=== PATIENT | female | born 1950 | race Caucasian/White ===

== ENCOUNTER 2018-07-04 22:04 | Emergency (ER) | payer MEDICARE, OTHER ==
[2018-07-04] MEDS ORDERED: LIDOCAINE 1% INJ-PF (10 MG/ML) 30 ML SDV INJ ONE (22:50)
[2018-07-04] MEDS ORDERED: ACETAMINOPHEN 325 MG TABLET PO ONE (22:50)
[2018-07-04] MEDS ORDERED: DIPH/PERTUSS(ACELL)/TETANUS VAC/PF 0.5 ML SYR (>=10YO) IM ONE (22:50)
--- NOTE | 2018-07-04 22:52 | ER Document Report ---
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 Patient with laceration to right second finger Associated Symptoms: Other - Right second finger laceration Exacerbated by: Movement Relieved by: Denies Similar symptoms previously: No Recently seen / treated by doctor: No - ROS ROS below otherwise negative: Yes Systems Reviewed and Negative: Yes All other systems reviewed and negative - REPRODUCTIVE LMP: na - MUSCULOSKELETAL Musculoskeletal: REPORTS: Extremity pain - DERM Skin Color: Normal Skin Problems: Laceration Past Medical History - General Information source: Patient - Social History Smoking Status: Never Smoker Frequency of alcohol use: None Drug Abuse: None Lives with: Family Family History: Reviewed & Not Pertinent - Past Medical History Cardiac Medical History: Reports: Hx Hypertension Denies: Hx Coronary Artery Disease, Hx Heart Attack Pulmonary Medical History: Reports: Hx Asthma Denies: Hx Bronchitis, Hx COPD, Hx Pneumonia Neurological Medical History: Denies: Hx Cerebrovascular Accident, Hx Seizures Musculoskeletal Medical History: Reports Hx Arthritis Past Surgical History: Reports: Hx Cholecystectomy, Hx Orthopedic Surgery, Hx Tonsillectomy - Immunizations Hx Diphtheria, Pertussis, Tetanus Vaccination: Yes Vertical Provider Document - CONSTITUTIONAL Agree With Documented VS: Yes Exam Limitations: No Limitations General Appearance: WD/WN, No Apparent Distress - INFECTION CONTROL TRAVEL OUTSIDE OF THE [place] IN LAST 30 DAYS: No - HEENT HEENT: Atraumatic, Normocephalic - NECK Neck: Normal Inspection - RESPIRATORY Respiratory: No Respiratory Distress - CARDIOVASCULAR Pulses: Normal: Radial - MUSCULOSKELETAL/EXTREMETIES Musculoskeletal/Extremeties: MAEW, Tender - Right second finger tip tenderness with laceration, No Edema - NEURO Level of Consciousness: Awake, Alert, Appropriate Motor/Sensory: No Motor Deficit, No Sensory Deficit - DERM Integumentary: Warm, Dry, Laceration - Radial aspect of right second finger Course - Vital Signs Vital signs: Temp Pulse Resp BP Pulse Ox 98.6 F 111 H 18 169/81 H 95 07/04/18 22:16 07/04/18 22:16 07/04/18 22:16 07/04/18 22:16 07/04/18 22:16 Procedures - Laceration/Wound Repair Right Finger 2nd digit Wound length (cm): 1.5 Wound's Depth, Shape: Irregular, Flap Laceration pre-procedure: Shur-Clens applied Anesthetic type: 1% Lidocaine Wound explored: Clean Wound Repaired With: Sutures Suture Size/Type: 5:0, Nylon Number of Sutures: 3 Post-procedure wound care: Sterile dressing applied Post-procedure NV exam normal: Yes Complications: No Discharge - Discharge Clinical Impression: Sinusitis Qualifiers: Sinusitis location: unspecified location Chronicity: acute Recurrence: not specified as recurrent Qualified Code(s): J01.90 - Acute sinusitis, unspecified Finger laceration Qualifiers: Encounter type: initial encounter Finger: index finger Damage to nail status: without damage Foreign body presence: without foreign body Laterality: right Qualified Code(s): S61.210A - Laceration without foreign body of right index finger without damage to nail, initial encounter Condition: Stable Disposition: HOME, SELF-CARE Instructions: Doxycycline (OM), Laceration Care (OM), Sinusitis (OM), Tetanus Immunization Given ([facility]) Additional Instructions: Return immediately for any new or worsening symptoms Followup with your primary care provider, call tomorrow to make a followup appointment Suture removal in 12 days Prescriptions: Doxycycline Hyclate 100 mg PO BID #20 capsule Referrals: DARCI WILLS PA [Primary Care Provider] - Follow up as needed
[2018-07-05] MEDS ORDERED: DOXYCYCLINE HYCLATE 100 MG TABLET PO ONE (00:21)
[2018-07-05 00:39] VITALS: BP 138/72
== END 2018-07-05 00:46 | disposition home or self-care (01) ==
LOC: ER 22:04
DX: S61.210A Laceration without foreign body of right index finger without damage to nail, initial encounter (principal); W45.8XXA Other foreign body or object entering through skin, initial encounter; Y93.89 Activity, other specified; J01.90 Acute sinusitis, unspecified; I10 Essential (primary) hypertension; J45.909 Unspecified asthma, uncomplicated
CPT/HCPCS: 99282; 90715; 12001; A9270; J3490

== ENCOUNTER 2018-09-03 12:23 | Emergency (ER) | payer MEDICARE, OTHER ==
[2018-09-03 12:52] VITALS: BP 118/59
--- NOTE | 2018-09-03 13:22 | ER Document Report ---
ED General - General Chief Complaint: Cough Stated Complaint: HEADACHE Time Seen by Provider: 09/03/18 13:07 TRAVEL OUTSIDE OF THE U.S. IN LAST 30 DAYS: No - HPI Notes: Patient is a 67-year-old female that presents to the emergency department for chief complaint of sinus pressure and cough. Patient reports increased sinus pressure on the right side of her face for the last 7-10 days. She is also endorsing a hoarse voice and dry cough since Saturday. She denies any fevers or chills. She denies any chest pain, palpitations, lightheadedness, nausea, vomiting and diarrhea. She has had a normal appetite. She states she has an albuterol inhaler but has not been using it. She denies formal diagnosis of asthma or COPD. She has been using Mucinex at home which gives her some relief. Past Medical History: Diabetes, hypertension Past Surgical History: Tonsillectomy, bilateral knee replacements, hysterectomy, cholecystectomy, appendectomy Social History: Denies drugs alcohol and tobacco Family History: Reviewed and noncontributory for presenting illness Allergies: Reviewed, see documented allergy list. REVIEW OF SYSTEMS: CONSTITUTIONAL : No fever No chills No diaphoresis No recent illness EENT: No vision changes congestion No sore throat CARDIOVASCULAR: No chest pain No palpitations RESPIRATORY: No shortness of breath cough No difficulty breathing GASTROINTESTINAL: No abdominal pain No nausea No vomiting No diarrhea GENITOURINARY: No dysuria No hematuria No difficulty urinating MUSCULOSKELETAL: No back pain No leg pain No arm pain SKIN: No rashes No lesions LYMPHATIC: No swollen, enlarged glands. NEUROLOGICAL: No lightheadedness No headache No weakness No paresthesias PSYCHIATRIC: No anxiety No depression PHYSICAL EXAMINATION: Vital signs reviewed, nursing noted reviewed. GENERAL: Well-appearing, well-nourished and in no acute distress. HEAD: Atraumatic, normocephalic. EYES: Eyes appear normal, extraocular movements intact, sclera anicteric, conjunctiva are normal. ENT: Bilateral nasal mucosal edema, right maxillary and frontal sinus tenderness to percussion oropharynx clear without exudates. Moist mucous membranes. NECK: Normal range of motion, anterior chain lymphadenopathy LUNGS: Breath sounds clear to auscultation bilaterally and equal. No wheezes rales or rhonchi. HEART: Regular rate and rhythm without murmurs ABDOMEN: Soft, nontender, normoactive bowel sounds. No rebound, guarding, or rigidity. No masses appreciated. EXTREMITIES: Nontender, good range of motion, no pitting or edema. NEUROLOGICAL: No focal neurological deficits. Moves all extremities spontaneously Motor and sensory grossly intact on exam. PSYCH: Normal mood, normal affect. SKIN: Warm, Dry, normal turgor, no rashes or lesions noted on exposed skin - Related Data Allergies/Adverse Reactions: No Known Allergies Allergy (Verified 09/03/18 13:12) Past Medical History - Social History Smoking Status: Never Smoker Chew tobacco use (# tins/day): No Frequency of alcohol use: None Drug Abuse: None Family History: Reviewed & Not Pertinent Patient has suicidal ideation: No Patient has homicidal ideation: No - Past Medical History Cardiac Medical History: Reports: Hx Hypertension Denies: Hx Coronary Artery Disease, Hx Heart Attack Pulmonary Medical History: Reports: Hx Asthma Denies: Hx Bronchitis, Hx COPD, Hx Pneumonia Neurological Medical History: Denies: Hx Cerebrovascular Accident, Hx Seizures Endocrine Medical History: Reports: Hx Diabetes Mellitus Type 2 Renal/ Medical History: Denies: Hx Peritoneal Dialysis Musculoskeletal Medical History: Reports Hx Arthritis Past Surgical History: Reports: Hx Appendectomy, Hx Cholecystectomy, Hx Hysterectomy, Hx Orthopedic Surgery - knees, Hx Tonsillectomy - Immunizations Hx Diphtheria, Pertussis, Tetanus Vaccination: Yes Physical Exam - Vital signs Vitals: Temp Pulse Resp BP Pulse Ox 98.4 F 81 16 118/59 L 94 09/03/18 12:50 09/03/18 12:50 09/03/18 12:50 09/03/18 12:50 09/03/18 12:50 Course - Re-evaluation Re-evalutation: 09/03/18 13:21 Vitals reviewed. Nursing notes reviewed. Patient is in no acute respiratory distress. She is afebrile and nontoxic-appearing. She has tenderness to percussion of her sinuses consistent with acute sinusitis. Patient's lung sounds are clear to auscultation and her cough is dry. I did offer a chest x- ray to evaluate for underlying pneumonia which patient has declined. She will be started on Augmentin for her sinusitis. She was given albuterol inhaler for her cough. She was advised to continue using Mucinex and Nasonex at home. She will return to the emergency room if she develops new or worsening symptoms including fevers and shortness of breath. She will follow with her primary care for reevaluation in the next few days. She was discharged in stable condition. - Vital Signs Vital signs: Temp Pulse Resp BP Pulse Ox 98.4 F 81 16 118/59 L 94 09/03/18 12:50 09/03/18 12:50 09/03/18 12:50 09/03/18 12:50 09/03/18 12:50 Discharge - Discharge Clinical Impression: Cough Sinusitis Qualifiers: Sinusitis location: frontal Chronicity: acute Recurrence: non-recurrent Qualified Code(s): J01.10 - Acute frontal sinusitis, unspecified Condition: Stable Disposition: HOME, SELF-CARE Instructions: Sinusitis ([facility]) Additional Instructions: Please return to the emergency department if you have any worsening, or concern of your symptoms. Please return to the emergency department if you develop chest pain, difficulty breathing, severe abdominal pain, or ongoing vomiting. Please follow-up with your primary care physician in 2-3 days and any other recommended physicians. If prescribed, take all medications as directed. If you have any questions or concerns do not hesitate to return the emergency department for evaluation. If you start to develop worsening shortness of breath, fevers, palpitations, lightheadedness or general malaise please return to the emergency room for further evaluation. Prescriptions: Albuterol Sulfate [Proair HFA Inhalation Aerosol 8.5 gm MDI] 2 puff IH Q4H PRN #1 mdi PRN Reason: Amox Tr/Potassium Clavulanate [Augmentin 875-125 Tablet] 1 tab PO BID 14 Days tablet Referrals: DARCI WILLS PA [Primary Care Provider] - Follow up in 3-5 days
== END 2018-09-03 13:56 | disposition home or self-care (01) ==
LOC: ER 12:23
DX: J01.10 Acute frontal sinusitis, unspecified (principal); R05 Cough; R49.0 Dysphonia; E11.9 Type 2 diabetes mellitus without complications; I10 Essential (primary) hypertension; J45.909 Unspecified asthma, uncomplicated
CPT/HCPCS: 99283

== ENCOUNTER 2018-10-16 13:25 | Emergency (ER) | payer MEDICARE, OTHER ==
[2018-10-16 13:33] VITALS: BP 145/76
--- NOTE | 2018-10-16 13:53 | ER Document Report ---
HPI - HPI Time Seen by Provider: 10/16/18 13:44 Pain Level: 2 Notes: Patient is an afebrile, well-hydrated M 67-year-old female with a history of insulin-dependent diabetes who presents to the emergency department complaining of nasal congestion/discharge, postnasal drip, sinus pressure, and a dry nonproductive cough over the last week. She is eating and drinking without difficulties. She is urinating normally and having normal bowel movements. Denies drug allergies. She has been using Mucinex with minimal relief. No other concerns or complaints. Denies any headache, fever, neck pain, sore throat, chest pain, palpitations, syncope, shortness of breath, wheeze, dyspnea, abdominal pain, nausea/vomiting/diarrhea, urinary retention, dysuria, hematuria, or rash. - ROS Systems Reviewed and Negative: Yes All other systems reviewed and negative - CONSTITUTIONAL Constitutional: REPORTS: Fever, Chills - EENT EENT: REPORTS: Sore Throat - RESPIRATORY Respiratory: REPORTS: Coughing - REPRODUCTIVE Reproductive: DENIES: : Past Medical History - Social History Smoking Status: Never Smoker Chew tobacco use (# tins/day): No Frequency of alcohol use: None Drug Abuse: None Family History: Reviewed & Not Pertinent Patient has suicidal ideation: No Patient has homicidal ideation: No - Past Medical History Cardiac Medical History: Reports: Hx Hypertension Denies: Hx Coronary Artery Disease, Hx Heart Attack Pulmonary Medical History: Reports: Hx Asthma Denies: Hx Bronchitis, Hx COPD, Hx Pneumonia Neurological Medical History: Denies: Hx Cerebrovascular Accident, Hx Seizures Endocrine Medical History: Reports: Hx Diabetes Mellitus Type 2 Renal/ Medical History: Denies: Hx Peritoneal Dialysis Musculoskeletal Medical History: Reports Hx Arthritis Past Surgical History: Reports: Hx Appendectomy, Hx Cholecystectomy, Hx Hysterectomy, Hx Orthopedic Surgery - knees, Hx Tonsillectomy - Immunizations Hx Diphtheria, Pertussis, Tetanus Vaccination: Yes Vertical Provider Document - CONSTITUTIONAL Agree With Documented VS: Yes Notes: PHYSICAL EXAMINATION: GENERAL: Well-appearing, well-nourished and in no acute distress. A&Ox4. Answers questions appropriately. Moves comfortably w/o notable distress HEAD: Atraumatic, normocephalic. EYES: Pupils equal round and reactive to light, extraocular movements intact, sc evelina anicteric, conjunctiva are normal. ENT: EAC clear b/l. TM's intact b/l without erythema, fluid, or perforation. Nares patent and with clear discharge. oropharynx no erythema without exudates. Tonsils absent. No palatine shift. Uvula midline. No tongue protrusion. No drooling, hoarseness, or airway compromise. Moist mucous membranes. No sinus tenderness. Sinus illumination test negative. NECK: Normal range of motion, supple without lymphadenopathy. No rigidity/meningismus. LUNGS: Breath sounds clear to auscultation bilaterally and equal. No wheezes rales or rhonchi. No retractions HEART: Regular rate and rhythm without murmurs, rubs, gallops. NEUROLOGICAL: Normal speech, normal gait. Normal sensory, motor exams PSYCH: Normal mood, normal affect. SKIN: Warm, Dry, normal turgor, no rashes or lesions noted. - INFECTION CONTROL TRAVEL OUTSIDE OF THE [place] IN LAST 30 DAYS: No Course - Re-evaluation Re-evalutation: 10/16/18 13:52 Patient is an afebrile, well-hydrated, 67-year-old female who presents to the ED with acute URI, suspect viral. Vitals are acceptable. PE is otherwise unremarkable. No labs or imaging warranted at this time based on H&P. Patient has no significant cardiopulmonary or immunocompromised medical conditions. Patient's lungs are clear to auscultation bilaterally without tachycardia, hypoxia, or tachypnea. Patient is tolerating p.o. without any difficulties. Low suspicion for any meningitis, sepsis, peritonsillar/pharyngeal abscess, respiratory compromise, severe dehydration, or other emergent systemic condition at this time. Patient is aware this condition can change from initial presentation and she needs to monitor symptoms closely. Rx for tessalon. Conservative measures otherwise for symptoms. Recheck with your PCM in 3-5 days. Return to the ED with any worsening/concerning symptoms otherwise as reviewed in discharge. Patient is in agreement. - Vital Signs Vital signs: Temp Pulse Resp BP Pulse Ox 98.2 F 93 14 145/76 H 94 10/16/18 13:32 10/16/18 13:32 10/16/18 13:32 10/16/18 13:32 10/16/18 13:32 Discharge - Discharge Clinical Impression: Acute URI Condition: Stable Disposition: HOME, SELF-CARE Instructions: Upper Respiratory Illness ([facility]) Additional Instructions: Maintain adequate fluid intake Take meds as directed tylenol/ibuprofen as needed over the counter cold medication as needed for symptoms--may use afrin nose spray for no more than 5 days. Humidified air may help Wash your hands regularly Wear a mask when coughing F/u: with your PCM in 3-5 days for a recheck Return to the ED with any fever, worsening pain, chest pain, palpitations, syncope, worsening STATON, neck pain/stiffness, shortness of breath, wheezing, drooling, trouble swallowing/breathing, abdominal pain, n/v/d, rash, or worsening/concerning symptoms otherwise. Prescriptions: Benzonatate [Tessalon Perle 100 mg Capsule] 100 mg PO Q8HP PRN #15 cap PRN Reason: Forms: Elevated Blood Pressure Referrals: DARCI WILLS PA [Primary Care Provider] - Follow up in 3-5 days
== END 2018-10-16 14:02 | disposition home or self-care (01) ==
LOC: ER 13:25
DX: J06.9 Acute upper respiratory infection, unspecified (principal); R09.81 Nasal congestion; R09.82 Postnasal drip; J34.89 Other specified disorders of nose and nasal sinuses; R05 Cough; R50.9 Fever, unspecified; J02.9 Acute pharyngitis, unspecified; J45.909 Unspecified asthma, uncomplicated; I10 Essential (primary) hypertension; E11.9 Type 2 diabetes mellitus without complications; Z79.4 Long term (current) use of insulin
CPT/HCPCS: 99283

== ENCOUNTER → 2019-07-06 | Outpatient (CLI) | payer MEDICARE ==
[2019-07-06 14:14] LABS: BACTERIA (WET MOUNT) 4+ BACTERIA SEEN; EPITHELIALS (WET MOUNT) 4+ EPITHELIALS SEEN; T.VAGINALIS (WET MOUNT) NO TRICHOMONAS SEEN; WBCS (WET MOUNT) 4+ WBCS SEEN; YEAST (WET MOUNT) NO YEAST SEEN
== END ==
LOC: LAB 13:19
PROVIDERS: ATTEND Nurse Practitioner Acute Care
DX: M54.5 Low back pain (principal); N89.8 Other specified noninflammatory disorders of vagina; R39.0 Extravasation of urine
CPT/HCPCS: 87086; 87088; 87186; 87210

== ENCOUNTER → 2020-01-18 | Outpatient (CLI) | payer MEDICARE, OTHER ==
[2020-01-18 16:50] LABS: ABSOLUTE LYMPHOCYTES (AUTO) 0.8 10^3/uL (0.5-4.7); ABSOLUTE MONOCYTES (AUTO) 0.3 10^3/uL (0.1-1.4); BASOPHILS % (AUTO) 0.5 % (0-2); EOSINOPHILS % (AUTO) 1.1 % (0-6); HEMATOCRIT 30.4 % (36.0-47.0); HEMOGLOBIN 10.6 g/dL (12.0-15.5); LYMPHOCYTES % (AUTO) 18.8 % (13-45); MEAN CORPUSCULAR HEMOGLOBIN 30.2 pg (27.0-33.4); MEAN CORPUSCULAR VOLUME 86 fl (80-97); MONOCYTES % (AUTO) 7.5 % (3-13); PLATELET COUNT 123 10^3/uL (150-450); RED BLOOD COUNT 3.52 10^6/uL (3.72-5.28); SEGMENTED NEUTROPHILS % (AUTO) 72.1 % (42-78); TOTAL CELLS COUNTED % (AUTO) 100 %; WHITE BLOOD COUNT 4.2 10^3/uL (4.0-10.5)
[2020-01-18 16:55] LABS: APPEARANCE,URINE CLEAR; BILIRUBIN,URINE NEGATIVE (NEGATIVE); COLOR,URINE YELLOW; GLUCOSE, URINE NEGATIVE (NEGATIVE); KETONES,URINE NEGATIVE (NEGATIVE); LEUKOCYTE ESTERASE,URINE TRACE (NEGATIVE); NITRITE,URINE NEGATIVE (NEGATIVE); PROTEIN,URINE NEGATIVE (NEGATIVE); URINE SPECIFIC GRAVITY 1.008; UROBILINOGEN,URINE NEGATIVE mg/dL (<2.0)
[2020-01-18 17:11] LABS: ALBUMIN 3.1 g/dL (3.5-5.0); ALKALINE PHOSPHATASE 69 U/L (38-126); ANION GAP 5 (5-19); ASPARTATE AMINO TRANSFERASE 36 U/L (14-36); BILIRUBIN,DIRECT 0.1 mg/dL (0.0-0.4); BLOOD UREA NITROGEN 6 mg/dL (7-20); CALCIUM 8.3 mg/dL (8.4-10.2); CARBON DIOXIDE 30 mmol/L (22-30); CHLORIDE 102 mmol/L (98-107); GLUCOSE 91 mg/dL (75-110); POTASSIUM 3.6 mmol/L (3.6-5.0)
== END ==
LOC: OD 16:14
PROVIDERS: ATTEND Nurse Practitioner Family
DX: R10.84 Generalized abdominal pain (principal); R14.0 Abdominal distension (gaseous); R19.7 Diarrhea, unspecified; R68.81 Early satiety
CPT/HCPCS: 36415; 80053; 81001; 85025

== ENCOUNTER → 2020-01-20 | Outpatient (CLI) | payer MEDICARE, OTHER ==
--- NOTE | 2020-01-20 15:47 | RADIOLOGY REPORT (SQ) ---
EXAM DESCRIPTION: CT ABD/PELVIS WITH IV ONLY IMAGES COMPLETED DATE/TIME: 01/20/2020 2:45 pm REASON FOR STUDY: R10.32 LEFT LOWER QUADRANT PAIN R10.32 LEFT LOWER QUADRANT PAIN COMPARISON: None. TECHNIQUE: CT scan of the abdomen and pelvis performed using helical scanning technique with dynamic intravenous contrast injection. No oral contrast. Images reviewed with lung, soft tissue, and bone windows. Reconstructed coronal and sagittal MPR images reviewed. Delayed images for evaluation of the urinary system also acquired. All images stored on PACS. All CT scanners at this facility use dose modulation, iterative reconstruction, and/or weight based d osing when appropriate to reduce radiation dose to as low as reasonably achievable (ALARA). [facility]: Dose Right [facility]: CareDose [facility]: Dose Right [facility]: Teradose 4D [facility]: [employer]x CONTRAST TYPE AND DOSE: contrast/concentration: Isovue 350.00 mg/ml; Total Contrast Delivered: 100.0 ml; Total Saline Delivered: 63.0 ml RENAL FUNCTION: Creatinine 0.7 RADIATION DOSE: CT Rad equipment meets quality standard of care and radiation dose reduction techniq ues were employed. CTDIvol: 23.9 - 24.0 mGy. DLP: 2740 mGy-cm.. LIMITATIONS: None. FINDINGS: LOWER CHEST: Trace left pleural effusion. Mild deep and consolidation. Additional nonspe cific areas of scattered ground-glass attenuation within both lung bases. LIVER: Nodular hepatic contour. No focal lesions. No intrahepatic ductal dilation. SPLEEN: Splenomegaly measuring 18 cm maximally. No focal lesions. PANCREAS: No masses. No significant calcifications. No adjacent inflammation or peripancreatic fluid collections. Pancreatic duct not dilated. GALLBLADDER: Surgically absent. ADRENAL GLANDS: No significant masses or asymmetry. RIGHT KIDNEY AND URETER: No solid masses. No significant calcifications. No hydronephrosis or hyd roureter. LEFT KIDNEY AND URETER: No solid masses. No significant calcifications. Extrarenal pelvis with mi ld fullness. No significant caliceal dilation. AORTA AND VESSELS: No aneurysm. No dissection. Renal arteries, SMA, celiac without stenosis. RETROPERITONEUM: Shotty retroperitoneal nodes without discrete adenopathy. No retroperitoneal mass o r hemorrhage. BOWEL AND PERITONEAL CAVITY: No evidence of intestinal obstruction. Apparent long segment colonic wa ll thickening predominantly involving the transverse colon. No focal wall thickening. Sequelae of e levated portal pressures with portosystemic collaterals and prominent mesenteric vessels. Moderate v olume ascites. No free intraperitoneal gas. APPENDIX: Normal. PELVIS: Unremarkable urinary bladder. Pelvic ascites. No discrete mass or adenopathy. ABDOMINAL WALL: Mild anasarca. BONES: No acute bony abnormality. No suspicious osseous lesions. Thoracolumbar spondylosis with dis c height loss greatest at L4-5 and L5-S1. Additional degenerative change with disc height loss at Sc hmorl's node at L1-2. OTHER: No other significant finding. IMPRESSION: 1. Trace left effusion. Scattered nonspecific areas of ground-glass attenuation within both lung bases possibly infectious/ inflammatory versus hypoventilatory change. 2. Cirrhotic hepatic morphology. Additional stigmata of cirrhosis with splenomegaly, mesenteric eng orgement and portosystemic collaterals. 3. Mild long segment transverse colonic wall thickening suggestive of colitis. TECHNICAL DOCUMENTATION: JOB ID: [id number] Quality ID # [id number]: Final reports with documentation of one or more dose reduction techniques (e.g., Au tomated exposure control, adjustment of the mA and/or kV according to patient size, use of iterative reconstruction technique) 2010 [employer]- All Rights Reserved Reading location - IP/workstation name: [email or web address]
== END ==
LOC: RAD 14:12
PROVIDERS: ATTEND Nurse Practitioner Family
DX: K74.60 Unspecified cirrhosis of liver (principal); R18.8 Other ascites; R16.1 Splenomegaly, not elsewhere classified; J90 Pleural effusion, not elsewhere classified; R10.32 Left lower quadrant pain
CPT/HCPCS: 74177; 82565

== ENCOUNTER 2020-01-29 12:37 | Inpatient (IN) | payer MEDICARE, OTHER ==
[2020-01-29 13:10] LABS: ABSOLUTE EOSINOPHILS # (AUTO) 0.1 10^3/uL (0.0-0.6); ABSOLUTE LYMPHOCYTES (AUTO) 0.6 10^3/uL (0.5-4.7); ABSOLUTE MONOCYTES (AUTO) 0.2 10^3/uL (0.1-1.4); ABSOLUTE NEUT (AUTO) 2.6 10^3/uL (1.7-8.2); BASOPHILS % (AUTO) 0.3 % (0-2); EOSINOPHILS % (AUTO) 1.7 % (0-6); HEMATOCRIT 30.4 % (36.0-47.0); HEMOGLOBIN 10.3 g/dL (12.0-15.5); LYMPHOCYTES % (AUTO) 17.2 % (13-45); MEAN CORPUSCULAR HEMOGLOBIN 29.5 pg (27.0-33.4); MEAN CORPUSCULAR VOLUME 87 fl (80-97); MONOCYTES % (AUTO) 6.6 % (3-13); PLATELET COUNT 121 10^3/uL (150-450); RED CELL DISTRIBUTION WIDTH 17.5 % (11.5-14.0); SEGMENTED NEUTROPHILS % (AUTO) 74.2 % (42-78); TOTAL CELLS COUNTED % (AUTO) 100 %; WHITE BLOOD COUNT 3.5 10^3/uL (4.0-10.5)
--- NOTE | 2020-01-29 13:26 | ER Document Report ---
ED Respiratory Problem - General Chief Complaint: Shortness Of Breath Stated Complaint: SHORTNESS OF BREATH Time Seen by Provider: 01/29/20 12:43 Notes: Patient is a 69-year-old female who presents to the emergency department for worsening abdominal distention and shortness of breath. Patient states that she tested positive for COVID-19 about 2 weeks ago. She has been in quarantine. She went to her primary care provider who recommended that she get tested again for COVID-19. She went to the [facility] clinic and then was referred here to the emergency department for a blood pressure of 88/50. Patient states that her abdominal distention has gotten progressively worse. CT of the abdomen last week showed that she had hepatomegaly. Patient reports that she feels short of breath mainly when she walks. Denies shortness of breath when she is lying still. TRAVEL OUTSIDE OF THE [place] IN LAST 30 DAYS: No - Related Data Allergies/Adverse Reactions: No Known Allergies Allergy (Verified 01/29/20 13:12) Past Medical History - Social History Smoking Status: Never Smoker Chew tobacco use (# tins/day): No Drug Abuse: None Family History: Reviewed & Not Pertinent Patient has homicidal ideation: No - Past Medical History Cardiac Medical History: Reports: Hx Hypertension Denies: Hx Coronary Artery Disease, Hx Heart Attack Pulmonary Medical History: Reports: Hx Asthma Denies: Hx Bronchitis, Hx COPD, Hx Pneumonia Neurological Medical History: Denies: Hx Cerebrovascular Accident, Hx Seizures Endocrine Medical History: Reports: Hx Diabetes Mellitus Type 2 Renal/ Medical History: Denies: Hx Peritoneal Dialysis Musculoskeletal Medical History: Reports Hx Arthritis Past Surgical History: Reports: Hx Appendectomy, Hx Cholecystectomy, Hx Hysterectomy, Hx Orthopedic Surgery - knees, Hx Tonsillectomy - Immunizations Hx Diphtheria, Pertussis, Tetanus Vaccination: Yes Review of Systems - Review of Systems Notes: REVIEW OF SYSTEMS: CONSTITUTIONAL : Denies recent illness. Denies recent unintentional weight loss. Denies fever, chills, or sweats. EENT: Denies eye, ear, throat, or mouth pain, discharge, or symptoms. Denies nasal or sinus congestion. CARDIOVASCULAR: Denies chest pain. RESPIRATORY: See HPI. GASTROINTESTINAL: See HPI. GENITOURINARY: Denies difficulty urinating, burning, blood in urine, urgency or frequency. MUSCULOSKELETAL: Denies neck and back pain. Denies joint pain or swelling. SKIN: Denies rash, itchiness, or lesions HEMATOLOGIC : Denies easy bruising or bleeding. LYMPHATIC: Denies swollen, painful, enlarged glands. NEUROLOGICAL: Denies no numbness or tingling denies weakness. Denies headache. Denies altered mental status. Denies alteration in speech. PSYCHIATRIC: Denies stress, anxiety, alteration in sleep patterns, or depression. All other systems reviewed and negative. Physical Exam - Vital signs Vitals: Pulse Ox 97 01/29/20 12:44 - Notes Notes: PHYSICAL EXAMINATION: GENERAL: Appears well, healthy, well-nourished, no acute distress. HEAD: Normocephalic, atraumatic. EYES: PERRL, conjunctiva normal, all extraocular movements intact, sclera nonicteric ENT: Moist mucous membranes. NECK: Supple, no noticeable swelling, redness, rash. Normal range of motion. LUNGS: Equal breath sounds bilaterally and clear to auscultation. No wheezes rales or rhonchi. CARDIOVASCULAR: S1-S2, regular rate, regular rhythm. Radial pulses 2+, normal. ABDOMEN: Normoactive bowel sounds. Firm, round, moderately tender abdomen. EXTREMITIES: Normal strength and range of motion, no pitting or edema. No cyanosis. NEUROLOGICAL: Moves all extremities upon command. Strength 5/5 in all extremities. PSYCH: Normal mood, normal affect. SKIN: Warm, dry. No rash, lesions, ulcerations noted. Normal skin turgor. Course - Re-evaluation Re-evalutation: 01/29/20 16:07 Hematology shows a mild leukopenia of 3500. She also has a platelet count of 121. Hemoglobin is 10.3 with hematocrit of 30.4. Chemistries show a potassium of 3.5, which be replaced here in the emergency department. Magnesium is 1.3. We will also replace the magnesium. BNP is very mildly elevated at 523. I spoke, with SUMMER Caballero. He would like me to speak with the mail messenger. Nurs ing staff also informed me that the patient's blood sugar is 47. 1 amp of D50 ordered. 01/29/20 16:[address] Ramon, the mail messenger. He will evaluate the patient. 01/29/20 16:36 Dr. Ramon has evaluated the patient. At this time, the patient will be admitted to the hospitalist service. Toby luna states the patient will be admitted to the COVID unit. - Vital Signs Vital signs: Temp Pulse Resp BP Pulse Ox 98.8 F 82 16 122/65 99 01/30/20 07:35 01/30/20 07:35 01/30/20 07:35 01/30/20 07:35 01/30/20 07:35 - Laboratory Result Diagrams: 01/30/20 06:19 01/29/20 18:25 Laboratory results interpreted by me: 01/29/20 01/29/20 01/29/20 12:55 12:55 12:55 WBC 3.5 L RBC 3.50 L Hgb 10.3 L Hct 30.4 L RDW 17.5 H Plt Count 121 L Potassium 3.5 L Glucose 124 H POC Glucose Magnesium 1.3 L Total Bilirubin 1.4 H AST 40 H NT-Pro-B Natriuret Pep 523 H Total Protein 6.0 L Albumin 3.2 L SARS-CoV-2 (PCR) 01/29/20 01/29/20 16:05 16:10 WBC RBC Hgb Hct RDW Plt Count Potassium Glucose POC Glucose 46 L Magnesium Total Bilirubin AST NT-Pro-B Natriuret Pep Total Protein Albumin SARS-CoV-2 (PCR) POSITIVE A* Discharge - Discharge Clinical Impression: Shortness of breath Ascites Qualifiers: Ascites type: other type Qualified Code(s): R18.8 - Other ascites Condition: Fair Disposition: ADMITTED INPATIENT Admitting Provider: Ava (Hospitalist) - with SUMMER Caballero Unit Admitted: Medical Floor - COVID floor
--- NOTE | 2020-01-29 13:36 | RADIOLOGY REPORT (SQ) ---
EXAM DESCRIPTION: CHEST SINGLE VIEW IMAGES COMPLETED DATE/TIME: 01/29/2020 1:26 pm REASON FOR STUDY: shortness of breath COMPARISON: None. EXAM PARAMETERS: NUMBER OF VIEWS: One view. TECHNIQUE: Single frontal radiographic view of the chest acquired. RADIATION DOSE: NA LIMITATIONS: None. FINDINGS: LUNGS AND PLEURA: Left lower infiltrate either atelectasis or pneumonia. Possible small l eft effusion. MEDIASTINUM AND HILAR STRUCTURES: No masses. Contour normal. HEART AND VASCULAR STRUCTURES: Heart normal in size. Normal vasculature. BONES: No acute findings. HARDWARE: None in the chest. OTHER: No other significant finding. IMPRESSION: Left lower lobe airspace disease either atelectasis or pneumonia. Small left effusion c annot be excluded. TECHNICAL DOCUMENTATION: JOB ID: [id number] 2010 [employer]- All Rights Reserved Reading location - IP/workstation name: [email or web address]
[2020-01-29 13:37] LABS: ALBUMIN 3.2 g/dL (3.5-5.0); ALKALINE PHOSPHATASE 58 U/L (38-126); ANION GAP 5 (5-19); ASPARTATE AMINO TRANSFERASE 40 U/L (14-36); BILIRUBIN,DIRECT 0.1 mg/dL (0.0-0.4); BILIRUBIN,TOTAL 1.4 mg/dL (0.2-1.3); BLOOD UREA NITROGEN 9 mg/dL (7-20); CALCIUM 8.7 mg/dL (8.4-10.2); CARBON DIOXIDE 30 mmol/L (22-30); CHLORIDE 104 mmol/L (98-107); GLUCOSE 124 mg/dL (75-110); POTASSIUM 3.5 mmol/L (3.6-5.0)
[2020-01-29] MEDS: MAGNESIUM SULFATE/D5W 1 GM/100 ML RTUPB IV SCH ×2 (14:59→16:00)
--- NOTE | 2020-01-29 15:17 | RADIOLOGY REPORT (SQ) ---
EXAM DESCRIPTION: CT CHEST WITH IMAGES COMPLETED DATE/TIME: 01/29/2020 3:01 pm REASON FOR STUDY: shortness of breath COMPARISON: Chest x-ray done earlier the same day. TECHNIQUE: CT scan of the chest performed using helical scanning technique with dynamic intravenous contrast injection. Images reviewed with lung, soft tissue and bone windows. Reconstructed coronal and sagittal MPR and MIP images reviewed. All images stored on PACS. All CT scanners at this facility use dose modulation, iterative reconstruction, and/or weight based d osing when appropriate to reduce radiation dose to as low as reasonably achievable (ALARA). [facility]: Dose Right [facility]: CareDose [facility]: Dose Right [facility]: Teradose 4D [facility]: [employer] CONTRAST TYPE AND DOSE: 100 mL Omnipaque 350 RENAL FUNCTION: BUN 9, creatinine 0.75 RADIATION DOSE: . LIMITATIONS: None. FINDINGS: LUNGS AND PLEURA: There are small bilateral pleural effusions left greater than right. Th ere is basilar airspace disease most likely atelectasis. Scattered ground-glass opacity most likely atelectasis as well. No focal consolidation. HILAR AND MEDIASTINAL STRUCTURES: Scattered small mediastinal nodes most likely reactive. HEART AND VASCULAR STRUCTURES: No aneurysm or dissection. No central pulmonary emboli. No pericardi al effusion. HARDWARE: None in the chest. UPPER ABDOMEN: Stable moderate volume ascites. THYROID AND OTHER SOFT TISSUES: No masses. No adenopathy. BONES: No significant finding. OTHER: No other significant finding. IMPRESSION: Small bilateral pleural effusions and basilar atelectasis left greater than right. Scat tered bilateral ground-glass opacities most consistent with atelectasis as well. TECHNICAL DOCUMENTATION: JOB ID: [id number] Quality ID # [id number]: Final reports with documentation of one or more dose reduction techniques (e.g., Au tomated exposure control, adjustment of the mA and/or kV according to patient size, use of iterative reconstruction technique) 2010 [employer]- All Rights Reserved Reading location - IP/workstation name: [email or web address]
--- NOTE | 2020-01-29 15:20 | RADIOLOGY REPORT (SQ) ---
EXAM DESCRIPTION: CT ABD/PELVIS WITH IV ONLY IMAGES COMPLETED DATE/TIME: 01/29/2020 2:59 pm REASON FOR STUDY: worsening abdominal distension COMPARISON: None. TECHNIQUE: CT scan of the abdomen and pelvis performed using helical scanning technique with dynamic intravenous contrast injection. No oral contrast. Images reviewed with lung, soft tissue, and bone windows. Reconstructed coronal and sagittal MPR images reviewed. Delayed images for evaluation of the urinary system also acquired. All images stored on PACS. All CT scanners at this facility use dose modulation, iterative reconstruction, and/or weight based d osing when appropriate to reduce radiation dose to as low as reasonably achievable (ALARA). [facility]: Dose Right [facility]: CareDose [facility]: Dose Right [facility]: Teradose 4D [facility]: [email or web address] CONTRAST TYPE AND DOSE: contrast/concentration: Isovue 350.00 mg/ml; Total Contrast Delivered: 100.0 ml; Total Saline Delivered: 72.0 ml RENAL FUNCTION: BUN 9, creatinine 0.75 RADIATION DOSE: CT Rad equipment meets quality standard of care and radiation dose reduction techniq ues were employed. CTDIvol: 15.8 - 19.7 mGy. DLP: 2424 mGy-cm.. LIMITATIONS: None. FINDINGS: LOWER CHEST: Small pleural effusions and basilar airspace disease most likely atelectasis. Left slightly greater than right. LIVER: Small nodular appearing liver consistent with cirrhosis. SPLEEN: Splenomegaly. No focal lesions. PANCREAS: No masses. No significant calcifications. No adjacent inflammation or peripancreatic fluid collections. Pancreatic duct not dilated. GALLBLADDER: Surgically absent. ADRENAL GLANDS: No significant masses or asymmetry. RIGHT KIDNEY AND URETER: No solid masses. No significant calcifications. No hydronephrosis or hyd roureter. LEFT KIDNEY AND URETER: No solid masses. No significant calcifications. No hydronephrosis. There is a prominent extrarenal pelvis which is unchanged. AORTA AND VESSELS: No aneurysm. No dissection. Renal arteries, SMA, celiac without stenosis. RETROPERITONEUM: Scattered small retroperitoneal nodes most likely reactive. BOWEL AND PERITONEAL CAVITY: No obstruction. Moderate volume ascites stable from January 19. APPENDIX: Normal. PELVIS: There is free fluid the pelvis. ABDOMINAL WALL: No masses. No hernias. BONES: No significant or acute findings. OTHER: No other significant finding. IMPRESSION: 1. Stable moderate volume ascites. 2. Splenomegaly. 3. Small nodular liver consistent with cirrhosis. TECHNICAL DOCUMENTATION: JOB ID: [id number] Quality ID # [id number]: Final reports with documentation of one or more dose reduction techniques (e.g., Au tomated exposure control, adjustment of the mA and/or kV according to patient size, use of iterative reconstruction technique) 2010 [employer]- All Rights Reserved Reading location - IP/workstation name: [email or web address]
[2020-01-29] MEDS ORDERED: DEXTROSE 50%-WATER 25 GM/50 ML DISP.SYRIN IV ONE ×3 (16:06→19:14)
[2020-01-29] MEDS ORDERED: AZITHROMYCIN INJ 500 MG VIAL IV ONE (16:34)
--- NOTE | 2020-01-29 16:46 | PDOC CRITICAL CARE PROG REPORT ---
General Date:: 01/29/20 Resuscitation Status: Full Code Events in the past 12 to 24 Hours:: Increasing abdominal girth. Some SOB from this covid positive 2 weeks ago. Another pending. Review of systems relevant to events:: Pulmonary, GI Reason for ICU Addmission:: Evaluation - Medications: Medications reviewed and adjusted accordingly: Yes Vasopressors:: None Sedation:: None Physical Exam Vital Signs: Temp Pulse Resp BP Pulse Ox 99.3 F 17 118/71 93 01/29/20 13:05 01/29/20 14:01 01/29/20 14:01 01/29/20 14:01 Intake & Output 01/28/20 01/29/20 01/30/20 06:59 06:59 06:59 Intake Total 100 Balance 100 Weight 101.9 kg Weight/Height Weight 101.9 kg Height 5 ft 6 in General appearance: PRESENT: no acute distress, cooperative Head exam: PRESENT: atraumatic, normocephalic Eye exam: PRESENT: conjunctiva pink, EOMI, PERRLA. ABSENT: scleral icterus Ear exam: PRESENT: normal external ear exam Mouth exam: PRESENT: moist, tongue midline Neck exam: ABSENT: carotid bruit, JVD, lymphadenopathy, thyromegaly Respiratory exam: PRESENT: clear to auscultation evita. ABSENT: rales, rhonchi, wheezes Cardiovascular exam: PRESENT: RRR. ABSENT: diastolic murmur, rubs, systolic murmur GI/Abdominal exam: PRESENT: ascites, distended, hypoactive bowel sounds, other - Old cholecystectomy scar. Mild caput medusae Rectal exam: PRESENT: deferred Extremities exam: PRESENT: full ROM, +1 edema. ABSENT: calf tenderness, clubbing, pedal edema Musculoskeletal exam: PRESENT: normal inspection Neurological exam: PRESENT: alert, awake, oriented to person, oriented to place, oriented to time, oriented to situation, CN II-XII grossly intact. ABSENT: motor sensory deficit Psychiatric exam: PRESENT: appropriate affect, normal mood. ABSENT: homicidal ideation, suicidal ideation Skin exam: PRESENT: dry, intact, warm. ABSENT: cyanosis, rash Laboratory/Radiographs Laboratory Results: 01/29/20 12:55 01/29/20 12:55 01/29/20 01/29/20 12:55 12:55 WBC 3.5 L RBC 3.50 L Hgb 10.3 L Hct 30.4 L MCV 87 MCH 29.5 MCHC 34.0 RDW 17.5 H Plt Count 121 L Seg Neutrophils % 74.2 Sodium 138.9 Potassium 3.5 L Chloride 104 Carbon Dioxide 30 Anion Gap 5 BUN 9 Creatinine 0.75 Est GFR ( Amer) > 60 Glucose 124 H Calcium 8.7 Magnesium 1.3 L Total Bilirubin 1.4 H AST 40 H Alkaline Phosphatase 58 Total Protein 6.0 L Albumin 3.2 L 01/29/20 12:55 NT-Pro-B Natriuret Pep 523 H Impressions: Chest X-Ray 01/29/20 12:44 IMPRESSION: Left lower lobe airspace disease either atelectasis or pneumonia. Small left effusion cannot be excluded. Abdomen/Pelvis CT 01/29/20 13:16 IMPRESSION: 1. Stable moderate volume ascites. 2. Splenomegaly. 3. Small nodular liver consistent with cirrhosis. Chest CT 01/29/20 13:16 IMPRESSION: Small bilateral pleural effusions and basilar atelectasis left greater than right. Scattered bilateral ground-glass opacities most consistent with atelectasis as well. All labs, radiographs, diagnostic studies and EKGs were personally reviewed: Yes In addition, reports of radiographic and diagnostic studies were read: Yes Assessment and Plan - Diagnosis (1) COVID-19 Is this a current diagnosis for this admission?: Yes Plan: Another test is pending. I would treat as positive until it is back as negative. (2) Cirrhosis Qualifiers: Hepatic cirrhosis type: unspecified hepatic cirrhosis Ascites presence: with ascites Qualified Code(s): K74.60 - Unspecified cirrhosis of liver; R18.8 - Other ascites Is this a current diagnosis for this admission?: Yes Plan: She has no history of alcoholic drinking, no hx of hep C. A search for why this is -hepatitis panel probably warranted. (3) Ascites Qualifiers: Ascites type: other type Qualified Code(s): R18.8 - Other ascites Is this a current diagnosis for this admission?: Yes Plan: Although her abdomen is distended she has moderate ascites and a pqaracentesis until we better know the cause can be done later (4) Shortness of breath Is this a current diagnosis for this admission?: Yes Plan: This is largelyt aq result of abd distention. She is only on 2L talking comfortably, CXR and CT shows atelectasis and very mild ground glass opacities. Not any where near ARDS. Plan Summary: At this point she does not need an ICU level of care. Reconsult if needed. Critical Time Critical Time (minutes): 35 Level of Care: MEDICAL Anticipated discharge: Home Within: Other -: 1. The care of a critical patient is a dynamic process. This note is a entry level sales representative synopsis but static in nature. The timeframe for treatments given in order is not necessarily the actual time these treatments may have been done. 2. This patient requires critical care secondary to ongoing requirements for therapy not offered or safe outside the critical care environment. Transfer to a lower level of care will result in altered life or limb morbidity and mort ality. 3. Multidisciplinary rounds completed. 4. ABCDE bundle addressed.
[2020-01-29] MEDS ORDERED: PROMETHAZINE HCL INJ 25 MG/1 ML VIAL IV PRN (16:59)
[2020-01-29] MEDS ORDERED: MAG HYDROX/AL HYDROX/SIMETH SUSP 30 ML UDCUP PO PRN (16:59)
[2020-01-29 18:48] LABS: INTERNATIONAL RATION (INR) 1.08
[2020-01-29 19:01] LABS: ANION GAP 7 (5-19); BLOOD UREA NITROGEN 7 mg/dL (7-20); CALCIUM 8.5 mg/dL (8.4-10.2); CARBON DIOXIDE 30 mmol/L (22-30); CHLORIDE 101 mmol/L (98-107); CREATINE KINASE 95 U/L (30-135)
[2020-01-29 19:03] LABS: C-REACTIVE PROTEIN 14.1 mg/L (<10.0)
[2020-01-29 19:07] LABS: AMYLASE < 30 U/L (30-110); GLUCOSE 62 mg/dL (75-110); POTASSIUM 2.9 mmol/L (3.6-5.0)
--- NOTE | 2020-01-29 19:14 | PDOC H&P ---
History of Present Illness Admission Date/PCP: 01/29/20 17:24 TOMÁS LUA NP History of Present Illness: CURTIS HAYES is a 69 year old female presented to the emergency room today with hypotension.. Patient has a very confusing history that begins back in November when she was sick with a viral-like illness probably COVID-19. According to the family and the patient she had about 3 weeks where she was very sleepy and tired had no energy she had fever and chills and a lot of coughing she seemed to get better in December and then towards the end of December once again she started getting tired and weak. Also noticed around the end of December that her abdomen started becoming distended and swollen and very tight. 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 He has not had a paracentesis yet.. Tonight in our emergency room her COVID-19 rapid test PCR was positive. According to the family and the patient between 1 and 2 weeks ago in her doctor's office she tested positive for antibodies for COVID. I am unsure if this is an active ongoing COVID case or if this is just a residual left over from November with a positive test today. Have had the accounts receivable collector look at the patient prior to me seeing her and he feels like she is stable to go to the floor and that her shortness of breath is coming from her ascites and distended abdomen. After examining her and talking to her I feel like he is correct. CT abdomen and pelvis shows stable moderate volume ascites #1 #2 splenomegaly #3 small nodular liver consistent with cirrhosis CT scan of the chest shows small bilateral pleural effusions and basilar atelectasis left greater than right scattered bilateral groundglass opacities most consistent with atelectasis as well She has told me emphatically that she does not want to be resuscitated or intubated. She tells me her family is aware of her wishes Past Medical History Cardiac Medical History: Reports: Hypertension Denies: Coronary Artery Disease, Myocardial Infarction Pulmonary Medical History: Reports: Asthma Denies: Bronchitis, Chronic Obstructive Pulmonary Disease (COPD), Pneumonia Neurological Medical History: Denies: Seizures Endocrine Medical History: Reports: Diabetes Mellitus Type 2 Musculoskeltal Medical History: Reports: Arthritis Hematology: Denies: Anemia Past Surgical History Past Surgical History: Reports: Appendectomy, Cholecystectomy, Hysterectomy, Orthopedic Surgery - knees, Tonsillectomy Social History Smoking Status: Never Smoker Electronic Cigarette use?: No - Advance Directive Resuscitation Status: Do Not Resuscitate Family History Family History: Reviewed & Not Pertinent Parental Family History Reviewed: No Children Family History Reviewed: No Sibling(s) Family History Reviewed.: No Medication/Allergy Home Medications: Aspirin 81 mg PO DAILY 07/01/14 Clonidine HCl [Catapres 0.3 mg Tablet] 0.3 mg PO DAILY 07/01/14 Cyclobenzaprine HCl [Flexeril 10 mg Tablet] 10 mg PO DAILY PRN 07/01/14 Diphenhydramine HCl [Zzzquil] 25 mg PO QHS PRN 07/01/14 Esomeprazole Magnesium [Nexium] 40 mg PO DAILY 07/01/14 Estrogens,Conjugated [Premarin 0.625 Mg Tablet] 0.625 mg PO DAILY 07/01/14 Fenofibrate Nanocrystallized [Tricor 145 mg Tablet] 145 mg PO QHS 07/01/14 Furosemide [Lasix 20 mg Tablet] 20 mg PO BID PRN 07/01/14 Insulin Glargine,Hum.rec.anlog [Lantus Solostar] 70 unit SQ QHS 07/01/14 Levothyroxine Sodium [Synthroid] 175 mcg PO DAILY 07/01/14 Lorazepam 1 mg PO TID PRN 07/01/14 Losartan Potassium [Cozaar 50 mg Tablet] 50 mg PO DAILY 07/01/14 Meloxicam [Mobic 15 mg Tablet] 15 mg PO DAILY 07/01/14 Paroxetine HCl [Paxil 20 mg Tablet] 20 mg PO DAILY 07/01/14 Phentermine HCl 37.5 mg PO DAILY 07/01/14 Ropinirole HCl [Requip] 2 mg PO DAILY 07/01/14 Doxycycline Hyclate 100 mg PO BID #20 capsule 07/05/18 Albuterol Sulfate [Proair HFA Inhalation Aerosol 8.5 gm MDI] 2 puff IH Q4H PRN #1 mdi 09/03/18 Amox Tr/Potassium Clavulanate [Augmentin 875-125 Tablet] 1 tab PO BID 14 Days tablet 09/03/18 Benzonatate [Tessalon Perle 100 mg Capsule] 100 mg PO Q8HP PRN #15 cap 01/31/19 Allergies/Adverse Reactions: No Known Allergies Allergy (Verified 01/29/20 13:12) Review of Systems Constitutional: PRESENT: fatigue, weakness Cardiovascular: PRESENT: dyspnea on exertion Respiratory: PRESENT: dyspnea Gastrointestinal: PRESENT: bloating. ABSENT: abdominal pain, constipation, diarrhea, hematemesis, hematochezia, nausea, vomiting Neurological: ABSENT: abnormal gait, abnormal speech, confusion, dizziness, focal weakness, syncope Psychiatric: ABSENT: anxiety, depression, homidical ideation, suicidal ideation Physical Exam Vital Signs: Temp Pulse Resp BP Pulse Ox 99.1 F 15 109/73 98 01/29/20 16:00 01/29/20 18:31 01/29/20 18:31 01/29/20 18:31 Intake & Output 01/28/20 01/29/20 01/30/20 06:59 06:59 06:59 Intake Total 200 Balance 200 Weight 101.9 kg General appearance: PRESENT: no acute distress - Patient is talking in full sentences does not appear to be in respiratory distress Respiratory exam: PRESENT: clear to auscultation evita. ABSENT: rales, rhonchi, wheezes Cardiovascular exam: PRESENT: RRR. ABSENT: diastolic murmur, rubs, systolic murmur GI/Abdominal exam: PRESENT: ascites, diminished bowel sounds, distended, firm Results Laboratory Results: 01/29/20 12:55 01/29/20 01/29/20 01/29/20 12:55 12:55 18:25 WBC 3.5 L RBC 3.50 L Hgb 10.3 L Hct 30.4 L MCV 87 MCH 29.5 MCHC 34.0 RDW 17.5 H Plt Count 121 L Seg Neutrophils % 74.2 Sodium 138.9 Potassium 3.5 L Chloride 104 Carbon Dioxide 30 Anion Gap 5 BUN 9 Creatinine 0.75 Est GFR ( Amer) > 60 Glucose 124 H Lactic Acid 1.2 Calcium 8.7 Magnesium 1.3 L Total Bilirubin 1.4 H AST 40 H Alkaline Phosphatase 58 Ammonia Total Protein 6.0 L Albumin 3.2 L 01/29/20 18:25 WBC RBC Hgb Hct MCV MCH MCHC RDW Plt Count Seg Neutrophils % Sodium Potassium Chloride Carbon Dioxide Anion Gap BUN Creatinine Est GFR ( Amer) Glucose Lactic Acid Calcium Magnesium Total Bilirubin AST Alkaline Phosphatase Ammonia < 8.7 L Total Protein Albumin 01/29/20 12:55 NT-Pro-B Natriuret Pep 523 H Impressions: Chest X-Ray 01/29/20 12:44 IMPRESSION: Left lower lobe airspace disease either atelectasis or pneumonia. Small left effusion cannot be excluded. Abdomen/Pelvis CT 01/29/20 13:16 IMPRESSION: 1. Stable moderate volume ascites. 2. Splenomegaly. 3. Small nodular liver consistent with cirrhosis. Chest CT 01/29/20 13:16 IMPRESSION: Small bilateral pleural effusions and basilar atelectasis left greater than right. Scattered bilateral ground-glass opacities most consistent with atelectasis as well. Assessment and Plan - Diagnosis (1) Ascites Qualifiers: Ascites type: other type Qualified Code(s): R18.8 - Other ascites Is this a current diagnosis for this admission?: Yes (2) COVID-19 Is this a current diagnosis for this admission?: Yes (3) Cirrhosis Qualifiers: Hepatic cirrhosis type: unspecified hepatic cirrhosis Ascites presence: with ascites Qualified Code(s): K74.60 - Unspecified cirrhosis of liver; R18.8 - Other ascites Is this a current diagnosis for this admission?: Yes (4) Hypotension Qualifiers: Hypotension type: unspecified hypotension type Qualified Code(s): I95.9 - Hypotension, unspecified Is this a current diagnosis for this admission?: Yes (5) Shortness of breath Is this a current diagnosis for this admission?: Yes - Plan Summary Summary: Talk to the patient's family over the phone with her in the room very was very helpful with a history the patient is told me she does not want to be a full code and does not want to be intubated or resuscitated. Patient is going to be admitted to the COVID floor since her PCR is positive we are going to give her IV Zithromax and supportive therapy. Going to try to get paracentesis performed tomorrow if possible. Appropriate labs have been ordered She is medically stable and has been seen by the accounts receivable collector - Time Time Spent with patient: 35 or more minutes
[2020-01-29] MEDS: POTASSI CL 20 MEQ/50 ML RIDER 20 MEQ/50 ML RTUPB IV SCH ×2 (19:28→23:30)
[2020-01-29 19:58] LABS: APPEARANCE,URINE SLIGHTLY-CLOUDY; BILIRUBIN,URINE NEGATIVE (NEGATIVE); COLOR,URINE YELLOW; GLUCOSE, URINE NEGATIVE (NEGATIVE); KETONES,URINE NEGATIVE (NEGATIVE); PROTEIN,URINE NEGATIVE (NEGATIVE); URINE SPECIFIC GRAVITY 1.056
[2020-01-29] MEDS: FUROSEMIDE 20 MG TABLET PO SCH (20:14)
[2020-01-29] MEDS: ATORVASTATIN CALCIUM 40 MG TABLET PO SCH (23:30)
[2020-01-29] MEDS: LOSARTAN POTASSIUM 50 MG TABLET PO SCH (23:30)
[2020-01-30] MEDS ORDERED: DEXTROSE 50%-WATER SYRINGE 12.5 GM/25 ML DOSE IV PRN (04:30)
[2020-01-30] MEDS ORDERED: DEXTROSE 40% GEL 15 GM TUBE PO PRN (04:30)
[2020-01-30] MEDS ORDERED: DEXTROSE 50%-WATER SYRINGE 25 GM/50 ML DOSE IV PRN (04:30)
[2020-01-30] MEDS ORDERED: DEXTROSE 40% GEL 15 GM TUBE X 2 PO PRN (04:30)
[2020-01-30] MEDS ORDERED: GLUCAGON,HUMAN RECOMB 1 MG INJ IM PRN (04:30)
[2020-01-30] MEDS: NORMAL SALINE 1000 ML 1,000 ML IV PRN (04:57)
[2020-01-30] MEDS ORDERED: LEVOTHYROXINE SODIUM 0.15 MG TABLET PO SCH (06:00)
[2020-01-30] MEDS: ACETAMINOPHEN 325 MG TABLET PO PRN ×2 (06:11→21:10)
[2020-01-30] MEDS: LEVOTHYROXINE SODIUM 0.025 MG TABLET PO SCH (06:27)
[2020-01-30 06:40] LABS: ABSOLUTE EOSINOPHILS # (AUTO) 0.1 10^3/uL (0.0-0.6); ABSOLUTE LYMPHOCYTES (AUTO) 0.6 10^3/uL (0.5-4.7); ABSOLUTE MONOCYTES (AUTO) 0.3 10^3/uL (0.1-1.4); ABSOLUTE NEUT (AUTO) 2.4 10^3/uL (1.7-8.2); BASOPHILS % (AUTO) 0.6 % (0-2); EOSINOPHILS % (AUTO) 2.9 % (0-6); LYMPHOCYTES % (AUTO) 18.2 % (13-45); MEAN CORPUSCULAR HEMOGLOBIN 29.2 pg (27.0-33.4); MEAN CORPUSCULAR HGB CONC 34.3 g/dL (32.0-36.0); MEAN CORPUSCULAR VOLUME 85 fl (80-97); MONOCYTES % (AUTO) 8.4 % (3-13); PLATELET COUNT 112 10^3/uL (150-450); RED BLOOD COUNT 3.41 10^6/uL (3.72-5.28); RED CELL DISTRIBUTION WIDTH 17.3 % (11.5-14.0); SEGMENTED NEUTROPHILS % (AUTO) 69.9 % (42-78); TOTAL CELLS COUNTED % (AUTO) 100 %; WHITE BLOOD COUNT 3.4 10^3/uL (4.0-10.5)
[2020-01-30] MEDS: PANTOPRAZOLE SODIUM 40 MG TABLET.DR PO SCH (08:17)
[2020-01-30] MEDS: INSULIN REG, HUMAN 100 UNIT/ML 3 ML VIAL (PYX) SUBCUT SCH ×4 (08:17→21:21)
[2020-01-30] MEDS: FUROSEMIDE 20 MG TABLET PO SCH ×2 (11:40→17:04)
[2020-01-30] MEDS: PAROXETINE HCL 20 MG TABLET PO SCH (11:40)
[2020-01-30] MEDS: AZITHROMYCIN 500 MG in DEXTROSE 5%-WATER 250 ML IV SCH (11:41)
[2020-01-30] MEDS: DOCUSATE SODIUM 100 MG CAPSULE PO SCH (11:41)
[2020-01-30] MEDS: LOSARTAN POTASSIUM 50 MG TABLET PO SCH ×2 (11:41→21:10)
[2020-01-30 12:25] LABS: INTERNATIONAL RATION (INR) 1.11; PROTHROMBIN TIME 14.3 SEC (11.4-15.4)
[2020-01-30 12:26] LABS: PARTIAL THROMBOPLASTIN TIME 34.6 SEC (23.5-35.8)
--- NOTE | 2020-01-30 12:33 | RADIOLOGY REPORT (SQ) ---
EXAM DESCRIPTION: U/S ABD PARACENTESIS IMAGES COMPLETED DATE/TIME: 01/30/2020 11:36 am REASON FOR STUDY: SOB, COVID POSTIVE COMPARISON CT abdomen pelvis 01/29/2020, 01/20/2020 LIMITATIONS: None. PROCEDURE: After obtaining informed consent, the procedure was performed at bedside on the 5th floor inpatient isolation. Ultrasound was used to identify a prominent pocket of ascites in the left lowe r quadrant. An appropriate access site was selected. The patient was prepped and draped in usual st erile fashion. The access site was anesthetized with 6 mL 1% lidocaine. A Rdfy-B-Llalswai needle w as advanced into the fluid. After aspiration of fluid the needle, the catheter was advanced off the needle into the fluid. A total of 4,750 mL of straw-colored clear fluid was removed. The patient mki erated the procedure well left the department in satisfactory condition. Fluid sent for testing as per hospitalist attending. IMPRESSION: Successful ultrasound-guided diagnostic and therapeutic paracentesis COMMENT: Patient medication list reviewed: Yes- Quality ID# [id number]:Eligible professional attests to doc umenting in the medical record they obtained, updated, or reviewed the patient's current medications. TECHNICAL DOCUMENTATION: JOB ID: [id number] 2010 [employer] All Rights Reserved Reading location - IP/workstation name: [email or web address]
[2020-01-30 12:48] LABS: FLUID SOURCE ABDOMEN; FLUID TYPE PERITONEAL
[2020-01-30 12:49] LABS: FLUID APPEARANCE CLEAR; FLUID COLOR LIGHT YELLOW; FLUID VISCOSITY LIQUID
--- NOTE | 2020-01-30 14:54 | PDOC PROGRESS REPORT ---
Subjective Progress Note for:: 01/30/20 Reason For Visit: SHORTNESS OF BREATH,SPLENOMEGALY,LATERAL PLEURAL 01/30/2020 Admitted for shortness of breath with abdominal distention well as possibly COVID-19 positive Physical Exam Vital Signs: Temp Pulse Resp BP Pulse Ox 98.9 F 87 16 123/65 99 01/30/20 11:00 01/30/20 11:00 01/30/20 11:00 01/30/20 11:00 01/30/20 11:00 Intake & Output 01/29/20 01/30/20 01/31/20 06:59 06:59 06:59 Intake Total 608 300 Balance 608 300 Weight 99.8 kg General appearance: PRESENT: mild distress - Secondary to respiratory distress secondary to ascites Respiratory exam: PRESENT: decreased breath sounds Cardiovascular exam: PRESENT: RRR. ABSENT: diastolic murmur, rubs, systolic murmur GI/Abdominal exam: PRESENT: distended, firm, rigid Neurological exam: PRESENT: alert, awake, oriented to person, oriented to place, oriented to time, oriented to situation, CN II-XII grossly intact. ABSENT: motor sensory deficit Psychiatric exam: PRESENT: appropriate affect, normal mood. ABSENT: homicidal ideation, suicidal ideation Results Laboratory Results: 01/30/20 06:19 01/29/20 18:25 01/29/20 01/29/20 01/29/20 18:20 18:25 18:25 WBC RBC Hgb Hct MCV MCH MCHC RDW Plt Count Seg Neutrophils % Sodium Potassium Chloride Carbon Dioxide Anion Gap BUN Creatinine Est GFR ( Amer) Glucose Lactic Acid 1.2 Calcium Magnesium Ammonia C-Reactive Protein 14.1 H Amylase < 30 L Lipase 38.8 TSH Urine Color YELLOW Urine Appearance SLIGHTLY-CLOUDY Urine pH 7.0 Ur Specific [place] 1.056 Urine Protein NEGATIVE Urine Glucose (UA) NEGATIVE Urine Ketones NEGATIVE Urine Blood NEGATIVE Urine RBC (Auto) 4 Fluid Type Fluid Source Fluid Color Fluid Appearance Fluid Viscosity Fluid WBC Fluid RBC 01/29/20 01/29/20 01/29/20 18:25 18:25 18:25 WBC RBC Hgb Hct MCV MCH MCHC RDW Plt Count Seg Neutrophils % Sodium 137.6 Potassium 2.9 L* Chloride 101 Carbon Dioxide 30 Anion Gap 7 BUN 7 Creatinine 0.67 Est GFR ( Amer) > 60 Glucose 62 L Lactic Acid Calcium 8.5 Magnesium Ammonia < 8.7 L C-Reactive Protein Amylase Lipase TSH 3.21 Urine Color Urine Appearance Urine pH Ur Specific [place] Urine Protein Urine Glucose (UA) Urine Ketones Urine Blood Urine RBC (Auto) Fluid Type Fluid Source Fluid Color Fluid Appearance Fluid Viscosity Fluid WBC Fluid RBC 01/30/20 01/30/20 01/30/20 06:19 06:19 10:45 WBC 3.4 L RBC 3.41 L Hgb 10.0 L Hct 29.0 L MCV 85 MCH 29.2 MCHC 34.3 RDW 17.3 H Plt Count 112 L Seg Neutrophils % 69.9 Sodium Potassium Chloride Carbon Dioxide Anion Gap BUN Creatinine Est GFR ( Amer) Glucose Lactic Acid Calcium Magnesium 1.5 L Ammonia C-Reactive Protein Amylase Lipase TSH Urine Color Urine Appearance Urine pH Ur Specific [place] Urine Protein Urine Glucose (UA) Urine Ketones Urine Blood Urine RBC (Auto) Fluid Type PERITONEAL Fluid Source ABDOMEN Fluid Color LIGHT YELLOW Fluid Appearance CLEAR Fluid Viscosity LIQUID Fluid WBC 56 Fluid RBC 271 01/29/20 01/29/20 01/30/20 12:55 18:25 06:19 Creatine Kinase 95 NT-Pro-B Natriuret Pep 523 H 377 H Impressions: Chest X-Ray 01/29/20 12:44 IMPRESSION: Left lower lobe airspace disease either atelectasis or pneumonia. Small left effusion cannot be excluded. Abdomen/Pelvis CT 01/29/20 13:16 IMPRESSION: 1. Stable moderate volume ascites. 2. Splenomegaly. 3. Small nodular liver consistent with cirrhosis. Chest CT 01/29/20 13:16 IMPRESSION: Small bilateral pleural effusions and basilar atelectasis left greater than right. Scattered bilateral ground-glass opacities most consistent with atelectasis as well. Paracentesis Ultrasound 01/30/20 00:00 IMPRESSION: Successful ultrasound-guided diagnostic and therapeutic paracentesis Assessment and Plan - Diagnosis (1) Ascites Qualifiers: Ascites type: other type Qualified Code(s): R18.8 - Other ascites Is this a current diagnosis for this admission?: Yes (2) COVID-19 Is this a current diagnosis for this admission?: Yes (3) Cirrhosis Qualifiers: Hepatic cirrhosis type: unspecified hepatic cirrhosis Ascites presence: with ascites Qualified Code(s): K74.60 - Unspecified cirrhosis of liver; R18.8 - Other ascites Is this a current diagnosis for this admission?: Yes (4) Hypotension Qualifiers: Hypotension type: unspecified hypotension type Qualified Code(s): I95.9 - Hypotension, unspecified Is this a current diagnosis for this admission?: Yes (5) Shortness of breath Is this a current diagnosis for this admission?: Yes (6) Abdominal distention, non-gaseous Is this a current diagnosis for this admission?: Yes - Plan Summary Summary: Talk to the patient's family over the phone with her in the room very was very helpful with a history the patient is told me she does not want to be a full code and does not want to be intubated or resuscitated. Patient is going to be admitted to the COVID floor since her PCR is positive we are going to give her IV Zithromax and supportive therapy. Going to try to get paracentesis performed tomorrow if possible. Appropriate labs have been ordered She is medically stable and has been seen by the children[facility] zoo caretaker 01/30/2020 Patient's vital signs are actually very stable temperature 98.8, pulse 82 blood pressure 122/65 and 99% saturation on 2 L. CBC is normal 3.4 sed rate 38 PT of 14 INR 1.08 PTT of 29 A1C was 6.6 magnesium 1.5 Magnesium and potassium are being replaced Patient had paracentesis done this morning for her shortness of breath by interventional radiology approximately 4750 mL's was drawn off. Straw-colored clear. Called [facility] infectious disease and spoke to the physician there she informed me that it was possible for the patient that she had COVID virus for up to 2 months after an acute illness. Did we should wait to see what the n asopharyngeal swabs show from yesterday before we make a decision but in the meantime treat the patient as if she has COVID. She did say that her symptoms did not sound to be typical for COVID.. Patient appears medically stable she is on IV Zithromax. Tried calling the family little while ago no answer, [phone] - Time Time Spent with patient: 35 or more minutes
[2020-01-30] MEDS ORDERED: POTASSIUM CHLORIDE 20 MEQ PACKET PO ONE (15:30)
[2020-01-30] MEDS: MAGNESIUM SULFATE/D5W 1 GM/100 ML RTUPB IV SCH ×2 (15:42→17:04)
[2020-01-30] MEDS ORDERED: INSULIN GLARGINE,HUM.REC.ANLOG 1,000 UNIT/10 ML VIAL (PYX) SUBCUT PRN (19:08)
[2020-01-30] MEDS ORDERED: INSULIN GLARGINE,HUM.REC.ANLOG 1,000 UNIT/10 ML VIAL SUBCUT ONE (19:30)
[2020-01-30] MEDS: POTASSIUM CHLORIDE 10 MEQ TABLET.ER PO SCH (21:10)
[2020-01-30] MEDS: ATORVASTATIN CALCIUM 40 MG TABLET PO SCH (21:10)
[2020-01-30] MEDS: GABAPENTIN 300 MG CAPSULE PO SCH (21:10)
[2020-01-31] MEDS: LORAZEPAM 0.5 MG TABLET PO PRN ×2 (01:26→21:24)
[2020-01-31] MEDS: NORMAL SALINE 1000 ML 1,000 ML IV PRN (03:14)
[2020-01-31 06:43] LABS: ABSOLUTE EOSINOPHILS # (AUTO) 0.1 10^3/uL (0.0-0.6); ABSOLUTE LYMPHOCYTES (AUTO) 0.8 10^3/uL (0.5-4.7); ABSOLUTE MONOCYTES (AUTO) 0.5 10^3/uL (0.1-1.4); ABSOLUTE NEUT (AUTO) 2.5 10^3/uL (1.7-8.2); BASOPHILS % (AUTO) 0.6 % (0-2); EOSINOPHILS % (AUTO) 2.7 % (0-6); HEMATOCRIT 32.3 % (36.0-47.0); HEMOGLOBIN 11.1 g/dL (12.0-15.5); LYMPHOCYTES % (AUTO) 21.5 % (13-45); MEAN CORPUSCULAR HEMOGLOBIN 29.8 pg (27.0-33.4); MEAN CORPUSCULAR HGB CONC 34.4 g/dL (32.0-36.0); MEAN CORPUSCULAR VOLUME 87 fl (80-97); MONOCYTES % (AUTO) 11.8 % (3-13); PLATELET COUNT 131 10^3/uL (150-450); RED BLOOD COUNT 3.74 10^6/uL (3.72-5.28); RED CELL DISTRIBUTION WIDTH 17.3 % (11.5-14.0); SEGMENTED NEUTROPHILS % (AUTO) 63.4 % (42-78); TOTAL CELLS COUNTED % (AUTO) 100 %; WHITE BLOOD COUNT 3.9 10^3/uL (4.0-10.5)
[2020-01-31] MEDS: LEVOTHYROXINE SODIUM 0.025 MG TABLET PO SCH (07:41)
[2020-01-31] MEDS: PANTOPRAZOLE SODIUM 40 MG TABLET.DR PO SCH (07:43)
[2020-01-31] MEDS: LEVOTHYROXINE SODIUM 0.15 MG TABLET PO SCH (07:43)
[2020-01-31] MEDS: INSULIN REG, HUMAN 100 UNIT/ML 3 ML VIAL (PYX) SUBCUT SCH ×5 (07:51→21:23)
[2020-01-31 07:58] LABS: BLOOD UREA NITROGEN 7 mg/dL (7-20); CALCIUM 8.8 mg/dL (8.4-10.2); CHLORIDE 104 mmol/L (98-107); GLUCOSE 124 mg/dL (75-110); POTASSIUM 3.9 mmol/L (3.6-5.0)
[2020-01-31 08:04] LABS: CARBON DIOXIDE 29 mmol/L (22-30)
[2020-01-31 08:10] LABS: ANION GAP 4 (5-19)
[2020-01-31] MEDS: LOSARTAN POTASSIUM 50 MG TABLET PO SCH ×2 (09:46→09:55)
[2020-01-31] MEDS: ASPIRIN 81 MG TABLET, ENT COATED PO SCH (09:55)
[2020-01-31] MEDS: FUROSEMIDE 20 MG TABLET PO SCH ×2 (09:55→17:12)
[2020-01-31] MEDS: DOCUSATE SODIUM 100 MG CAPSULE PO SCH (09:55)
[2020-01-31] MEDS: GABAPENTIN 300 MG CAPSULE PO SCH ×2 (09:55→21:22)
[2020-01-31] MEDS: POTASSIUM CHLORIDE 10 MEQ TABLET.ER PO SCH ×2 (09:55→21:23)
[2020-01-31] MEDS: PAROXETINE HCL 20 MG TABLET PO SCH (09:56)
[2020-01-31] MEDS: ENOXAPARIN SODIUM INJ 40 MG/0.4 ML DISP.SYRIN SUBCUT SCH (09:56)
[2020-01-31] MEDS: AZITHROMYCIN 500 MG in DEXTROSE 5%-WATER 250 ML IV SCH (09:56)
[2020-01-31] MEDS ORDERED: INSULIN GLARGINE,HUM.REC.ANLOG 1,000 UNIT/10 ML VIAL SUBCUT SCH (10:00)
[2020-01-31] MEDS: ATORVASTATIN CALCIUM 40 MG TABLET PO SCH (21:23)
[2020-01-31] MEDS: INSULIN GLARGINE,HUM.REC.ANLOG 1,000 UNIT/10 ML VIAL SUBCUT SCH (21:25)
--- NOTE | 2020-01-31 22:21 | EKG REPORT ---
SEVERITY:- ABNORMAL ECG - SINUS RHYTHM RIGHT BUNDLE BRANCH BLOCK : Confirmed by: Josiah Parra 31-Jan-2020 22:20:58
[2020-02-01 04:10] LABS: APPEARANCE,URINE CLEAR; BILIRUBIN,URINE NEGATIVE (NEGATIVE); COLOR,URINE YELLOW; GLUCOSE, URINE NEGATIVE (NEGATIVE); KETONES,URINE NEGATIVE (NEGATIVE); LEUKOCYTE ESTERASE,URINE NEGATIVE (NEGATIVE); NITRITE,URINE NEGATIVE (NEGATIVE); PROTEIN,URINE NEGATIVE (NEGATIVE); URINE SPECIFIC GRAVITY 1.008; UROBILINOGEN,URINE NEGATIVE mg/dL (<2.0)
[2020-02-01] MEDS: PANTOPRAZOLE SODIUM 40 MG TABLET.DR PO SCH (05:26)
[2020-02-01] MEDS: LEVOTHYROXINE SODIUM 0.15 MG TABLET PO SCH (05:27)
[2020-02-01 07:02] LABS: HEMATOCRIT 31.5 % (36.0-47.0); HEMOGLOBIN 10.9 g/dL (12.0-15.5); MEAN CORPUSCULAR HEMOGLOBIN 29.8 pg (27.0-33.4); MEAN CORPUSCULAR HGB CONC 34.6 g/dL (32.0-36.0); MEAN CORPUSCULAR VOLUME 86 fl (80-97); PLATELET COUNT 125 10^3/uL (150-450); RED BLOOD COUNT 3.66 10^6/uL (3.72-5.28); RED CELL DISTRIBUTION WIDTH 17.6 % (11.5-14.0); WHITE BLOOD COUNT 4.2 10^3/uL (4.0-10.5)
[2020-02-01] MEDS: INSULIN REG, HUMAN 100 UNIT/ML 3 ML VIAL (PYX) SUBCUT SCH ×2 (07:59→12:21)
[2020-02-01] MEDS ORDERED: PROMETHAZINE HCL INJ 25 MG/1 ML VIAL IV PRN (09:00)
--- NOTE | 2020-02-01 09:00 | RADIOLOGY REPORT (SQ) ---
EXAM DESCRIPTION: CT ABD/PELVIS NO ORAL OR IV IMAGES COMPLETED DATE/TIME: 02/01/2020 8:38 am REASON FOR STUDY: Ascites, abdominal distention COMPARISON: 01/29/2020 TECHNIQUE: CT scan of the abdomen and pelvis performed without intravenous or oral contrast. Images reviewed with lung, soft tissue, and bone windows. Reconstructed coronal and sagittal MPR images revi ewed. All images stored on PACS. All CT scanners at this facility use dose modulation, iterative reconstruction, and/or weight based d osing when appropriate to reduce radiation dose to as low as reasonably achievable (ALARA). [facility]: Dose Right [facility]: CareDose [facility]: Dose Right [facility]: Teradose 4D [facility]: Smart [employer] RADIATION DOSE: CT Rad equipment meets quality standard of care and radiation dose reduction techniq ues were employed. CTDIvol: 19.0 mGy. DLP: 1120 mGy-cm.mGy. LIMITATIONS: None. FINDINGS: LOWER CHEST: Bibasilar pleural thickening and basilar atelectasis. No consolidation. Lef t-sided pleural effusion is improved. NON-CONTRASTED LIVER, SPLEEN, ADRENALS: Stable in appearance. Nodular appearing liver consistent wit h cirrhosis. Splenomegaly. No adrenal masses. PANCREAS: No masses. No peripancreatic inflammatory changes. GALLBLADDER: Surgically absent. RIGHT KIDNEY AND URETER: No suspicious masses. Assessment limited by lack of IV contrast. No signif icant calcifications. No hydronephrosis or hydroureter. LEFT KIDNEY AND URETER: No suspicious masses. Assessment limited by lack of IV contrast. No signifi cant calcifications. Left-sided hydronephrosis new from prior study. No obvious stone. This may r epresent a UPJ obstruction. The patient has had a prominent renal pelvis demonstrated on prior studi es although no calyx dilatation. AORTA AND RETROPERITONEUM: Stable in appearance. BOWEL AND PERITONEAL CAVITY: Ascites again noted slightly improved from prior study. GI tract unrema rkable. APPENDIX: Not visualized. PELVIS, BLADDER, AND ABDOMINAL WALL:There is a small amount of free fluid the pelvis. There is diffu se subcutaneous edema. BONES: Unchanged. OTHER: No other significant finding. IMPRESSION: 1. Nodular appearing liver consistent with cirrhosis. No change from Saturday. Splenome hernesto unchanged. 2. Left-sided hydronephrosis suspicious for UPJ obstruction. No stones. The renal pelvis measures up to 6.1 cm in diameter. This is new from prior study. 3. Persistent ascites slightly improved from prior study. COMMENT: Quality ID # [id number]: Final reports with documentation of one or more dose reduction techniques (e.g., Automated exposure control, adjustment of the mA and/or kV according to patient size, use of iterative reconstruction technique) TECHNICAL DOCUMENTATION: JOB ID: [id number] 2010 [employer]- All Rights Reserved Reading location - IP/workstation name: [email or web address]
[2020-02-01] MEDS: ENOXAPARIN SODIUM INJ 40 MG/0.4 ML DISP.SYRIN SUBCUT SCH (09:06)
[2020-02-01] MEDS: AZITHROMYCIN 500 MG in DEXTROSE 5%-WATER 250 ML IV SCH (09:15)
[2020-02-01] MEDS: INSULIN GLARGINE,HUM.REC.ANLOG 1,000 UNIT/10 ML VIAL SUBCUT SCH (09:15)
[2020-02-01] MEDS: POTASSIUM CHLORIDE 10 MEQ TABLET.ER PO SCH (09:16)
[2020-02-01] MEDS: GABAPENTIN 300 MG CAPSULE PO SCH (09:16)
[2020-02-01] MEDS: FUROSEMIDE 20 MG TABLET PO SCH (09:16)
[2020-02-01] MEDS: PAROXETINE HCL 20 MG TABLET PO SCH (09:16)
[2020-02-01] MEDS: DOCUSATE SODIUM 100 MG CAPSULE PO SCH (09:16)
[2020-02-01] MEDS: ASPIRIN 81 MG TABLET, ENT COATED PO SCH (09:16)
[2020-02-01] MEDS: LOSARTAN POTASSIUM 50 MG TABLET PO SCH (09:17)
[2020-02-01 09:33] LABS: ALBUMIN BODY FLUID 0.6 g/dL (Not Estab.)
[2020-02-01 10:00] LABS: PH BODY FLUID 7.6 (Not Estab.)
[2020-02-01 14:05] VITALS: BP 147/69
[2020-02-01 15:36] LABS: HEPATITS B SURFACE ANTIGEN Negative (Negative)
--- NOTE | 2020-02-01 16:14 | PDOC DISCHARGE SUMMARY ---
Impression - Admit/DC Date/PCP Admission Date/Primary Care Provider: 01/29/20 17:24 TOMÁS LUA NP Discharge Date: 02/01/20 - Discharge Diagnosis (1) Ascites Is this a current diagnosis for this admission?: Yes (2) COVID-19 Is this a current diagnosis for this admission?: Yes (3) Cirrhosis Is this a current diagnosis for this admission?: Yes (4) Hypotension Is this a current diagnosis for this admission?: Yes (5) Shortness of breath Is this a current diagnosis for this admission?: Yes (6) Abdominal distention, non-gaseous Is this a current diagnosis for this admission?: Yes (7) Splenomegaly Is this a current diagnosis for this admission?: Yes (8) Diabetes Is this a current diagnosis for this admission?: Yes - Assessment Summary: Talk to the patient's family over the phone with her in the room very was very helpful with a history the patient is told me she does not want to be a full code and does not want to be intubated or resuscitated. Patient is going to be admitted to the COVID floor since her PCR is positive we are going to give her IV Zithromax and supportive therapy. Going to try to get paracentesis performed tomorrow if possible. Appropriate labs have been ordered She is medically stable and has been seen by the nail artist 01/30/2020 Patient's vital signs are actually very stable temperature 98.8, pulse 82 blood pressure 122/65 and 99% saturation on 2 L. CBC is normal 3.4 sed rate 38 PT of 14 INR 1.08 PTT of 29 A1C was 6.6 magnesium 1.5 Magnesium and potassium are being replaced Patient had paracentesis done this morning for her shortness of breath by interventional radiology approximately 4750 mL's was drawn off. Straw-colored clear. Called [facility] infectious disease and spoke to the physician there she informed me that it was possible for the patient that she had COVID virus for up to 2 months after an acute illness. Did we should wait to see what the nasopharyngeal swabs show from yesterday before we make a decision but in the meantime treat the patient as if she has COVID. She did say that her symptoms did not sound to be typical for COVID.. Patient appears medically stable she is on IV Zithromax. Tried calling the family little while ago no answer, [phone] 01/31/2020 Patient is feeling much better with less shortness of breath. Temperature 99.4 pulse 96 blood pressure 130/63 O2 sat 96% on room air Lab remained stable CBC is normal Coags show the PTT up slightly at 34.6 Chem-7 is normal magnesium 1.6 , BNP 312 Peritoneal fluid results are back showing glucose of 78 albumin 0.6 LDH 247 fluid amylase of 9 Hepatitis panel is pending still Body fluid culture no growth 2 days viral culture pending fungal cultures pending AFB pending blood culture no growth after 48 hours Patient is having no significant as of breath. Oxygen saturations good on room air. White blood cell count is normal. Patient is having no pain. Anticipate discharge tomorrow after speaking with infectious disease trial consultant Patient and family have been kept informed 02/01/2020 Temperature 98.5 pulse 113 blood pressure 155/68 O2 sat 90% on room air Patient does not appear to be hypoxic clinically Today I called [facility] and spent over an hour on the phone getting up with infectious disease trial consultant, Dr. Torres.. He and I discussed the patient's case in great detail and she felt like that the most significant follow-up needed to be concerning the splenomegaly and cirrhosis of the liver. She felt like that the patient may in fact still be testing positive even though she is no longer infectious but of course this cannot be known for sure. I spoke to the patient's daughter and she and her are going to get tested on Saturday. She is going to be discharged today for self quarantine for 14 days. Patient will see gastroenterology for her liver and spleen, and follow-up with her primary care as well. Patient's abdomen is soft to palpation with no tenderness. Patient's lungs are clear to auscultation.. Patient seems satisfied with her visit On 01/28 patient's total bilirubin was 1.4, direct bilirubin 0.1, AST of 40, ALT 19, alkaline Phos 58, CRP of 14.1 She was originally admitted because of shortness of breath secondary to abdominal distention due to ascites from acute cirrhosis of the liver. It is felt that patient has developed this as a result of COVID-19 as it occurred 2 to 3 weeks after her viral-like illness patient has no history of alcohol. - Additional Information Resuscitation Status: Do Not Resuscitate Discharge Diet: Diabetic Discharge Activity: Balance Activity w/Rest, Bedrest, No Driving, Energy Conservation, No Lifting Over 10 Pounds, No Lifting/Push/Pulling, Weigh Daily Referrals: GILBERTO SCHNEIDER MD [ACTIVE STAFF] - 02/04/20 3:15 pm TOMÁS LUA NP [Primary Care Provider] - 02/09/20 8:45 am Prescriptions: Potassium Chloride [Klor-Con 10 Meq Tablet ER] 20 meq PO DAILY 30 Days #30 tablet.er Atorvastatin Calcium [Lipitor 40 mg Tablet] 40 mg PO QHS 30 Days #30 tablet Home Medications: Clonidine HCl [Catapres 0.3 mg Tablet] 0.3 mg PO DAILY 07/01/14 Furosemide [Lasix 20 mg Tablet] 20 mg PO BID PRN 07/01/14 Losartan Potassium [Cozaar 50 mg Tablet] 50 mg PO DAILY 07/01/14 Paroxetine HCl [Paxil 20 mg Tablet] 20 mg PO DAILY 07/01/14 Aspirin [Ecotrin 81 mg EC Tablet] 81 mg PO DAILY 01/30/20 Gabapentin [Neurontin 300 mg Capsule] 300 mg PO Q12 01/30/20 Insulin Glargine,Hum.rec.anlog [Basaglar Kwikpen U-100] 65 unit SQ BID 01/30/20 Insulin Regular, Human [Novolin R] 30 unit SQ DAILY 01/30/20 Levothyroxine Sodium [Synthroid 0.15 mg Tablet] 0.15 mg PO DAILY 01/30/20 Acetaminophen [Tylenol 325 mg Tablet] 650 mg PO Q4HP PRN tablet 02/01/20 Atorvastatin Calcium [Lipitor 40 mg Tablet] 40 mg PO QHS 30 Days #30 tablet 02/01/20 Docusate Sodium [Colace 100 mg Capsule] 100 mg PO DAILY capsule 02/01/20 Furosemide [Lasix 20 mg Tablet] 20 mg PO BID tablet 02/01/20 Insulin Glargine,Hum.rec.anlog [Lantus Insulin 100 Unit/1 ml 10 ml] 65 unit SUBCUT Q12 unit 02/01/20 Mag Hydrox/Al Hydrox/Simeth [Maalox Plus Susp 30 Udcup] 30 ml PO Q6HP PRN udc 02/01/20 Paroxetine HCl [Paxil 20 mg Tablet] 20 mg PO DAILY tablet 02/01/20 Potassium Chloride [Klor-Con 10 Meq Tablet ER] 20 meq PO DAILY 30 Days #30 tablet.er 02/01/20 History of Present Illiness History of Present Illness: CURTIS HAYES is a 69 year old female presented to the emergency room today with hypotension.. Patient has a very confusing history that begins back in November when she was sick with a viral-like illness probably COVID-19. According to the family and the patient she had about 3 weeks where she was very sleepy and tired had no energy she had fever and chills and a lot of coughing she seemed to get better in December and then towards the end of December once again she started getting tired and weak. Also noticed around the end of December that her abdomen started becoming distended and swollen and very tight. 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 He has not had a paracentesis yet.. Tonight in our emergency room her COVID-19 rapid test PCR was positive. According to the family and the patient between 1 and 2 weeks ago in her doctor's office she tested positive for antibodies for COVID. I am unsure if this is an active ongoing COVID case or if this is just a residual left over from November with a positive test today. Have had the nail artist look at the patient prior to me seeing her and he feels like she is stable to go to the floor and that her shortness of breath is coming from her ascites and distended abdomen. After examining her and talking to her I feel like he is correct. CT abdomen and pelvis shows stable moderate volume ascites #1 #2 splenomegaly #3 small nodular liver consistent with cirrhosis CT scan of the chest shows small bilateral pleural effusions and basilar atelectasis left greater than right scattered bilateral groundglass opacities most consistent with atelectasis as well She has told me emphatically that she does not want to be resuscitated or intubated. She tells me her family is aware of her wishes Physical Exam Vital Signs: Temp Pulse Resp BP Pulse Ox 98.5 F 106 H 18 147/69 H 91 L 02/01/20 14:04 02/01/20 14:04 02/01/20 14:04 02/01/20 14:04 02/01/20 14:04 Intake & Output 01/31/20 02/01/20 02/02/20 06:59 06:59 06:59 Intake Total 7222 1966 730 Output Total 350 Balance 6003 2686 730 Weight 96.6 kg 96.1 kg Results Laboratory Results: WBC 4.2 10^3/uL (4.0-10.5) 02/01/20 06:50 RBC 3.66 10^6/uL (3.72-5.28) L 02/01/20 06:50 Hgb 10.9 g/dL (12.0-15.5) L 02/01/20 06:50 Hct 31.5 % (36.0-47.0) L 02/01/20 06:50 MCV 86 fl (80-97) 02/01/20 06:50 MCH 29.8 pg (27.0-33.4) 02/01/20 06:50 MCHC 34.6 g/dL (32.0-36.0) 02/01/20 06:50 RDW 17.6 % (11.5-14.0) H 02/01/20 06:50 Plt Count 125 10^3/uL (150-450) L 02/01/20 06:50 Lymph % (Auto) 21.5 % (13-45) 01/31/20 06:34 [place] % (Auto) 11.8 % (3-13) 01/31/20 06:34 Eos % (Auto) 2.7 % (0-6) 01/31/20 06:34 Baso % (Auto) 0.6 % (0-2) 01/31/20 06:34 Absolute Neuts (auto) 2.5 10^3/uL (1.7-8.2) 01/31/20 06:34 Absolute Lymphs (auto) 0.8 10^3/uL (0.5-4.7) 01/31/20 06:34 Absolute Monos (auto) 0.5 10^3/uL (0.1-1.4) 01/31/20 06:34 Absolute Eos (auto) 0.1 10^3/uL (0.0-0.6) 01/31/20 06:34 Absolute Basos (auto) 0.0 10^3/uL (0.0-0.2) 01/31/20 06:34 Seg Neutrophils % 63.4 % (42-78) 01/31/20 06:34 ESR 38 mm/hr (0-30) H 01/29/20 18:25 PT 14.3 SEC (11.4-15.4) 01/30/20 12:07 INR 1.11 01/30/20 12:07 INR (Anticoag Therapy) Cancelled 01/29/20 12:55 APTT 34.6 SEC (23.5-35.8) 01/30/20 12:07 Sodium 137.3 mmol/L (137-145) 01/31/20 06:34 Potassium 3.9 mmol/L (3.6-5.0) 01/31/20 06:34 Chloride 104 mmol/L (98-107) 01/31/20 06:34 Carbon Dioxide 29 mmol/L (22-30) 01/31/20 06:34 Anion Gap 4 (5-19) L 01/31/20 06:34 BUN 7 mg/dL (7-20) 01/31/20 06:34 Creatinine 0.68 mg/dL (0.52-1.25) 01/31/20 06:34 Est GFR ( Amer) > 60 (>60) 01/31/20 06:34 Est GFR (MDRD) Non-Af > 60 (>60) 01/31/20 06:34 Glucose 124 mg/dL (75-110) H 01/31/20 06:34 POC Glucose 199 mg/dL (70-110) H 02/01/20 11:37 Hemoglobin A1c % 6.6 % (4.7-6.0) H 01/30/20 06:19 Lactic Acid 1.2 mmol/L (0.7-2.1) 01/29/20 18:25 Calcium 8.8 mg/dL (8.4-10.2) 01/31/20 06:34 Magnesium 1.6 mg/dL (1.6-2.3) 01/31/20 06:34 Total Bilirubin 1.4 mg/dL (0.2-1.3) H 01/29/20 12:55 Direct Bilirubin 0.1 mg/dL (0.0-0.4) 01/29/20 12:55 Neonat Total Bilirubin Not Reportable 01/29/20 12:55 Neonat Direct Bilirubin Not Reportable 01/29/20 12:55 Neonat Indirect Bili Not Reportable 01/29/20 12:55 AST 40 U/L (14-36) H 01/29/20 12:55 ALT 19 U/L (<35) 01/29/20 12:55 Alkaline Phosphatase 58 U/L (38-126) 01/29/20 12:55 Ammonia < 8.7 umol/L (9-33) L 01/29/20 18:25 Lactate Dehydrogenase 205 U/L (120-246) 01/29/20 18:25 Creatine Kinase 95 U/L (30-135) 01/29/20 18:25 C-Reactive Protein 14.1 mg/L (<10.0) H 01/29/20 18:25 NT-Pro-B Natriuret Pep 312 pg/mL (<125) H 01/31/20 06:34 Total Protein 6.0 g/dL (6.3-8.2) L 01/29/20 12:55 Albumin 3.2 g/dL (3.5-5.0) L 01/29/20 12:55 Amylase < 30 U/L (30-110) L 01/29/20 18:25 Lipase 38.8 U/L (23-300) 01/29/20 18:25 TSH 3.21 uIU/mL (0.47-4.68) 01/29/20 18:25 Urine Color YELLOW 02/01/20 03:50 Urine Appearance CLEAR 02/01/20 03:50 Urine pH 7.0 (5.0-9.0) 02/01/20 03:50 Ur Specific [place] 1.008 02/01/20 03:50 Urine Protein NEGATIVE mg/dL (NEGATIVE) 02/01/20 03:50 Urine Glucose (UA) NEGATIVE mg/dL (NEGATIVE) 02/01/20 03:50 Urine Ketones NEGATIVE mg/dL (NEGATIVE) 02/01/20 03:50 Urine Blood NEGATIVE (NEGATIVE) 02/01/20 03:50 Urine Nitrite NEGATIVE (NEGATIVE) 02/01/20 03:50 Urine Nitrite (Reflex) NEGATIVE (NEGATIVE) 01/29/20 18:20 Urine Bilirubin NEGATIVE (NEGATIVE) 02/01/20 03:50 Urine Urobilinogen NEGATIVE mg/dL (<2.0) 02/01/20 03:50 Ur Leukocyte Esterase NEGATIVE (NEGATIVE) 02/01/20 03:50 Leukocyte Esterase Rfl LARGE (NEGATIVE) H 01/29/20 18:20 Urine WBC (Auto) 0 /HPF 02/01/20 03:50 Urine RBC (Auto) 4 /HPF 01/29/20 18:20 Urine WBC (Reflex) 7 /HPF 01/29/20 18:20 Squamous Epi Cells Auto 2 /HPF 02/01/20 03:50 U Non-Squamous Epis Auto 1 /HPF 01/29/20 18:20 Urine Mucus (Auto) RARE /LPF 02/01/20 03:50 Urine Ascorbic Acid NEGATIVE (NEGATIVE) 02/01/20 03:50 Fluid Type PERITONEAL 01/30/20 10:45 Fluid Source ABDOMEN 01/30/20 10:45 Fluid Color LIGHT YELLOW 01/30/20 10:45 Fluid Appearance CLEAR 01/30/20 10:45 Fluid Viscosity LIQUID 01/30/20 10:45 Fluid pH 7.6 (Not Estab.) 01/30/20 10:45 Fluid WBC 56 /uL 01/30/20 10:45 Fluid RBC 271 /uL 01/30/20 10:45 Fluid Seg Neutrophils 15 % 01/30/20 10:45 Fluid Lymphocytes 80 % 01/30/20 10:45 Fluid Monocytes 3 % 01/30/20 10:45 Fluid Eosinophils 2 % 01/30/20 10:45 Fluid Basophils 0 % 01/30/20 10:45 Fluid Glucose 78 mg/dL (.) 01/30/20 10:45 Fluid Albumin 0.6 g/dL (Not Estab.) 01/30/20 10:45 Fluid LDH 47 IU/L (.) 01/30/20 10:45 Fluid Amylase 9 U/L (.) 01/30/20 10:45 COVID-19 Source Cancelled 01/29/20 16:10 COVID-19 (YVONNE) Cancelled 01/29/20 16:10 SARS-CoV-2 (PCR) POSITIVE (NEGATIVE) A* 01/29/20 16:10 01/29/20 01/30/20 01/31/20 12:55 06:19 06:34 NT-Pro-B Natriuret Pep 523 H 377 H 312 H Impressions: Chest X-Ray 01/29/20 12:44 IMPRESSION: Left lower lobe airspace disease either atelectasis or pneumonia. Small left effusion cannot be excluded. Abdomen/Pelvis CT 01/29/20 13:16 IMPRESSION: 1. Stable moderate volume ascites. 2. Splenomegaly. 3. Small nodular liver consistent with cirrhosis. Chest CT 01/29/20 13:16 IMPRESSION: Small bilateral pleural effusions and basilar atelectasis left greater than right. Scattered bilateral ground-glass opacities most consistent with atelectasis as well. Paracentesis Ultrasound 01/30/20 00:00 IMPRESSION: Successful ultrasound-guided diagnostic and therapeutic paracentesis Abdomen/Pelvis CT 02/01/20 08:00 IMPRESSION: 1. Nodular appearing liver consistent with cirrhosis. No change from Saturday. Splenomegaly unchanged. 2. Left-sided hydronephrosis suspicious for UPJ obstruction. No stones. The renal pelvis measures up to 6.1 cm in diameter. This is new from prior study. 3. Persistent ascites slightly improved from prior study. Stroke Is this a Stroke Patient?: No Acute Heart Failure - Is this a Heart Failure Patient?: No
[2020-02-02 07:13] LABS: HEPATITIS C VIRUS ANTIBODY <0.1 s/co ratio (0.0-0.9)
== END 2020-02-01 14:32 | disposition home or self-care (01) | DRG 432 ==
LOC: ER 12:37 → EH 17:24 → 5 23:24
PROVIDERS: ADMIT Hospitalist; ATTEND Physician Assistant
PROC: 0W9G30Z Drainage of Peritoneal Cavity with Drainage Device, Percutaneous Approach (ICD-10-PCS; principal; 2020-01-29)
DX: K74.60 Unspecified cirrhosis of liver (principal); U07.1 COVID-19; R18.8 Other ascites; R16.1 Splenomegaly, not elsewhere classified; I10 Essential (primary) hypertension; E11.9 Type 2 diabetes mellitus without complications; Z79.82 Long term (current) use of aspirin; Z79.4 Long term (current) use of insulin; Z79.51 Long term (current) use of inhaled steroids; Z79.899 Other long term (current) drug therapy
CPT/HCPCS: 36415; 49083; 71045; 71260; 74176; 74177; 80048; 80053; 80074; 81001; 82042; 82140; 82150; 82550; 82945; 82962; 83036; 83605; 83615; 83690; 83735; 83880; 83986; 84443; 85025; 85027; 85610; 85652; 85730; 86140; 87015; 87040; 87070; 87075; 87101; 87116; 87205; 87206; 87252; 87635; 87804; 89050; 93005; 93010; 96365; 96366; 96375; 99211; 99285; J0456; J1650; J1815; J3475; J3480; J3490; J7030; J7060

== ENCOUNTER → 2020-01-29 | Outpatient (CLI) | payer MEDICARE, OTHER ==
--- NOTE | 2020-01-29 11:39 | ER [facility] ASSESSMENT REPORT ---
Intake - In the Last 14 days Have you traveled outside [place]?: No Have you been in close contact with someone CONFIRMED: No Worked in Healthcare?: No - Symptoms Subjective Fever(Dorset feverish): Yes Chills: Yes Muscule Aches: Yes Runny Nose: Yes Sore Throat: Yes Cough (New or worsening chronic cough): Yes Shortness of breath: Yes Nausea or Vomiting: Yes Headache: Yes Abdominal Pain: Yes Diarrhea(3 or more loose stools in last 24 hours): Yes - Do you have any of the following Chronic lung disease: Asthma or emphysema or COPD: Yes Chronic Lung Disease Comment: asthma Cystic Fibrosis: No Diabetes: Yes High Blood Pressure: Yes Cardiovascular Disease: Yes Chronic Kidney Disease: No Chronic Liver Disease: Yes Chronic Liver Disease Comment: fatty liver Chronic blood disorder like Sickle Cell Disease: No Weak immune system due to disease or medication: No Neurologic condition that limits movement: No Developmental delay - Moderate to Severe: No Recent (within past 2 weeks) or current : No Morbid Obesity (>100 pounds over ideal weight): No - Objective Temperature: 99.8 F Pulse Rate: 94 Respiratory Rate: 20 Blood Pressure: 88/50 O2 Sat by Pulse Oximetry: 94 Objective: Given above, testing performed: If Testing Performed: Test Specimen Type Sent to General - General Information source: Patient Notes: Patient presents to the [facility] for screening for the coronavirus. Patient states that she did have a test that tested positive for the antibodies but patient's doctor wants to know she has an active infection. Patient was evaluated by her doctor last week and had a CT scan that showed fluid around her lungs. Patient does have a history of diabetes hypertension asthma and fatty liver disease. Patient is hypotensive at this time and states that she did take her blood pressure medication this morning without checking her blood pressure prior to taking the medicine. Patient denies any recent changes to the blood pressure medicine. - Related Data Allergies/Adverse Reactions: No Known Allergies Allergy (Verified 09/03/18 13:12) Past Medical History - General Information source: Patient - Social History Smoking Status: Never Smoker Family History: Reviewed & Not Pertinent - Past Medical History Cardiac Medical History: Reports: Hx Hypertension Denies: Hx Coronary Artery Disease, Hx Heart Attack Pulmonary Medical History: Reports: Hx Asthma Denies: Hx Bronchitis, Hx COPD, Hx Pneumonia Neurological Medical History: Denies: Hx Cerebrovascular Accident, Hx Seizures Endocrine Medical History: Reports: Hx Diabetes Mellitus Type 2 Renal/ Medical History: Denies: Hx Peritoneal Dialysis Musculoskeletal Medical History: Reports Hx Arthritis Past Surgical History: Reports: Hx Appendectomy, Hx Cholecystectomy, Hx Hysterectomy, Hx Orthopedic Surgery - knees, Hx Tonsillectomy Physical Exam - Notes Notes: Full physical exam could not be performed due to covid 19 isolation protocols. Constitutional: Nontoxic appearance, no acute distress Eyes: Nonicteric, extraocular movements intact, sclera clear ENT: No swollen nasal mucosa, no rhinorrhea noted Cardiovascular: Rate rhythm regular, no JVD Respiratory: Breath sounds clear bilaterally, nonlabored breathing, no use of accessory muscles, no tachypnea Gastrointestinal: Abdomen not distended Muculoskeletal: Moves all extremities well Skin: Normal color Neuro: Awake alert oriented, normal speech Psych: Normal mood and affect Diagnostic Results Laboratory Results: The patient was evaluated during the global Covid 19 pandemic, and that diagnosis was suspected/considered upon their initial presentation. Their e valuation, treatment and testing was consistent with current guidelines for patients who present with complaints or symptoms that may be related to Covid 19. Patient advised of blood pressure reading of 88/50. Patient encouraged to go to the hospital for further evaluation for her hypotension. Patient does report feeling lightheaded. Patient advised that hypotension could cause some of the symptoms. Patient encouraged to follow-up with the ER for further treatment and if she declines patient encouraged to at the minimum inform her doctor of her blood pressure today. Patient also encouraged to monitor her blood pressure prior to taking her antihypertensive medication. Patient states that she typically takes her blood pressure medicine at nighttime. [facility] Discharge - Discharge Clinical Impression: COVID-19 screening Hypotension Qualifiers: Hypotension type: unspecified hypotension type Qualified Code(s): I95.9 - Hypotension, unspecified Condition: Fair Disposition: Home; Selfcare
[2020-01-29 11:44] VITALS: BP 88/50
[2020-01-29 13:51] LABS: A TYPE INFLUENZA AG NEGATIVE (NEGATIVE); B INFLUENZA AG NEGATIVE (NEGATIVE)
== END ==
LOC: RDC 11:00
PROVIDERS: ATTEND Nurse Practitioner Family
DX: Z20.828 Contact with and (suspected) exposure to other viral communicable diseases (principal)
CPT/HCPCS: 87635; 87804; 99211

== ENCOUNTER 2020-03-11 11:49 | Inpatient (IN) | payer MEDICARE, OTHER ==
[2020-03-11] MEDS ORDERED: NORMAL SALINE 1000 ML 1,000 ML IV ONE ×3 (12:30→13:54)
[2020-03-11 12:52] LABS: ABSOLUTE EOSINOPHILS # (AUTO) 0.1 10^3/uL (0.0-0.6); ABSOLUTE LYMPHOCYTES (AUTO) 0.6 10^3/uL (0.5-4.7); ABSOLUTE MONOCYTES (AUTO) 0.3 10^3/uL (0.1-1.4); ABSOLUTE NEUT (AUTO) 2.1 10^3/uL (1.7-8.2); BASOPHILS % (AUTO) 0.3 % (0-2); EOSINOPHILS % (AUTO) 2.8 % (0-6); HEMATOCRIT 26.6 % (36.0-47.0); HEMOGLOBIN 9.1 g/dL (12.0-15.5); LYMPHOCYTES % (AUTO) 18.6 % (13-45); MEAN CORPUSCULAR HEMOGLOBIN 30.8 pg (27.0-33.4); MEAN CORPUSCULAR HGB CONC 34.1 g/dL (32.0-36.0); MEAN CORPUSCULAR VOLUME 90 fl (80-97); MONOCYTES % (AUTO) 9.6 % (3-13); RED BLOOD COUNT 2.95 10^6/uL (3.72-5.28); RED CELL DISTRIBUTION WIDTH 17.2 % (11.5-14.0); SEGMENTED NEUTROPHILS % (AUTO) 68.7 % (42-78); TOTAL CELLS COUNTED % (AUTO) 100 %; WHITE BLOOD COUNT 3.1 10^3/uL (4.0-10.5)
[2020-03-11 13:04] LABS: ALBUMIN 3.7 g/dL (3.5-5.0); ALKALINE PHOSPHATASE 46 U/L (38-126); ANION GAP 5 (5-19); ASPARTATE AMINO TRANSFERASE 58 U/L (14-36); BILIRUBIN,TOTAL 1.5 mg/dL (0.2-1.3); BLOOD UREA NITROGEN 26 mg/dL (7-20); CALCIUM 9.4 mg/dL (8.4-10.2); CARBON DIOXIDE 26 mmol/L (22-30); CHLORIDE 104 mmol/L (98-107); CREATINE KINASE 62 U/L (30-135); GLUCOSE 185 mg/dL (75-110); POTASSIUM 4.6 mmol/L (3.6-5.0); TOTAL PROTEIN 6.4 g/dL (6.3-8.2)
--- NOTE | 2020-03-11 13:06 | ER Document Report ---
ED General - General Chief Complaint: Dizziness Stated Complaint: HEADACHE,LIGHTHEADED,NAUSEA Time Seen by Provider: 03/11/20 12:36 Primary Care Provider: TOMÁS LUA NP [Primary Care Provider] - Follow up as needed Notes: Chief complaint : Dizziness History of present illness: 69-year-old female presenting for evaluation of dizziness with associated dull headache. Patient says she has had intermittent symptoms for over a week. Worse today. No syncope. No focal deficit. Patient has a history of non-alcoholic steatohepatitis (JERNIGAN) and was previously hospitalized with ascites and hypotension (apparently related to third spacing) on the hospitalist service here with discharge about 6 weeks ago. Patient denies nausea, vomiting, abdominal pain fever, chills, dysuria, cough or shortness of breath. Patient notes that she was seen yesterday by a local GI specialist Dr. Connolly and was started on several new medications although she is unable to recall the names of these and did not bring a list with her. She indicates that she filled the prescriptions at [facility] on [facility] and we will call to obtain a list of these medications. TRAVEL OUTSIDE OF THE [place] IN LAST 30 DAYS: No - HPI Notes: Chief complaint: Dizziness and headache History of present illness: 69-year-old female with history of nonalcoholic steatohepatitis (JERNIGAN) presenting with progressively worsening dizziness and associated mild dull headache for several days. She says she has a tendency to "stagger" when she walks. She denies any true focal deficit. She denies fever, chills, nausea, vomiting, melena or hematochezia. She denies abdominal pain. Patient was previously hospitalized here about 6 weeks ago on the hospitalist service and underwent paracentesis. She was seen by GI and a diagnosis of nonalcoholic steatohepatitis was made. We also note that the patient was previously diagnosed with COVID at the time of her prior hospitalization. Patient was seen by local GI specialist Dr. Connolly yesterday as an outpatient. She says several new medications were prescribed. She did not bring these medication bottles in with her and does not have a list of the medicine and furthermore cannot recall name of any of the medications. She indicates that the prescriptions have been filled at [facility] on [facility] in [place] and we will call to obtain a list of current medications. - Related Data Allergies/Adverse Reactions: No Known Allergies Allergy (Verified 01/29/20 13:12) Home Medications: HTN, insulin Past Medical History - General Information source: Patient, [facility] Records - Social History Smoking Status: Never Smoker Frequency of alcohol use: None Drug Abuse: None Lives with: Family Family History: Reviewed & Not Pertinent Patient has homicidal ideation: No - Past Medical History Cardiac Medical History: Reports: Hx Hypertension Denies: Hx Coronary Artery Disease, Hx Heart Attack Pulmonary Medical History: Reports: Hx Asthma Denies: Hx Bronchitis, Hx COPD, Hx Pneumonia Neurological Medical History: Denies: Hx Cerebrovascular Accident, Hx Seizures Endocrine Medical History: Reports: Hx Diabetes Mellitus Type 2 Renal/ Medical History: Denies: Hx Peritoneal Dialysis Musculoskeletal Medical History: Reports Hx Arthritis Psychiatric Medical History: Denies: Hx Depression Past Surgical History: Reports: Hx Appendectomy, Hx Cholecystectomy, Hx Hysterectomy, Hx Orthopedic Surgery - knees, Hx Tonsillectomy - Immunizations Hx Diphtheria, Pertussis, Tetanus Vaccination: Yes Review of Systems - Review of Systems Notes: Constitutional: Negative for fever. HENT: Negative for sore throat. Eyes: Negative for visual changes. Cardiovascular: Negative for chest pain. Respiratory: Negative for shortness of breath. Gastrointestinal: Chronic ascites. Negative for abdominal pain, vomiting or diarrhea. Genitourinary: Negative for dysuria. Musculoskeletal: Negative for back pain. Skin: Negative for rash. Neurological: Dull generalized headache. No focal weakness or numbness. 10 point ROS negative except as marked above and in HPI. Physical Exam - Vital signs Vitals: Resp Pulse Ox 16 100 03/11/20 12:13 03/11/20 12:13 - Notes Notes: GENERAL: Somewhat chronically ill-appearing female approximately stated age. SKIN: Good turgor no rashes. HEAD: Normocephalic atraumatic. EYES: PERRLA. EOMI. scleral icterus present. EARS: CANALS AND TMS CLEAR. NOSE: CLEAR. MOUTH: Moist mucosa. Good dentition. No stridor or edema. No drooling. NECK: Supple. No masses or thyromegaly. No adenopathy. Carotids 2+ without bruits. No JVD. BACK: Symmetrical without tenderness. CHEST: Respirations unlabored. Breath sounds clear and symmetrical. HEART: Regular rhythm. No murmur gallop or rub. ABDOMEN: Prominent ascites. Healed right upper quadrant cholecystectomy scar. Soft nontender without rebound. Hepatosplenomegaly present. Bowel sounds normally active. No bruits. GENITALIA: Deferred. EXTREMITIES: Moderate degenerative changes inner phalangeal joints both hands. 1+ bilateral pretibial edema. No calf tenderness. Cap refill less than 1.5 seconds. Dorsalis pedis and posterior tibial pulses 3+ and symmetrical. NEUROLOGICAL: 1+ asterixis. GCS 15. Alert and oriented x3. Normal gait. Fluent speech. Cranial nerves II through XII intact. Sensory and motor testing normal without any gross lateralization. Normal tone. PSYCHIATRIC: Appropriate affect. Course - Re-evaluation Re-evalutation: 03/11/20 15:38 Patient was hypotensive on arrival but appeared reasonably well perfused with normal mentation. She was not tachycardic and did not have a fever or elevation of her white count. Her abdomen was nontender. There was nothing to suggest acute bleeding. The patient received a total of 3 L normal saline fluid replacement. Her blood pressure gradually came up in excess of 100 systolic. Primary problem appears to be third spacing secondary to her ascites. Of note today her creatinine has more than doubled since her prior visit consistent with acute kidney injury. I discussed with her and explained recommendation for admission to the hospital with continued gentle hydration and close observation of renal status. Case was reviewed with and she will be admitted to the hospitalist service at this time. - Vital Signs Vital signs: Temp Pulse Resp BP Pulse Ox 97.8 F 91 15 103/63 100 03/11/20 12:15 03/11/20 12:15 03/11/20 15:01 03/11/20 15:00 03/11/20 15:01 - Laboratory Result Diagrams: 03/11/20 12:30 03/11/20 12:30 Laboratory results interpreted by me: 03/11/20 03/11/20 12:30 12:30 WBC 3.1 L RBC 2.95 L Hgb 9.1 L Hct 26.6 L RDW 17.2 H Plt Count 99 L Sodium 135.2 L BUN 26 H Creatinine 1.43 H Est GFR ( Amer) 44 L Est GFR (MDRD) Non-Af 37 L Glucose 185 H Total Bilirubin 1.5 H AST 58 H ALT 39 H Discharge - Discharge Clinical Impression: Hypotension due to third spacing, Nonalcoholic steatohepatitis (JERNIGAN), Acute kidney injury Cirrhosis Qualifiers: Hepatic cirrhosis type: other cirrhosis Qualified Code(s): K74.69 - Other cirrhosis of liver Condition: Fair Disposition: ADMITTED INPATIENT Admitting Provider: Ava (Hospitalist) Unit Admitted: Medical Floor Referrals: TOMÁS LUA NP [Primary Care Provider] - Follow up as needed
[2020-03-11 13:15] LABS: CREATINE KINASE MB 0.91 ng/mL (<4.55)
--- NOTE | 2020-03-11 13:15 | RADIOLOGY REPORT (SQ) ---
EXAM DESCRIPTION: CHEST SINGLE VIEW IMAGES COMPLETED DATE/TIME: 03/11/2020 1:04 pm REASON FOR STUDY: hypotension COMPARISON: 01/29/2020 CT/RADIOGRAPH EXAM PARAMETERS: NUMBER OF VIEWS: One view. TECHNIQUE: Single frontal radiographic view of the chest acquired. RADIATION DOSE: NA LIMITATIONS: None. FINDINGS: LUNGS AND PLEURA: Mild right mid lung and left basilar peripheral interstitial opacities, similar to prior CT. No focal consolidation. No pleural effusion or pneumothorax. MEDIASTINUM AND HILAR STRUCTURES: No masses. Contour normal. HEART AND VASCULAR STRUCTURES: Heart normal in size. Normal vasculature. BONES: No acute findings. HARDWARE: None in the chest. OTHER: No other significant finding. IMPRESSION: No focal consolidation. Improved left basilar aeration from prior. Stable mild interstitial opacities possibly fibrotic or hypoventilatory change. TECHNICAL DOCUMENTATION: JOB ID: [id number] 2010 [employer]- All Rights Reserved Reading location - IP/workstation name: [email or web address]
[2020-03-11 13:19] LABS: PLATELET COUNT 99 10^3/uL (150-450)
[2020-03-11 13:26] LABS: TROPONIN I < 0.012 ng/mL
[2020-03-11 14:07] LABS: INTERNATIONAL RATION (INR) 1.11; PARTIAL THROMBOPLASTIN TIME 30.5 SEC (23.5-35.8); PROTHROMBIN TIME 14.3 SEC (11.4-15.4)
[2020-03-11] MEDS ORDERED: NORMAL SALINE 1000 ML 1,000 ML IV PRN (16:23)
[2020-03-11] MEDS ORDERED: MAG HYDROX/AL HYDROX/SIMETH SUSP 30 ML UDCUP PO PRN (16:23)
[2020-03-11] MEDS ORDERED: PROMETHAZINE HCL INJ 25 MG/1 ML VIAL IV PRN (16:23)
--- NOTE | 2020-03-11 16:29 | PDOC H&P ---
History of Present Illness Admission Date/PCP: TOMÁS LUA NP Patient complains of: Weakness History of Present Illness: CURTIS HAYES is a 69 year old female with a history of nonalcoholic steatohepatitis. She sees Dr. Francisco Javier Hargrove for this. She states that she saw her paint technician yesterday. She has been monitoring her weight. There was no increased shortness of breath but she felt terribly weak and lightheaded. This is the main reason she presented to the emergency department. She did discuss her status with her paint technician and it was his recommendation to visit the emergency department. Upon presentation she was hypotensive. She did require oxygen supplementation. She exhibited leukopenia, thrombocytopenia and anemia. She does have elevated transaminase levels and bilirubin but this is consistent with her nonalcoholic steatohepatitis. Her blood pressure responded to IV fluids. Blood work also indicated an acute kidney injury. Patient was admitted to the hospitalist service. Will monitor telemetry studies and blood pressure. She will receive IV fluids as well as continuing her baseline medications. During the course of this encounter the patient's daughter was on the telephone. Past Medical History Cardiac Medical History: Reports: Hypertension Denies: Coronary Artery Disease, Myocardial Infarction Pulmonary Medical History: Reports: Asthma Denies: Bronchitis, Chronic Obstructive Pulmonary Disease (COPD), Pneumonia Neurological Medical History: Denies: Seizures Endocrine Medical History: Reports: Diabetes Mellitus Type 2 GI Medical History: Reports: Other - JERNIGAN Musculoskeltal Medical History: Reports: Arthritis Psychiatric Medical History: Denies: Depression Hematology: Reports: Anemia Past Surgical History Past Surgical History: Reports: Appendectomy, Cholecystectomy, Hysterectomy, Orthopedic Surgery - knees, Tonsillectomy Social History Information Source: Patient, [facility] Records Lives with: Family Smoking Status: Never Smoker Electronic Cigarette use?: No Frequency of Alcohol Use: None Hx Recreational Drug Use: No Hx Prescription Drug Abuse: No - Advance Directive Resuscitation Status: Do Not Resuscitate Family History Family History: Reviewed & Not Pertinent Parental Family History Reviewed: Yes Children Family History Reviewed: Yes Sibling(s) Family History Reviewed.: Yes Medication/Allergy Home Medications: Atorvastatin Calcium [Lipitor 40 mg Tablet] 40 mg PO QHS 03/11/20 Clonidine HCl 0.3 mg PO DAILY 03/11/20 Furosemide [Lasix 20 mg Tablet] 20 mg PO DAILY 03/11/20 Gabapentin [Neurontin 300 mg Capsule] 300 mg PO Q12 03/11/20 Insulin Glargine,Hum.rec.anlog [Basaglar Kwikpen U-100] 65 unit SQ QAM 03/11/20 Insulin Glargine,Hum.rec.anlog [Basaglar Kwikpen U-100] 75 unit SQ QPM 03/11/20 Insulin Regular, Human [Novolin R] 30 unit SQ DAILY 03/11/20 Levothyroxine Sodium [Synthroid 0.15 mg Tablet] 0.15 mg PO DAILY 03/11/20 Losartan Potassium [Cozaar 50 mg Tablet] 50 mg PO DAILY 03/11/20 Paroxetine HCl [Paxil 20 mg Tablet] 20 mg PO DAILY 03/11/20 Potassium Chloride [Klor-Con 10 Meq Tablet ER] 10 meq PO DAILY 03/11/20 Spironolactone [Aldactone 100 mg Tablet] 100 mg PO DAILY 03/11/20 Allergies/Adverse Reactions: No Known Allergies Allergy (Verified 01/29/20 13:12) Review of Systems All systems: reviewed and no additional remarkable complaints except as stated Constitutional: PRESENT: weakness Gastrointestinal: PRESENT: abdominal pain Physical Exam Vital Signs: Temp Pulse Resp BP Pulse Ox 97.8 F 91 21 H 120/61 100 03/11/20 12:15 03/11/20 12:15 03/11/20 16:01 03/11/20 16:00 03/11/20 16:01 Intake & Output 03/10/20 03/11/20 03/12/20 06:59 06:59 06:59 Intake Total 3000 Balance 3000 Weight 85.275 kg General appearance: PRESENT: cooperative, mild distress, well-developed Head exam: PRESENT: atraumatic, normocephalic Eye exam: PRESENT: conjunctiva pale, EOMI, scleral icterus Ear exam: PRESENT: normal external ear exam. ABSENT: bleeding, drainage Mouth exam: PRESENT: other - Mask in place Respiratory exam: PRESENT: clear to auscultation evita, symmetrical, unlabored. ABSENT: prolonged expiratory phas, rales, rhonchi, tachypnea, wheezes Cardiovascular exam: PRESENT: RRR, +S1, +S2. ABSENT: diastolic murmur, irregular rhythm, systolic murmur GI/Abdominal exam: PRESENT: distended, soft. ABSENT: guarding, tenderness Rectal exam: PRESENT: deferred Gentrourinary exam: ABSENT: indwelling catheter Extremities exam: ABSENT: pedal edema Musculoskeletal exam: PRESENT: ambulatory, normal inspection Neurological exam: PRESENT: alert, awake, oriented to person, oriented to place, oriented to time, oriented to situation, CN II-XII grossly intact. ABSENT: altered, motor sensory deficit Psychiatric exam: PRESENT: flat affect. ABSENT: agitated, anxious Focused psych exam: ABSENT: delusional, paranoid, restlessness Skin exam: PRESENT: dry, normal color, warm. ABSENT: rash Results Laboratory Results: 03/11/20 12:30 03/11/20 12:30 03/11/20 03/11/20 03/11/20 12:30 12:30 12:42 WBC 3.1 L RBC 2.95 L Hgb 9.1 L Hct 26.6 L MCV 90 MCH 30.8 MCHC 34.1 RDW 17.2 H Plt Count 99 L Seg Neutrophils % 68.7 Sodium 135.2 L Potassium 4.6 Chloride 104 Carbon Dioxide 26 Anion Gap 5 BUN 26 H Creatinine 1.43 H Est GFR ( Amer) 44 L Glucose 185 H Lactic Acid 1.3 Calcium 9.4 Total Bilirubin 1.5 H AST 58 H Alkaline Phosphatase 46 Ammonia Total Protein 6.4 Albumin 3.7 03/11/20 13:30 WBC RBC Hgb Hct MCV MCH MCHC RDW Plt Count Seg Neutrophils % Sodium Potassium Chloride Carbon Dioxide Anion Gap BUN Creatinine Est GFR ( Amer) Glucose Lactic Acid Calcium Total Bilirubin AST Alkaline Phosphatase Ammonia 19.8 Total Protein Albumin 03/11/20 03/11/20 12:30 12:30 Creatine Kinase 62 CK-MB (CK-2) 0.91 Troponin I < 0.012 Impressions: Chest X-Ray 03/11/20 12:42 IMPRESSION: No focal consolidation. Improved left basilar aeration from prior. Stable mild interstitial opacities possibly fibrotic or hypoventilatory change. Assessment and Plan - Diagnosis (1) Weakness Is this a current diagnosis for this admission?: Yes Plan: 03/11/2020 No obvious infection. Screening for Covid-19. Hypotension could reflect volume depletion intravascularly. The patient did respond to IV fluids. Will monitor closely. Exact etiology of overall weakness is unknown at this time. (2) Nonalcoholic steatohepatitis (JERNIGAN) Is this a current diagnosis for this admission?: Yes Plan: 03/11/2020 Mild elevation of transaminases and bilirubin. Continue to monitor. (3) Cirrhosis Qualifiers: Hepatic cirrhosis type: other cirrhosis Qualified Code(s): K74.69 - Other cirrhosis of liver Is this a current diagnosis for this admission?: Yes Plan: 03/11/2020 Secondary to nonalcoholic steatohepatitis. Monitor intake and output. Monitor liver function. (4) Acute kidney injury Is this a current diagnosis for this admission?: Yes Plan: 03/11/2020 IV fluids. Monitor renal function. Adjust medications accordingly. (5) Abdominal distention, non-gaseous Is this a current diagnosis for this admission?: Yes (6) Hypotension Qualifiers: Hypotension type: unspecified hypotension type Qualified Code(s): I95.9 - Hypotension, unspecified Is this a current diagnosis for this admission?: Yes Plan: 03/11/2020 Possibly intravascular fluid depletion. Could be medication related. IV fluids at this time. Continue to monitor intake and output. (7) Anemia Qualifiers: Anemia type: unspecified type Qualified Code(s): D64.9 - Anemia, unspecified Is this a current diagnosis for this admission?: Yes Plan: 03/11/2020 Possibly gait to chronic liver disease. Monitor hemoglobin. (8) Thrombocytopenia Is this a current diagnosis for this admission?: Yes Plan: 03/11/2020 Most likely due to chronic liver disease. Monitor platelet counts. (9) Leukopenia Qualifiers: Leukopenia type: unspecified Qualified Code(s): D72.819 - Decreased white blood cell count, unspecified Is this a current diagnosis for this admission?: Yes Plan: 03/11/2020 Likely due to chronic liver disease. Monitor CBC. (10) Hyperglycemia due to type 2 diabetes mellitus Qualifiers: Diabetes mellitus prison insulin use: with prison use Qualified Code(s): E11.65 - Type 2 diabetes mellitus with hyperglycemia; Z79.4 - exterminator helper termite (current) use of insulin Is this a current diagnosis for this admission?: Yes Plan: 03/11/2020 Present insulin but at a lower dose. Add sliding scale with Accu-Cheks. - Time Time Spent with patient: 35 or more minutes Medications reviewed and adjusted accordingly: Yes - Inpatient Certification Based on my medical assessment, after consideration of the patient's comorbiditi es, presenting symptoms, or acuity I expect that the services needed warrant INPATIENT care.: Yes I certify that my determination is in accordance with my understanding of [facility]'s requirements for reasonable and necessary INPATIENT services [42 CFR 412.3e].: Yes Medical Necessity: Need For IV Fluids, Need for Pain Control Post Hospital Care: D/C [employer] Documentation
[2020-03-11 17:46] LABS: APPEARANCE,URINE CLEAR; BILIRUBIN,URINE NEGATIVE (NEGATIVE); COLOR,URINE YELLOW; GLUCOSE, URINE NEGATIVE (NEGATIVE); KETONES,URINE NEGATIVE (NEGATIVE); LEUKOCYTE ESTERASE,URINE NEGATIVE (NEGATIVE); NITRITE,URINE NEGATIVE (NEGATIVE); PROTEIN,URINE NEGATIVE (NEGATIVE); URINE SPECIFIC GRAVITY 1.004; UROBILINOGEN,URINE NEGATIVE mg/dL (<2.0)
--- NOTE | 2020-03-11 19:37 | EKG REPORT ---
SEVERITY:- ABNORMAL ECG - SINUS RHYTHM RIGHT BUNDLE BRANCH BLOCK : Confirmed by: Josiah Parra 11-Mar-2020 19:36:10
[2020-03-11] MEDS ORDERED: DEXTROSE 40% GEL 15 GM TUBE PO PRN ×2 (21:16)
[2020-03-11] MEDS ORDERED: DEXTROSE 50%-WATER 25 GM/50 ML DISP.SYRIN IV PRN ×2 (21:16)
[2020-03-11] MEDS ORDERED: GLUCAGON,HUMAN RECOMB 1 MG INJ IM PRN (21:16)
[2020-03-11] MEDS: HEPARIN SOD (PORCINE) 5,000 UNIT/ML 1 ML VIAL SUBCUT SCH (21:55)
[2020-03-11] MEDS: INSULIN REG, HUMAN 100 UNIT/ML 3 ML VIAL (PYX) SUBCUT SCH (21:57)
[2020-03-11] MEDS: INSULIN GLARGINE,HUM.REC.ANLOG 1,000 UNIT/10 ML VIAL SUBCUT SCH (21:57)
[2020-03-11] MEDS: ATORVASTATIN CALCIUM 40 MG TABLET PO SCH (21:58)
[2020-03-11] MEDS: GABAPENTIN 300 MG CAPSULE PO SCH (21:58)
[2020-03-12] MEDS: HEPARIN SOD (PORCINE) 5,000 UNIT/ML 1 ML VIAL SUBCUT SCH ×3 (05:04→21:32)
[2020-03-12 05:10] LABS: ABSOLUTE EOSINOPHILS # (AUTO) 0.1 10^3/uL (0.0-0.6); ABSOLUTE LYMPHOCYTES (AUTO) 0.8 10^3/uL (0.5-4.7); ABSOLUTE MONOCYTES (AUTO) 0.2 10^3/uL (0.1-1.4); ABSOLUTE NEUT (AUTO) 1.6 10^3/uL (1.7-8.2); BASOPHILS % (AUTO) 0.4 % (0-2); HEMATOCRIT 25.2 % (36.0-47.0); HEMOGLOBIN 8.6 g/dL (12.0-15.5); LYMPHOCYTES % (AUTO) 28.5 % (13-45); MEAN CORPUSCULAR HEMOGLOBIN 30.7 pg (27.0-33.4); MEAN CORPUSCULAR HGB CONC 34.2 g/dL (32.0-36.0); MEAN CORPUSCULAR VOLUME 90 fl (80-97); MONOCYTES % (AUTO) 9.2 % (3-13); RED BLOOD COUNT 2.81 10^6/uL (3.72-5.28); SEGMENTED NEUTROPHILS % (AUTO) 58.9 % (42-78); TOTAL CELLS COUNTED % (AUTO) 100 %; WHITE BLOOD COUNT 2.7 10^3/uL (4.0-10.5)
[2020-03-12 05:29] LABS: ALBUMIN 3.1 g/dL (3.5-5.0); ALKALINE PHOSPHATASE 51 U/L (38-126); ASPARTATE AMINO TRANSFERASE 41 U/L (14-36); BILIRUBIN,TOTAL 1.1 mg/dL (0.2-1.3); BLOOD UREA NITROGEN 18 mg/dL (7-20); CALCIUM 8.7 mg/dL (8.4-10.2); GLUCOSE 140 mg/dL (75-110); POTASSIUM 4.1 mmol/L (3.6-5.0); TOTAL PROTEIN 5.7 g/dL (6.3-8.2)
[2020-03-12 05:34] LABS: CARBON DIOXIDE 24 mmol/L (22-30); CHLORIDE 111 mmol/L (98-107)
[2020-03-12 05:36] LABS: ANION GAP 4 (5-19)
[2020-03-12] MEDS: LEVOTHYROXINE SODIUM 0.15 MG TABLET PO SCH (05:42)
[2020-03-12 05:43] LABS: PLATELET COUNT 76 10^3/uL (150-450)
[2020-03-12] MEDS: INSULIN REG, HUMAN 100 UNIT/ML 3 ML VIAL (PYX) SUBCUT SCH ×4 (08:14→21:34)
[2020-03-12] MEDS ORDERED: LOSARTAN POTASSIUM 50 MG TABLET PO SCH ×2 (10:00)
[2020-03-12] MEDS ORDERED: SPIRONOLACTONE 25 MG TABLET PO SCH ×2 (10:00)
[2020-03-12] MEDS ORDERED: (PENDING PHARMACY ID) (Spironolactone [Aldactone 100 Mg Tablet] 100 MG) PO SCH (10:00)
[2020-03-12] MEDS ORDERED: CLONIDINE HCL 0.1 MG TABLET PO SCH (10:00)
[2020-03-12] MEDS ORDERED: (PENDING PHARMACY ID) (Clonidine Hcl [Clonidine Hcl] 0.3 MG) PO SCH ×2 (10:00)
[2020-03-12] MEDS: MAGNESIUM OXIDE 400 MG TABLET PO SCH ×2 (10:03→18:31)
[2020-03-12] MEDS: PAROXETINE HCL 20 MG TABLET PO SCH (10:03)
[2020-03-12] MEDS: GABAPENTIN 300 MG CAPSULE PO SCH ×2 (10:04→22:59)
[2020-03-12] MEDS: INSULIN GLARGINE,HUM.REC.ANLOG 1,000 UNIT/10 ML VIAL SUBCUT SCH ×2 (10:05→21:34)
--- NOTE | 2020-03-12 13:13 | PDOC PROGRESS REPORT ---
Subjective Progress Note for:: 03/12/20 Subjective:: Patient is doing well. States that she is been having some lightheadedness and spells of imbalance for the past few days. Uncertain how long blood pressure has been low. States that she feels better since receiving IV fluids here in the hospital. Reason For Visit: HYPOTENSION JERNIGAN Physical Exam Vital Signs: Temp Pulse Resp BP Pulse Ox 98.6 F 84 17 122/56 L 98 03/12/20 10:47 03/12/20 10:47 03/12/20 10:47 03/12/20 10:47 03/12/20 10:47 Intake & Output 03/11/20 03/12/20 03/13/20 06:59 06:59 06:59 Intake Total 3000 1236 Balance 3000 1236 Weight 85 kg General appearance: PRESENT: no acute distress, cooperative Neck exam: ABSENT: JVD Respiratory exam: PRESENT: clear to auscultation evita, unlabored. ABSENT: tachypnea, wheezes Cardiovascular exam: PRESENT: RRR, +S1, +S2. ABSENT: tachycardia GI/Abdominal exam: PRESENT: soft. ABSENT: rebound, rigid, tenderness Neurological exam: PRESENT: alert, awake, oriented to person, oriented to place, oriented to time Results Laboratory Results: 03/12/20 04:15 03/12/20 04:15 03/11/20 03/11/20 03/11/20 12:30 12:30 12:42 WBC 3.1 L RBC 2.95 L Hgb 9.1 L Hct 26.6 L MCV 90 MCH 30.8 MCHC 34.1 RDW 17.2 H Plt Count 99 L Seg Neutrophils % 68.7 Sodium 135.2 L Potassium 4.6 Chloride 104 Carbon Dioxide 26 Anion Gap 5 BUN 26 H Creatinine 1.43 H Est GFR ( Amer) 44 L Glucose 185 H Lactic Acid 1.3 Calcium 9.4 Magnesium Total Bilirubin 1.5 H AST 58 H Alkaline Phosphatase 46 Ammonia Total Protein 6.4 Albumin 3.7 Urine Color Urine Appearance Urine pH Ur Specific [place] Urine Protein Urine Glucose (UA) Urine Ketones Urine Blood Urine Nitrite Ur Leukocyte Esterase Urine WBC (Auto) Urine RBC (Auto) 03/11/20 03/11/20 03/12/20 13:30 17:25 04:15 WBC 2.7 L RBC 2.81 L Hgb 8.6 L Hct 25.2 L MCV 90 MCH 30.7 MCHC 34.2 RDW 17.0 H Plt Count 76 L Seg Neutrophils % 58.9 Sodium Potassium Chloride Carbon Dioxide Anion Gap BUN Creatinine Est GFR ( Amer) Glucose Lactic Acid Calcium Magnesium Total Bilirubin AST Alkaline Phosphatase Ammonia 19.8 Total Protein Albumin Urine Color YELLOW Urine Appearance CLEAR Urine pH 6.0 Ur Specific [place] 1.004 Urine Protein NEGATIVE Urine Glucose (UA) NEGATIVE Urine Ketones NEGATIVE Urine Blood NEGATIVE Urine Nitrite NEGATIVE Ur Leukocyte Esterase NEGATIVE Urine WBC (Auto) 1 Urine RBC (Auto) 1 03/12/20 04:15 WBC RBC Hgb Hct MCV MCH MCHC RDW Plt Count Seg Neutrophils % Sodium 139.1 Potassium 4.1 Chloride 111 H Carbon Dioxide 24 Anion Gap 4 L BUN 18 Creatinine 0.90 Est GFR ( Amer) > 60 Glucose 140 H Lactic Acid Calcium 8.7 Magnesium 1.4 L Total Bilirubin 1.1 AST 41 H Alkaline Phosphatase 51 Ammonia Total Protein 5.7 L Albumin 3.1 L Urine Color Urine Appearance Urine pH Ur Specific [place] Urine Protein Urine Glucose (UA) Urine Ketones Urine Blood Urine Nitrite Ur Leukocyte Esterase Urine WBC (Auto) Urine RBC (Auto) 03/11/20 03/11/20 12:30 12:30 Creatine Kinase 62 CK-MB (CK-2) 0.91 Troponin I < 0.012 Impressions: Chest X-Ray 03/11/20 12:42 IMPRESSION: No focal consolidation. Improved left basilar aeration from prior. Stable mild interstitial opacities possibly fibrotic or hypoventilatory change. Assessment and Plan - Diagnosis (1) Hypotension Qualifiers: Hypotension type: unspecified hypotension type Qualified Code(s): I95.9 - Hypotension, unspecified Is this a current diagnosis for this admission?: Yes Plan: Suspected secondary to intravascular fluid depletion as well as antihypertensive medications. Patient blood pressure has normalized today with IV fluid hydration. I have decreased her Aldactone to 50 mg. Continue Lasix 20 mg. She has a history of hypertension and was on losartan and clonidine. She has received clonidine this morning but I have discontinued clonidine now. Resume losartan tomorrow. Monitor BP off IV fluids. (2) Weakness Is this a current diagnosis for this admission?: Yes Plan: No obvious infection. May be a lingering effect from recent infection last month was secondary to hypotension. Covid-19 test is negative this time around. (3) Anemia Qualifiers: Anemia type: unspecified type Qualified Code(s): D64.9 - Anemia, unspecified Is this a current diagnosis for this admission?: Yes Plan: Normocytic anemia with hemoglobin down from last month. Will check iron studies, B12 and folic acid level. TSH was normal last month. (4) Hyperglycemia due to type 2 diabetes mellitus Qualifiers: Diabetes mellitus exterminator termite insulin use: with care home use Qualified Code(s): E11.65 - Type 2 diabetes mellitus with hyperglycemia; Z79.4 - care home (current) use of insulin Is this a current diagnosis for this admission?: Yes Plan: Takes Lantus 65 units twice a day at home but currently on a lower dose while inpatient. Monitor with Accu-Cheks. Sliding scale insulin as needed. (5) History of 2019 novel coronavirus disease (COVID-19) Is this a current diagnosis for this admission?: Yes Plan: Diagnosed with COVID-19 01/29/2020 during prior admission. Repeat COVID test on this admission is negative. COVID-19 currently resolved. (6) Nonalcoholic steatohepatitis (JERNIGAN) Is this a current diagnosis for this admission?: Yes Plan: Stable elevation of liver enzymes. Continue to monitor. (7) Thrombocytopenia Is this a current diagnosis for this admission?: Yes Plan: Most likely due to chronic liver disease. Monitor platelet counts. - Time Time Spent with patient: 15-24 minutes
[2020-03-12] MEDS: ATORVASTATIN CALCIUM 40 MG TABLET PO SCH (21:32)
[2020-03-13] MEDS: LEVOTHYROXINE SODIUM 0.15 MG TABLET PO SCH (05:20)
[2020-03-13 05:50] LABS: ABSOLUTE EOSINOPHILS # (AUTO) 0.1 10^3/uL (0.0-0.6); ABSOLUTE LYMPHOCYTES (AUTO) 0.9 10^3/uL (0.5-4.7); ABSOLUTE MONOCYTES (AUTO) 0.2 10^3/uL (0.1-1.4); ABSOLUTE NEUT (AUTO) 1.3 10^3/uL (1.7-8.2); ABSOLUTE RETICS # 0.062 10^6/uL (0.028-0.122); BASOPHILS % (AUTO) 0.8 % (0-2); HEMOGLOBIN 9.2 g/dL (12.0-15.5); LYMPHOCYTES % (AUTO) 35.5 % (13-45); MEAN CORPUSCULAR HEMOGLOBIN 30.6 pg (27.0-33.4); MEAN CORPUSCULAR VOLUME 90 fl (80-97); MONOCYTES % (AUTO) 8.9 % (3-13); RED BLOOD COUNT 2.99 10^6/uL (3.72-5.28); RED CELL DISTRIBUTION WIDTH 16.8 % (11.5-14.0); RETICULOCYTE COUNT (AUTO) 2.07 % (0.66-2.85); SEGMENTED NEUTROPHILS % (AUTO) 49.8 % (42-78); TOTAL CELLS COUNTED % (AUTO) 100 %; WHITE BLOOD COUNT 2.5 10^3/uL (4.0-10.5)
[2020-03-13 06:05] LABS: PLATELET COUNT 76 10^3/uL (150-450)
[2020-03-13 06:21] LABS: BLOOD UREA NITROGEN 16 mg/dL (7-20); CALCIUM 9.6 mg/dL (8.4-10.2); GLUCOSE 98 mg/dL (75-110); IRON(TIBC) 64.3 ug/dL (37-170); POTASSIUM 4.6 mmol/L (3.6-5.0)
[2020-03-13 06:27] LABS: CARBON DIOXIDE 28 mmol/L (22-30); CHLORIDE 108 mmol/L (98-107)
[2020-03-13 06:33] LABS: ANION GAP 3 (5-19)
[2020-03-13] MEDS: INSULIN REG, HUMAN 100 UNIT/ML 3 ML VIAL (PYX) SUBCUT SCH ×2 (07:20→12:11)
[2020-03-13] MEDS: HEPARIN SOD (PORCINE) 5,000 UNIT/ML 1 ML VIAL SUBCUT SCH (07:20)
[2020-03-13] MEDS: PAROXETINE HCL 20 MG TABLET PO SCH (09:40)
[2020-03-13] MEDS: GABAPENTIN 300 MG CAPSULE PO SCH (09:40)
[2020-03-13] MEDS: INSULIN GLARGINE,HUM.REC.ANLOG 1,000 UNIT/10 ML VIAL SUBCUT SCH (09:41)
[2020-03-13] MEDS: MAGNESIUM OXIDE 400 MG TABLET PO SCH (09:41)
[2020-03-13] MEDS ORDERED: LOSARTAN POTASSIUM 50 MG TABLET PO SCH (10:00)
[2020-03-13 12:07] VITALS: BP 128/63
--- NOTE | 2020-03-13 14:05 | PDOC DISCHARGE SUMMARY ---
Impression - Admit/DC Date/PCP Admission Date/Primary Care Provider: 03/11/20 16:59 TOMÁS LUA NP Discharge Date: 03/13/20 - Discharge Diagnosis (1) Hyperglycemia due to type 2 diabetes mellitus Is this a current diagnosis for this admission?: Yes (2) Nonalcoholic steatohepatitis (JERNIGAN) Is this a current diagnosis for this admission?: Yes (3) Weakness Is this a current diagnosis for this admission?: Yes (4) Hypotension Is this a current diagnosis for this admission?: Yes - Additional Information Resuscitation Status: Do Not Resuscitate Discharge Diet: Diabetic Discharge Activity: Activity As Tolerated, Balance Activity w/Rest, Slowly Increase Activity Referrals: TOMÁS LUA NP [Primary Care Provider] - Follow up as needed Prescriptions: Spironolactone [Aldactone 100 mg Tablet] 50 mg PO DAILY #15 Home Medications: Atorvastatin Calcium [Lipitor 40 mg Tablet] 40 mg PO QHS 03/11/20 Gabapentin [Neurontin 300 mg Capsule] 300 mg PO Q12 03/11/20 Insulin Regular, Human [Novolin R] 30 unit SQ DAILY 03/11/20 Levothyroxine Sodium [Synthroid 0.15 mg Tablet] 0.15 mg PO DAILY 03/11/20 Losartan Potassium [Cozaar 50 mg Tablet] 50 mg PO DAILY 03/11/20 Paroxetine HCl [Paxil 20 mg Tablet] 20 mg PO DAILY 03/11/20 Potassium Chloride [Klor-Con 10 Meq Tablet ER] 10 meq PO DAILY 03/11/20 Insulin Glargine,Hum.rec.anlog [Basaglar Kwikpen U-100] 45 unit SQ QAM #0 03/13/20 Insulin Glargine,Hum.rec.anlog [Basaglar Kwikpen U-100] 55 unit SQ QPM #0 03/13/20 Spironolactone [Aldactone 100 mg Tablet] 50 mg PO DAILY #15 03/13/20 History of Present Illiness History of Present Illness: Per admitting physician: "CURTIS HAYES is a 69 year old female with a history of nonalcoholic steatohepatitis. She sees Dr. Francisco Javier Hargrove for this. She states that she saw her solid waste facility supervisor yesterday. She has been monitoring her weight. There was no increased shortness of breath but she felt terribly weak and lightheaded. This is the main reason she presented to the emergency department. She did discuss her status with her solid waste facility supervisor and it was his recommendation to visit the emergency department. Upon presentation she was hypotensive. She did require oxygen supplementation. She exhibited leukopenia, thrombocytopenia and anemia. She does have elevated transaminase levels and bilirubin but this is consistent with her nonalcoholic steatohepatitis. Her blood pressure responded to IV fluids. Blood work also indicated an acute kidney injury. Patient was admitted to the hospitalist service. Will monitor telemetry studies and blood pressure. She will receive IV fluids as well as continuing her baseline medications. During the course of this encounter the patient's daughter was on the telephone." Hospital Course Hospital Course: Patient admitted for hypotension, found to be on 4 antihypertensive medications, likely polypharmacy. Patient given some IV fluids over the course of 2 days and blood pressure medication regimen was significantly reduced. Blood pressure normalized and patient was no longer dizzy or lightheaded. Patient was counseled on monitoring her blood pressure and keeping a log of these values which she will bring her PCP within 1 week of her discharge. It was also recommended that she wear compression stockings to prevent pooling of blood in her lower extremities and improve venous return. Patient has compression stockings at home and states she would like to try wearing these. It was also recommended that the patient does not change positions abruptly but rather gets her body a short period of time to acclimate to each position change. Patient must also closely monitor her blood sugar especially in the mornings when it is occasionally low and she feels she has nausea. She will also take a log of her morning blood sugars to her PCP. Her Lantus regimen has been reduced. She reported to me having symptomatic low blood sugar in the mornings which causes her nausea and prevents her from eating meals which further worsens her low blood sugar. Patient and her family have been extensively counseled on the above recommendations and they agree with the plan going forward. Patient discharged in stable condition. Physical Exam Vital Signs: Temp Pulse Resp BP Pulse Ox 98.5 F 79 12 128/63 H 100 03/13/20 12:00 03/13/20 12:00 03/13/20 12:00 03/13/20 12:03/13/20 12:00 Intake & Output 03/12/20 03/13/20 03/14/20 06:59 06:59 06:59 Intake Total 3000 1986 Balance 3000 1985 Weight 85 kg 85 kg General appearance: PRESENT: no acute distress, well-developed, well-nourished Head exam: PRESENT: atraumatic, normocephalic Eye exam: PRESENT: conjunctiva pink Mouth exam: PRESENT: moist Respiratory exam: PRESENT: clear to auscultation evita. ABSENT: rales, rhonchi, wheezes Cardiovascular exam: PRESENT: RRR. ABSENT: diastolic murmur, rubs, systolic murmur GI/Abdominal exam: PRESENT: normal bowel sounds, soft. ABSENT: distended, guarding, mass, organolmegaly, rebound, tenderness Extremities exam: ABSENT: pedal edema Musculoskeletal exam: PRESENT: ambulatory Neurological exam: PRESENT: alert, awake, oriented to person, oriented to place, oriented to time, oriented to situation Psychiatric exam: PRESENT: appropriate affect Skin exam: PRESENT: dry, intact, warm Results Laboratory Results: WBC 2.5 10^3/uL (4.0-10.5) L 03/13/20 05:14 RBC 2.99 10^6/uL (3.72-5.28) L 03/13/20 05:14 Hgb 9.2 g/dL (12.0-15.5) L 03/13/20 05:14 Hct 27.0 % (36.0-47.0) L 03/13/20 05:14 MCV 90 fl (80-97) 03/13/20 05:14 MCH 30.6 pg (27.0-33.4) 03/13/20 05:14 MCHC 34.0 g/dL (32.0-36.0) 03/13/20 05:14 RDW 16.8 % (11.5-14.0) H 03/13/20 05:14 Plt Count 76 10^3/uL (150-450) L 03/13/20 05:14 Lymph % (Auto) 35.5 % (13-45) 03/13/20 05:14 [place] % (Auto) 8.9 % (3-13) 03/13/20 05:14 Eos % (Auto) 5.0 % (0-6) 03/13/20 05:14 Baso % (Auto) 0.8 % (0-2) 03/13/20 05:14 Reticulocyte # 0.062 10^6/uL (0.028-0.122) 03/13/20 05:14 Absolute Neuts (auto) 1.3 10^3/uL (1.7-8.2) L 03/13/20 05:14 Absolute Lymphs (auto) 0.9 10^3/uL (0.5-4.7) 03/13/20 05:14 Absolute Monos (auto) 0.2 10^3/uL (0.1-1.4) 03/13/20 05:14 Absolute Eos (auto) 0.1 10^3/uL (0.0-0.6) 03/13/20 05:14 Absolute Basos (auto) 0.0 10^3/uL (0.0-0.2) 03/13/20 05:14 Seg Neutrophils % 49.8 % (42-78) 03/13/20 05:14 Retic Count (auto) 2.07 % (0.66-2.85) 03/13/20 05:14 PT 14.3 SEC (11.4-15.4) 03/11/20 13:30 INR 1.11 03/11/20 13:30 APTT 30.5 SEC (23.5-35.8) 03/11/20 13:30 Sodium 138.7 mmol/L (137-145) 03/13/20 05:14 Potassium 4.6 mmol/L (3.6-5.0) 03/13/20 05:14 Chloride 108 mmol/L (98-107) H 03/13/20 05:14 Carbon Dioxide 28 mmol/L (22-30) 03/13/20 05:14 Anion Gap 3 (5-19) L 03/13/20 05:14 BUN 16 mg/dL (7-20) 03/13/20 05:14 Creatinine 0.95 mg/dL (0.52-1.25) 03/13/20 05:14 Est GFR ( Amer) > 60 (>60) 03/13/20 05:14 Est GFR (MDRD) Non-Af 59 (>60) L 03/13/20 05:14 Glucose 98 mg/dL (75-110) 03/13/20 05:14 POC Glucose 164 mg/dL (70-110) H 03/13/20 12:05 Lactic Acid 1.3 mmol/L (0.7-2.1) 03/11/20 12:42 Calcium 9.6 mg/dL (8.4-10.2) 03/13/20 05:14 Magnesium 1.6 mg/dL (1.6-2.3) 03/13/20 05:14 Iron 64.3 ug/dL (37-170) 03/13/20 05:14 TIBC 434 ug/dL (250-450) 03/13/20 05:14 % Saturation 15 % 03/13/20 05:14 Transferrin 334.69 mg/dL (206.00-381.00) 03/13/20 05:14 Ferritin 19.50 ng/mL (11.1-264.0) 03/13/20 05:14 Total Bilirubin 1.1 mg/dL (0.2-1.3) 03/12/20 04:15 Direct Bilirubin 0.0 mg/dL (0.0-0.4) 03/12/20 04:15 Neonat Total Bilirubin Not Reportable 03/12/20 04:15 Neonat Direct Bilirubin Not Reportable 03/12/20 04:15 Neonat Indirect Bili Not Reportable 03/12/20 04:15 AST 41 U/L (14-36) H 03/12/20 04:15 ALT 31 U/L (<35) 03/12/20 04:15 Alkaline Phosphatase 51 U/L (38-126) 03/12/20 04:15 Ammonia 19.8 umol/L (9-33) 03/11/20 13:30 Creatine Kinase 62 U/L (30-135) 03/11/20 12:30 CK-MB (CK-2) 0.91 ng/mL (<4.55) 03/11/20 12:30 Troponin I < 0.012 ng/mL 03/11/20 12:30 Total Protein 5.7 g/dL (6.3-8.2) L 03/12/20 04:15 Albumin 3.1 g/dL (3.5-5.0) L 03/12/20 04:15 Vitamin B12 453.0 pg/mL (239-931) 03/13/20 05:14 Folate 19.20 ng/mL (>2.76) 03/13/20 05:14 Urine Color YELLOW 03/11/20 17:25 Urine Appearance CLEAR 03/11/20 17:25 Urine pH 6.0 (5.0-9.0) 03/11/20 17:25 Ur Specific [place] 1.004 03/11/20 17:25 Urine Protein NEGATIVE mg/dL (NEGATIVE) 03/11/20 17:25 Urine Glucose (UA) NEGATIVE mg/dL (NEGATIVE) 03/11/20 17:25 Urine Ketones NEGATIVE mg/dL (NEGATIVE) 03/11/20 17:25 Urine Blood NEGATIVE (NEGATIVE) 03/11/20 17:25 Urine Nitrite NEGATIVE (NEGATIVE) 03/11/20 17:25 Urine Bilirubin NEGATIVE (NEGATIVE) 03/11/20 17:25 Urine Urobilinogen NEGATIVE mg/dL (<2.0) 03/11/20 17:25 Ur Leukocyte Esterase NEGATIVE (NEGATIVE) 03/11/20 17:25 Urine WBC (Auto) 1 /HPF 03/11/20 17:25 Urine RBC (Auto) 1 /HPF 03/11/20 17:25 Urine Bacteria (Auto) TRACE /HPF 03/11/20 17:25 Squamous Epi Cells Auto 1 /HPF 03/11/20 17:25 Urine Mucus (Auto) RARE /LPF 03/11/20 17:25 Urine Ascorbic Acid NEGATIVE (NEGATIVE) 03/11/20 17:25 SARS-CoV-2 (PCR) NEGATIVE (NEGATIVE) 03/11/20 14:30 03/11/20 12:30 CK-MB (CK-2) 0.91 Troponin I < 0.012 Impressions: Chest X-Ray 03/11/20 12:42 IMPRESSION: No focal consolidation. Improved left basilar aeration from prior. Stable mild interstitial opacities possibly fibrotic or hypoventilatory change. Plan Time Spent: Greater than 30 Minutes Stroke Is this a Stroke Patient?: No Acute Heart Failure - Is this a Heart Failure Patient?: No Follow-up Appointment scheduled within 7 days?: Yes
== END 2020-03-13 13:50 | disposition home or self-care (01) | DRG 312 ==
LOC: ER 11:49 → EH 16:59 → 4S 18:05
PROVIDERS: ADMIT Hospitalist; ATTEND Internal Medicine
DX: I95.2 Hypotension due to drugs (principal); N17.9 Acute kidney failure, unspecified; T46.5X5A Adverse effect of other antihypertensive drugs, initial encounter; E11.65 Type 2 diabetes mellitus with hyperglycemia; K75.81 Nonalcoholic steatohepatitis (NASH); M19.90 Unspecified osteoarthritis, unspecified site; Z66 Do not resuscitate; J45.909 Unspecified asthma, uncomplicated; Z79.84 Long term (current) use of oral hypoglycemic drugs; Z79.899 Other long term (current) drug therapy; Z79.4 Long term (current) use of insulin; Z90.49 Acquired absence of other specified parts of digestive tract; Z79.890 Hormone replacement therapy; D64.9 Anemia, unspecified; D69.6 Thrombocytopenia, unspecified; D72.819 Decreased white blood cell count, unspecified; Z86.19 Personal history of other infectious and parasitic diseases
CPT/HCPCS: 36415; 71045; 80048; 80053; 80076; 81001; 82140; 82550; 82553; 82607; 82728; 82746; 82962; 83540; 83550; 83605; 83735; 84466; 84484; 85025; 85045; 85610; 85730; 87040; 87635; 93005; 93010; 96360; 96361; 99285; C9803; J1815; J3490; J7030

== ENCOUNTER 2020-06-09 09:51 | Observation (INO) | payer MEDICARE, OTHER ==
[2020-06-09] MEDS ORDERED: ACETAMINOPHEN 325 MG TABLET PO ONE ×2 (10:17→18:19)
--- NOTE | 2020-06-09 10:19 | ER Document Report ---
ED Medical Screen (RME) - General Chief Complaint: Fall Injury Stated Complaint: FALL/NOSE INJURY Time Seen by Provider: 06/09/20 10:11 Primary Care Provider: TOMÁS LUA NP [Primary Care Provider] - Follow up as needed Notes: Patient is a 69-year-old female with a history of dementia and hypertension who presents emergency department after a fall. She was bending over and lost her balance hit her head on the floor. It was a carpeted surface and she slid forward. Patient is currently on aspirin. Daughter is at bedside and states that her mental status is at baseline. Patient has been complaining of dizz iness for the past month. Exam: Ecchymosis noted to nose. I have greeted and performed a rapid initial assessment of this patient. A comprehensive ED assessment and evaluation of the patient, analysis of test results and completion of medical decision making process will be conducted by an additional ED providers. TRAVEL OUTSIDE OF THE [place] IN LAST 30 DAYS: No - Related Data Allergies/Adverse Reactions: No Known Allergies Allergy (Verified 01/29/20 13:12) Past Medical History - Past Medical History Cardiac Medical History: Reports: Hx Hypertension Denies: Hx Coronary Artery Disease, Hx Heart Attack Pulmonary Medical History: Reports: Hx Asthma Denies: Hx Bronchitis, Hx COPD, Hx Pneumonia Neurological Medical History: Denies: Hx Cerebrovascular Accident, Hx Seizures Endocrine Medical History: Reports: Hx Diabetes Mellitus Type 2 Renal/ Medical History: Denies: Hx Peritoneal Dialysis Musculoskeltal Medical History: Reports Hx Arthritis Psychiatric Medical History: Denies: Hx Depression Past Surgical History: Reports: Hx Appendectomy, Hx Cholecystectomy, Hx Hystere ctomy, Hx Orthopedic Surgery - knees, Hx Tonsillectomy - Immunizations Hx Diphtheria, Pertussis, Tetanus Vaccination: Yes Physical Exam - Vital signs Vitals: Temp Pulse Resp BP Pulse Ox 98.2 F 71 18 116/59 L 100 06/09/20 10:06/09/20 10:06/09/20 10:06/09/20 10:06/09/20 10:00 Course - Vital Signs Vital signs: Temp Pulse Resp BP Pulse Ox 98.2 F 71 18 116/59 L 100 06/09/20 10:06/09/20 10:06/09/20 10:06/09/20 10:06/09/20 10:00 Doctor's Discharge - Discharge Referrals: TOMÁS LUA, ASSEMBLER CAMPER [Primary Care Provider] - Follow up as needed
[2020-06-09 11:23] LABS: ABSOLUTE EOSINOPHILS # (AUTO) 0.1 10^3/uL (0.0-0.6); ABSOLUTE LYMPHOCYTES (AUTO) 0.7 10^3/uL (0.5-4.7); ABSOLUTE MONOCYTES (AUTO) 0.4 10^3/uL (0.1-1.4); BASOPHILS % (AUTO) 0.3 % (0-2); EOSINOPHILS % (AUTO) 1.5 % (0-6); HEMATOCRIT 36.5 % (36.0-47.0); HEMOGLOBIN 12.4 g/dL (12.0-15.5); LYMPHOCYTES % (AUTO) 13.8 % (13-45); MEAN CORPUSCULAR HGB CONC 33.9 g/dL (32.0-36.0); MEAN CORPUSCULAR VOLUME 88 fl (80-97); MONOCYTES % (AUTO) 8.1 % (3-13); RED BLOOD COUNT 4.12 10^6/uL (3.72-5.28); RED CELL DISTRIBUTION WIDTH 15.2 % (11.5-14.0); SEGMENTED NEUTROPHILS % (AUTO) 76.3 % (42-78); TOTAL CELLS COUNTED % (AUTO) 100 %; WHITE BLOOD COUNT 5.3 10^3/uL (4.0-10.5)
[2020-06-09 11:33] LABS: INTERNATIONAL RATION (INR) 1.01; PROTHROMBIN TIME 13.5 SEC (11.4-15.4)
--- NOTE | 2020-06-09 11:38 | ER Document Report ---
Entered by ALISHA BRADSHAW SCRIBE 06/09/20 1116 Acting as scribe for:NICK LYONS MD ED General - General Chief Complaint: Dizziness Stated Complaint: FALL/NOSE INJURY Time Seen by Provider: 06/09/20 10:11 Mode of Arrival: Ambulatory Information source: Patient, Relative - Daughter Notes: This 69 year old female patient with a history of dementia presents to the ED today for evaluation after a fall that occurred just prior to arrival. 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 She notes a headache and nose pain, but denies LOC. She mentions that she has been losing her balance for months. Daughter at bedside reports that the patient was supposed to have a MRI done today to see if the the patient's dementia has progressed. TRAVEL OUTSIDE OF THE [place] IN LAST 30 DAYS: No - Related Data Allergies/Adverse Reactions: No Known Allergies Allergy (Verified 01/29/20 13:12) Home Medications: gabapentin. paxil. losartin. aspirin Past Medical History - General Information source: Patient, [facility] Records - Social History Smoking Status: Never Smoker Cigarette use (# per day): No Chew tobacco use (# tins/day): No Smoking Education Provided: No Frequency of alcohol use: None Drug Abuse: None Lives with: Family Family History: Reviewed & Not Pertinent Patient has suicidal ideation: No Patient has homicidal ideation: No - Past Medical History Cardiac Medical History: Reports: Hx Hypertension Pulmonary Medical History: Reports: Hx Asthma Endocrine Medical History: Reports: Hx Diabetes Mellitus Type 2 GI Medical History: Reports: Other - JERNIGAN, esophageal varices Musculoskeletal Medical History: Reports Hx Arthritis Psychiatric Medical History: Reports: Hx Dementia Past Surgical History: Reports: Hx Appendectomy, Hx Cholecystectomy, Hx Hysterectomy, Hx Orthopedic Surgery - knees, Hx Tonsillectomy - Immunizations Hx Diphtheria, Pertussis, Tetanus Vaccination: Yes Review of Systems - Review of Systems Constitutional: No symptoms reported EENT: See HPI, Nose pain Cardiovascular: No symptoms reported Respiratory: No symptoms reported Gastrointestinal: No symptoms reported Genitourinary: No symptoms reported Female Genitourinary: No symptoms reported Musculoskeletal: No symptoms reported Skin: No symptoms reported Hematologic/Lymphatic: No symptoms reported Neurological/Psychological: See HPI, Headaches. denies: Lost consciousness -: Yes All other systems reviewed and negative Physical Exam - Vital signs Vitals: Temp Pulse Resp BP Pulse Ox 98.2 F 71 18 116/59 L 100 06/09/20 10:00 06/09/20 10:00 06/09/20 10:00 06/09/20 10:00 06/09/20 10:00 - General General appearance: Alert In distress: None - HEENT Head: No: Atraumatic Eyes: Normal Extraocular movements intact: Yes Pupils: PERRL Nasal: Ecchymosis - Bridge of nose, Swelling - Bridge of nose, Other - Fresh blood in left nare, tip of nose is curved to the right. No: Septal hematoma Neck: Other - Tenderness to palpation over cervical spinal processes - Respiratory Respiratory status: No respiratory distress Chest status: Nontender Breath sounds: Normal Chest palpation: Normal - Cardiovascular Rhythm: Regular Heart sounds: Normal auscultation Murmur: No Friction rub: No Gallop: None auscultated - Abdominal Inspection: Normal Distension: No distension Bowel sounds: Normal Tenderness: Nontender - Abdomen soft Organomegaly: No organomegaly - Back Back: Normal, Nontender - Extremities General upper extremity: Normal inspection General lower extremity: Normal inspection. No: Edema - Neurological Neuro grossly intact: Yes - Psychological Associated symptoms: Normal affect, Normal mood - Skin Skin Temperature: Warm Skin Moisture: Dry Skin Color: Normal Course - Re-evaluation Re-evalutation: 06/09/20 11:[address] results, patient's blood pressure dropped to 89/56, and then 92/56. She will be given a liter of normal saline to bring her blood pressure back up. She was admitted here 3 months ago with a low blood pressure that responded to IV fluid hydration. 06/09/20 18:18 The patient has a medication list with her. It does not correspond entirely with the list from the online pharmacy records. The records do show she filled a prescription for propranolol 20 mg twice daily on 06/02/2020. The daughter knows nothing of this, the patient states she knows nothing of this. She further states she only takes her medications once a day at bedtime. The blood pressure has remained in the 90-98 systolic range and her pulse is in the mid 60s. This was after 2 L of IV fluids. I called Dr. Hargrove to discuss the patient with him, he states he did endoscopy on her and found she had esophageal varices and that was the reason he started her on the propranolol. 06/09/20 18:33 On reviewing the disposition plan with the patient and the daughter, the daughter pulled out her phone to show me a picture her center which s hows that the patient does have a bottle of propranolol at home but then they states she is only been taking it once a day. - Vital Signs Vital signs: Temp Pulse Resp BP Pulse Ox 98.2 F 71 22 H 107/70 97 06/09/20 10:00 06/09/20 10:00 06/09/20 18:31 06/09/20 18:31 06/09/20 18:31 - Laboratory Result Diagrams: 06/09/20 11:02 06/09/20 11:02 Laboratory results interpreted by me: 06/09/20 06/09/20 06/09/20 10:27 11:02 11:02 RDW 15.2 H Plt Count 92 L Sodium 133.8 L Glucose 384 H Total Bilirubin 1.5 H AST 65 H ALT 70 H Urine Glucose (UA) >=500 H - Diagnostic Test Radiology reviewed: Image reviewed, Reports reviewed - CT head shows chronic microvascular ischemic changes, neck shows chronic degenerative changes, face shows nondisplaced nasal bone fractures. Discharge - Discharge Clinical Impression: Fall at home Qualifiers: Encounter type: initial encounter Qualified Code(s): W19.XXXA - Unspecified fall, initial encounter Nasal bones, closed fracture Qualifiers: Encounter type: initial encounter Qualified Code(s): S02.2XXA - Fracture of nasal bones, initial encounter for closed fracture Cervical strain, acute Qualifiers: Encounter type: initial encounter Qualified Code(s): S16.1XXA - Strain of muscle, fascia and tendon at neck level, initial encounter Hypotension Qualifiers: Hypotension type: unspecified hypotension type Qualified Code(s): I95.9 - Hypotension, unspecified Condition: Stable Disposition: ADMITTED OBSERVATION Admitting Provider: Sahra (Hospitalist) - Nohemi Rucker will see the patient and write orders. I personally performed the services described in the documentation, reviewed and edited the documentation which was dictated to the scribe in my presence, and it accurately records my words and actions.
--- NOTE | 2020-06-09 11:39 | RADIOLOGY REPORT (SQ) ---
EXAM DESCRIPTION: CT FACIAL AREA WITHOUT IMAGES COMPLETED DATE/TIME: 06/09/2020 11:20 am REASON FOR STUDY: fall COMPARISON: None. TECHNIQUE: Noncontrasted images through the facial bones and orbits windowed for bone and soft tissu e. Additional coronal and sagittal reconstructed images reviewed. All images stored on PACS. All CT scanners at this facility use dose modulation, iterative reconstruction, and/or weight based d osing when appropriate to reduce radiation dose to as low as reasonably achievable (ALARA). [facility]: Dose Right [facility]: CareDose [facility]: Dose Right [facility]: Teradose 4D [facility]: [employer] RADIATION DOSE: CT Rad equipment meets quality standard of care and radiation dose reduction techniq ues were employed. CTDIvol: 30.4 mGy. DLP: 616 mGy-cm. mGy. LIMITATIONS: None. FINDINGS: FACIAL BONES: Nondisplaced nasal fractures. ORBITS: Intact. No fracture. Symmetric intact globes and retroorbital soft tissues. PARANASAL SINUSES: Clear. SOFT TISSUES: No foreign body. INFERIOR BRAIN: See separate report of the same date. OTHER: No other significant finding. IMPRESSION: Nondisplaced nasal fracture. TECHNICAL DOCUMENTATION: JOB ID: [id number] Quality ID # [id number]: Final reports with documentation of one or more dose reduction techniques (e.g., Au tomated exposure control, adjustment of the mA and/or kV according to patient size, use of iterative reconstruction technique) 2010 [employer]- All Rights Reserved Reading location - IP/workstation name: [email or web address]
--- NOTE | 2020-06-09 11:39 | RADIOLOGY REPORT (SQ) ---
EXAM DESCRIPTION: CT HEAD WITHOUT IMAGES COMPLETED DATE/TIME: 06/09/2020 11:20 am REASON FOR STUDY: fall COMPARISON: None. TECHNIQUE: Axial images acquired through the brain without intravenous contrast. Images reviewed wi th bone, brain and subdural windows. Additional sagittal and coronal reconstructions were generated. Images stored on PACS. All CT scanners at this facility use dose modulation, iterative reconstruction, and/or weight based d osing when appropriate to reduce radiation dose to as low as reasonably achievable (ALARA). [facility]: Dose Right [facility]: CareDose [facility]: Dose Right [facility]: Teradose 4D [facility]: [employer] RADIATION DOSE: CT Rad equipment meets quality standard of care and radiation dose reduction techniq ues were employed. CTDIvol: 53.2 mGy. DLP: 964 mGy-cm. mGy. LIMITATIONS: None. FINDINGS: VENTRICLES: Prominent. CEREBRUM: No masses. No hemorrhage. No midline shift. Areas of low density in the white matter mos t likely due to chronic micro-vascular ischemic change. No evidence for acute infarction. CEREBELLUM: No masses. No hemorrhage. No alteration of density. No evidence for acute infarction. EXTRAAXIAL SPACES: Mild age-related involutional change. No fluid collections. No masses. ORBITS AND GLOBE: No intra- or extraconal masses. Normal contour of globe without masses. CALVARIUM: No fracture. PARANASAL SINUSES: No fluid or mucosal thickening. SOFT TISSUES: No mass or hematoma. OTHER: Nondisplaced nasal fractures described under separate report of the same date. IMPRESSION: MILD CHRONIC CHANGES OF ATROPHY AND MICROVASCULAR ISCHEMIA. NO ACUTE PROCESS. EVIDENCE OF ACUTE STROKE: NO. TECHNICAL DOCUMENTATION: JOB ID: [id number] Quality ID # [id number]: Final reports with documentation of one or more dose reduction techniques (e.g., Au tomated exposure control, adjustment of the mA and/or kV according to patient size, use of iterative reconstruction technique) 2010 [employer]- All Rights Reserved Reading location - IP/workstation name: [email or web address]
--- NOTE | 2020-06-09 11:40 | RADIOLOGY REPORT (SQ) ---
EXAM DESCRIPTION: CT CERVICAL SPINE WITHOUT IMAGES COMPLETED DATE/TIME: 06/09/2020 11:20 am REASON FOR STUDY: fall COMPARISON: None. TECHNIQUE: Axial images acquired through the cervical spine without intravenous contrast. Images re viewed with lung, soft tissue and bone windows. Reconstructed coronal and sagittal MPR images review ed. Images stored on PACS. All CT scanners at this facility use dose modulation, iterative reconstruction, and/or weight based d osing when appropriate to reduce radiation dose to as low as reasonably achievable (ALARA). [facility]: Dose Right [facility]: CareDose [facility]: Dose Right [facility]: Teradose 4D [facility]: [employer] RADIATION DOSE: CT Rad equipment meets quality standard of care and radiation dose reduction techniq ues were employed. CTDIvol: 17.2 mGy. DLP: 338 mGy-cm. mGy. LIMITATIONS: None. FINDINGS: ALIGNMENT: Anatomic. MINERALIZATION: Normal. VERTEBRAL BODIES: No fractures or dislocation. DISCS: Multilevel disc space narrowing with osteophytes. FACETS, LATERAL MASSES, POSTERIOR ELEMENTS: Facet arthropathy. No fractures. No dislocation. No ac [place] findings. HARDWARE: None in the spine. VISUALIZED RIBS: No fractures. LUNG APICES AND SOFT TISSUES: No significant or acute findings. OTHER: No other significant finding. IMPRESSION: CHRONIC DEGENERATIVE CHANGES. NO ACUTE FINDINGS. TECHNICAL DOCUMENTATION: JOB ID: [id number] Quality ID # [id number]: Final reports with documentation of one or more dose reduction techniques (e.g., Au tomated exposure control, adjustment of the mA and/or kV according to patient size, use of iterative reconstruction technique) 2010 [employer]- All Rights Reserved Reading location - IP/workstation name: [email or web address]
[2020-06-09 11:47] LABS: APPEARANCE,URINE CLEAR; BILIRUBIN,URINE NEGATIVE (NEGATIVE); COLOR,URINE YELLOW; GLUCOSE, URINE >=500 mg/dL (NEGATIVE); KETONES,URINE NEGATIVE (NEGATIVE); PROTEIN,URINE NEGATIVE (NEGATIVE); URINE SPECIFIC GRAVITY 1.028; UROBILINOGEN,URINE NEGATIVE mg/dL (<2.0)
[2020-06-09] MEDS ORDERED: NORMAL SALINE 1000 ML 1,000 ML IV ONE ×3 (11:52→17:05)
[2020-06-09 11:53] LABS: PLATELET COUNT 92 10^3/uL (150-450)
[2020-06-09 11:56] LABS: ALKALINE PHOSPHATASE 88 U/L (38-126); ANION GAP 8 (5-19); ASPARTATE AMINO TRANSFERASE 65 U/L (14-36); BILIRUBIN,DIRECT 0.4 mg/dL (0.0-0.4); BILIRUBIN,TOTAL 1.5 mg/dL (0.2-1.3); BLOOD UREA NITROGEN 20 mg/dL (7-20); CALCIUM 9.2 mg/dL (8.4-10.2); CARBON DIOXIDE 26 mmol/L (22-30); CHLORIDE 100 mmol/L (98-107); GLUCOSE 384 mg/dL (75-110); POTASSIUM 4.6 mmol/L (3.6-5.0); TOTAL PROTEIN 6.7 g/dL (6.3-8.2)
[2020-06-09] MEDS ORDERED: ONDANSETRON HCL INJ/PF 4 MG/2 ML SDV IV PRN (19:00)
[2020-06-09] MEDS ORDERED: ALBUTEROL SULFATE 0.083% NEB 2.5 MG/3 ML AMPUL NEB PRN (19:00)
[2020-06-09] MEDS ORDERED: MAG HYDROX/AL HYDROX/SIMETH SUSP 30 ML UDCUP PO PRN (19:00)
[2020-06-09] MEDS ORDERED: OXYCODONE-ACETAMINOPHEN 5-325 MG TABLET PO PRN (19:00)
[2020-06-09] MEDS ORDERED: MAGNESIUM HYDROXIDE SUSP 30 ML UDCUP PO PRN (19:00)
--- NOTE | 2020-06-09 19:37 | PDOC H&P ---
History of Present Illness Admission Date/PCP: 06/09/20 18:56 TOMÁS LUA NP Patient complains of: fall History of Present Illness: CURTIS HAYES is a 69 year old female with a past medical history significant for hypothyroidism, hypertension, GERD, cirrhosis, ascites, and esophageal varices who presented to the emergency department today after a fall resulting in facial contusion/nasal hematoma, and fracture of her nasal bones. Evaluation in the emergency department revealed persistent hypotension; systolic blood pressure primarily in the low 90s, without tachycardia. CBC, coags, and chemistry were overall unremarkable. She was noted to have mild hyponatremia, hyperglycemia, total bili 1.5, AST 65, ALT 70, alk phos 88. Urinalysis positive for glucose otherwise negative. Head CT showed chronic microvascular ischemic changes but no acute process. C-spine CT showed chronic degenerative changes. Facial bone CT shows nondisplaced nasal fracture. She is provided 3 L IV fluid and Tylenol. Remains hypotensive and thus is referred to the hospital service for further evaluation management of the above stay complaints findings. Past Medical History Cardiac Medical History: Reports: Hypertension Denies: Coronary Artery Disease, Myocardial Infarction Pulmonary Medical History: Reports: Asthma Denies: Bronchitis, Chronic Obstructive Pulmonary Disease (COPD), Pneumonia Neurological Medical History: Denies: Seizures Endocrine Medical History: Reports: Diabetes Mellitus Type 2 Renal/ Medical History: Reports: None Malignancy Medical History: Reports: None GI Medical History: Reports: Cirrhosis, Other - ALANIS, esophageal varices Musculoskeltal Medical History: Reports: Arthritis Psychiatric Medical History: Reports: Dementia Denies: Depression Hematology: Reports: Anemia Infectious Medical History: Reports: None Past Surgical History Past Surgical History: Reports: Appendectomy, Cholecystectomy, Hysterectomy, Orthopedic Surgery - bilateral knees, bilateral carple tunnel, trigger finger, Tonsillectomy Social History Information Source: Patient, Relative Lives with: Family Smoking Status: Never Smoker Electronic Cigarette use?: No Frequency of Alcohol Use: None Hx Recreational Drug Use: No Drugs: None Hx Prescription Drug Abuse: No - Advance Directive Resuscitation Status: Do Not Resuscitate Family History Family History: Reviewed & Not Pertinent Parental Family History Reviewed: Yes Children Family History Reviewed: Yes Sibling(s) Family History Reviewed.: Yes Medication/Allergy Home Medications: Atorvastatin Calcium [Lipitor 40 mg Tablet] 40 mg PO QHS 03/11/20 Gabapentin [Neurontin 300 mg Capsule] 300 mg PO Q12 03/11/20 Insulin Regular, Human [Novolin R] 30 unit SQ DAILY 03/11/20 Levothyroxine Sodium [Synthroid 0.15 mg Tablet] 0.15 mg PO DAILY 03/11/20 Losartan Potassium [Cozaar 50 mg Tablet] 50 mg PO DAILY 03/11/20 Paroxetine HCl [Paxil 20 mg Tablet] 20 mg PO DAILY 03/11/20 Potassium Chloride [Klor-Con 10 Meq Tablet ER] 10 meq PO DAILY 03/11/20 Insulin Glargine,Hum.rec.anlog [Basaglar Kwikpen U-100] 45 unit SQ QAM #0 03/13/20 Insulin Glargine,Hum.rec.anlog [Basaglar Kwikpen U-100] 55 unit SQ QPM #0 03/13/20 Spironolactone [Aldactone 100 mg Tablet] 50 mg PO DAILY #15 03/13/20 Allergies/Adverse Reactions: No Known Allergies Allergy (Verified 01/29/20 13:12) Review of Systems Constitutional: ABSENT: chills, fever(s), headache(s), weight gain, weight loss Eyes: ABSENT: visual disturbances Ears: ABSENT: hearing changes Cardiovascular: ABSENT: chest pain, dyspnea on exertion, edema, orthropnea, palpitations Respiratory: ABSENT: cough, hemoptysis Gastrointestinal: ABSENT: abdominal pain, constipation, diarrhea, hematemesis, hematochezia, nausea, vomiting Genitourinary: ABSENT: dysuria, hematuria Musculoskeletal: ABSENT: joint swelling Integumentary: ABSENT: rash, wounds Neurological: PRESENT: frequent falls, weakness. ABSENT: abnormal gait, abnorm al speech, confusion, dizziness, focal weakness, syncope Psychiatric: ABSENT: anxiety, depression, homidical ideation, suicidal ideation Endocrine: ABSENT: cold intolerance, heat intolerance, polydipsia, polyuria Hematologic/Lymphatic: ABSENT: easy bleeding, easy bruising Physical Exam Vital Signs: Temp Pulse Resp BP Pulse Ox 98.2 F 71 22 H 107/70 97 06/09/20 10:00 06/09/20 10:00 06/09/20 18:31 06/09/20 18:31 06/09/20 18:31 Intake & Output 06/08/20 06/09/20 06/10/20 06:59 06:59 06:59 Intake Total 3000 Balance 3000 Weight 83.7 kg General appearance: PRESENT: no acute distress, cooperative, well-developed, well-nourished - overweight Head exam: PRESENT: normocephalic, other - nasal bridge ecchymosis, edema, tenderness Eye exam: PRESENT: conjunctiva pink, EOMI, PERRLA. ABSENT: scleral icterus Ear exam: PRESENT: normal external ear exam Mouth exam: PRESENT: moist, tongue midline Respiratory exam: PRESENT: clear to auscultation evita, symmetrical, unlabored. ABSENT: rales, rhonchi, wheezes Cardiovascular exam: PRESENT: RRR, +S1, +S2. ABSENT: diastolic murmur, rubs, systolic murmur Pulses: PRESENT: normal dorsalis pedis pul Vascular exam: PRESENT: normal capillary refill Extremities exam: PRESENT: full ROM. ABSENT: calf tenderness, clubbing, pedal edema Neurological exam: PRESENT: alert, awake, oriented to person, oriented to place, oriented to time, oriented to situation, CN II-XII grossly intact, other - forgetful. ABSENT: motor sensory deficit Psychiatric exam: PRESENT: appropriate affect, normal mood. ABSENT: homicidal ideation, suicidal ideation Skin exam: PRESENT: dry, intact, warm. ABSENT: cyanosis, rash Results Laboratory Results: 06/09/20 11:02 06/09/20 11:02 06/09/20 06/09/20 06/09/20 10:27 11:02 11:02 WBC 5.3 RBC 4.12 Hgb 12.4 Hct 36.5 MCV 88 MCH 30.0 MCHC 33.9 RDW 15.2 H Plt Count 92 L Seg Neutrophils % 76.3 Sodium 133.8 L Potassium 4.6 Chloride 100 Carbon Dioxide 26 Anion Gap 8 BUN 20 Creatinine 0.74 Est GFR ( Amer) > 60 Glucose 384 H Calcium 9.2 Total Bilirubin 1.5 H AST 65 H Alkaline Phosphatase 88 Total Protein 6.7 Albumin 4.0 Urine Color YELLOW Urine Appearance CLEAR Urine pH 6.0 Ur Specific [place] 1.028 Urine Protein NEGATIVE Urine Glucose (UA) >=500 H Urine Ketones NEGATIVE Urine Blood NEGATIVE Urine RBC (Auto) 1 Impressions: Cervical Spine CT 06/09/20 10:15 IMPRESSION: CHRONIC DEGENERATIVE CHANGES. NO ACUTE FINDINGS. Facial Bones CT 06/09/20 10:15 IMPRESSION: Nondisplaced nasal fracture. Head CT 06/09/20 10:15 IMPRESSION: MILD CHRONIC CHANGES OF ATROPHY AND MICROVASCULAR ISCHEMIA. NO ACUTE PROCESS. EVIDENCE OF ACUTE STROKE: NO. Assessment and Plan - Diagnosis (1) Hypotension Qualifiers: Hypotension type: unspecified hypotension type Qualified Code(s): I95.9 - Hypotension, unspecified Is this a current diagnosis for this admission?: Yes Plan: Persistent hypotension despite 3 L IV fluids. Some confusion regarding hypertensive regiment. It appears that she is on losartan 50 mg and spironolactone 100 mg daily. Per her established facing slitter, she should actually be on propanolol. And per recent discharge summary, her spironolactone dose was actually recommended to be 50 mg daily. It is uncertain whether or not her PCP has made an adjustment in the interim. Patient reports that her blood pressures have been running high at home but her daughter questions whether or not she has been using her blood pressure cuff appropriately. We will check TSH. Check random and a.m. cortisol level. Hold hypertensives tonight; plan to resume propanolol and low-dose spironolactone tomorrow. Continue home dose Midodrine; consider increasing to 10 mg 3 times daily. Orthostatic blood pressures every shift. SALINA harry. (2) Cervical strain, acute Qualifiers: Encounter type: initial encounter Qualified Code(s): S16.1XXA - Strain of m uscle, fascia and tendon at neck level, initial encounter Is this a current diagnosis for this admission?: Yes Plan: Tylenol, nonpharmacological interventions. (3) Nasal bones, closed fracture Qualifiers: Encounter type: initial encounter Qualified Code(s): S02.2XXA - Fracture of nasal bones, initial encounter for closed fracture Is this a current diagnosis for this admission?: Yes Plan: Secondary to fall at home. Tylenol as needed. Percocet for severe discomfort; fall precautions. Ice as needed. Holding DVT prophylaxis and aspirin therapy tonight. (4) Cirrhosis Qualifiers: Hepatic cirrhosis type: other cirrhosis Qualified Code(s): K74.69 - Other cirrhosis of liver Is this a current diagnosis for this admission?: Yes Plan: Secondary to Alanis. PT 1.01 Total bili 1.5, AST 65, ALT 70, alk phos 88 Sodium [address] Hargrove as outpatient. ED provider spoke with Dr. Hargrove; advised patient should be on propanolol related to esophageal varices noted on most recent EGD. As mentioned above, will start propanolol and low-dose Spironolactone tomorrow if blood pressure are appropriate. (5) Nonalcoholic steatohepatitis (ALANIS) Is this a current diagnosis for this admission?: Yes Plan: As above. (6) Fall at home Qualifiers: Encounter type: initial encounter Qualified Code(s): W19.XXXA - Unspecified fall, initial encounter; Y92.009 - Unspecified place in unspecified non- institutional (private) residence as the place of occurrence of the external cause Is this a current diagnosis for this admission?: Yes Plan: Likely secondary to hypotension. Fall precautions. Physical therapy consultation. - Time Time Spent with patient: 35 or more minutes Medications reviewed and adjusted accordingly: Yes Anticipated Discharge Disposition: Home with Home Health Anticipated Discharge Timeframe: within 48 hours
[2020-06-09] MEDS: ACETAMINOPHEN 325 MG TABLET PO PRN (21:24)
[2020-06-09] MEDS: GABAPENTIN 300 MG CAPSULE PO SCH (21:24)
[2020-06-10] MEDS: LEVOTHYROXINE SODIUM 0.15 MG TABLET PO SCH (05:37)
[2020-06-10] MEDS: PANTOPRAZOLE SODIUM 20 MG TABLET.DR PO SCH (05:37)
[2020-06-10 07:14] LABS: HEMOGLOBIN 11.3 g/dL (12.0-15.5); MEAN CORPUSCULAR HEMOGLOBIN 30.3 pg (27.0-33.4); MEAN CORPUSCULAR HGB CONC 34.4 g/dL (32.0-36.0); MEAN CORPUSCULAR VOLUME 88 fl (80-97); RED BLOOD COUNT 3.74 10^6/uL (3.72-5.28); RED CELL DISTRIBUTION WIDTH 15.3 % (11.5-14.0); WHITE BLOOD COUNT 3.4 10^3/uL (4.0-10.5)
[2020-06-10 07:30] LABS: ALBUMIN 3.1 g/dL (3.5-5.0); ALKALINE PHOSPHATASE 70 U/L (38-126); ANION GAP 7 (5-19); ASPARTATE AMINO TRANSFERASE 40 U/L (14-36); BILIRUBIN,DIRECT 0.3 mg/dL (0.0-0.4); BLOOD UREA NITROGEN 15 mg/dL (7-20); CALCIUM 8.5 mg/dL (8.4-10.2); CARBON DIOXIDE 22 mmol/L (22-30); CHLORIDE 107 mmol/L (98-107); GLUCOSE 352 mg/dL (75-110); POTASSIUM 4.3 mmol/L (3.6-5.0); TOTAL PROTEIN 5.6 g/dL (6.3-8.2)
[2020-06-10 07:49] LABS: PLATELET COUNT 70 10^3/uL (150-450)
[2020-06-10] MEDS ORDERED: (PENDING PHARMACY ID) (Pnv No.95/Ferrous Fum/Folic Ac [Prenatal Caplet] 1 EACH) PO SCH (10:00)
[2020-06-10] MEDS ORDERED: (PENDING PHARMACY ID) (Omega-3/Dha/Epa/Fish Oil [Fish Oil 1,000 Mg Softgel] 1 EACH) PO SCH (10:00)
[2020-06-10] MEDS: DOCUSATE SODIUM 100 MG CAPSULE PO SCH (11:13)
[2020-06-10] MEDS: OMEGA-3 ACID ETHYL ESTERS 1 GM CAPSULE PO SCH (11:14)
[2020-06-10] MEDS: ASPIRIN 81 MG TABLET, ENT COATED PO SCH (11:14)
[2020-06-10] MEDS: GABAPENTIN 300 MG CAPSULE PO SCH ×2 (11:15→21:04)
[2020-06-10] MEDS: MIDODRINE HCL 5 MG TABLET PO SCH ×3 (11:15→17:28)
[2020-06-10] MEDS: PRENATAL VITAMIN W DHA CAPSULE PO SCH (11:16)
[2020-06-10] MEDS: PAROXETINE HCL 20 MG TABLET PO SCH (11:16)
[2020-06-10] MEDS: ACETAMINOPHEN 325 MG TABLET PO PRN (11:16)
[2020-06-10] MEDS ORDERED: COSYNTROPIN INJ 0.25 MG VIAL IV SCH (12:30)
[2020-06-10] MEDS ORDERED: COSYNTROPIN INJ 0.25 MG VIAL IV ONE (14:00)
--- NOTE | 2020-06-10 15:59 | PDOC PROGRESS REPORT ---
Subjective Progress Note for:: 06/10/20 Subjective:: CURTIS HAYES is a 69 year old female with a past medical history significant for hypothyroidism, hypertension, GERD, cirrhosis, ascites, and esophageal varices who was admitted 01/08/20 with Hypotension. Patient was seen on afternoon rounds with her daughter present and additional family members by speaker phone. Patient was found resting in bed, comfortably, on room air. She reports she is feeling well; some facial discomfort and headaches r/t her nasal fracture. Otherwise, she is feeling well and hopes to discharge home soon. She denies fever, chills, chest pain, palpitations, abdominal pain, nausea, and vomiting. Orthostatic blood pressures are normal. Ambulated w/ PT and FWW ~100'. Discussed lab results; specifically AM cortisol and plans for Cortisol Stim test and ACTH testing. All questions answered. No concerns per nursing. Reason For Visit: HYPOTENSION Physical Exam Vital Signs: Temp Pulse Resp BP Pulse Ox 97.7 F 64 16 105/64 97 06/10/20 10:00 06/10/20 07:46 06/10/20 07:46 06/10/20 07:46 06/10/20 07:46 Intake & Output 06/09/20 06/10/20 06/11/20 06:59 06:59 06:59 Intake Total 3000 Balance 3000 Weight 88.3 kg 88.3 kg General appearance: PRESENT: no acute distress, cooperative, well-developed, well-nourished, other - overweight Head exam: PRESENT: atraumatic, normocephalic Eye exam: PRESENT: conjunctiva pink, EOMI, PERRLA. ABSENT: scleral icterus Mouth exam: PRESENT: moist, tongue midline Respiratory exam: PRESENT: clear to auscultation evita, symmetrical, unlabored. ABSENT: rales, rhonchi, wheezes Cardiovascular exam: PRESENT: RRR. ABSENT: diastolic murmur, rubs, systolic murmur Vascular exam: PRESENT: normal capillary refill Extremities exam: PRESENT: full ROM. ABSENT: calf tenderness, clubbing, pedal edema Musculoskeletal exam: PRESENT: ambulatory Neurological exam: PRESENT: alert, awake, oriented to person, oriented to place, oriented to time, oriented to situation, CN II-XII grossly intact. ABSENT: motor sensory deficit Psychiatric exam: PRESENT: appropriate affect, normal mood. ABSENT: homicidal ideation, suicidal ideation Skin exam: PRESENT: dry, intact, warm. ABSENT: cyanosis, rash Results Laboratory Results: 06/10/20 05:35 06/10/20 05:35 06/10/20 06/10/20 06/10/20 05:35 05:35 05:35 WBC 3.4 L RBC 3.74 Hgb 11.3 L Hct 33.0 L MCV 88 MCH 30.3 MCHC 34.4 RDW 15.3 H Plt Count 70 L Sodium 136.4 L Potassium 4.3 Chloride 107 Carbon Dioxide 22 Anion Gap 7 BUN 15 Creatinine 0.69 Est GFR ( Amer) > 60 Glucose 352 H Calcium 8.5 Total Bilirubin 1.0 AST 40 H Alkaline Phosphatase 70 Total Protein 5.6 L Albumin 3.1 L TSH 0.70 Impressions: Cervical Spine CT 06/09/20 10:15 IMPRESSION: CHRONIC DEGENERATIVE CHANGES. NO ACUTE FINDINGS. Facial Bones CT 06/09/20 10:15 IMPRESSION: Nondisplaced nasal fracture. Head CT 06/09/20 10:15 IMPRESSION: MILD CHRONIC CHANGES OF ATROPHY AND MICROVASCULAR ISCHEMIA. NO ACUTE PROCESS. EVIDENCE OF ACUTE STROKE: NO. Assessment and Plan - Diagnosis (1) Hypotension Qualifiers: Hypotension type: unspecified hypotension type Qualified Code(s): I95.9 - Hypotension, unspecified Is this a current diagnosis for this admission?: Yes Plan: Persistent hypotension despite 3 L IV fluids. Some confusion regarding hypertensive regiment. It appears that she is on losartan 50 mg and spironolactone 100 mg daily. Per her established occupational therapy aide, she should actually be on propanolol. And per recent discharge summary, her spironolactone dose was actually recommended to be 50 mg daily. It is uncertain whether or not her PCP has made an adjustment in the interim. Patient reports that her blood pressures have been running high at home but her daughter questions whether or not she has been using her blood pressure cuff appropriately. TSH 0.7 Random cortisol somewhat low: 7.86 (drawn 11 am). AM cortisol low: 0.66 Conmtinue to hold hypertensives; BP remains too low to initiate medications. ACTH pending (send out) Cortisol stimulation testing pending. Start Hydrocortisone 10/5/2.5 once stimulation test is conducted. Possibly resume low-dose propanolol and spironolactone if BP response is robust. Continue home dose Midodrine; consider increasing to 10 mg 3 times daily. May also require Florinef (either prior to d/c or as outpatient in order to improve BP to allow for propanolol/spironolactone) SALINA harry. Outpatient PCP and Endocrinology follow up. (2) Cervical strain, acute Qualifiers: Encounter type: initial encounter Qualified Code(s): S16.1XXA - Strain of muscle, fascia and tendon at neck level, initial encounter Is this a current diagnosis for this admission?: Yes Plan: Tylenol, nonpharmacological interventions. (3) Nasal bones, closed fracture Qualifiers: Encounter type: initial encounter Qualified Code(s): S02.2XXA - Fracture of nasal bones, initial encounter for closed fracture Is this a current diagnosis for this admission?: Yes Plan: Secondary to fall at home. Tylenol as needed. Percocet for severe discomfort; fall precautions. Ice as needed. Holding DVT prophylaxis and aspirin therapy tonight. (4) Cirrhosis Qualifiers: Hepatic cirrhosis type: other cirrhosis Qualified Code(s): K74.69 - Other cirrhosis of liver Is this a current diagnosis for this admission?: Yes Plan: Secondary to Alanis. PT 1.01 Total bili 1.5, AST 65, ALT 70, alk phos 88 Sodium [address] Hargrove as outpatient. ED provider spoke with Dr. Hargrove; advised patient should be on propanolol related to esophageal varices noted on most recent EGD. As mentioned above, will start propanolol and low-dose Spironolactone tomorrow if blood pressure are appropriate. (5) Nonalcoholic steatohepatitis (ALANIS) Is this a current diagnosis for this admission?: Yes Plan: As above. (6) Fall at home Qualifiers: Encounter type: initial encounter Qualified Code(s): W19.XXXA - Unspecified fall, initial encounter; Y92.009 - Unspecified place in unspecified non- institutional (private) residence as the place of occurrence of the external cause Is this a current diagnosis for this admission?: Yes Plan: Likely secondary to hypotension. Fall precautions. Physical therapy consultation. - Time Time Spent with patient: 35 or more minutes Medications reviewed and adjusted accordingly: Yes Anticipated Discharge Disposition: Home with Home Health Anticipated Discharge Timeframe: within 48 hours
[2020-06-10] MEDS ORDERED: HYDROCORTISONE 10 MG TABLET PO ONE (16:30)
[2020-06-10] MEDS: HYDROCORTISONE 10 MG TABLET PO SCH (17:29)
[2020-06-11] MEDS: ACETAMINOPHEN 325 MG TABLET PO PRN ×3 (01:23→15:16)
[2020-06-11] MEDS ORDERED: DEXTROSE 50%-WATER 25 GM/50 ML DISP.SYRIN IV PRN ×2 (04:40)
[2020-06-11] MEDS ORDERED: DEXTROSE 40% GEL 15 GM TUBE PO PRN ×2 (04:40)
[2020-06-11] MEDS ORDERED: GLUCAGON,HUMAN RECOMB 1 MG INJ IM PRN (04:40)
[2020-06-11] MEDS: PANTOPRAZOLE SODIUM 20 MG TABLET.DR PO SCH (05:03)
[2020-06-11] MEDS: LEVOTHYROXINE SODIUM 0.15 MG TABLET PO SCH (05:03)
[2020-06-11] MEDS ORDERED: INSULIN GLARGINE,HUM.REC.ANLOG 1,000 UNIT/10 ML VIAL SUBCUT ONE (06:15)
[2020-06-11] MEDS ORDERED: INSULIN GLARGINE,HUM.REC.ANLOG 1,000 UNIT/10 ML VIAL (PYX) SUBCUT ONE (06:18)
[2020-06-11] MEDS ORDERED: INSULIN LISPRO 100 UNIT/ML 3 ML VIAL SUBCUT ONE ×2 (06:30→08:19)
[2020-06-11] MEDS ORDERED: HYDROCORTISONE 10 MG TABLET PO SCH ×2 (08:00→14:00)
[2020-06-11] MEDS ORDERED: INSULIN LISPRO 100 UNIT/ML 3 ML VIAL SUBCUT SCH ×2 (08:00→11:00)
[2020-06-11] MEDS: PAROXETINE HCL 20 MG TABLET PO SCH (09:19)
[2020-06-11] MEDS: ASPIRIN 81 MG TABLET, ENT COATED PO SCH (09:19)
[2020-06-11] MEDS: DOCUSATE SODIUM 100 MG CAPSULE PO SCH (09:19)
[2020-06-11] MEDS: OMEGA-3 ACID ETHYL ESTERS 1 GM CAPSULE PO SCH (09:19)
[2020-06-11] MEDS: PRENATAL VITAMIN W DHA CAPSULE PO SCH (09:19)
[2020-06-11] MEDS: MIDODRINE HCL 5 MG TABLET PO SCH ×3 (09:20→17:06)
[2020-06-11] MEDS: GABAPENTIN 300 MG CAPSULE PO SCH (09:20)
[2020-06-11] MEDS ORDERED: INSULIN GLARGINE,HUM.REC.ANLOG 1,000 UNIT/10 ML VIAL SUBCUT SCH (10:00)
[2020-06-11] MEDS ORDERED: PROPRANOLOL HCL 10 MG TABLET PO SCH (10:00)
[2020-06-11 16:27] VITALS: BP 92/56
[2020-06-11] MEDS: HYDROCORTISONE 10 MG TABLET PO SCH (17:08)
--- NOTE | 2020-06-11 18:50 | PDOC DISCHARGE SUMMARY ---
Impression - Admit/DC Date/PCP Admission Date/Primary Care Provider: 06/09/20 18:56 TOMÁS LUA NP Discharge Date: 06/11/20 - Discharge Diagnosis (1) Hypotension Is this a current diagnosis for this admission?: Yes (2) Cervical strain, acute Is this a current diagnosis for this admission?: Yes (3) Nasal bones, closed fracture Is this a current diagnosis for this admission?: Yes (4) Cirrhosis Is this a current diagnosis for this admission?: Yes (5) Nonalcoholic steatohepatitis (ALANIS) Is this a current diagnosis for this admission?: Yes (6) Fall at home Is this a current diagnosis for this admission?: Yes (7) Adrenal insufficiency Is this a current diagnosis for this admission?: Yes - Additional Information Resuscitation Status: Do Not Resuscitate Discharge Diet: Diabetic Discharge Activity: Activity As Tolerated, Balance Activity w/Rest, Slowly Increase Activity, Supervised Activity, Weigh Daily Referrals: TOMÁS LUA, RENETTA [Primary Care Provider] - Follow up as needed (Follow up within 1 week.) Prescriptions: Hydrocortisone 5 mg PO ASDIR PRN #105 tablet PRN Reason: Propranolol HCl [Inderal 10 mg Tablet] 10 mg PO Q12 #60 tablet Syringe and Needle,Insulin,1Ml [Insulin Syringe 1 mL] 1 syr MC ASDIR PRN #100 syringe PRN Reason: Insulin Glargine,Hum.rec.anlog [Lantus Insulin 100 Unit/1 ml 10 ml] 15 unit SUBCUT DAILY #1 vial Oxycodone HCl/Acetaminophen [Percocet 5-325 mg Tablet] 1 tab PO Q6HP PRN #12 tablet PRN Reason: Midodrine HCl [Proamatine 5 mg Tablet] 5 mg PO TID #90 tablet Home Medications: Gabapentin [Neurontin 300 mg Capsule] 300 mg PO Q12 03/11/20 Paroxetine HCl [Paxil 20 mg Tablet] 20 mg PO DAILY 03/11/20 Aspirin [Ecotrin 81 mg EC Tablet] 81 mg PO DAILY 06/09/20 Cranberry [Cranberry 400 mg Capsule] 800 mg PO DAILY 06/09/20 [place]-3/Dha/Epa/Fish Oil [Fish Oil 1,000 mg Softgel] 1 each PO DAILY 06/09/20 Pnv No.95/Ferrous Fum/Folic AC [ Caplet] 1 each PO DAILY 06/09/20 Acetaminophen [Tylenol 325 mg Tablet] 650 mg PO Q4HP PRN tablet 06/11/20 Hydrocortisone 5 mg PO ASDIR PRN #105 tablet 06/11/20 Insulin Glargine,Hum.rec.anlog [Lantus Insulin 100 Unit/1 ml 10 ml] 15 unit SUBCUT DAILY #1 vial 06/11/20 Midodrine HCl [Proamatine 5 mg Tablet] 5 mg PO TID #90 tablet 06/11/20 Oxycodone HCl/Acetaminophen [Percocet 5-325 mg Tablet] 1 tab PO Q6HP PRN #12 tablet 06/11/20 Propranolol HCl [Inderal 10 mg Tablet] 10 mg PO Q12 #60 tablet 06/11/20 Spironolactone [Aldactone 100 mg Tablet] 50 mg PO ASDIR PRN #1 06/11/20 Syringe and Needle,Insulin,1Ml [Insulin Syringe 1 mL] 1 syr MC ASDIR PRN #100 syringe 06/11/20 History of Present Illiness History of Present Illness: CURTIS HAYES is a 69 year old female with a past medical history significant for hypothyroidism, hypertension, GERD, cirrhosis, ascites, and esophageal varices who presented to the emergency department today after a fall resulting in facial contusion/nasal hematoma, and fracture of her nasal bones. Evaluation in the emergency department revealed persistent hypotension; systolic blood pressure primarily in the low 90s, without tachycardia. CBC, coags, and chemistry were overall unremarkable. She was noted to have mild hyponatremia, hyperglycemia, total bili 1.5, AST 65, ALT 70, alk phos 88. Urinalysis positive for glucose otherwise negative. Head CT showed chronic microvascular ischemic changes but no acute process. C-spine CT showed chronic degenerative changes. Facial bone CT shows nondisplaced nasal fracture. She is provided 3 L IV fluid and Tylenol. Remains hypotensive and thus is referred to the hospital service for further evaluation management of the above stay complaints findings. Hospital Course Hospital Course: (1) Hypotension Resolved after start of p.o Hydrocortisone. Persistent hypotension despite 3 L IV fluids. Home antihypertensive regimen was held. TSH 0.7 Random cortisol somewhat low: 7.86 (drawn 11 am). AM cortisol low: 0.66 ACTH pending Random cortisol following Consynotropin remains low at 12.5; confirms adrenal insufficiency. Blood pressures have actually improved enough to resume Propranolol. She is instructed to start Propranolol 10 mg BID. Continue home dose Midodrine 5 mg 3 times daily. Encourage compression stockings. Outpatient PCP and Endocrinology follow up. (2) Cervical strain, acute Tylenol, nonpharmacological interventions. (3) Nasal bones, closed fracture Secondary to fall at home. Tylenol as needed. Percocet for severe discomfort; fall precautions. Ice as needed. (4) Cirrhosis Secondary to Alanis. PT 1.01 Total bili 1.5, AST 65, ALT 70, alk phos [address] Sodium [address] Hargrove as outpatient. ED provider spoke with Dr. Hargrove; advised patient should be on propranolol related to esophageal varices noted on most recent EGD. Blood pressure is improved; tolerating Propranolol 10 mg BID. Further adjustments by PCP or GI if blood pressures continue to allow. (5) Nonalcoholic steatohepatitis (ALANIS) As above. (6) Fall at home Likely secondary to hypotension. Fall precautions. Physical therapy consultation; ambulated ~100 feet with FWW. Discharge planning consulted for home health pt/ot services. (7) Adrenal insufficiency TSH 0.7 Random cortisol somewhat low: 7.86 (drawn 11 am). AM cortisol low: 0.66 ACTH pending Random cortisol following Consynotropin remains low at 12.5; confirms adrenal insufficiency. Patient is started on p.o. Hydrocortison 10/5/2.5 mg with excellent improvement in blood pressure (80-90s systolic to 120s systolic). Outpatient PCP and Endocrinology follow up. Physical Exam Vital Signs: Temp Pulse Resp BP Pulse Ox 98.0 F 77 16 92/56 L 95 06/11/20 16:25 06/11/20 16:25 06/11/20 16:25 06/11/20 16:25 06/11/20 16:25 Intake & Output 06/10/20 06/11/20 06/12/20 06:59 06:59 06:59 Intake Total 3000 1040 700 Balance 3000 1040 700 Weight 88.3 kg 88.6 kg General appearance: PRESENT: no acute distress, cooperative, well-developed, well-nourished Head exam: PRESENT: normocephalic, other - ecchymosis to bridge of nose and bilateral eyes (closed nasal fracture) Eye exam: PRESENT: conjunctiva pink, EOMI, PERRLA. ABSENT: scleral icterus Mouth exam: PRESENT: moist, tongue midline Respiratory exam: PRESENT: clear to auscultation evita, symmetrical, unlabored, other - room air. ABSENT: rales, rhonchi, wheezes Cardiovascular exam: PRESENT: RRR. ABSENT: diastolic murmur, rubs, systolic murmur Pulses: PRESENT: normal dorsalis pedis pul Vascular exam: PRESENT: normal capillary refill Rectal exam: PRESENT: deferred Extremities exam: PRESENT: full ROM. ABSENT: calf tenderness, clubbing, pedal edema Musculoskeletal exam: PRESENT: ambulatory Neurological exam: PRESENT: alert, awake, oriented to person, oriented to place, oriented to time, oriented to situation, CN II-XII grossly intact. ABSENT: motor sensory deficit Psychiatric exam: PRESENT: appropriate affect, normal mood. ABSENT: homicidal ideation, suicidal ideation Skin exam: PRESENT: dry, intact, warm. ABSENT: cyanosis, rash Results Laboratory Results: WBC 3.4 10^3/uL (4.0-10.5) L 06/10/20 05:35 RBC 3.74 10^6/uL (3.72-5.28) 06/10/20 05:35 Hgb 11.3 g/dL (12.0-15.5) L 06/10/20 05:35 Hct 33.0 % (36.0-47.0) L 06/10/20 05:35 MCV 88 fl (80-97) 06/10/20 05:35 MCH 30.3 pg (27.0-33.4) 06/10/20 05:35 MCHC 34.4 g/dL (32.0-36.0) 06/10/20 05:35 RDW 15.3 % (11.5-14.0) H 06/10/20 05:35 Plt Count 70 10^3/uL (150-450) L 06/10/20 05:35 Lymph % (Auto) 13.8 % (13-45) 06/09/20 11:02 [place] % (Auto) 8.1 % (3-13) 06/09/20 11:02 Eos % (Auto) 1.5 % (0-6) 06/09/20 11:02 Baso % (Auto) 0.3 % (0-2) 06/09/20 11:02 Absolute Neuts (auto) 4.0 10^3/uL (1.7-8.2) 06/09/20 11:02 Absolute Lymphs (auto) 0.7 10^3/uL (0.5-4.7) 06/09/20 11:02 Absolute Monos (auto) 0.4 10^3/uL (0.1-1.4) 06/09/20 11:02 Absolute Eos (auto) 0.1 10^3/uL (0.0-0.6) 06/09/20 11:02 Absolute Basos (auto) 0.0 10^3/uL (0.0-0.2) 06/09/20 11:02 Seg Neutrophils % 76.3 % (42-78) 06/09/20 11:02 PT 13.5 SEC (11.4-15.4) 06/09/20 11:02 INR 1.01 06/09/20 11:02 APTT 27.0 SEC (23.5-35.8) 06/09/20 11:02 Sodium 136.4 mmol/L (137-145) L 06/10/20 05:35 Potassium 4.3 mmol/L (3.6-5.0) 06/10/20 05:35 Chloride 107 mmol/L (98-107) 06/10/20 05:35 Carbon Dioxide 22 mmol/L (22-30) 06/10/20 05:35 Anion Gap 7 (5-19) 06/10/20 05:35 BUN 15 mg/dL (7-20) 06/10/20 05:35 Creatinine 0.69 mg/dL (0.52-1.25) 06/10/20 05:35 Est GFR ( Amer) > 60 (>60) 06/10/20 05:35 Est GFR (MDRD) Non-Af > 60 (>60) 06/10/20 05:35 Glucose 352 mg/dL (75-110) H 06/10/20 05:35 POC Glucose 400 mg/dL (70-110) H 06/11/20 11:33 Hemoglobin A1c % 12.2 % (4.7-6.0) H 06/10/20 05:35 Calcium 8.5 mg/dL (8.4-10.2) 06/10/20 05:35 Total Bilirubin 1.0 mg/dL (0.2-1.3) 06/10/20 05:35 Direct Bilirubin 0.3 mg/dL (0.0-0.4) 06/10/20 05:35 Neonat Total Bilirubin Not Reportable 06/10/20 05:35 Neonat Direct Bilirubin Not Reportable 06/10/20 05:35 Neonat Indirect Bili Not Reportable 06/10/20 05:35 AST 40 U/L (14-36) H 06/10/20 05:35 ALT 52 U/L (<35) H 06/10/20 05:35 Alkaline Phosphatase 70 U/L (38-126) 06/10/20 05:35 Total Protein 5.6 g/dL (6.3-8.2) L 06/10/20 05:35 Albumin 3.1 g/dL (3.5-5.0) L 06/10/20 05:35 TSH 0.70 uIU/mL (0.47-4.68) 06/10/20 05:35 Random Cortisol 12.50 ug/dL (None Established) 06/10/20 14:56 Cortisol AM Sample 0.66 ug/dL (4.46-22.7) L 06/10/20 05:35 Urine Color YELLOW 06/09/20 10:27 Urine Appearance CLEAR 06/09/20 10:27 Urine pH 6.0 (5.0-9.0) 06/09/20 10:27 Ur Specific [place] 1.028 06/09/20 10:27 Urine Protein NEGATIVE mg/dL (NEGATIVE) 06/09/20 10:27 Urine Glucose (UA) >=500 mg/dL (NEGATIVE) H 06/09/20 10:27 Urine Ketones NEGATIVE mg/dL (NEGATIVE) 06/09/20 10:27 Urine Blood NEGATIVE (NEGATIVE) 06/09/20 10:27 Urine Nitrite (Reflex) NEGATIVE (NEGATIVE) 06/09/20 10:27 Urine Bilirubin NEGATIVE (NEGATIVE) 06/09/20 10:27 Urine Urobilinogen NEGATIVE mg/dL (<2.0) 06/09/20 10:27 Leukocyte Esterase Rfl NEGATIVE (NEGATIVE) 06/09/20 10:27 Urine RBC (Auto) 1 /HPF 06/09/20 10:27 Urine WBC (Reflex) < 1 /HPF 06/09/20 10:27 Squamous Epi Cells Auto 1 /HPF 06/09/20 10:27 Urine Ascorbic Acid NEGATIVE (NEGATIVE) 06/09/20 10:27 Impressions: Cervical Spine CT 06/09/20 10:15 IMPRESSION: CHRONIC DEGENERATIVE CHANGES. NO ACUTE FINDINGS. Facial Bones CT 06/09/20 10:15 IMPRESSION: Nondisplaced nasal fracture. Head CT 06/09/20 10:15 IMPRESSION: MILD CHRONIC CHANGES OF ATROPHY AND MICROVASCULAR ISCHEMIA. NO ACUTE PROCESS. EVIDENCE OF ACUTE STROKE: NO. Plan Plan of Treatment: Patient is discharged home, in stable condition, to the care of family members with home health services. Follow up with primary care provider within 1 week. Follow up with Dr. Hargrove as scheduled. Recommend outpatient endocrinology referral. Take medications as prescribed. Eat a diabetic diet. Check blood sugar before meals and bed time; keep a log to show PCP at follow up. Begin taking long acting insulin again; have sent in a prescription for Lantus. May use what she has at home if not . Weigh yourself daily. If gain more than 2 lbs from the day prior, take spironolactone. Otherwise, do not take this medication until PCP approves to resume it. Return to the emergency department, as needed, for concerning symptoms. Time Spent: Greater than 30 Minutes Stroke Is this a Stroke Patient?: No Acute Heart Failure Is this a Heart Failure Patient?: No
[2020-06-12] MEDS ORDERED: INSULIN GLARGINE,HUM.REC.ANLOG 1,000 UNIT/10 ML VIAL SUBCUT SCH (10:00)
== END 2020-06-11 17:46 | disposition home health service (06) ==
LOC: ER 09:51 → EH 18:56 → 4S 21:11
PROVIDERS: ADMIT Internal Medicine; ATTEND Registered Nurse
DX: I95.9 Hypotension, unspecified (principal); S16.1XXA Strain of muscle, fascia and tendon at neck level, initial encounter; S02.2XXA Fracture of nasal bones, initial encounter for closed fracture; K75.81 Nonalcoholic steatohepatitis (NASH); K74.60 Unspecified cirrhosis of liver; E27.40 Unspecified adrenocortical insufficiency; D64.9 Anemia, unspecified; W18.30XA Fall on same level, unspecified, initial encounter; Y92.009 Unspecified place in unspecified non-institutional (private) residence as the place of occurrence of the external cause; I10 Essential (primary) hypertension; J45.909 Unspecified asthma, uncomplicated; E11.9 Type 2 diabetes mellitus without complications; Z79.899 Other long term (current) drug therapy; Z79.82 Long term (current) use of aspirin; Z79.4 Long term (current) use of insulin
CPT/HCPCS: 99285; 96360; 96361; 36415 ×2; 82962; 82024; 84443; 85025; 85027; 85610; 85730; 80053 ×2; 81001; 82533 ×3; 83036; 70450; 70486; 72125; 97530; 97116; 97162; G0378 ×4; A9270 ×27; J0834; J7030; J1815; J3490

== ENCOUNTER 2020-06-21 17:24 | Observation (INO) | payer MEDICARE, OTHER ==
[2020-06-21] MEDS ORDERED: NORMAL SALINE 1000 ML 1,000 ML IV ONE (18:50)
--- NOTE | 2020-06-21 18:53 | ER Document Report ---
ED Medical Screen (RME) - General Chief Complaint: Abdominal Swelling Stated Complaint: ABDOMINAL SWELLING Time Seen by Provider: 06/21/20 18:29 Primary Care Provider: TOMÁS LUA NP [Primary Care Provider] - Follow up as needed TRAVEL OUTSIDE OF THE [place] IN LAST 30 DAYS: No - HPI Notes: 06/21/20 18:47 69-year-old female with a history of cirrhosis, JERNIGAN, ascites, esophageal varices presents to the emergency room today with complaints of abdominal pain and swelling that is become progressively worse over the last week. Patient states that her stomach is getting so large that is making it hard to breathe. Her last paracentesis was in January 2020. Last time patient came to the emergency room as was June 10 for hypotension and from falls due to her history of dementia. Denies any nausea, vomiting, diarrhea, chest pain or shortness of breath. Denies any fevers or chills. Last bowel movement was today, no melena I have greeted and performed a rapid initial assessment of this patient. A comprehensive ED assessment and evaluation of the patient, analysis of test results and completion of the medical decision making process will be conducted by additional ED providers. PHYSICAL EXAMINATION: GENERAL: Well-appearing, well-nourished and in no acute distress. CV: s1, s2 regular LUNGS: No respiratory distress abd: abd distention without tenderness Musculoskeletal: Normal range of motion NEUROLOGICAL: Normal speech, in wheelchair SKIN: Warm, Dry, normal turgor, no rashes or lesions noted. 06/21/20 18:53 - Related Data Allergies/Adverse Reactions: No Known Allergies Allergy (Verified 01/29/20 13:12) Past Medical History - Social History Chew tobacco use (# tins/day): No Frequency of alcohol use: None Drug Abuse: None - Past Medical History Cardiac Medical History: Reports: Hx Hypertension Denies: Hx Coronary Artery Disease, Hx Heart Attack Pulmonary Medical History: Reports: Hx Asthma Denies: Hx Bronchitis, Hx COPD, Hx Pneumonia Neurological Medical History: Denies: Hx Cerebrovascular Accident, Hx Seizures Endocrine Medical History: Reports: Hx Diabetes Mellitus Type 2 Renal/ Medical History: Denies: Hx Peritoneal Dialysis GI Medical History: Reports: Hx Cirrhosis, Hx Gastroesophageal Reflux Disease Musculoskeltal Medical History: Reports Hx Arthritis - hands, feet knees Psychiatric Medical History: Reports: Hx Dementia Denies: Hx Depression Past Surgical History: Reports: Hx Appendectomy, Hx Cholecystectomy, Hx Hysterectomy, Hx Orthopedic Surgery - knees, Hx Tonsillectomy - Immunizations Hx Diphtheria, Pertussis, Tetanus Vaccination: Yes Physical Exam - Vital signs Vitals: Temp Pulse Resp BP Pulse Ox 98.6 F 72 16 111/60 98 06/21/20 17:33 06/21/20 17:33 06/21/20 17:33 06/21/20 17:33 06/21/20 17:33 Course - Vital Signs Vital signs: Temp Pulse Resp BP Pulse Ox 98.6 F 72 16 111/60 98 06/21/20 17:33 06/21/20 17:33 06/21/20 17:33 06/21/20 17:33 06/21/20 17:33 Doctor's Discharge - Discharge Referrals: TOMÁS LUA DATA TRANSCRIBER [Primary Care Provider] - Follow up as needed
[2020-06-21 19:13] LABS: ABSOLUTE EOSINOPHILS # (AUTO) 0.1 10^3/uL (0.0-0.6); ABSOLUTE LYMPHOCYTES (AUTO) 0.9 10^3/uL (0.5-4.7); ABSOLUTE MONOCYTES (AUTO) 0.4 10^3/uL (0.1-1.4); ABSOLUTE NEUT (AUTO) 3.1 10^3/uL (1.7-8.2); BASOPHILS % (AUTO) 0.2 % (0-2); EOSINOPHILS % (AUTO) 1.8 % (0-6); HEMATOCRIT 33.3 % (36.0-47.0); HEMOGLOBIN 11.3 g/dL (12.0-15.5); MEAN CORPUSCULAR HEMOGLOBIN 30.6 pg (27.0-33.4); MEAN CORPUSCULAR VOLUME 90 fl (80-97); MONOCYTES % (AUTO) 9.1 % (3-13); PLATELET COUNT 106 10^3/uL (150-450); RED BLOOD COUNT 3.71 10^6/uL (3.72-5.28); RED CELL DISTRIBUTION WIDTH 16.3 % (11.5-14.0); SEGMENTED NEUTROPHILS % (AUTO) 68.9 % (42-78); TOTAL CELLS COUNTED % (AUTO) 100 %; WHITE BLOOD COUNT 4.5 10^3/uL (4.0-10.5)
[2020-06-21 19:14] LABS: INTERNATIONAL RATION (INR) 1.09; PROTHROMBIN TIME 14.3 SEC (11.4-15.4)
[2020-06-21 19:15] LABS: PARTIAL THROMBOPLASTIN TIME 27.5 SEC (23.5-35.8)
[2020-06-21 19:16] LABS: APPEARANCE,URINE SLIGHTLY-CLOUDY; BILIRUBIN,URINE NEGATIVE (NEGATIVE); COLOR,URINE YELLOW; GLUCOSE, URINE >=500 mg/dL (NEGATIVE); KETONES,URINE NEGATIVE (NEGATIVE); LEUKOCYTE ESTERASE,URINE NEGATIVE (NEGATIVE); NITRITE,URINE NEGATIVE (NEGATIVE); PROTEIN,URINE NEGATIVE (NEGATIVE); URINE SPECIFIC GRAVITY 1.031; UROBILINOGEN,URINE NEGATIVE mg/dL (<2.0)
[2020-06-21 19:33] LABS: ALBUMIN 3.4 g/dL (3.5-5.0); ALKALINE PHOSPHATASE 71 U/L (38-126); ANION GAP 9 (5-19); ASPARTATE AMINO TRANSFERASE 44 U/L (14-36); BILIRUBIN,DIRECT 0.3 mg/dL (0.0-0.4); BILIRUBIN,TOTAL 1.3 mg/dL (0.2-1.3); BLOOD UREA NITROGEN 20 mg/dL (7-20); CARBON DIOXIDE 23 mmol/L (22-30); CHLORIDE 102 mmol/L (98-107); GLUCOSE 395 mg/dL (75-110); TOTAL PROTEIN 5.9 g/dL (6.3-8.2)
--- NOTE | 2020-06-22 01:04 | ER Document Report ---
ED General - General Chief Complaint: Abdominal Swelling Stated Complaint: ABDOMINAL SWELLING Time Seen by Provider: 06/21/20 18:29 TRAVEL OUTSIDE OF THE [place] IN LAST 30 DAYS: No - HPI Notes: 69-year-old female presents with abdominal swelling. Patient states that she has had swelling for the past week or so. 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 She states that she had a paracentesis done in January 2020. She denies any pain. She states there is a pressure though, she feels like she has trouble taking deep breaths due to the amount of swelling. She has had no vomiting or diarrhea. No fever. She states that she called her primary care today and was advised to come to the hospital for admission. She does report she is having some reflux symptoms, she has not taken omeprazole today. - Related Data Allergies/Adverse Reactions: No Known Allergies Allergy (Verified 01/29/20 13:12) Past Medical History - General Information source: Patient - Social History Smoking Status: Never Smoker Chew tobacco use (# tins/day): No Frequency of alcohol use: None Drug Abuse: None Family History: Reviewed & Not Pertinent - Past Medical History Cardiac Medical History: Reports: Hx Hypertension Denies: Hx Coronary Artery Disease, Hx Heart Attack Pulmonary Medical History: Reports: Hx Asthma Denies: Hx Bronchitis, Hx COPD, Hx Pneumonia Neurological Medical History: Denies: Hx Cerebrovascular Accident, Hx Seizures Endocrine Medical History: Reports: Hx Diabetes Mellitus Type 2 Renal/ Medical History: Denies: Hx Peritoneal Dialysis GI Medical History: Reports: Hx Cirrhosis, Hx Gastroesophageal Reflux Disease Musculoskeletal Medical History: Reports Hx Arthritis - hands, feet knees Psychiatric Medical History: Reports: Hx Dementia Denies: Hx Depression Past Surgical History: Reports: Hx Appendectomy, Hx Cholecystectomy, Hx Hysterectomy, Hx Orthopedic Surgery - knees, Hx Tonsillectomy - Immunizations Hx Diphtheria, Pertussis, Tetanus Vaccination: Yes Review of Systems - Review of Systems Constitutional: denies: Fever EENT: No symptoms reported Cardiovascular: No symptoms reported Respiratory: See HPI Gastrointestinal: Abdomen distended. denies: Abdominal pain, Nausea, Vomiting Genitourinary: No symptoms reported Female Genitourinary: No symptoms reported Musculoskeletal: No symptoms reported Skin: No symptoms reported Hematologic/Lymphatic: No symptoms reported Neurological/Psychological: No symptoms reported Physical Exam - Vital signs Vitals: Temp Pulse Resp BP Pulse Ox 98.6 F 72 16 111/60 98 06/21/20 17:33 06/21/20 17:33 06/21/20 17:33 06/21/20 17:33 06/21/20 17:33 - General General appearance: Appears well, Alert In distress: None - HEENT Head: Normocephalic, Ecchymosis - Under bilateral eyes, old appearing Extraocular movements intact: Yes Pupils: PERRL - Respiratory Breath sounds: Normal - Cardiovascular Rhythm: Regular Heart sounds: Normal auscultation - Abdominal Distension: Distended, Fluid wave Bowel sounds: Normal Tenderness: Nontender - Extremities General lower extremity: No: Edema - Neurological Neuro grossly intact: Yes Cognition: Normal Orientation: AAOx4 - Psychological Associated symptoms: Normal affect - Skin Skin Temperature: Warm Course - Re-evaluation Re-evalutation: 69-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 On exam she is well-appearing, afebrile, abdomen is distended with fluid wave but is without focal area of tenderness. Suspect she is acutely large volume ascites and will need paracentesis. Would not have suspicion for SBP at this time. She had a laboratory evaluation through the triage process. No leukocytosis or left shift. Chronic anemia. Coags within normal limits, synthetic function intact. Mild hyponatremia. Creatinine within normal limits. Mild elevated LFTs. She does have a slightly elevated ammonia however her mental status does not correlate with this. Urine does not suggest UTI. She additionally had a CT abdomen done through triage, which shows large volume ascites. 06/22/20 01:59 Discussed with hospital service for admission - Vital Signs Vital signs: Temp Pulse Resp BP Pulse Ox 98.7 F 76 20 112/62 97 06/22/20 04:17 06/22/20 04:17 06/22/20 04:17 06/22/20 04:17 06/22/20 04:17 - Laboratory Result Diagrams: 06/21/20 18:50 06/21/20 18:50 Laboratory results interpreted by me: 06/21/20 06/21/20 06/21/20 18:50 18:50 18:50 RBC 3.71 L Hgb 11.3 L Hct 33.3 L RDW 16.3 H Plt Count 106 L Sodium 133.7 L Glucose 395 H POC Glucose AST 44 H ALT 60 H Ammonia 88.9 H Total Protein 5.9 L Albumin 3.4 L Urine Glucose (UA) 06/21/20 06/22/20 18:58 00:35 RBC Hgb Hct RDW Plt Count Sodium Glucose POC Glucose 395 H AST ALT Ammonia Total Protein Albumin Urine Glucose (UA) >=500 H - Diagnostic Test Radiology reviewed: Image reviewed, Reports reviewed Discharge - Discharge Clinical Impression: Cirrhosis of liver with ascites Qualifiers: Hepatic cirrhosis type: unspecified hepatic cirrhosis Qualified Code(s): K74.60 - Unspecified cirrhosis of liver Disposition: ADMITTED OBSERVATION Admitting Provider: Chandler (Hospitalist) Unit Admitted: Medical Floor
[2020-06-22] MEDS ORDERED: PANTOPRAZOLE SODIUM 20 MG TABLET.DR PO ONE (01:20)
[2020-06-22] MEDS ORDERED: ONDANSETRON 4 MG TAB.RAPDIS PO PRN (02:45)
[2020-06-22] MEDS ORDERED: DEXTROSE 40% GEL 15 GM TUBE PO PRN ×2 (02:50)
[2020-06-22] MEDS ORDERED: DEXTROSE 50%-WATER 25 GM/50 ML DISP.SYRIN IV PRN ×2 (02:50)
[2020-06-22] MEDS ORDERED: GLUCAGON,HUMAN RECOMB 1 MG INJ IM PRN (02:50)
--- NOTE | 2020-06-22 03:27 | RADIOLOGY REPORT (SQ) ---
EXAM: CT Abdomen and Pelvis With Intravenous Contrast EXAM DATE/TIME: 06/22/2020 2:44 AM CLINICAL HISTORY: The patient is 69 years old and is Female; abd pain/[id number], hx of ascites,JERNIGAN. CREAT 0.64 TECHNIQUE: Axial computed tomography images of the abdomen and pelvis with intravenous contrast. Sagittal and coronal reformatted images were created and reviewed. This CT exam was performed using one or more of the following dose reduction techniques: automated exposure control, adjustment of the mA and/or kV according to patient size, and/or use of iterative reconstruction technique. COMPARISON: CT abdomen pelvis from 02/01/2020 FINDINGS: LUNG BASES: Minimal bibasilar atelectasis. PLEURAL SPACE: Trace right pleural effusion. ABDOMEN: LIVER: The liver is nodular in contour, compatible with cirrhosis. No obvious liver mass. GALLBLADDER AND BILE DUCTS: The gallbladder is surgically absent. No significant biliary ductal dilatation appreciated. PANCREAS: Unremarkable. No ductal dilation. No obvious mass. SPLEEN: The spleen is enlarged, measuring 18 cm in AP dimension. This is similar to the prior study. ADRENALS: Unremarkable. No adrenal nodules or masses identified. KIDNEYS AND URETERS: There is mild bilateral perinephric stranding. The right kidney is otherwise unremarkable. There is mild to moderate left-sided hydronephrosis which is improved compared to the prior exam. The left ureter is normal in caliber, but there is no contrast within the left ureter on delayed images. Findings suggest ureteropelvic junction obstruction. No stones visualized. No solid renal mass. STOMACH AND BOWEL: No evidence of bowel obstruction. No significant bowel wall thickening appreciated. PELVIS: APPENDIX: No findings to suggest acute appendicitis. BLADDER: Unremarkable. No obvious mass. REPRODUCTIVE: The patient is status post hysterectomy. ABDOMEN and PELVIS: INTRAPERITONEAL SPACE: There is moderate to large volume ascites which is increased compared to the prior study. There is also diffuse mesenteric edema. No abscess visualized. No free intraperitoneal air. BONES/JOINTS: Degenerative changes of the spine. No acute fracture. No dislocation. SOFT TISSUES: Mild subcutaneous edema within the anterior abdominal and pelvic wall as well as extending about the bilateral hips and pelvis. VASCULATURE: Atherosclerotic calcifications are noted. No aortic aneurysm. Multiple small varices again visualized in the abdomen, most prominent in the upper and anterior aspects of the abdomen. LYMPH NODES: No significant lymph node enlargement. IMPRESSION: 1. Findings compatible with cirrhosis and associated portal hypertension. 2. Moderate to large volume ascites which is increased compared to the prior study. 3. Left-sided hydronephrosis which is improved compared to the prior exam. Findings suggest persistent left ureteropelvic junction obstruction. No stones visualized. 3. Trace right pleural effusion.
--- NOTE | 2020-06-22 03:36 | PDOC H&P ---
History of Present Illness Admission Date/PCP: 06/22/20 02:46 TOMÁS LUA NP Patient complains of: abdominal fullness History of Present Illness: CURTIS HAYES is a 69 year old female, PMH of T2DM, JERNIGAN, abdominal ascites who was sent to the emergency room by her primary care physician for paracenteses due to ascites. She has noticed increased abdominal girth for the past several weeks with associated shortness of breath which he attributes to her enlarging belly. She denies any fever, abdominal pain, nausea vomiting. No melena, hematemesis, hematochezia. She was diagnosed with Jernigan back in January and it was then that she underwent paracenteses. She was advised to go to the emergency room for paracentesis by her primary care physician. In the emergency room blood pressure was noted to be 111/60, heart rate of 96, temp 98.8. CBC showed WBC count of 4.5 hemoglobin 11.3 platelet 106. CMP showed sodium of 133.7 potassium 4.0 glucose 310. Ammonia 88.9, she is awake alert and oriented. She was subsequently admitted for paracentesis. Past Medical History Cardiac Medical History: Reports: Hypertension Denies: Coronary Artery Disease, Myocardial Infarction Pulmonary Medical History: Reports: Asthma Denies: Bronchitis, Chronic Obstructive Pulmonary Disease (COPD), Pneumonia Neurological Medical History: Denies: Seizures Endocrine Medical History: Reports: Diabetes Mellitus Type 2 GI Medical History: Reports: Cirrhosis, Gastroesophageal Reflux Disease, Other - esophageal varices Musculoskeltal Medical History: Reports: Arthritis - hands, feet knees Psychiatric Medical History: Reports: Dementia Denies: Depression Hematology: Reports: Anemia Infectious Medical History: Denies: Hepatitis B, Hepatitis C Past Surgical History Past Surgical History: Reports: Appendectomy, Cholecystectomy, Hysterectomy, Orthopedic Surgery - knees, Tonsillectomy Social History Information Source: Patient Lives with: Family Smoking Status: Never Smoker Electronic Cigarette use?: No Frequency of Alcohol Use: None Hx Recreational Drug Use: No Drugs: None Hx Prescription Drug Abuse: No Family History Family History: Reviewed & Not Pertinent, DM, Hypertension Parental Family History Reviewed: Yes Children Family History Reviewed: Yes Sibling(s) Family History Reviewed.: Yes Medication/Allergy Home Medications: Gabapentin [Neurontin 300 mg Capsule] 300 mg PO Q12 03/11/20 Paroxetine HCl [Paxil 20 mg Tablet] 20 mg PO DAILY 03/11/20 Aspirin [Ecotrin 81 mg EC Tablet] 81 mg PO DAILY 06/09/20 Cranberry [Cranberry 400 mg Capsule] 800 mg PO DAILY 06/09/20 [place]-3/Dha/Epa/Fish Oil [Fish Oil 1,000 mg Softgel] 1 each PO DAILY 06/09/20 Pnv No.95/Ferrous Fum/Folic AC [ Caplet] 1 each PO DAILY 06/09/20 Acetaminophen [Tylenol 325 mg Tablet] 650 mg PO Q4HP PRN tablet 06/11/20 Hydrocortisone 5 mg PO ASDIR PRN #105 tablet 06/11/20 Insulin Glargine,Hum.rec.anlog [Lantus Insulin 100 Unit/1 ml 10 ml] 15 unit SUBCUT DAILY #1 vial 06/11/20 Midodrine HCl [Proamatine 5 mg Tablet] 5 mg PO TID #90 tablet 06/11/20 Oxycodone HCl/Acetaminophen [Percocet 5-325 mg Tablet] 1 tab PO Q6HP PRN #12 tablet 06/11/20 Propranolol HCl [Inderal 10 mg Tablet] 10 mg PO Q12 #60 tablet 06/11/20 Spironolactone [Aldactone 100 mg Tablet] 50 mg PO ASDIR PRN #1 06/11/20 Syringe and Needle,Insulin,1Ml [Insulin Syringe 1 mL] 1 syr MC ASDIR PRN #100 syringe 06/11/20 Allergies/Adverse Reactions: No Known Allergies Allergy (Verified 01/29/20 13:12) Review of Systems Constitutional: PRESENT: anorexia, weight gain Eyes: ABSENT: visual disturbances Ears: ABSENT: hearing changes Nose, Mouth, and Throat: ABSENT: headache(s) Cardiovascular: PRESENT: edema Respiratory: PRESENT: dyspnea Gastrointestinal: ABSENT: abdominal pain, bloating, coffee ground emesis, diarrhea, hematemesis, hematochezia Genitourinary: ABSENT: dysuria Integumentary: ABSENT: diaphoresis, erythema Neurological: ABSENT: abnormal movements, confusion, focal weakness Psychiatric: ABSENT: hallucinations Physical Exam Vital Signs: Temp Pulse Resp BP Pulse Ox 98.6 F 72 16 111/60 98 06/21/20 17:33 06/21/20 17:33 06/21/20 17:33 06/21/20 17:33 06/21/20 17:33 Intake & Output 06/20/20 06/21/20 06/22/20 06:59 06:59 06:59 Weight 93.44 kg General appearance: PRESENT: no acute distress, cooperative Head exam: PRESENT: normocephalic, other Eye exam: PRESENT: EOMI, PERRLA, scleral icterus Ear exam: PRESENT: normal external ear exam Mouth exam: PRESENT: moist Neck exam: PRESENT: full ROM Respiratory exam: PRESENT: clear to auscultation evita, symmetrical, unlabored. ABSENT: rales, wheezes Cardiovascular exam: PRESENT: RRR, +S1, +S2 Pulses: PRESENT: normal radial pulses GI/Abdominal exam: PRESENT: ascites, distended, normal bowel sounds, soft. ABSENT: guarding, rebound, tenderness Rectal exam: ABSENT: black stool Extremities exam: PRESENT: +2 edema Musculoskeletal exam: PRESENT: full ROM Neurological exam: PRESENT: alert, awake, oriented to person, oriented to place, oriented to time Psychiatric exam: PRESENT: normal mood Skin exam: PRESENT: other - spider angiomata Results Laboratory Results: 06/21/20 18:50 06/21/20 18:50 06/21/20 06/21/20 06/21/20 18:50 18:50 18:50 WBC 4.5 RBC 3.71 L Hgb 11.3 L Hct 33.3 L MCV 90 MCH 30.6 MCHC 34.0 RDW 16.3 H Plt Count 106 L Seg Neutrophils % 68.9 Sodium 133.7 L Potassium 4.0 Chloride 102 Carbon Dioxide 23 Anion Gap 9 BUN 20 Creatinine 0.67 Est GFR ( Amer) > 60 Glucose 395 H Calcium 9.0 Total Bilirubin 1.3 AST 44 H Alkaline Phosphatase 71 Ammonia 88.9 H Total Protein 5.9 L Albumin 3.4 L Lipase 96.8 Urine Color Urine Appearance Urine pH Ur Specific [place] Urine Protein Urine Glucose (UA) Urine Ketones Urine Blood Urine Nitrite Ur Leukocyte Esterase Urine WBC (Auto) Urine RBC (Auto) 06/21/20 18:58 WBC RBC Hgb Hct MCV MCH MCHC RDW Plt Count Seg Neutrophils % Sodium Potassium Chloride Carbon Dioxide Anion Gap BUN Creatinine Est GFR ( Amer) Glucose Calcium Total Bilirubin AST Alkaline Phosphatase Ammonia Total Protein Albumin Lipase Urine Color YELLOW Urine Appearance SLIGHTLY-CLOUDY Urine pH 6.0 Ur Specific [place] 1.031 Urine Protein NEGATIVE Urine Glucose (UA) >=500 H Urine Ketones NEGATIVE Urine Blood NEGATIVE Urine Nitrite NEGATIVE Ur Leukocyte Esterase NEGATIVE Urine WBC (Auto) 5 Urine RBC (Auto) 4 Impressions: Abdomen/Pelvis CT 06/21/20 18:39 IMPRESSION: 1. Findings compatible with cirrhosis and associated portal hypertension. 2. Moderate to large volume ascites which is increased compared to the prior study. 3. Left-sided hydronephrosis which is improved compared to the prior exam. Findings suggest persistent left ureteropelvic junction obstruction. No stones visualized. 3. Trace right pleural effusion. Assessment and Plan - Diagnosis (1) Cirrhosis of liver with ascites Qualifiers: Hepatic cirrhosis type: unspecified hepatic cirrhosis Qualified Code(s): K74.60 - Unspecified cirrhosis of liver; R18.8 - Other ascites Is this a current diagnosis for this admission?: Yes Plan: - diagnosed case of JERNIGAN with liver cirrhosis admitted due to ascites - abdomen distended, with +ve fluid wave, dullness to percussion, no tenderness, no rebound - WBC normal, no fever - low suspicion for SBP - CT abdomen endings consistent with cirrhosis and associated portal hypertension, moderate to large volume ascites which is increased compared to the prior study. Left-sided hydronephrosis - Awaiting PT/INR - US guided paracentesis via IR - sq heparin not started for paracentesis - propranolol, spironolactone resumed (2) Hyperglycemia due to type 2 diabetes mellitus Qualifiers: Diabetes mellitus long term acute care registered nurse insulin use: with long term acute care registered nurse use Qualified Code(s): E11.65 - Type 2 diabetes mellitus with hyperglycemia; Z79.4 - half-way (current) use of insulin Is this a current diagnosis for this admission?: Yes Plan: - Bg 395 on basaglar 55 u at home - resumed - SSI - aacucheck - hypoglycemia protocol (3) Abdominal distention, non-gaseous Is this a current diagnosis for this admission?: Yes Plan: - 2/2 to ascites (4) Hyperammonemia Is this a current diagnosis for this admission?: Yes Plan: - Ammonia 88.9 with patient alert, awake and oriented - 2/2 liver cirrhosis - monitor mental status (5) Hyponatremia Is this a current diagnosis for this admission?: Yes Plan: - Na133.7 mild - continue to monitor (6) Thrombocytopenia Is this a current diagnosis for this admission?: Yes Plan: - Platelet 106 no bleeding - continue to monitor - Time Time Spent with patient: 35 or more minutes Anticipated Discharge Disposition: Home, Self Care Anticipated Discharge Timeframe: within 48 hours
[2020-06-22] MEDS ORDERED: INSULIN LISPRO 100 UNIT/ML 3 ML VIAL SUBCUT ONE (04:57)
[2020-06-22] MEDS ORDERED: LEVOTHYROXINE SODIUM 0.15 MG TABLET PO SCH (06:00)
[2020-06-22] MEDS: INSULIN LISPRO 100 UNIT/ML 3 ML VIAL SUBCUT SCH ×2 (06:28→13:11)
[2020-06-22] MEDS: SPIRONOLACTONE 25 MG TABLET PO SCH ×2 (09:41→12:40)
[2020-06-22] MEDS: FUROSEMIDE 20 MG TABLET PO SCH ×2 (09:43→12:40)
[2020-06-22] MEDS: MIDODRINE HCL 5 MG TABLET PO SCH ×3 (09:43→16:17)
[2020-06-22] MEDS ORDERED: GABAPENTIN 300 MG CAPSULE PO SCH (10:00)
[2020-06-22] MEDS ORDERED: PROPRANOLOL HCL 10 MG TABLET PO SCH ×2 (10:00)
[2020-06-22] MEDS ORDERED: INSULIN GLARGINE,HUM.REC.ANLOG 1,000 UNIT/10 ML VIAL SUBCUT SCH (10:00)
[2020-06-22] MEDS ORDERED: ASPIRIN 81 MG TABLET, CHEWABLE PO SCH (10:00)
[2020-06-22] MEDS ORDERED: INSULIN GLARGINE,HUM.REC.ANLOG 1,000 UNIT/10 ML VIAL (PYX) SUBCUT ONE (10:08)
[2020-06-22] MEDS: LACTULOSE SYRUP 20 GM/30 ML UDCUP PO SCH ×2 (10:17→16:17)
[2020-06-22] MEDS: HYDROCORTISONE 10 MG TABLET PO SCH ×2 (10:19→16:24)
[2020-06-22] MEDS: PROPRANOLOL HCL 10 MG TABLET PO SCH ×2 (10:28→12:20)
[2020-06-22] MEDS: ALBUMIN HUMAN 12.5 GM/50 ML RTUINJ IV SCH ×2 (10:29→14:25)
--- NOTE | 2020-06-22 16:27 | RADIOLOGY REPORT (SQ) ---
EXAM DESCRIPTION: U/S ABD PARACENTESIS IMAGES COMPLETED DATE/TIME: 06/22/2020 3:58 pm REASON FOR STUDY: therapeutic, large volume paracentesis COMPARISON None. LIMITATIONS: None. PROCEDURE: After obtaining informed consent, the patient was brought to the ultrasound suite. The p rocedure was performed with the patient on a gurney. Ultrasound was used to identify a prominent poc ket of ascites in the left lower quadrant. An appropriate access site was selected. The patient was prepped and draped in usual sterile fashion. The access site was anesthetized with 7 mL 1% lidocai ne. A [id number] needle was advanced into the fluid. After aspiration of fluid the needle, the catheter was advanced off the needle into the fluid. A total of 4,400 mL of straw-colored fluid was removed. The patient tolerated the procedure well left the department in satisfactory condition. IMPRESSION: Successful ultrasound-guided paracentesis COMMENT: Patient medication list reviewed: Yes- Quality ID# [id number]:Eligible professional attests to doc umenting in the medical record they obtained, updated, or reviewed the patient's current medications. TECHNICAL DOCUMENTATION: JOB ID: [id number] 2010 [employer]- All Rights Reserved Reading location - IP/workstation name: [email or web address] [id number]
[2020-06-22] MEDS ORDERED: ACETAMINOPHEN 325 MG TABLET PO ONE (16:45)
[2020-06-22 17:02] VITALS: BP 116/56
[2020-06-22] MEDS ORDERED: INFLUENZA QUAD (6MOS+) 2020-21 VAC 0.5 ML SYR IM ONE (17:23)
--- NOTE | 2020-06-22 18:14 | PDOC DISCHARGE SUMMARY ---
Impression - Admit/DC Date/PCP Admission Date/Primary Care Provider: 06/22/20 02:46 TOMÁS LUA NP Discharge Date: 06/22/20 - Discharge Diagnosis (1) Cirrhosis of liver with ascites Is this a current diagnosis for this admission?: Yes (2) Hyperammonemia Is this a current diagnosis for this admission?: Yes (3) Hypervolemia Is this a current diagnosis for this admission?: Yes (4) Hyponatremia Is this a current diagnosis for this admission?: Yes (5) Abdominal distention, non-gaseous Is this a current diagnosis for this admission?: Yes (6) Adrenal insufficiency Is this a current diagnosis for this admission?: Yes (7) Hyperglycemia due to type 2 diabetes mellitus Is this a current diagnosis for this admission?: Yes (8) Hypotension Is this a current diagnosis for this admission?: Yes (9) Nonalcoholic steatohepatitis (JERNIGAN) Is this a current diagnosis for this admission?: Yes (10) Shortness of breath Is this a current diagnosis for this admission?: Yes - Assessment Summary: CURTIS HAYES is a 69 year old female with PMH of insulin-dependent DM2, JERNIGAN cirrhosis with ascites and adrenal insufficiency who was sent to the emergency room by her primary care physician for paracentesis. She has noticed increased abdominal girth for the past several weeks with associated shortness of breath which she attributes to her enlarging belly. She denies any fever, abdominal pain, nausea, vomiting, melena, hematemesis, hematochezia. She was diagnosed with cirrhosis in January and it was then that she last underwent paracentesis. In the emergency room, vitals and labs were largely within normal limits. CMP was notable for sodium of 133 and glucose 310. Ammonia was elevated at 88.9. She underwent unremarkable paracentesis with 4.4 L removed. She received albumin infusion during the procedure. She felt much improved after the procedure. She was started on daily Lasix/Spironolactone therapy, as well as lactulose. She was advised to follow up with her PCP and GI in 1-2 weeks. - Additional Information Resuscitation Status: Do Not Resuscitate Discharge Diet: Diabetic Discharge Activity: Activity As Tolerated Referrals: GILBERTO SCHNEIDER MD [ACTIVE STAFF] - (CALLED PROVIDER AND LEFT MESSAGE FOR THEM TO CONTACT PT TO SET UP FOLLOW UP APPT IN 1-2 WEEKS) TOMÁS LUA, HAZARD WASTE HANDLER [Primary Care Provider] - Follow up as needed (PT WILL CONTACT PROVIDER TO SET UP APPT) Prescriptions: Lactulose 10 gm PO TID #1000 ml Furosemide [Lasix 20 mg Tablet] 20 mg PO DAILY #30 tablet Home Medications: Acetaminophen [Tylenol] 650 mg PO 0800,1400,1700,199906/22/20 Furosemide [Lasix 20 mg Tablet] 20 mg PO DAILY #30 tablet 06/22/20 Gabapentin [Neurontin 300 mg Capsule] 300 mg PO 0800,199906/22/20 [place] 2[place] [address]/22/20 Hydrocortisone 5 mg PO 1400 06/22/20 Hydrocortisone 10 mg PO 0800 06/22/20 Insulin Glargine,Hum.rec.anlog [Basaglar Kwlucpen U-100] 55 unit SQ QAM 06/22/20 Lactulose 10 gm PO TID #1000 ml 06/22/20 Levothyroxine Sodium 150 mcg PO 199906/22/20 Loratadine [Claritin 10 mg Tablet] 10 mg PO 199906/22/20 Midodrine HCl [Proamatine 5 mg Tablet] 5 mg PO 0800,1400,199906/22/20 [place]-3 Fatty Acids/Fish Oil [[place] 3 Fish Oil Softgel] 1 cap PO QAM 06/22/20 Paroxetine HCl [Paxil 20 mg Tablet] 20 mg PO 199906/22/20 Pnv No.95/Ferrous Fum/Folic AC [ Caplet] 1 tab PO QAM 06/22/20 Propranolol HCl [Inderal 10 mg Tablet] 10 mg PO 0800,199906/22/20 Spironolactone [Aldactone] 50 mg PO DAILYP PRN 06/22/20 History of Present Illiness History of Present Illness: CURTIS HAYES is a 69 year old female Physical Exam Vital Signs: Temp Pulse Resp BP Pulse Ox 98.9 F 74 18 116/56 L 94 06/22/20 17:00 06/22/20 17:00 06/22/20 17:00 06/22/20 17:00 06/22/20 17:00 Intake & Output 06/21/20 06/22/20 06/23/20 06:59 06:59 06:59 Intake Total 100 Balance 100 Weight 94.4 kg Results Laboratory Results: WBC 4.5 10^3/uL (4.0-10.5) 06/21/20 18:50 RBC 3.71 10^6/uL (3.72-5.28) L 06/21/20 18:50 Hgb 11.3 g/dL (12.0-15.5) L 06/21/20 18:50 Hct 33.3 % (36.0-47.0) L 06/21/20 18:50 MCV 90 fl (80-97) 06/21/20 18:50 MCH 30.6 pg (27.0-33.4) 06/21/20 18:50 MCHC 34.0 g/dL (32.0-36.0) 06/21/20 18:50 RDW 16.3 % (11.5-14.0) H 06/21/20 18:50 Plt Count 106 10^3/uL (150-450) L 06/21/20 18:50 Lymph % (Auto) 20.0 % (13-45) 06/21/20 18:50 [place] % (Auto) 9.1 % (3-13) 06/21/20 18:50 Eos % (Auto) 1.8 % (0-6) 06/21/20 18:50 Baso % (Auto) 0.2 % (0-2) 06/21/20 18:50 Absolute Neuts (auto) 3.1 10^3/uL (1.7-8.2) 06/21/20 18:50 Absolute Lymphs (auto) 0.9 10^3/uL (0.5-4.7) 06/21/20 18:50 Absolute Monos (auto) 0.4 10^3/uL (0.1-1.4) 06/21/20 18:50 Absolute Eos (auto) 0.1 10^3/uL (0.0-0.6) 06/21/20 18:50 Absolute Basos (auto) 0.0 10^3/uL (0.0-0.2) 06/21/20 18:50 Seg Neutrophils % 68.9 % (42-78) 06/21/20 18:50 PT 14.3 SEC (11.4-15.4) 06/21/20 18:50 INR 1.09 06/21/20 18:50 APTT 27.5 SEC (23.5-35.8) 06/21/20 18:50 Sodium 133.7 mmol/L (137-145) L 06/21/20 18:50 Potassium 4.0 mmol/L (3.6-5.0) 06/21/20 18:50 Chloride 102 mmol/L (98-107) 06/21/20 18:50 Carbon Dioxide 23 mmol/L (22-30) 06/21/20 18:50 Anion Gap 9 (5-19) 06/21/20 18:50 BUN 20 mg/dL (7-20) 06/21/20 18:50 Creatinine 0.67 mg/dL (0.52-1.25) 06/21/20 18:50 Est GFR ( Amer) > 60 (>60) 06/21/20 18:50 Est GFR (MDRD) Non-Af > 60 (>60) 06/21/20 18:50 Glucose 395 mg/dL (75-110) H 06/21/20 18:50 POC Glucose 178 mg/dL (70-110) H 06/22/20 13:06 Calcium 9.0 mg/dL (8.4-10.2) 06/21/20 18:50 Total Bilirubin 1.3 mg/dL (0.2-1.3) 06/21/20 18:50 Direct Bilirubin 0.3 mg/dL (0.0-0.4) 06/21/20 18:50 Neonat Total Bilirubin Not Reportable 06/21/20 18:50 Neonat Direct Bilirubin Not Reportable 06/21/20 18:50 Neonat Indirect Bili Not Reportable 06/21/20 18:50 AST 44 U/L (14-36) H 06/21/20 18:50 ALT 60 U/L (<35) H 06/21/20 18:50 Alkaline Phosphatase 71 U/L (38-126) 06/21/20 18:50 Ammonia 88.9 umol/L (9-33) H 06/21/20 18:50 Total Protein 5.9 g/dL (6.3-8.2) L 06/21/20 18:50 Albumin 3.4 g/dL (3.5-5.0) L 06/21/20 18:50 Lipase 96.8 U/L (23-300) 06/21/20 18:50 Urine Color YELLOW 06/21/20 18:58 Urine Appearance SLIGHTLY-CLOUDY 06/21/20 18:58 Urine pH 6.0 (5.0-9.0) 06/21/20 18:58 Ur Specific [place] 1.031 06/21/20 18:58 Urine Protein NEGATIVE mg/dL (NEGATIVE) 06/21/20 18:58 Urine Glucose (UA) >=500 mg/dL (NEGATIVE) H 06/21/20 18:58 Urine Ketones NEGATIVE mg/dL (NEGATIVE) 06/21/20 18:58 Urine Blood NEGATIVE (NEGATIVE) 06/21/20 18:58 Urine Nitrite NEGATIVE (NEGATIVE) 06/21/20 18:58 Urine Bilirubin NEGATIVE (NEGATIVE) 06/21/20 18:58 Urine Urobilinogen NEGATIVE mg/dL (<2.0) 06/21/20 18:58 Ur Leukocyte Esterase NEGATIVE (NEGATIVE) 06/21/20 18:58 Urine WBC (Auto) 5 /HPF 06/21/20 18:58 Urine RBC (Auto) 4 /HPF 06/21/20 18:58 Urine Mucus (Auto) RARE /LPF 06/21/20 18:58 Urine Ascorbic Acid NEGATIVE (NEGATIVE) 06/21/20 18:58 Impressions: Abdomen/Pelvis CT 06/21/20 18:39 IMPRESSION: 1. Findings compatible with cirrhosis and associated portal hypertension. 2. Moderate to large volume ascites which is increased compared to the prior study. 3. Left-sided hydronephrosis which is improved compared to the prior exam. Findings suggest persistent left ureteropelvic junction obstruction. No stones visualized. 3. Trace right pleural effusion. Paracentesis Ultrasound 06/22/20 00:00 IMPRESSION: Successful ultrasound-guided paracentesis Stroke Is this a Stroke Patient?: No Acute Heart Failure Is this a Heart Failure Patient?: No
[2020-06-23] MEDS ORDERED: INFLUENZA QUAD (6MOS+) 2020-21 VAC 0.5 ML SYR IM ONE (08:00)
== END 2020-06-22 18:00 | disposition home or self-care (01) ==
LOC: ER 17:24 → EH 06-22 02:46 → 4W 06-22 05:21
PROVIDERS: ADMIT Internal Medicine; ATTEND Hospitalist
DX: K74.60 Unspecified cirrhosis of liver (principal); R18.8 Other ascites; K75.81 Nonalcoholic steatohepatitis (NASH); K76.6 Portal hypertension; E72.20 Disorder of urea cycle metabolism, unspecified; E87.70 Fluid overload, unspecified; E87.1 Hypo-osmolality and hyponatremia; R41.0 Disorientation, unspecified; E27.40 Unspecified adrenocortical insufficiency; E11.65 Type 2 diabetes mellitus with hyperglycemia; I95.9 Hypotension, unspecified; R06.02 Shortness of breath; D69.6 Thrombocytopenia, unspecified; N13.30 Unspecified hydronephrosis; J90 Pleural effusion, not elsewhere classified; Z79.899 Other long term (current) drug therapy; Z79.82 Long term (current) use of aspirin; Z79.4 Long term (current) use of insulin; J45.909 Unspecified asthma, uncomplicated; F03.90 Unspecified dementia, unspecified severity, without behavioral disturbance, psychotic disturbance, mood disturbance, and anxiety; R63.0 Anorexia; R63.5 Abnormal weight gain
CPT/HCPCS: 99285; 36415; 82962; 82140; 83690; 85025; 85610; 85730; 80053; 81001; 49083; 74177; G0378 ×2; P9047; A9270 ×12; J1815; J3490

== ENCOUNTER → 2020-06-29 | Outpatient (CLI) | payer MEDICARE, OTHER ==
--- NOTE | 2020-06-29 14:17 | RADIOLOGY REPORT (SQ) ---
EXAM DESCRIPTION: CHEST SPECIAL VIEW IMAGES COMPLETED DATE/TIME: 06/29/2020 2:03 pm REASON FOR STUDY: PLEURAL EFFUSION, NOT ELSEWHERE CLASSIFIED R18.8 OTHER ASCITES K74.60 UNSPECIFIE D CIRRHOSIS OF LIVER J90 PLEURAL EFFUSION, NOT ELSEWHERE CLASSIFIED COMPARISON: None. NUMBER OF VIEWS: One view. TECHNIQUE: Right side down decubitus chest radiograph. LIMITATIONS: None. FINDINGS: PLEURAL FLUID: Small free flowing right pleural effusion. HARDWARE: None in the chest. OTHER: No other significant finding. IMPRESSION: SMALL FREE FLOWING RIGHT PLEURAL EFFUSION. TECHNICAL DOCUMENTATION: JOB ID: [id number] 2010 [employer]- All Rights Reserved Reading location - IP/workstation name: [email or web address]
--- NOTE | 2020-06-29 14:18 | RADIOLOGY REPORT (SQ) ---
EXAM DESCRIPTION: CHEST PA/LATERAL IMAGES COMPLETED DATE/TIME: 06/29/2020 2:03 pm REASON FOR STUDY: PLEURAL EFFUSION, NOT ELSEWHERE CLASSIFIED COMPARISON: 03/11/2020 EXAM PARAMETERS: NUMBER OF VIEWS: two views TECHNIQUE: Digital Frontal and Lateral radiographic views of the chest acquired. RADIATION DOSE: NA LIMITATIONS: none FINDINGS: LUNGS AND PLEURA: No consolidation. No pneumothorax. Very slight blunting of the costoph renic angles is noted on the lateral projection. Review of prior CT demonstrates a small right effus ion. MEDIASTINUM AND HILAR STRUCTURES: No masses or contour abnormalities. HEART AND VASCULAR STRUCTURES: Heart normal size. No evidence for failure. BONES: Degenerative changes in both shoulders. HARDWARE: None in the chest. OTHER: No other significant finding. IMPRESSION: Small right effusion suggested. No other significant findings. TECHNICAL DOCUMENTATION: JOB ID: [id number] 2010 [employer]- All Rights Reserved Reading location - IP/workstation name: [email or web address]
== END ==
LOC: OD 12:39
PROVIDERS: ATTEND Nurse Practitioner Family
DX: R18.8 Other ascites (principal); K74.60 Unspecified cirrhosis of liver; J90 Pleural effusion, not elsewhere classified
CPT/HCPCS: 36415; 71046; 82140

== ENCOUNTER 2020-07-20 13:51 | Emergency (ER) | payer MEDICARE, OTHER ==
--- NOTE | 2020-07-20 14:09 | ER Document Report ---
ED Medical Screen (RME) - General Chief Complaint: Abdominal Swelling Stated Complaint: ABDOMINAL SWELLING Time Seen by Provider: 07/20/20 14:03 Primary Care Provider: TOMÁS LUA NP [Primary Care Provider] - Follow up as needed Mode of Arrival: Wheelchair Information source: Patient Notes: 69-year-old female presented to ED for nonalcoholic cirrhosis with ascites abdominal distention and pain. She states her doctor is Dr. Valdovinos and she called Dr. Hargrove to see this patient. Patient states she takes lactulose every day to keep the ammonia level under control. States she has been taking it as prescribed. She states her home health nurse came to the house today and they recommended that she come to the emergency room. She states that her last paracentesis was either in May or June she is not sure which. I have greeted and performed a rapid initial assessment of this patient. A comprehensive ED assessment and evaluation of the patient, analysis of test results and completion of medical decision making process will be conducted by an additional ED providers. TRAVEL OUTSIDE OF THE [place] IN LAST 30 DAYS: No - Related Data Allergies/Adverse Reactions: No Known Allergies Allergy (Verified 01/29/20 13:12) Past Medical History - Past Medical History Cardiac Medical History: Reports: Hx Hypertension Denies: Hx Coronary Artery Disease, Hx Heart Attack Pulmonary Medical History: Reports: Hx Asthma Denies: Hx Bronchitis, Hx COPD, Hx Pneumonia Neurological Medical History: Denies: Hx Cerebrovascular Accident, Hx Seizures Endocrine Medical History: Reports: Hx Diabetes Mellitus Type 2 Renal/ Medical History: Denies: Hx Peritoneal Dialysis GI Medical History: Reports: Hx Cirrhosis, Hx Gastroesophageal Reflux Disease Musculoskeltal Medical History: Reports Hx Arthritis - hands, feet knees Psychiatric Medical History: Reports: Hx Dementia Denies: Hx Depression Past Surgical History: Reports: Hx Appendectomy, Hx Cholecystectomy, Hx Hysterectomy, Hx Orthopedic Surgery - knees, Hx Tonsillectomy - Immunizations Hx Diphtheria, Pertussis, Tetanus Vaccination: Yes Physical Exam - Vital signs Vitals: Temp Pulse Resp BP Pulse Ox 97.8 F 72 20 113/50 L 98 07/20/20 14:09 07/20/20 14:09 07/20/20 14:09 07/20/20 14:09 07/20/20 14:09 Course - Vital Signs Vital signs: Temp Pulse Resp BP Pulse Ox 97.8 F 72 20 113/50 L 98 07/20/20 14:09 07/20/20 14:09 07/20/20 14:09 07/20/20 14:09 07/20/20 14:09 Doctor's Discharge - Discharge Referrals: TOMÁS LUA, CLIENT SUPPORT ANALYST [Primary Care Provider] - Follow up as needed
[2020-07-20 15:07] LABS: ABSOLUTE LYMPHOCYTES (AUTO) 0.6 10^3/uL (0.5-4.7); ABSOLUTE MONOCYTES (AUTO) 0.3 10^3/uL (0.1-1.4); ABSOLUTE NEUT (AUTO) 2.8 10^3/uL (1.7-8.2); BASOPHILS % (AUTO) 0.4 % (0-2); HEMATOCRIT 34.6 % (36.0-47.0); HEMOGLOBIN 11.8 g/dL (12.0-15.5); LYMPHOCYTES % (AUTO) 14.8 % (13-45); MEAN CORPUSCULAR HEMOGLOBIN 30.5 pg (27.0-33.4); MEAN CORPUSCULAR HGB CONC 34.1 g/dL (32.0-36.0); MEAN CORPUSCULAR VOLUME 89 fl (80-97); MONOCYTES % (AUTO) 8.4 % (3-13); PLATELET COUNT 100 10^3/uL (150-450); RED BLOOD COUNT 3.87 10^6/uL (3.72-5.28); RED CELL DISTRIBUTION WIDTH 15.9 % (11.5-14.0); SEGMENTED NEUTROPHILS % (AUTO) 75.4 % (42-78); TOTAL CELLS COUNTED % (AUTO) 100 %; WHITE BLOOD COUNT 3.7 10^3/uL (4.0-10.5)
[2020-07-20 15:10] LABS: APPEARANCE,URINE CLEAR; BILIRUBIN,URINE NEGATIVE (NEGATIVE); COLOR,URINE YELLOW; GLUCOSE, URINE >=500 mg/dL (NEGATIVE); KETONES,URINE NEGATIVE (NEGATIVE); LEUKOCYTE ESTERASE,URINE TRACE (NEGATIVE); NITRITE,URINE NEGATIVE (NEGATIVE); PROTEIN,URINE NEGATIVE (NEGATIVE); URINE SPECIFIC GRAVITY 1.015; UROBILINOGEN,URINE NEGATIVE mg/dL (<2.0)
[2020-07-20 15:35] LABS: ALBUMIN 3.6 g/dL (3.5-5.0); ALKALINE PHOSPHATASE 76 U/L (38-126); ANION GAP 9 (5-19); ASPARTATE AMINO TRANSFERASE 33 U/L (14-36); BILIRUBIN,TOTAL 1.6 mg/dL (0.2-1.3); BLOOD UREA NITROGEN 13 mg/dL (7-20); CALCIUM 9.1 mg/dL (8.4-10.2); CARBON DIOXIDE 22 mmol/L (22-30); CHLORIDE 105 mmol/L (98-107); GLUCOSE 390 mg/dL (75-110); POTASSIUM 3.9 mmol/L (3.6-5.0); TOTAL PROTEIN 6.2 g/dL (6.3-8.2)
--- NOTE | 2020-07-20 16:26 | ER Document Report ---
ED General - General Chief Complaint: Abdominal Swelling Stated Complaint: ABDOMINAL SWELLING Time Seen by Provider: 07/20/20 14:03 Primary Care Provider: TOMÁS LUA NP [Primary Care Provider] - Follow up as needed Mode of Arrival: Wheelchair TRAVEL OUTSIDE OF THE [place] IN LAST 30 DAYS: No - HPI Notes: 69-year-old female presents with abdominal swelling. Patient has a history of Alanis cirrhosis with ascites, last paracentesis in June. For the past month she has had progressive abdominal distention and swelling. She denies pain, though states there is a tightness to her abdomen. No vomiting or fever. Patient states that she is also been having diarrhea, her physician has decreased her lactulose dosing, currently taking once a day. Denies blood or foul smell. States that her home health aide came in today and recommended that she go to the emergency department to have a paracentesis done and also concern for dehydration. - Related Data Allergies/Adverse Reactions: No Known Allergies Allergy (Verified 07/20/20 16:39) Past Medical History - General Information source: Patient - Social History Smoking Status: Unknown if Ever Smoked Family History: Reviewed & Not Pertinent - Past Medical History Cardiac Medical History: Reports: Hx Hypertension Denies: Hx Coronary Artery Disease, Hx Heart Attack Pulmonary Medical History: Reports: Hx Asthma Denies: Hx Bronchitis, Hx COPD, Hx Pneumonia Neurological Medical History: Denies: Hx Cerebrovascular Accident, Hx Seizures Endocrine Medical History: Reports: Hx Diabetes Mellitus Type 2 Renal/ Medical History: Denies: Hx Peritoneal Dialysis GI Medical History: Reports: Hx Cirrhosis, Hx Gastroesophageal Reflux Disease Musculoskeletal Medical History: Reports Hx Arthritis - hands, feet knees Psychiatric Medical History: Reports: Hx Dementia Denies: Hx Depression Past Surgical History: Reports: Hx Appendectomy, Hx Cholecystectomy, Hx Hysterectomy, Hx Orthopedic Surgery - knees, Hx Tonsillectomy - Immunizations Hx Diphtheria, Pertussis, Tetanus Vaccination: Yes Review of Systems - Review of Systems Constitutional: denies: Fever EENT: No symptoms reported Cardiovascular: denies: Chest pain Respiratory: denies: Short of breath Gastrointestinal: Abdomen distended, Diarrhea. denies: Abdominal pain, Vomiting Genitourinary: No symptoms reported Female Genitourinary: No symptoms reported Musculoskeletal: No symptoms reported Skin: No symptoms reported Hematologic/Lymphatic: No symptoms reported Neurological/Psychological: No symptoms reported Physical Exam - Vital signs Vitals: Temp Pulse Resp BP Pulse Ox 97.8 F 72 20 113/50 L 98 07/20/20 14:09 07/20/20 14:09 07/20/20 14:09 07/20/20 14:09 07/20/20 14:09 - General General appearance: Appears well, Alert - HEENT Head: Normocephalic, Atraumatic Eyes: No: Scleral icterus Extraocular movements intact: Yes Pupils: PERRL - Respiratory Breath sounds: Normal - Cardiovascular Rhythm: Regular Heart sounds: Normal auscultation - Abdominal Distension: Distended, Fluid wave Bowel sounds: Normal Tenderness: Nontender. No: Guarding, Rebound - Extremities General lower extremity: No: Edema - Neurological Neuro grossly intact: Yes Cognition: Normal Orientation: AAOx4 - Psychological Associated symptoms: Normal affect - Skin Skin Temperature: Warm Skin Color: negative: Jaundiced Course - Re-evaluation Re-evalutation: 69-year-old female with history liver cirrhosis secondary to Alanis here with abdominal distention/swelling. Last had paracentesis 06/22, 4.4 L were removed per note. Patient denying pain, fever or shortness of breath. On exam her abdomen is obviously distended with fluid wave, there is no focal areas of tenderness, overall soft and not peritoneal. Patient is in need of paracentesis, however emergent paracentesis not indicated at this time. We will touch base with radiology to see if there is availability for her to have procedure done today. In terms of diarrhea, possible it is from her lactulose use, however given her semirecent hospitalization will obtain C. difficile toxin test. Hemodynamically stable, afebrile. Laboratory evaluation done through triage process, added on coags, reviewed. Slight leukopenia, appears chronic and has been lower in the past. Chronic anemia and thrombocytopenia. INR 1.1, similar to previous, PTT within normal limits. Electrolytes okay. Creatinine within normal limits. Urine with appropriate spec gravity and does not suggest UTI. 07/20/20 16:41 Per radiology there is no tech available currently, they typically leave around 1600 07/20/20 16:50 Discussed again with radiology for outpatient paracentesis, per radiologist it will be possible tomorrow. I checked with patient, she is comfortable with this plan and would like to proceed with outpatient paracentesis tomorrow 07/20/20 16:59 Patient able to be scheduled for paracentesis tomorrow at 11 AM, have requested n.p.o. at 7 AM 07/20/20 17:21 Discussed appointment time with patient and daughter, they continue to be in agreement with this plan and feel comfortable going home and returning tomorrow to the ambulatory surgery area. Order has been provided in the discharge pap erwork. Also discussed with patient to collect a stool sample at home, she may also submit this for C. difficile testing when she arrives tomorrow. Return precautions discussed, patient stable at time of discharge. - Vital Signs Vital signs: Temp Pulse Resp BP Pulse Ox 97.8 F 72 16 113/50 L 98 07/20/20 14:09 07/20/20 14:09 07/20/20 16:21 07/20/20 14:09 07/20/20 16:21 - Laboratory Result Diagrams: 07/20/20 14:33 07/20/20 14:33 Laboratory results interpreted by me: 07/20/20 07/20/20 07/20/20 14:33 14:33 14:33 WBC 3.7 L Hgb 11.8 L Hct 34.6 L RDW 15.9 H Plt Count 100 L Sodium 136.1 L Glucose 390 H Total Bilirubin 1.6 H Total Protein 6.2 L Urine Glucose (UA) >=500 H Ur Leukocyte Esterase TRACE H Discharge - Discharge Clinical Impression: Cirrhosis of liver with ascites Qualifiers: Hepatic cirrhosis type: unspecified hepatic cirrhosis Qualified Code(s): K74.60 - Unspecified cirrhosis of liver Diarrhea Qualifiers: Diarrhea type: unspecified type Qualified Code(s): R19.7 - Diarrhea, unspeci fied Disposition: HOME, SELF-CARE Additional Instructions: You have been scheduled for a paracentesis tomorrow, July 21 at 11 AM. Please arrive to the ambulatory surgery entrance at this time. Nothing to eat or drink after 7 AM. Any issues tomorrow, call [phone] and ask for Vicente You may also collect a stool sample at home and bring it to the lab to test for C. difficile Return to the emergency department for any concerning worsening symptoms. Forms: Follow-Up Laboratory Testing, Follow-Up Radiology Testing Referrals: TOMÁS LUA NP [Primary Care Provider] - Follow up as needed
[2020-07-20] MEDS ORDERED: NORMAL SALINE 500 ML IV ONE (16:51)
[2020-07-20 17:01] LABS: PROTHROMBIN TIME 14.4 SEC (11.4-15.4)
[2020-07-20 17:02] LABS: PARTIAL THROMBOPLASTIN TIME 29.8 SEC (23.5-35.8)
[2020-07-20 17:35] VITALS: BP 109/66
== END 2020-07-20 17:37 | disposition home or self-care (01) ==
LOC: ER 13:51
DX: K74.60 Unspecified cirrhosis of liver (principal); R18.8 Other ascites; R19.7 Diarrhea, unspecified; D72.819 Decreased white blood cell count, unspecified; D64.9 Anemia, unspecified; D69.6 Thrombocytopenia, unspecified; I10 Essential (primary) hypertension; J45.909 Unspecified asthma, uncomplicated; E11.9 Type 2 diabetes mellitus without complications; Z90.49 Acquired absence of other specified parts of digestive tract; Z79.899 Other long term (current) drug therapy
CPT/HCPCS: 36415; 80053; 81001; 82140; 83690; 85025; 85610; 85730; 87086; 99283

== ENCOUNTER 2020-07-21 11:01 | Day surgery (SDC) | payer MEDICARE, OTHER ==
[2020-07-21 12:38] LABS: HEMATOCRIT 33.6 % (36.0-47.0); HEMOGLOBIN 11.4 g/dL (12.0-15.5); MEAN CORPUSCULAR HEMOGLOBIN 30.2 pg (27.0-33.4); MEAN CORPUSCULAR VOLUME 89 fl (80-97); RED BLOOD COUNT 3.78 10^6/uL (3.72-5.28); RED CELL DISTRIBUTION WIDTH 15.2 % (11.5-14.0); WHITE BLOOD COUNT 3.3 10^3/uL (4.0-10.5)
[2020-07-21 12:42] LABS: INTERNATIONAL RATION (INR) 1.07; PARTIAL THROMBOPLASTIN TIME 28.9 SEC (23.5-35.8); PROTHROMBIN TIME 14.1 SEC (11.4-15.4)
[2020-07-21 12:48] LABS: PLATELET COUNT 85 10^3/uL (150-450)
[2020-07-21 12:58] LABS: BLOOD UREA NITROGEN 12 mg/dL (7-20)
--- NOTE | 2020-07-21 14:00 | RADIOLOGY REPORT (SQ) ---
EXAM DESCRIPTION: U/S ABD PARACENTESIS IMAGES COMPLETED DATE/TIME: 07/21/2020 1:43 pm REASON FOR STUDY: JERNIGAN CIRRHOSIS COMPARISON None. LIMITATIONS: None. PROCEDURE: After obtaining informed consent, the patient was brought to the ultrasound suite. The p rocedure was performed with the patient on a gurney. Ultrasound was used to identify a prominent poc ket of ascites in the left lower quadrant. An appropriate access site was selected. The patient was prepped and draped in usual sterile fashion. The access site was anesthetized with 5 mL 1% lidocai ne. A Evsn-A-Nmokshrz needle was advanced into the fluid. After aspiration of fluid the needle, the catheter was advanced off the needle into the fluid. A total of 3,000 mL of clear, straw-colored fl uid was removed. The patient tolerated the procedure well left the department in satisfactory conditi on. IMPRESSION: Successful ultrasound-guided paracentesis COMMENT: Patient medication list reviewed: Yes- Quality ID# [id number]:Eligible professional attests to doc umenting in the medical record they obtained, updated, or reviewed the patient's current medications. TECHNICAL DOCUMENTATION: JOB ID: [id number] 2010 [employer]- All Rights Reserved Reading location - IP/workstation name: [email or web address]
[2020-07-21 18:00] VITALS: BP 95/54
[2020-07-21 21:23] LABS: C DIFFICILE GDH NEGATIVE (NEGATIVE)
== END 2020-07-21 15:00 | disposition home or self-care (01) ==
LOC: RAD 11:01
PROVIDERS: ATTEND Emergency Medicine
DX: K74.60 Unspecified cirrhosis of liver (principal); Z79.01 Long term (current) use of anticoagulants; R19.7 Diarrhea, unspecified
CPT/HCPCS: 36415; 49083; 82565; 84520; 85027; 85610; 85730; 87324; 87449

== ENCOUNTER 2020-08-09 12:05 | Emergency (ER) | payer MEDICARE, OTHER ==
--- NOTE | 2020-08-09 13:13 | ER Document Report ---
ED Medical Screen (RME) - General Chief Complaint: Leg Swelling Stated Complaint: LEG SWELLING/POSSIBLE DEHYDRATION Time Seen by Provider: 08/09/20 12:38 Primary Care Provider: TOMÁS LUA NP [Primary Care Provider] - Follow up as needed TRAVEL OUTSIDE OF THE [place] IN LAST 30 DAYS: No - HPI Notes: 08/09/20 12:48 69-year-old female with a history of hypertension, GERD, insulin-dependent diabetes, JERNIGAN, presents to the emergency room for complaint to left lower leg swelling and weakness that has become progressively worse. Patient usually ambulates with only a cane but she does require wheelchair today to ambulate. Denies any history of blood clots. Reports she did have a left knee replacement done in September 2019. Has not tried any [id number] medications. Denies any trauma or recent falls. Patient checked her blood sugar today and it was 306. Reports her A1c was around 7 or 8. Patient called her nurse today, they advised to go to the emergency room because she could have electrolyte deficiencies since she is on furosemide due to her JERNIGAN, this is what brought patient to the emergency room today I have greeted and performed a rapid initial assessment of this patient. A comprehensive ED assessment and evaluation of the patient, analysis of test results and completion of the medical decision making process will be conducted by additional ED providers. PHYSICAL EXAMINATION: GENERAL: Well-appearing, well-nourished and in no acute distress. CV: s1, s2 regular LUNGS: No respiratory distress Musculoskeletal: Normal range of motion NEUROLOGICAL: Normal speech, normal gait. SKIN: Warm, Dry, normal turgor, no rashes or lesions noted. Pitting edema to left ankle, no erythema induration. Tenderness to left calf on palpation. 08/09/20 13:22 - Related Data Allergies/Adverse Reactions: No Known Allergies Allergy (Verified 08/09/20 12:36) Home Medications: lasix, atorvastatin,.... Past Medical History - Social History Chew tobacco use (# tins/day): No Frequency of alcohol use: None Drug Abuse: None - Past Medical History Cardiac Medical History: Reports: Hx Hypercholesterolemia, Hx Hypertension Denies: Hx Coronary Artery Disease, Hx Heart Attack Pulmonary Medical History: Reports: Hx Asthma Denies: Hx Bronchitis, Hx COPD, Hx Pneumonia Neurological Medical History: Denies: Hx Cerebrovascular Accident, Hx Seizures Endocrine Medical History: Reports: Hx Diabetes Mellitus Type 2 Renal/ Medical History: Denies: Hx Peritoneal Dialysis GI Medical History: Reports: Hx Cirrhosis, Hx Gastroesophageal Reflux Disease Musculoskeltal Medical History: Reports Hx Arthritis - hands, feet knees Psychiatric Medical History: Reports: Hx Dementia Denies: Hx Depression Past Surgical History: Reports: Hx Appendectomy, Hx Cholecystectomy, Hx Hysterectomy, Hx Orthopedic Surgery - lt knee 09/2019, Hx Tonsillectomy - Immunizations Hx Diphtheria, Pertussis, Tetanus Vaccination: Yes Physical Exam - Vital signs Vitals: Temp Pulse Resp BP Pulse Ox 98.1 F 65 20 106/57 L 99 08/09/20 12:13 08/09/20 12:13 08/09/20 12:13 08/09/20 12:13 08/09/20 12:13 Course - Vital Signs Vital signs: Temp Pulse Resp BP Pulse Ox 98.1 F 65 20 106/57 L 99 08/09/20 12:13 08/09/20 12:13 08/09/20 12:13 08/09/20 12:13 08/09/20 12:13 Doctor's Discharge - Discharge Referrals: TOMÁS LUA NP [Primary Care Provider] - Follow up as needed
--- NOTE | 2020-08-09 13:36 | ER Document Report ---
ED General - General Chief Complaint: Leg Swelling Stated Complaint: LEG SWELLING/POSSIBLE DEHYDRATION Time Seen by Provider: 08/09/20 12:38 Primary Care Provider: OBDULIA CARY DO [ACTIVE STAFF] - Follow up as needed TOMÁS LUA NP [Primary Care Provider] - Follow up as needed Information source: Patient, Relative Notes: Patient is a 69-year-old female brought in emergency room by her daughter with multiple complaints. First complaint patient has is that her left knee and lower extremity seems to be swelling slightly. It started on Saturday. She denies any known traumatic events. This is the knee that was replaced several years ago and has had no problem with it. She states on Saturday she woke up and noticed that it was very weak and felt like it was going to collapse on her. Daughter states "it is almost lifeless". The second complaint is that patient is being worked up by for diarrhea. She has had diarrhea for over a month now and they have not yet found the cause. Daughter states that she thinks she might be dehydrated as well. Patient is an insulin-dependent diabetic states her sugars have been running around 300. She also has a history of nonalcoholic cirrhosis of the liver. Daughter also states that she is not very active she does get up and walk around the house a few times during the day. Patient also has a history of dementia. Vital signs were stable with a temp of 98.1, blood pressure 106/57, heart rate 65, saturating 99% on room air. Patient denies any chest pain or shortness of breath she denies any dysuria. TRAVEL OUTSIDE OF THE [place] IN LAST 30 DAYS: No - HPI Onset: Other - 2 days Onset/Duration: Gradual Quality of pain: Achy, Fullness Severity: Moderate Pain Level: 3 Associated symptoms: Body/muscle aches, Leg swelling Exacerbated by: Standing, Movement, Walking Relieved by: Remaining still Similar symptoms previously: No Recently seen / treated by doctor: No - Related Data Allergies/Adverse Reactions: No Known Allergies Allergy (Verified 08/09/20 12:36) Home Medications: lasix, atorvastatin,.... Past Medical History - General Information source: Patient, Relative - Social History Smoking Status: Never Smoker Chew tobacco use (# tins/day): No Frequency of alcohol use: None Drug Abuse: None Lives with: Family Family History: Reviewed & Not Pertinent Patient has homicidal ideation: No - Past Medical History Cardiac Medical History: Reports: Hx Hypercholesterolemia, Hx Hypertension Denies: Hx Coronary Artery Disease, Hx Heart Attack Pulmonary Medical History: Reports: Hx Asthma Denies: Hx Bronchitis, Hx COPD, Hx Pneumonia Neurological Medical History: Denies: Hx Cerebrovascular Accident, Hx Seizures Endocrine Medical History: Reports: Hx Diabetes Mellitus Type 2 Renal/ Medical History: Denies: Hx Peritoneal Dialysis GI Medical History: Reports: Hx Cirrhosis, Hx Gastroesophageal Reflux Disease Musculoskeletal Medical History: Reports Hx Arthritis - hands, feet knees Psychiatric Medical History: Reports: Hx Dementia Denies: Hx Depression Past Surgical History: Reports: Hx Appendectomy, Hx Cholecystectomy, Hx Hysterectomy, Hx Orthopedic Surgery - lt knee 09/2019, Hx Tonsillectomy - Immunizations Hx Diphtheria, Pertussis, Tetanus Vaccination: Yes Hx Pneumococcal Vaccination: 07/21/20 Review of Systems - Review of Systems Constitutional: See HPI, Weakness EENT: No symptoms reported Cardiovascular: No symptoms reported Respiratory: No symptoms reported Gastrointestinal: No symptoms reported Genitourinary: No symptoms reported Female Genitourinary: No symptoms reported Musculoskeletal: See HPI, Joint pain, Joint swelling Skin: No symptoms reported Hematologic/Lymphatic: No symptoms reported Neurological/Psychological: No symptoms reported -: Yes All other systems reviewed and negative Physical Exam - Vital signs Vitals: Temp Pulse Resp BP Pulse Ox 98.1 F 65 20 106/57 L 99 08/09/20 12:13 08/09/20 12:13 08/09/20 12:13 08/09/20 12:13 08/09/20 12:13 Interpretation: Normal - Notes Notes: PHYSICAL EXAMINATION: GENERAL: Well-appearing, well-nourished and in no acute distress. HEAD: Atraumatic, normocephalic. EYES: Pupils equal round and reactive to light, extraocular movements intact, conjunctiva are normal. ENT: Nares patent, oropharynx clear without exudates. Moist mucous membranes. LUNGS: Breath sounds clear to auscultation bilaterally and equal. No wheezes rales or rhonchi. HEART: Regular rate and rhythm without murmurs ABDOMEN: Abdomen is slightly distended bowel sounds present all 4 quads no tenderness to palpation. Female : deferred Musculoskeletal: Examination patient's area concern is her left lower extremity. When comparison to the right is very minimally swollen. Patient has a old anterior surgical scar that is very well-healed and almost unnoticeable. There is some mild anterior swelling around the patella. No overt effusion is p alpated. Range of motion passively is normal. No crepitus is felt with passive range of motion. Patient has a straight leg raise actively holds for 5 seconds without any movement. Evaluation of patient's hip shows no tenderness to palpation. Also alignment of the legs show no shortening or rotation's. Patient has good sensation from the anterior ankles to the groin as she does from the outer ankles to the hips. No sign of saddle paresthesias noted. NEUROLOGICAL: Normal speech, normal gait. Normal sensory, motor exams, NIH scale 0 noted PSYCH: Normal mood, normal affect. SKIN: Warm, Dry, normal turgor, no rashes or lesions noted. Course - Re-evaluation Re-evalutation: 08/09/20 16:37 Patient's labs came back looking relatively normal. Her blood sugar was 300 but that is what she tells me her bases and daughter agrees. Given that we are going to go and send him home. The x-ray did come back showing that she had some possible calcified free body in the intra-articular space of the left knee which may be causing her to lock up and swell. I have given him a copy of the x-ray and put her in a knee immobilizer which she does state makes her feel better. And she will follow-up with her orthopedist. - Vital Signs Vital signs: Temp Pulse Resp BP Pulse Ox 98.1 F 68 18 110/55 L 100 08/09/20 12:13 08/09/20 16:58 08/09/20 16:58 08/09/20 16:58 08/09/20 16:58 - Laboratory Result Diagrams: 08/09/20 14:29 08/09/20 14:29 Laboratory results interpreted by me: 08/09/20 08/09/20 08/09/20 14:20 14:29 14:29 Hgb 11.9 L Hct 35.7 L RDW 15.0 H Plt Count 110 L Glucose 305 H Total Bilirubin 1.4 H AST 47 H Urine Protein 30 H Urine Glucose (UA) 50 H Ur Leukocyte Esterase SMALL H Procedures - Immobilization Left Knee Pre-Proc Neuro Vasc Exam: Normal Immobilizer type: Knee immobilizer Performed by: PCT Post-Proc Neuro Vasc Exam: Normal Alignment checked and good: Yes Discharge - Discharge Clinical Impression: Free bodies in joint Knee pain Qualifiers: Chronicity: acute Laterality: left Qualified Code(s): M25.562 - Pain in left knee Condition: Stable Disposition: HOME, SELF-CARE Instructions: Knee Effusion ([facility]), Knee Immobilizing Splint ([facility]) Additional Instructions: As we discussed have given you a copy of your x-ray so you can contact an orthopedic physician to go through this. Whether it your one in [place] or the [facility] local when here highly recommend follow-up with them as soon as possible. Highly suggest also using a walker instead of a cane which gives you more stability. I would use the knee immobilizer anytime you are up and walking around. This means even at night so if you get up in the middle of the night to go to the bathroom you should have this knee immobilizer on one way to get around that is to leave it on at all times but loosen it up while you sleep and then when you go to get up tighten it back up. You can also open it up when you are sitting down and ice your knee down for 20 to 30 minutes. Continue with all your other current medications at this time. And as stated if anything changes or you have any other concerns return to ER for reevaluation. Referrals: TOMÁS LUA NP [Primary Care Provider] - Follow up as needed OBDULIA CARY DO [ACTIVE STAFF] - Follow up as needed
--- NOTE | 2020-08-09 14:21 | RADIOLOGY REPORT (SQ) ---
EXAM DESCRIPTION: KNEE LEFT 4 VIEW IMAGES COMPLETED DATE/TIME: 08/09/2020 2:01 pm REASON FOR STUDY: weakness in L knee, going down leg x3d, no trauma COMPARISON: None. NUMBER OF VIEWS: Four views. TECHNIQUE: AP, lateral, and both oblique radiographic images acquired of the left knee. LIMITATIONS: None. FINDINGS: MINERALIZATION: Osteopenia. BONES: Status post total knee arthroplasty without evidence of hardware fracture, perihardware lucenc y or migration. JOINT: A small joint effusion is present. Partially calcified density seen overlying the posterior j oint space on the lateral image may represent a partially calcified intraarticular body. SOFT TISSUES: No soft tissue swelling. No radio-opaque foreign body. OTHER: No other significant finding. IMPRESSION: Status post total knee arthroplasty without evidence of hardware complication. A small joint effusion and likely partially calcified intraarticular body are noted. TECHNICAL DOCUMENTATION: JOB ID: [id number] 2010 [employer]- All Rights Reserved Reading location - IP/workstation name: [email or web address]
[2020-08-09 14:43] LABS: APPEARANCE,URINE SLIGHTLY-CLOUDY; BILIRUBIN,URINE NEGATIVE (NEGATIVE); COLOR,URINE YELLOW; GLUCOSE, URINE 50 mg/dL (NEGATIVE); KETONES,URINE NEGATIVE (NEGATIVE); LEUKOCYTE ESTERASE,URINE SMALL (NEGATIVE); NITRITE,URINE NEGATIVE (NEGATIVE); PROTEIN,URINE 30 mg/dL (NEGATIVE); URINE SPECIFIC GRAVITY 1.026; UROBILINOGEN,URINE NEGATIVE mg/dL (<2.0)
[2020-08-09 14:50] LABS: HEMATOCRIT 35.7 % (36.0-47.0); HEMOGLOBIN 11.9 g/dL (12.0-15.5); MEAN CORPUSCULAR HEMOGLOBIN 29.5 pg (27.0-33.4); MEAN CORPUSCULAR HGB CONC 33.2 g/dL (32.0-36.0); MEAN CORPUSCULAR VOLUME 89 fl (80-97); PLATELET COUNT 110 10^3/uL (150-450); RED BLOOD COUNT 4.03 10^6/uL (3.72-5.28); WHITE BLOOD COUNT 7.2 10^3/uL (4.0-10.5)
[2020-08-09 14:55] LABS: ALBUMIN 3.9 g/dL (3.5-5.0); ALKALINE PHOSPHATASE 68 U/L (38-126); ANION GAP 9 (5-19); ASPARTATE AMINO TRANSFERASE 47 U/L (14-36); BILIRUBIN,TOTAL 1.4 mg/dL (0.2-1.3); BLOOD UREA NITROGEN 17 mg/dL (7-20); CALCIUM 9.6 mg/dL (8.4-10.2); CARBON DIOXIDE 23 mmol/L (22-30); CHLORIDE 107 mmol/L (98-107); GLUCOSE 305 mg/dL (75-110); POTASSIUM 4.1 mmol/L (3.6-5.0); TOTAL PROTEIN 6.8 g/dL (6.3-8.2)
[2020-08-09 15:18] LABS: ABSOLUTE LYMPHOCYTES# (MANUAL) 1.4 10^3/uL (0.5-4.7); ABSOLUTE MONOCYTES # (MANUAL) 0.4 10^3/uL (0.1-1.4); BASOPHILS % (MANUAL) 0 % (0-2); EOSINOPHILS % (MANUAL) 0 % (0-6); LYMPHOCYTES % (MANUAL) 19 % (13-45); MONOCYTES % (MANUAL) 6 % (3-13); SEGMENTED NEUTROPHILS % (MAN) 75 % (42-78); TOTAL CELLS COUNTED 100
[2020-08-09 15:20] LABS: PLATELET COMMENT ADEQUATE; RBC MORPHOLOGY COMMENT NORMO-CYTIC/CHROMIC
--- NOTE | 2020-08-09 16:14 | RADIOLOGY REPORT (SQ) ---
EXAM DESCRIPTION: VENOUS UNILATERAL LOWER IMAGES COMPLETED DATE/TIME: 08/09/2020 3:58 pm REASON FOR STUDY: swelling in left leg, weakness in leg COMPARISON: None. TECHNIQUE: Dynamic and static mclean scale and color images acquired of the left leg venous system. Se lected spectral images acquired with additional compression and augmentation maneuvers. The contralat eral common femoral vein and saphenofemoral junction were also imaged. Images stored on PACS. LIMITATIONS: None. FINDINGS: COMMON FEMORAL: Normal phasicity, compression and augmentation. No visualized echogenic ma terial on mclean scale. No defects on color images. FEMORAL: Normal compression and augmentation. No visualized echogenic material on mclean scale. No defe cts on color images. POPLITEAL: Normal compression, augmentation. No visualized echogenic material on mclean scale. No defec ts on color images. CALF VESSELS: Normal compression, augmentation. No visualized echogenic material on mclean scale. No de fects on color images. GSV and SSV: Normal compression, augmentation. No visualized echogenic material on mclean scale. No def ects on color images. ANY DEEP VENOUS INSUFFICIENCY: Not evaluated. ANY EVIDENCE OF POPLITEAL CYST: No. OTHER: No other significant finding. CONTRALATERAL COMMON FEMORAL VEIN AND SAPHENOFEMORAL JUNCTION: Normal phasicity, compression and augmentation. No visualized echogenic material on mclean scale. No de fects on color images. IMPRESSION: NO EVIDENCE OF DVT OR SVT IN THE LEFT LEG. TECHNICAL DOCUMENTATION: JOB ID: [id number] 2010 [employer]- All Rights Reserved Reading location - IP/workstation name: [email or web address]
[2020-08-09 17:00] VITALS: BP 110/55
== END 2020-08-09 17:00 | disposition home or self-care (01) ==
LOC: ER 12:05
DX: M23.42 Loose body in knee, left knee (principal); M25.562 Pain in left knee; R22.42 Localized swelling, mass and lump, left lower limb; R19.7 Diarrhea, unspecified; M79.10 Myalgia, unspecified site; E11.9 Type 2 diabetes mellitus without complications; Z79.4 Long term (current) use of insulin; F03.90 Unspecified dementia, unspecified severity, without behavioral disturbance, psychotic disturbance, mood disturbance, and anxiety; E78.00 Pure hypercholesterolemia, unspecified; I10 Essential (primary) hypertension
CPT/HCPCS: 36415; 80053; 81001; 85025; 87086; 93971; 99285

== ENCOUNTER → 2020-09-01 | Outpatient (CLI) | payer MEDICARE, OTHER ==
[2020-09-01 11:51] LABS: HEMATOCRIT 32.7 % (36.0-47.0); HEMOGLOBIN 10.7 g/dL (12.0-15.5); MEAN CORPUSCULAR HEMOGLOBIN 29.1 pg (27.0-33.4); MEAN CORPUSCULAR HGB CONC 32.8 g/dL (32.0-36.0); MEAN CORPUSCULAR VOLUME 89 fl (80-97); PLATELET COUNT 112 10^3/uL (150-450); RED BLOOD COUNT 3.69 10^6/uL (3.72-5.28); RED CELL DISTRIBUTION WIDTH 14.8 % (11.5-14.0); WHITE BLOOD COUNT 4.8 10^3/uL (4.0-10.5)
[2020-09-01 12:02] LABS: INTERNATIONAL RATION (INR) 1.06; PROTHROMBIN TIME 14.1 SEC (11.4-15.4)
== END ==
LOC: OD 10:31
PROVIDERS: ATTEND Internal Medicine Gastroenterology
DX: R18.8 Other ascites (principal); I85.00 Esophageal varices without bleeding
CPT/HCPCS: 36415; 85027; 85610

== ENCOUNTER 2020-09-10 11:14 | Inpatient (IN) | payer MEDICARE, OTHER ==
--- NOTE | 2020-09-10 12:53 | ER Document Report ---
ED Medical Screen (RME) - General Chief Complaint: Fall Injury Stated Complaint: FALL/CONFUSION,LEFT SHOULDER PAIN Time Seen by Provider: 09/10/20 12:45 Primary Care Provider: TOMÁS LUA NP [Primary Care Provider] - Follow up as needed Notes: HPI: History is obtained from the patient and her daughter. A 69-year-old female with history of dementia, diabetes, hypertension, reflux, increased cholesterol, hypothyroid, depression presenting with diarrhea for 2 weeks, increased confusion for 1 week. Increased fatigue for 1 week. No fever. No abdominal pain no chest pain no shortness of breath no cough. Patient apparently had a fall last night is unclear on how she fell but was assisted back to bed by family members. Complains of left arm left shoulder pain. PHYSICAL EXAMINATION: Lung sounds are clear to auscultation regular rate and rhythm. There is tenderness along the proximal humerus of the left arm on palpation. No visible head trauma I have greeted and performed a rapid initial assessment of this patient. A comprehensive ED assessment and evaluation of the patient, analysis of test results and completion of medical decision making process will be conducted by an additional ED providers. Please note that clinical decision making for this patient was made during the 2019 pandemic of novel coronavirus which caused a significant strain on the healthcare system including at this particular facility. Criteria for admission discharge and level of care decisions as well as treatment decisions have necessarily changed TRAVEL OUTSIDE OF THE [place] IN LAST 30 DAYS: No - Related Data Allergies/Adverse Reactions: No Known Allergies Allergy (Verified 08/09/20 12:36) Past Medical History - Past Medical History Cardiac Medical History: Reports: Hx Hypercholesterolemia, Hx Hypertension Denies: Hx Coronary Artery Disease, Hx Heart Attack Pulmonary Medical History: Reports: Hx Asthma Denies: Hx Bronchitis, Hx COPD, Hx Pneumonia Neurological Medical History: Denies: Hx Cerebrovascular Accident, Hx Seizures Endocrine Medical History: Reports: Hx Diabetes Mellitus Type 2 Renal/ Medical History: Denies: Hx Peritoneal Dialysis GI Medical History: Reports: Hx Cirrhosis, Hx Gastroesophageal Reflux Disease Musculoskeltal Medical History: Reports Hx Arthritis - hands, feet knees Psychiatric Medical History: Reports: Hx Dementia Denies: Hx Depression Past Surgical History: Reports: Hx Appendectomy, Hx Cholecystectomy, Hx Hysterectomy, Hx Orthopedic Surgery - lt knee 09/2019, Hx Tonsillectomy - Immunizations Hx Diphtheria, Pertussis, Tetanus Vaccination: Yes Physical Exam - Vital signs Vitals: Temp Pulse Resp BP Pulse Ox 98.7 F 72 18 118/48 L 98 09/10/20 12:21 09/10/20 12:21 09/10/20 12:21 09/10/20 12:21 09/10/20 12:21 Course - Vital Signs Vital signs: Temp Pulse Resp BP Pulse Ox 98.7 F 72 18 118/48 L 98 09/10/20 12:21 09/10/20 12:21 09/10/20 12:21 09/10/20 12:21 09/10/20 12:21 Doctor's Discharge - Discharge Referrals: TOMÁS LUA CARRIAGE FEEDER [Primary Care Provider] - Follow up as needed
[2020-09-10 13:53] LABS: ABSOLUTE LYMPHOCYTES (AUTO) 0.5 10^3/uL (0.5-4.7); ABSOLUTE MONOCYTES (AUTO) 0.7 10^3/uL (0.1-1.4); ABSOLUTE NEUT (AUTO) 6.3 10^3/uL (1.7-8.2); BASOPHILS % (AUTO) 0.3 % (0-2); EOSINOPHILS % (AUTO) 0.1 % (0-6); HEMATOCRIT 32.8 % (36.0-47.0); HEMOGLOBIN 10.5 g/dL (12.0-15.5); LYMPHOCYTES % (AUTO) 6.9 % (13-45); MEAN CORPUSCULAR HEMOGLOBIN 28.8 pg (27.0-33.4); MEAN CORPUSCULAR VOLUME 90 fl (80-97); MONOCYTES % (AUTO) 9.8 % (3-13); PLATELET COUNT 103 10^3/uL (150-450); RED BLOOD COUNT 3.63 10^6/uL (3.72-5.28); RED CELL DISTRIBUTION WIDTH 15.6 % (11.5-14.0); SEGMENTED NEUTROPHILS % (AUTO) 82.9 % (42-78); TOTAL CELLS COUNTED % (AUTO) 100 %; WHITE BLOOD COUNT 7.6 10^3/uL (4.0-10.5)
--- NOTE | 2020-09-10 13:55 | RADIOLOGY REPORT (SQ) ---
EXAM DESCRIPTION: PELVIS AP IMAGES COMPLETED DATE/TIME: 09/10/2020 1:42 pm REASON FOR STUDY: fall COMPARISON: None. NUMBER OF VIEWS: One view TECHNIQUE: AP Pelvis LIMITATIONS: None. FINDINGS: MINERALIZATION: Normal. HIPS: No acute fracture or dislocation. No worrisome bone lesions. PELVIS AND SACRUM: No acute fracture or dislocation. No worrisome bone lesions. PUBIS AND ISCHIUM: No acute fracture. LOWER LUMBAR SPINE: No acute findings. Multilevel spondylotic changes. SOFT TISSUES: No findings. OTHER: No other significant finding. IMPRESSION: No evidence of acute osseous injury. COMMENT: Pelvic fractures are often occult on plain radiographs. If strong clinical suspicion for f racture, recommend CT or MR. TECHNICAL DOCUMENTATION: JOB ID: [id number] 2010 [employer]- All Rights Reserved Reading location - IP/workstation name: [email or web address]
[2020-09-10 13:56] LABS: ALBUMIN 3.5 g/dL (3.5-5.0); ALKALINE PHOSPHATASE 72 U/L (38-126); ANION GAP 10 (5-19); ASPARTATE AMINO TRANSFERASE 31 U/L (14-36); BILIRUBIN,DIRECT 0.2 mg/dL (0.0-0.4); BILIRUBIN,TOTAL 2.8 mg/dL (0.2-1.3); BLOOD UREA NITROGEN 21 mg/dL (7-20); CARBON DIOXIDE 16 mmol/L (22-30); CHLORIDE 105 mmol/L (98-107); CREATINE KINASE 118 U/L (30-135); TOTAL PROTEIN 6.6 g/dL (6.3-8.2)
--- NOTE | 2020-09-10 14:08 | RADIOLOGY REPORT (SQ) ---
EXAM DESCRIPTION: HUMERUS LEFT IMAGES COMPLETED DATE/TIME: 09/10/2020 1:42 pm REASON FOR STUDY: fall COMPARISON: Chest radiographs dated 06/29/2020 and 03/11/2020 NUMBER OF VIEWS: Two views. TECHNIQUE: Two radiographic images were acquired of the left humerus to include elbow and shoulder i n at least one projection. LIMITATIONS: None. FINDINGS: MINERALIZATION: Osteopenia. BONES: Mildly displaced oblique fracture of the proximal humeral metaphysis. Background of severe gl enohumeral degenerative changes. SOFT TISSUES: No obvious swelling or foreign body. OTHER: No other significant finding. IMPRESSION: Mildly displaced oblique fracture of the proximal humerus. Background of severe glenohu meral degenerative changes. TECHNICAL DOCUMENTATION: JOB ID: [id number] 2010 [employer]- All Rights Reserved Reading location - IP/workstation name: [email or web address]
[2020-09-10 14:14] LABS: GLUCOSE 422 mg/dL (75-110)
--- NOTE | 2020-09-10 14:15 | RADIOLOGY REPORT (SQ) ---
EXAM DESCRIPTION: CT HEAD WITHOUT IMAGES COMPLETED DATE/TIME: 09/10/2020 1:49 pm REASON FOR STUDY: trauma COMPARISON: 06/09/2020 TECHNIQUE: Axial images acquired through the brain without intravenous contrast. Images reviewed wi th bone, brain and subdural windows. Additional sagittal and coronal reconstructions were generated. Images stored on PACS. All CT scanners at this facility use dose modulation, iterative reconstruction, and/or weight based d osing when appropriate to reduce radiation dose to as low as reasonably achievable (ALARA). [facility]: Dose Right [facility]: CareDose [facility]: Dose Right [facility]: Teradose 4D [facility]: [employer] RADIATION DOSE: CT Rad equipment meets quality standard of care and radiation dose reduction techniq ues were employed. CTDIvol: 49.1 mGy. DLP: 1086 mGy-cm. mGy. LIMITATIONS: None. FINDINGS: VENTRICLES: Prominent. CEREBRUM: No masses. No hemorrhage. No midline shift. Areas of low density in the white matter mos t likely due to chronic micro-vascular ischemic change. No evidence for acute infarction. CEREBELLUM: No masses. No hemorrhage. No alteration of density. No evidence for acute infarction. EXTRAAXIAL SPACES: Mild age-related involutional change. No fluid collections. No masses. ORBITS AND GLOBE: No intra- or extraconal masses. Normal contour of globe without masses. CALVARIUM: No fracture. PARANASAL SINUSES: No fluid or mucosal thickening. SOFT TISSUES: No mass or hematoma. OTHER: No other significant finding. IMPRESSION: MILD CHRONIC CHANGES OF ATROPHY AND MICROVASCULAR ISCHEMIA. NO ACUTE PROCESS. EVIDENCE OF ACUTE STROKE: NO. TECHNICAL DOCUMENTATION: JOB ID: [id number] Quality ID # [id number]: Final reports with documentation of one or more dose reduction techniques (e.g., Au tomated exposure control, adjustment of the mA and/or kV according to patient size, use of iterative reconstruction technique) 2010 [employer]- All Rights Reserved Reading location - IP/workstation name: [email or web address]
--- NOTE | 2020-09-10 14:16 | RADIOLOGY REPORT (SQ) ---
EXAM DESCRIPTION: CT CERVICAL SPINE WITHOUT IMAGES COMPLETED DATE/TIME: 09/10/2020 1:49 pm REASON FOR STUDY: trauma COMPARISON: 06/09/2020 TECHNIQUE: Axial images acquired through the cervical spine without intravenous contrast. Images re viewed with lung, soft tissue and bone windows. Reconstructed coronal and sagittal MPR images review ed. Images stored on PACS. All CT scanners at this facility use dose modulation, iterative reconstruction, and/or weight based d osing when appropriate to reduce radiation dose to as low as reasonably achievable (ALARA). [facility]: Dose Right [facility]: CareDose [facility]: Dose Right [facility]: Teradose 4D [facility]: [employer] RADIATION DOSE: CT Rad equipment meets quality standard of care and radiation dose reduction techniq ues were employed. CTDIvol: 21.8 mGy. DLP: 576 mGy-cm. mGy. LIMITATIONS: None. FINDINGS: ALIGNMENT: Anatomic. MINERALIZATION: Normal. VERTEBRAL BODIES: No fractures or dislocation. DISCS: Multilevel disc space narrowing with osteophytes most significantly affecting the C5/6 level. FACETS, LATERAL MASSES, POSTERIOR ELEMENTS: Facet arthropathy. No fractures. No dislocation. No ac [place] findings. HARDWARE: None in the spine. VISUALIZED RIBS: No fractures. LUNG APICES AND SOFT TISSUES: No significant or acute findings. OTHER: No other significant finding. IMPRESSION: CHRONIC DEGENERATIVE CHANGES. NO ACUTE FINDINGS. TECHNICAL DOCUMENTATION: JOB ID: [id number] Quality ID # [id number]: Final reports with documentation of one or more dose reduction techniques (e.g., Au tomated exposure control, adjustment of the mA and/or kV according to patient size, use of iterative reconstruction technique) 2010 [employer]- All Rights Reserved Reading location - IP/workstation name: [email or web address]
[2020-09-10] MEDS ORDERED: NORMAL SALINE 500 ML IV ONE (17:10)
[2020-09-10] MEDS ORDERED: KETOROLAC TROMETHAMINE INJ/PF 30 MG/1 ML SDV IV ONE (17:12)
--- NOTE | 2020-09-10 17:13 | ER Document Report ---
ED General - General Chief Complaint: Fall Injury Stated Complaint: FALL/CONFUSION,LEFT SHOULDER PAIN Time Seen by Provider: 09/10/20 12:45 Mode of Arrival: Medic Information source: Relative - Daughter/caregiver Cannot obtain history due to: Altered mental status Notes: This 69-year-old woman presents to the emergency department with a history of syncopal episode/fall at home sometime early this morning. She was found on the floor at approximately 4 AM, pain in the left shoulder she denies headache or neck pain. The patient apparently has been having diarrhea for the past 2 weeks. She was started on a medication for fluid buildup in the abdomen likely ascites. The medication was discontinued approximately 1 week ago, however she continued to have diarrhea. Patient notes that she felt very weak and unsteady on her feet. She denies fever, urinary symptoms, cough or exposure to a known positive coronavirus individual. TRAVEL OUTSIDE OF THE [place] IN LAST 30 DAYS: No - Related Data Allergies/Adverse Reactions: No Known Allergies Allergy (Verified 08/09/20 12:36) Past Medical History - Social History Smoking Status: Unknown if Ever Smoked Family History: Reviewed & Not Pertinent - Past Medical History Cardiac Medical History: Reports: Hx Hypercholesterolemia, Hx Hypertension Denies: Hx Coronary Artery Disease, Hx Heart Attack Pulmonary Medical History: Reports: Hx Asthma Denies: Hx Bronchitis, Hx COPD, Hx Pneumonia Neurological Medical History: Denies: Hx Cerebrovascular Accident, Hx Seizures Endocrine Medical History: Reports: Hx Diabetes Mellitus Type 2 Renal/ Medical History: Denies: Hx Peritoneal Dialysis GI Medical History: Reports: Hx Cirrhosis, Hx Gastroesophageal Reflux Disease Musculoskeletal Medical History: Reports Hx Arthritis - hands, feet knees Psychiatric Medical History: Reports: Hx Dementia Denies: Hx Depression Past Surgical History: Reports: Hx Appendectomy, Hx Cholecystectomy, Hx Hysterectomy, Hx Orthopedic Surgery - lt knee 09/2019, Hx Tonsillectomy - Immunizations Hx Diphtheria, Pertussis, Tetanus Vaccination: Yes Hx Pneumococcal Vaccination: 07/21/20 Review of Systems - Review of Systems Notes: Constitutional: Negative for fever. HENT: Negative for sore throat. Eyes: Negative for visual changes. Cardiovascular: Negative for chest pain. Respiratory: Negative for shortness of breath. Gastrointestinal: Negative for abdominal pain, vomiting or diarrhea. Genitourinary: Negative for dysuria. Musculoskeletal: See HPI Skin: Negative for rash. Neurological: See HPI 10 point ROS negative except as marked above and in HPI. Physical Exam - Vital signs Vitals: Temp Pulse Resp BP Pulse Ox 98.7 F 72 18 118/48 L 98 09/10/20 12:21 09/10/20 12:21 09/10/20 12:21 09/10/20 12:21 09/10/20 12:21 - Notes Notes: PHYSICAL EXAMINATION: Physical Exam: General: Well-nourished well-developed 9-year-old woman in no acute distress HEENT: NC/AT, pupils equal round and reactive to light, MM moist,nares clear, oropharynx clear, airway patent Neck: supple, no adenopathy, no masses. Good range of motion Lungs: clear, no wheezing, no rales no rhonchi CVS: Regular rate and rhythm no murmur gallop or rub Abdomen: Soft, active, nontender, no masses, no hepatosplenomegaly Ext: Decreased range of motion and tenderness in the left shoulder. Neuro: Alert and responsive, able to answer most questions, slow to answer and at times exhibits confusion, moving all 4 extremities on command, cranial nerves intact, no focal findings Skin: Poor capillary refill Course - Re-evaluation Re-evalutation: 09/10/20 21:19 Patient with increased weakness after 2 weeks of diarrhea. Episode of syncope at home, lying on the floor for 2 to 3 hours sustained a fracture of the left upper extremity/shoulder CT of the head is negative and CT neck reveals degenerative disc disease. Patient found to have elevated blood sugar and a CO2 of 16, elevated total bilirubin. It is not completely clear whether she has metabolic encephalopathy secondary to liver disease and some volume depletion associated with the diarrhea. I have spoken with the hospitalist, Dr Senior, the patient will be brought into the hospital for closer monitoring. 09/10/20 21:29 I have discussed the patient's humerus fracture with orthopedic on-call, Dr. Faustin. He states that the patient can be placed in a sling, he will see the patient on rounds if she is admitted to the hospital for further assessment. Given nondisplaced fracture of the proximal humerus no further intervention is needed at this time. - Vital Signs Vital signs: Temp Pulse Resp BP Pulse Ox 100.3 F 87 18 121/58 L 97 09/11/20 16:26 09/11/20 16:26 09/11/20 16:26 09/11/20 16:26 09/11/20 16:26 - Laboratory Results Result Diagrams: 09/11/20 10:26 09/11/20 10:26 Laboratory Results Interpreted: 09/10/20 09/10/20 09/10/20 13:11 13:11 18:50 RBC 3.63 L Hgb 10.5 L Hct 32.8 L RDW 15.6 H Plt Count 103 L Lymph % (Auto) 6.9 L Seg Neutrophils % 82.9 H VBG pCO2 29.5 L VBG HCO3 17.9 L Sodium 131.1 L Carbon Dioxide 16 L BUN 21 H Est GFR (MDRD) Non-Af Glucose 422 H* POC Glucose Total Bilirubin 2.8 H Ammonia Total Protein Albumin Urine Protein Urine Glucose (UA) Urine Blood Ur Leukocyte Esterase 09/10/20 09/10/20 09/10/20 20:46 21:04 21:04 RBC Hgb Hct RDW Plt Count Lymph % (Auto) Seg Neutrophils % VBG pCO2 VBG HCO3 Sodium 132.0 L Carbon Dioxide BUN 23 H Est GFR (MDRD) Non-Af 51 L Glucose 322 H POC Glucose 358 H Total Bilirubin 2.1 H Ammonia < 8.7 L Total Protein 5.6 L Albumin 2.8 L Urine Protein Urine Glucose (UA) Urine Blood Ur Leukocyte Esterase 09/10/20 21:04 RBC Hgb Hct RDW Plt Count Lymph % (Auto) Seg Neutrophils % VBG pCO2 VBG HCO3 Sodium Carbon Dioxide BUN Est GFR (MDRD) Non-Af Glucose POC Glucose Total Bilirubin Ammonia Total Protein Albumin Urine Protein 100 H Urine Glucose (UA) 150 H Urine Blood SMALL H Ur Leukocyte Esterase LARGE H 09/10/20 17:09 I have reviewed laboratory data and used this information for the treatment decisions regarding the patient. Critical Laboratory Results Reviewed: Yes Attending or Supervising Physician who Reviewed Labs: MORELIA WHITNEY - Radiology Results Radiology Results Interpreted: 09/11/20 17:[address] 09/10/20 12:50 IMPRESSION: CHRONIC DEGENERATIVE CHANGES. NO ACUTE FINDINGS. Head CT 09/10/20 12:50 IMPRESSION: MILD CHRONIC CHANGES OF ATROPHY AND MICROVASCULAR ISCHEMIA. NO ACUTE PROCESS. EVIDENCE OF ACUTE STROKE: NO. Humerus X-Ray 09/10/20 12:51 IMPRESSION: Mildly displaced oblique fracture of the proximal humerus. Background of severe glenohumeral degenerative changes. Pelvis X-Ray 09/10/20 12:51 IMPRESSION: No evidence of acute osseous injury. Critical Radiology Results Reviewed: Yes Attending or Supervising Physician who Reviewed Radiology: MORELIA WHITNEY - EKG Interpretation by [place] Rate: Normal - EKG interpreted by Dr. Whitney: Normal sinus rhythm, rate 77, DC interval 126 ms QT interval 448 ms, normal axis, RBBB, no acute ST or T wave abnormalities, no ischemic findings, compared to EKG dated 03/11/2020, there are no significant interval changes.. Interpretation: Abnormal EKG Discharge - Discharge Clinical Impression: Metabolic encephalopathy, Mild dementia Closed left humeral fracture Qualifiers: Encounter type: initial encounter Humerus Location: proximal Fracture morphology: unspecified fracture morphology Qualified Code(s): S42.A - Unspecified fracture of upper end of left humerus, initial encounter for closed fracture Cirrhosis of liver with ascites Qualifiers: Hepatic cirrhosis type: unspecified hepatic cirrhosis Qualified Code(s): K74.60 - Unspecified cirrhosis of liver Fall at home Qualifiers: Encounter type: initial encounter Qualified Code(s): W19.XXXA - Unspecified fall, initial encounter Disposition: ADMITTED OBSERVATION Admitting Provider: Nadeen (Hospitalist) Unit Admitted: Medical Floor
[2020-09-10 19:13] LABS: VENOUS BLOOD BASE EXCESS -6.2 mmol/L; VENOUS BLOOD HCO3 17.9 mmol/L (20-32); VENOUS BLOOD PCO2 29.5 mmHg (35-63); VENOUS BLOOD PH 7.4 (7.30-7.42)
[2020-09-10] MEDS ORDERED: NORMAL SALINE 1000 ML 1,000 ML IV ONE (20:31)
[2020-09-10] MEDS ORDERED: INSULIN REG, HUMAN 100 UNIT/ML 3 ML VIAL (PYX) IV ONE (20:37)
[2020-09-10 21:33] LABS: ALBUMIN 2.8 g/dL (3.5-5.0); ALKALINE PHOSPHATASE 55 U/L (38-126); ANION GAP 5 (5-19); ASPARTATE AMINO TRANSFERASE 26 U/L (14-36); BILIRUBIN,DIRECT 0.2 mg/dL (0.0-0.4); BILIRUBIN,TOTAL 2.1 mg/dL (0.2-1.3); BLOOD UREA NITROGEN 23 mg/dL (7-20); CALCIUM 8.5 mg/dL (8.4-10.2); CARBON DIOXIDE 22 mmol/L (22-30); CHLORIDE 105 mmol/L (98-107); GLUCOSE 322 mg/dL (75-110); POTASSIUM 3.6 mmol/L (3.6-5.0); TOTAL PROTEIN 5.6 g/dL (6.3-8.2)
[2020-09-10 21:37] LABS: APPEARANCE,URINE TURBID; BILIRUBIN,URINE NEGATIVE (NEGATIVE); COLOR,URINE YELLOW; GLUCOSE, URINE 150 mg/dL (NEGATIVE); KETONES,URINE NEGATIVE (NEGATIVE); LEUKOCYTE ESTERASE,URINE LARGE (NEGATIVE); NITRITE,URINE NEGATIVE (NEGATIVE); PROTEIN,URINE 100 mg/dL (NEGATIVE); URINE SPECIFIC GRAVITY 1.015; UROBILINOGEN,URINE NEGATIVE mg/dL (<2.0)
--- NOTE | 2020-09-10 22:13 | EKG REPORT ---
SEVERITY:- ABNORMAL ECG - SINUS RHYTHM RIGHT BUNDLE BRANCH BLOCK NONSPECIFIC ST-T CHANGES- INFERIOR-LATERAL LEADS : Confirmed by: Gavino Fernandes MD 10-Sep-2020 22:12:51
[2020-09-10] MEDS ORDERED: HYDROCODONE/ACETAMINOPHEN 5-325 MG TABLET PO ONE (22:48)
[2020-09-10] MEDS ORDERED: GLUCAGON,HUMAN RECOMB 1 MG INJ IM PRN (22:57)
[2020-09-10] MEDS ORDERED: DEXTROSE 50%-WATER 25 GM/50 ML DISP.SYRIN IV PRN ×2 (22:57)
[2020-09-10] MEDS ORDERED: DEXTROSE 40% GEL 15 GM TUBE PO PRN ×2 (22:57)
[2020-09-10] MEDS ORDERED: PROMETHAZINE HCL INJ 25 MG/1 ML VIAL IV PRN (23:00)
[2020-09-10] MEDS ORDERED: ONDANSETRON 4 MG TAB.RAPDIS PO PRN (23:00)
[2020-09-10] MEDS ORDERED: ONDANSETRON HCL INJ/PF 4 MG/2 ML SDV IV PRN (23:00)
[2020-09-10] MEDS ORDERED: TEMAZEPAM 15 MG CAPSULE PO PRN (23:00)
[2020-09-10] MEDS ORDERED: IPRATROPIUM/ALBUTEROL 0.5-2.5 MG/3 ML AMPUL NEB PRN (23:00)
[2020-09-10] MEDS ORDERED: OXYCODONE-ACETAMINOPHEN 5-325 MG TABLET PO PRN (23:00)
[2020-09-10] MEDS ORDERED: INSULIN GLARGINE,HUM.REC.ANLOG 1,000 UNIT/10 ML VIAL (PYX) SUBCUT PRN (23:03)
[2020-09-10] MEDS ORDERED: INSULIN GLARGINE,HUM.REC.ANLOG 1,000 UNIT/10 ML VIAL SUBCUT ONE (23:15)
[2020-09-10] MEDS: ACETAMINOPHEN 325 MG TABLET PO PRN (23:56)
--- NOTE | 2020-09-11 01:08 | PDOC H&P ---
History of Present Illness Admission Date/PCP: 09/10/20 21:34 TOMÁS LUA NP History of Present Illness: CURTIS HAYES is a 69 year old female past medical history of type 2 diabetes, hepatic cirrhosis due to JERNIGAN, dementia, hypotension, chronic diarrhea, brought to ED by family after an episode unwitnessed fall at home. She was found on the floor at approximately 4 AM on 09/10/2020 by daughter who is the primary caregiver. As per daughter patient was found in the floor which she does not know how long was she on the floor as her fall was not witnessed, when found on the floor patient was awake and alert and was complaining of right shoulder pain. Patient herself who has history of dementia is stating that when she was getting off the bed the night night prior to admission she felt lightheaded and fell to the floor, she does not recall if she passed out or not. Patient does not have any history of cardiovascular abnormalities or seizure disorder but does have history of recurrent falls. As per daughter who is the primary caregiver and is present in the room patient has history of chronic persistent diarrhea which is attributed to spastic colon by her mobile therapist, patient is having about 10-12 loose bowel movements every day and as per daughter she is pretty much running to the restroom all day long, she was also started on lactulose in prior admission for hepatic encephalopathy which the patient is not taking currently however her persistent diarrhea continues. At some point patient was placed on antidiarrheals but she was taken off by her mobile therapist. Her chronic persistent diarrhea has never been worked up for any infectious causes and is attributed to his spastic colon by her mobile therapist. At baseline patient has dementia can only ambulate with her front wheel walker and this time she is bedbound, as per daughter she is always weak and lethargic and does not have a good appetite. Patient complains of loss of appetite generalized weakness neck persistent watery diarrhea but denies any fever, chest pain, shortness of breath, nausea, vomiting, constipation or any urinary symptoms. In ED CT head and CT neck were negative for any acute abnormalities however she was noted to have sustained left mildly displaced oblique fracture of the proximal humerus. Orthopedic surgeon contacted by ED physician and he was told that patient could be managed with sling and she will be sent tomorrow by orthopedic surgeon. She is also noted to have mild hyponatremia, hyperglycemia, troponins were WNL, ammonia level was less than 8.7, UA was positive for large leukocyte esterase, and EKG was no acute abnormalities. Past Medical History Cardiac Medical History: Reports: Hyperlipidema, Hypertension Denies: Coronary Artery Disease, Myocardial Infarction Pulmonary Medical History: Reports: Asthma Denies: Bronchitis, Chronic Obstructive Pulmonary Disease (COPD), Pneumonia Neurological Medical History: Denies: Seizures Endocrine Medical History: Reports: Diabetes Mellitus Type 2 GI Medical History: Reports: Cirrhosis, Gastroesophageal Reflux Disease Musculoskeltal Medical History: Reports: Arthritis - hands, feet knees Psychiatric Medical History: Reports: Dementia Denies: Depression Hematology: Denies: Anemia Past Surgical History Past Surgical History: Reports: Appendectomy, Cholecystectomy, Hysterectomy, Orthopedic Surgery - lt knee 09/2019, Tonsillectomy Social History Smoking Status: Never Smoker Frequency of Alcohol Use: None Hx Recreational Drug Use: No Drugs: None Hx Prescription Drug Abuse: No Family History Family History: Reviewed & Not Pertinent Parental Family History Reviewed: Yes Children Family History Reviewed: Yes Sibling(s) Family History Reviewed.: Yes Medication/Allergy Home Medications: Acetaminophen [Tylenol] 650 mg PO 0800,1400,1700,199906/22/20 Furosemide [Lasix 20 mg Tablet] 20 mg PO DAILY #30 tablet 06/22/20 Gabapentin [Neurontin 300 mg Capsule] 300 mg PO 0800,199906/22/20 Hydrocortisone 2.5 mg PO 1700 06/22/20 Hydrocortisone 5 mg PO 1400 06/22/20 Hydrocortisone 10 mg PO 0800 06/22/20 Insulin Glargine,Hum.rec.anlog [Basaglar Kwikpen U-100] 55 unit SQ QAM 06/22/20 Lactulose 10 gm PO TID #1000 ml 06/22/20 Levothyroxine Sodium 150 mcg PO 199906/22/20 Loratadine [Claritin 10 mg Tablet] 10 mg PO 199906/22/20 Midodrine HCl [Proamatine 5 mg Tablet] 5 mg PO 0800,1400,199906/22/20 [place]-3 Fatty Acids/Fish Oil [[place] 3 Fish Oil Softgel] 1 cap PO QAM 06/22/20 Paroxetine HCl [Paxil 20 mg Tablet] 20 mg PO 199906/22/20 Pnv No.95/Ferrous Fum/Folic AC [ Caplet] 1 tab PO QAM 06/22/20 Propranolol HCl [Inderal 10 mg Tablet] 10 mg PO 0800,199906/22/20 Spironolactone [Aldactone] 50 mg PO DAILYP PRN 06/22/20 Allergies/Adverse Reactions: No Known Allergies Allergy (Verified 08/09/20 12:36) Review of Systems Review of Systems: as per hpi Physical Exam Vital Signs: Temp Pulse Resp BP Pulse Ox 100.4 F 84 18 104/50 L 97 09/10/20 23:52 09/10/20 19:21 09/11/20 00:00 09/11/20 00:00 09/11/20 00:00 Intake & Output 09/09/20 09/10/20 09/11/20 06:59 06:59 06:59 Intake Total 1500 Balance 1500 Weight 82.4 kg General appearance: PRESENT: no acute distress, well-developed, well-nourished, other - Appears pale and weak Head exam: PRESENT: atraumatic, normocephalic Eye exam: PRESENT: scleral icterus Respiratory exam: PRESENT: clear to auscultation evita. ABSENT: rales, rhonchi, wheezes Cardiovascular exam: PRESENT: RRR. ABSENT: diastolic murmur, rubs, systolic murmur Pulses: PRESENT: normal dorsalis pedis pul GI/Abdominal exam: PRESENT: ascites, normal bowel sounds, soft. ABSENT: distended, guarding, mass, organolmegaly, rebound, tenderness Extremities exam: PRESENT: full ROM, other - Left shoulder limited range of motion due to pain. Neurovascularly intact.. ABSENT: calf tenderness, clubbing, pedal edema Neurological exam: PRESENT: alert, awake, oriented to person, oriented to place, oriented to time, oriented to situation, CN II-XII grossly intact. ABSENT: motor sensory deficit Results Laboratory Results: 09/10/20 13:11 09/10/20 21:04 09/10/20 09/10/20 09/10/20 13:11 13:11 18:50 WBC 7.6 RBC 3.63 L Hgb 10.5 L Hct 32.8 L MCV 90 MCH 28.8 MCHC 32.0 RDW 15.6 H Plt Count 103 L Seg Neutrophils % 82.9 H Carbonic Acid Cancelled HCO3/H2CO3 Ratio Cancelled ABG pH Cancelled ABG pCO2 Cancelled ABG pO2 Cancelled ABG HCO3 Cancelled ABG O2 Saturation Cancelled ABG Base Excess Cancelled VBG pH VBG pCO2 VBG HCO3 VBG Base Excess FiO2 Cancelled Sodium 131.1 L Potassium 4.0 Chloride 105 Carbon Dioxide 16 L Anion Gap 10 BUN 21 H Creatinine 0.83 Est GFR ( Amer) > 60 Glucose 422 H* Calcium 9.0 Total Bilirubin 2.8 H AST 31 Alkaline Phosphatase 72 Ammonia Total Protein 6.6 Albumin 3.5 Urine Color Urine Appearance Urine pH Ur Specific Isabella Urine Protein Urine Glucose (UA) Urine Ketones Urine Blood Urine Nitrite Ur Leukocyte Esterase Urine WBC (Auto) Urine RBC (Auto) 09/10/20 09/10/20 09/10/20 18:50 21:04 21:04 WBC RBC Hgb Hct MCV MCH MCHC RDW Plt Count Seg Neutrophils % Carbonic Acid HCO3/H2CO3 Ratio ABG pH ABG pCO2 ABG pO2 ABG HCO3 ABG O2 Saturation ABG Base Excess VBG pH 7.40 VBG pCO2 29.5 L VBG HCO3 17.9 L VBG Base Excess -6.2 FiO2 Sodium 132.0 L Potassium 3.6 Chloride 105 Carbon Dioxide 22 Anion Gap 5 BUN 23 H Creatinine 1.08 Est GFR ( Amer) > 60 Glucose 322 H Calcium 8.5 Total Bilirubin 2.1 H AST 26 Alkaline Phosphatase 55 Ammonia < 8.7 L Total Protein 5.6 L Albumin 2.8 L Urine Color Urine Appearance Urine pH Ur Specific Isabella Urine Protein Urine Glucose (UA) Urine Ketones Urine Blood Urine Nitrite Ur Leukocyte Esterase Urine WBC (Auto) Urine RBC (Auto) 09/10/20 21:04 WBC RBC Hgb Hct MCV MCH MCHC RDW Plt Count Seg Neutrophils % Carbonic Acid HCO3/H2CO3 Ratio ABG pH ABG pCO2 ABG pO2 ABG HCO3 ABG O2 Saturation ABG Base Excess VBG pH VBG pCO2 VBG HCO3 VBG Base Excess FiO2 Sodium Potassium Chloride Carbon Dioxide Anion Gap BUN Creatinine Est GFR ( Amer) Glucose Calcium Total Bilirubin AST Alkaline Phosphatase Ammonia Total Protein Albumin Urine Color YELLOW Urine Appearance TURBID Urine pH 5.0 Ur Specific Isabella 1.015 Urine Protein 100 H Urine Glucose (UA) 150 H Urine Ketones NEGATIVE Urine Blood SMALL H Urine Nitrite NEGATIVE Ur Leukocyte Esterase LARGE H Urine WBC (Auto) >182 Urine RBC (Auto) 29 09/10/20 09/10/20 13:11 17:50 Creatine Kinase 118 Troponin I < 0.012 Impressions: Cervical Spine CT 09/10/20 12:50 IMPRESSION: CHRONIC DEGENERATIVE CHANGES. NO ACUTE FINDINGS. Head CT 09/10/20 12:50 IMPRESSION: MILD CHRONIC CHANGES OF ATROPHY AND MICROVASCULAR ISCHEMIA. NO ACUTE PROCESS. EVIDENCE OF ACUTE STROKE: NO. Humerus X-Ray 09/10/20 12:51 IMPRESSION: Mildly displaced oblique fracture of the proximal humerus. Background of severe glenohumeral degenerative changes. Pelvis X-Ray 09/10/20 12:51 IMPRESSION: No evidence of acute osseous injury. Assessment and Plan - Diagnosis (1) Pre-syncope Is this a current diagnosis for this admission?: Yes Plan: Likely due to chronic volume depletion due to chronic persistent diarrhea. Troponins negative x1. EKG no acute abnormalities. CT head and neck no acute abnormalities. Nondisplaced left humeral fracture. Admit to telemetry, volume resuscitation guided by volume status, monitor electrolytes and replace as needed, fall, seizure and aspiration precautions. (2) Chronic diarrhea Is this a current diagnosis for this admission?: Yes Plan: As per family patient has been having 10-12 watery bowel movements per day. Chronic persistent diarrhea has been attributed to a spastic colon by gastr oenterology as per family. 06/22/[address] positive for liver cirrhosis, left-sided hydronephrosis. If indicated repeat CT abdomen. We will obtain C. difficile toxin, stool ova and parasite, stool WBC, stool culture to rule out any infectious cause of diarrhea. Once infectious cause of diarrhea has been ruled out patient can be started on antidiarrheals titrated to have 2-3 soft bowel movements given history of cirrhosis and hepatic encephalopathy. (3) Physical deconditioning Is this a current diagnosis for this admission?: Yes Plan: Due to multiple underlying comorbidities possibly worsened due to chronic persis tent diarrhea. Admit to floor, will consult PT, OT, possible discharge home with home health and home PT. (4) Cirrhosis of liver with ascites Qualifiers: Hepatic cirrhosis type: unspecified hepatic cirrhosis Qualified Code(s): K74.60 - Unspecified cirrhosis of liver; R18.8 - Other ascites Is this a current diagnosis for this admission?: Yes Plan: History of nonalcoholic hepatic steatosis. Denies any abdominal pain. Moderate ascites. Ammonia level WNL. Elevated T bili. Thrombocytopenia. Hepatitis panel negative. Consult IR for therapeutic and diagnostic paracentesis if indicated. Monitor liver chemistries and platelets. Monitor for hepatic encephalopathy. Avoid lactulose if possible as patient has normal ammonia seems to be volume depleted and has history of chronic persistent diarrhea. Once diarrhea resolved patient to be discharged home with lactulose or rifaximin. (5) Closed left humeral fracture Qualifiers: Encounter type: initial encounter Humerus Location: proximal Fracture morphology: unspecified fracture morphology Qualified Code(s): S42.202A - Unspecified fracture of upper end of left humerus, initial encounter for closed fracture Is this a current diagnosis for this admission?: Yes Plan: Due to recent fall. Nondisplaced proximal humeral fracture. Continue supportive measures. Orthopedic surgery consulted. (6) Thrombocytopenia Is this a current diagnosis for this admission?: Yes Plan: Due to liver cirrhosis. No sign of acute bleeding. Fall precautions. Monitor for bleeding. Daily platelet levels. (7) UTI (urinary tract infection) Qualifiers: Urinary tract infection type: acute cystitis Is this a current diagnosis for this admission?: Yes Plan: Likely due to gram-negative rods including E. coli. No costovertebral angle tenderness. History of left sided hydronephrosis. If indicated repeat CT abdomen and consult urology. Empiric IV antibiotics. Urine culture. - Time Time Spent with patient: 35 or more minutes Anticipated Discharge Disposition: Home with Home Health Anticipated Discharge Timeframe: within 72 hours
[2020-09-11] MEDS: HEPARIN SOD (PORCINE) 5,000 UNIT/ML 1 ML VIAL SUBCUT SCH ×3 (05:38→21:01)
[2020-09-11] MEDS: PANTOPRAZOLE SODIUM 40 MG TABLET.DR PO SCH ×2 (05:39→17:15)
[2020-09-11] MEDS: MIDODRINE HCL 5 MG TABLET PO SCH ×2 (10:18→17:15)
[2020-09-11] MEDS: INSULIN LISPRO 100 UNIT/ML 3 ML VIAL SUBCUT SCH ×6 (11:18→21:31)
[2020-09-11 11:23] LABS: ABSOLUTE LYMPHOCYTES (AUTO) 0.3 10^3/uL (0.5-4.7); ABSOLUTE MONOCYTES (AUTO) 0.5 10^3/uL (0.1-1.4); ABSOLUTE NEUT (AUTO) 4.2 10^3/uL (1.7-8.2); BASOPHILS % (AUTO) 0.3 % (0-2); EOSINOPHILS % (AUTO) 0.3 % (0-6); HEMATOCRIT 26.8 % (36.0-47.0); HEMOGLOBIN 8.9 g/dL (12.0-15.5); LYMPHOCYTES % (AUTO) 5.8 % (13-45); MEAN CORPUSCULAR HEMOGLOBIN 29.2 pg (27.0-33.4); MEAN CORPUSCULAR HGB CONC 33.3 g/dL (32.0-36.0); MEAN CORPUSCULAR VOLUME 88 fl (80-97); MONOCYTES % (AUTO) 10.5 % (3-13); RED BLOOD COUNT 3.06 10^6/uL (3.72-5.28); RED CELL DISTRIBUTION WIDTH 15.3 % (11.5-14.0); SEGMENTED NEUTROPHILS % (AUTO) 83.1 % (42-78); TOTAL CELLS COUNTED % (AUTO) 100 %; WHITE BLOOD COUNT 5.1 10^3/uL (4.0-10.5)
[2020-09-11 11:38] LABS: ALKALINE PHOSPHATASE 66 U/L (38-126); ANION GAP 10 (5-19); ASPARTATE AMINO TRANSFERASE 33 U/L (14-36); BILIRUBIN,DIRECT 0.2 mg/dL (0.0-0.4); BILIRUBIN,TOTAL 1.8 mg/dL (0.2-1.3); BLOOD UREA NITROGEN 21 mg/dL (7-20); CALCIUM 8.9 mg/dL (8.4-10.2); CARBON DIOXIDE 17 mmol/L (22-30); CHLORIDE 103 mmol/L (98-107); POTASSIUM 4.1 mmol/L (3.6-5.0)
[2020-09-11 11:52] LABS: GLUCOSE 483 mg/dL (75-110)
[2020-09-11 12:01] LABS: PLATELET COUNT 89 10^3/uL (150-450)
[2020-09-11] MEDS: CEFTRIAXONE 1 GM/D5W RTU 1 GM/50 ML RTUPB IV SCH (12:35)
[2020-09-11] MEDS ORDERED: HYDROCORTISONE 5 MG PO SCH (14:00)
[2020-09-11] MEDS: HYDROCORTISONE 10 MG TABLET PO SCH ×2 (15:08→17:15)
[2020-09-11] MEDS: PROPRANOLOL HCL 10 MG TABLET PO SCH (15:08)
--- NOTE | 2020-09-11 19:30 | Progress Note ---
Provider Note Provider Note: Patient seen on morning rounds. She is resting comfortably in bed. O2 sats greater than 95% on 1L nasal cannula. It is appropriate to wean her off supplemental oxygen at this time. Her biggest complaint to me today is that she just feels fatigued and overall unwell. She does mention diarrhea but denies episodes yet today. Patient tells me that she has a 2-month history of diarrhea while episodes per day. Question about taking her lactulose she tells me that she stopped it 2 months ago. She has reportedly been to her public works laborer Dr. Dyer and has received work-up and was diagnosed with spastic bowel. She has taken Imodium in the past. Of note patient's daughter reports that patient has experienced diarrhea for the past 2 weeks and patient has been on lactulose until early this past week. Stool studies have been ordered but have not been collected as patient has not yet had a bowel movement. labs reviewed, patient appears to be alkalotic, likely secondary to persistent diarrhea and/or infection. She is found to have a UTI on UA, urine culture pending. Previous UC pansensitive E. coli, I have started her on ceftriaxone. Noted temperature 100.3. I will get blood cultures. Blood sugars have persistently been elevated 300-4 100s. She did not receive Lantus dose last night. She is currently on sliding scale insulin, with mealtime insulin 6 units. 25 units Lantus tonight. Lab reflects pseudohyponatremia corrected value of 136. Hemoglobin A1c 10.5. Continue to monitor closely with goal of obtaining tighter glycemic control. Of note patient history of poorly controlled diabetes with previous hemoglobin A1c 12%. Patient with history of Alanis. On propranolol, Lasix and spironolactone. Given patient's recent history of diarrhea will hold for 24 hours. Will likely restart tomorrow.
--- NOTE | 2020-09-11 19:58 | PDOC CONSULTATION ---
Consultation Consult Date: 09/11/20 Provider Consulted: MAURICE QUINN JR History of Present Illness Admission Date/PCP: 09/10/20 21:34 TOMÁS LUA NP Patient complains of: Left shoulder pain History of Present Illness: CURTIS HAYES is a 69 year old female including dementia. She is brought to the emergency department by her family after they found her on the floor of her home. Patient's daughter was with her in the emergency department and reported that the fall was unwitnessed and they were unaware of how long she has been on the ground. The patient reports feeling lightheaded and falling to the ground the night before. She is not aware of whether she lost consciousness or struck her head. She has a history of recurrent falls. On my discussion with her, the patient is appropriately responsive but does not provide history in detail. She denies headache at this time. She ambulates with a walker. She does report chronic bilateral shoulder pain and loss of range of motion. Per the emergency department report, the patient's daughter states that patient is no longer reg ularly ambulating and is relatively bedbound. Pain in the left shoulder is aching in nature, associated with swelling, worse with any motion, improved with rest and pain medications, currently a 5 out of 10. Pain is not radiating distal to the elbow. There is no associated loss of motor or sensory function in the left hand. Past Medical History Cardiac Medical History: Reports: Hyperlipidema, Hypertension Denies: Coronary Artery Disease, Myocardial Infarction Pulmonary Medical History: Reports: Asthma Denies: Bronchitis, Chronic Obstructive Pulmonary Disease (COPD), Pneumonia Neurological Medical History: Denies: Seizures Endocrine Medical History: Reports: Diabetes Mellitus Type 2 GI Medical History: Reports: Cirrhosis, Gastroesophageal Reflux Disease Musculoskeltal Medical History: Reports: Arthritis - hands, feet knees Psychiatric Medical History: Reports: Dementia Denies: Depression Hematology: Denies: Anemia Past Surgical History Past Surgical History: Reports: Appendectomy, Cholecystectomy, Hysterectomy, Orthopedic Surgery - lt knee 09/2019, Tonsillectomy Social History Smoking Status: Unknown if Ever Smoked Frequency of Alcohol Use: None Hx Recreational Drug Use: No Drugs: None Hx Prescription Drug Abuse: No Family History Family History: Reviewed & Not Pertinent Parental Family History Reviewed: Yes Children Family History Reviewed: Yes Sibling(s) Family History Reviewed.: Yes Medication/Allergy Home Medications: Furosemide [Lasix 20 mg Tablet] 20 mg PO DAILY #30 tablet 06/22/20 Gabapentin [Neurontin 300 mg Capsule] 300 mg PO 0800,199906/22/20 Hydrocortisone 5 mg PO TID 06/22/20 Insulin Glargine,Hum.rec.anlog [Basaglar Kwikpen U-100] 55 unit SQ QHS 06/22/20 Levothyroxine Sodium 150 mcg PO 199906/22/20 Loratadine [Claritin 10 mg Tablet] 10 mg PO 199906/22/20 Midodrine HCl [Proamatine 5 mg Tablet] 5 mg PO 0800,1400,199906/22/20 [place]-3 Fatty Acids/Fish Oil [[place] 3 Fish Oil Softgel] 1 cap PO QAM 06/22/20 Paroxetine HCl [Paxil 20 mg Tablet] 20 mg PO DAILY 06/22/20 Propranolol HCl [Inderal 10 mg Tablet] 10 mg PO QAM 06/22/20 Spironolactone [Aldactone] 50 mg PO DAILYP PRN 06/22/20 Donepezil HCl 10 mg PO QHS 09/11/20 Insulin Regular, Human [Novolin R] 10 units SUBCUT BID 09/11/20 Magnesium Oxide [Mag-Ox 400 mg Tablet] 400 mg PO DAILY 09/11/20 Propranolol HCl [Inderal 10 mg Tablet] 5 mg PO QPM 09/11/20 Allergies/Adverse Reactions: No Known Allergies Allergy (Verified 08/09/20 12:36) Review of Systems Review of Systems: Constitutional: ABSENT: anorexia, chills, night sweats Cardiovascular: ABSENT: chest pain Respiratory: Occasional dyspnea Gastrointestinal: ABSENT: vomiting. Patient does have regular episodes of diarrhea. Genitourinary: ABSENT: dysuria Integumentary: ABSENT: rash Neurological: ABSENT: Acute altered sensorium. The patient does have chronic memory loss and confusion. Psychiatric: ABSENT: hallucinations Hematologic/Lymphatic: ABSENT: easy bleeding Musculoskeletal: Pain in the left shoulder Physical Exam Vital Signs: Temp Pulse Resp BP Pulse Ox 100.3 F 87 18 121/58 L 97 09/11/20 16:26 09/11/20 16:26 09/11/20 16:26 09/11/20 16:26 09/11/20 16:26 Intake & Output 09/10/20 09/11/20 09/12/20 06:59 06:59 06:59 Intake Total 1500 1207 Balance 1500 1207 Weight 85.4 kg Physical Exam: General appearance: PRESENT: no acute distress, cooperative, obese Head exam: PRESENT: atraumatic, normocephalic Eye exam: PRESENT: EOMI Ear exam: PRESENT: normal external ear exam Mouth exam: PRESENT: neck supple Neck exam: ABSENT: tracheal deviation Respiratory exam: PRESENT: symmetrical, unlabored. ABSENT: accessory muscle use, wheezes Pulses: PRESENT: normal radial pulses, normal dorsalis pedis pulse Vascular exam: PRESENT: normal capillary refill GI/Abdominal exam: ABSENT: distended, firm Extremities exam: PRESENT: full ROM of bilateral shoulders, elbows wrists, knees, hips and ankles without pain aside from that noted below. Neurological exam: PRESENT: alert, awake, oriented to person, Psychiatric exam: PRESENT: Flat affect. ABSENT: agitated Focused psych exam: ABSENT: catatonic Skin exam: PRESENT: intact. ABSENT: dry All as above aside from that noted in the HPI and the following: Left upper extremity Tender to palpation about the left shoulder Compartments are soft Skin is intact No substantial ecchymosis this time No deformity noted Sensation grossly intact to the left hand, as well as motor function to AIN PIN radial ulnar and median nerve. Sensation intact axillary distribution of the shoulder. Results Laboratory Results: 09/11/20 10:26 09/11/20 10:26 09/10/20 09/10/20 09/10/20 21:04 21:04 21:04 WBC RBC Hgb Hct MCV MCH MCHC RDW Plt Count Seg Neutrophils % Sodium 132.0 L Potassium 3.6 Chloride 105 Carbon Dioxide 22 Anion Gap 5 BUN 23 H Creatinine 1.08 Est GFR ( Amer) > 60 Est GFR (Non-Af Amer) Glucose 322 H Calcium 8.5 Total Bilirubin 2.1 H AST 26 Alkaline Phosphatase 55 Ammonia < 8.7 L Total Protein 5.6 L Albumin 2.8 L Urine Color YELLOW Urine Appearance TURBID Urine pH 5.0 Ur Specific [place] 1.015 Urine Protein 100 H Urine Glucose (UA) 150 H Urine Ketones NEGATIVE Urine Blood SMALL H Urine Nitrite NEGATIVE Ur Leukocyte Esterase LARGE H Urine WBC (Auto) >182 Urine RBC (Auto) 29 09/11/20 09/11/20 09/11/20 06:14 06:14 10:26 WBC Cancelled RBC Cancelled Hgb Cancelled Hct Cancelled MCV Cancelled MCH Cancelled MCHC Cancelled RDW Cancelled Plt Count Cancelled Seg Neutrophils % Cancelled Sodium Cancelled 130.1 L Potassium Cancelled 4.1 Chloride Cancelled 103 Carbon Dioxide Cancelled 17 L Anion Gap Cancelled 10 BUN Cancelled 21 H Creatinine Cancelled 0.98 Est GFR ( Amer) Cancelled > 60 Est GFR (Non-Af Amer) Cancelled Glucose Cancelled 483 H* Calcium Cancelled 8.9 Total Bilirubin Cancelled 1.8 H AST Cancelled 33 Alkaline Phosphatase Cancelled 66 Ammonia Total Protein Cancelled 6.0 L Albumin Cancelled 3.0 L Urine Color Urine Appearance Urine pH Ur Specific [place] Urine Protein Urine Glucose (UA) Urine Ketones Urine Blood Urine Nitrite Ur Leukocyte Esterase Urine WBC (Auto) Urine RBC (Auto) 09/11/20 10:26 WBC 5.1 RBC 3.06 L Hgb 8.9 L Hct 26.8 L MCV 88 MCH 29.2 MCHC 33.3 RDW 15.3 H Plt Count 89 L Seg Neutrophils % 83.1 H Sodium Potassium Chloride Carbon Dioxide Anion Gap BUN Creatinine Est GFR ( Amer) Est GFR (Non-Af Amer) Glucose Calcium Total Bilirubin AST Alkaline Phosphatase Ammonia Total Protein Albumin Urine Color Urine Appearance Urine pH Ur Specific [place] Urine Protein Urine Glucose (UA) Urine Ketones Urine Blood Urine Nitrite Ur Leukocyte Esterase Urine WBC (Auto) Urine RBC (Auto) 09/10/20 09/10/20 13:11 17:50 Creatine Kinase 118 Troponin I < 0.012 Impressions: Cervical Spine CT 09/10/20 12:50 IMPRESSION: CHRONIC DEGENERATIVE CHANGES. NO ACUTE FINDINGS. Head CT 09/10/20 12:50 IMPRESSION: MILD CHRONIC CHANGES OF ATROPHY AND MICROVASCULAR ISCHEMIA. NO ACUTE PROCESS. EVIDENCE OF ACUTE STROKE: NO. Humerus X-Ray 09/10/20 12:51 IMPRESSION: Mildly displaced oblique fracture of the proximal humerus. Background of severe glenohumeral degenerative changes. Pelvis X-Ray 09/10/20 12:51 IMPRESSION: No evidence of acute osseous injury. Assessment & Plan - Diagnosis (1) Closed fracture of left proximal humerus Is this a current diagnosis for this admission?: Yes Plan: She has only a mildly displaced left proximal humerus fracture. There is severe osteoarthritis of bilateral glenohumeral joints. Given her low function and the relatively well aligned injury, the patient will be treated well in a sling, nonweightbearing left upper extremity for the next 2 to 4 weeks. I would like to see her in my office in approximately 2 weeks for further evaluation. She is nonweightbearing left upper extremity and will need substantial assistance to get out of bed given her prior dependence upon a walker.
[2020-09-11] MEDS: LEVOTHYROXINE SODIUM 0.15 MG TABLET PO SCH (21:31)
[2020-09-11] MEDS: GABAPENTIN 300 MG CAPSULE PO SCH (21:31)
[2020-09-11] MEDS ORDERED: INSULIN GLARGINE,HUM.REC.ANLOG 1,000 UNIT/10 ML VIAL SUBCUT SCH (22:00)
[2020-09-11] MEDS: ACETAMINOPHEN 325 MG TABLET PO PRN (23:09)
[2020-09-12 04:27] LABS: HEMATOCRIT 24.6 % (36.0-47.0); HEMOGLOBIN 8.5 g/dL (12.0-15.5); MEAN CORPUSCULAR HEMOGLOBIN 29.6 pg (27.0-33.4); MEAN CORPUSCULAR HGB CONC 34.6 g/dL (32.0-36.0); MEAN CORPUSCULAR VOLUME 86 fl (80-97); RED BLOOD COUNT 2.87 10^6/uL (3.72-5.28)
[2020-09-12 04:41] LABS: ANION GAP 6 (5-19); BLOOD UREA NITROGEN 22 mg/dL (7-20); CALCIUM 8.9 mg/dL (8.4-10.2); CARBON DIOXIDE 21 mmol/L (22-30); CHLORIDE 105 mmol/L (98-107); GLUCOSE 227 mg/dL (75-110); POTASSIUM 3.8 mmol/L (3.6-5.0)
[2020-09-12 04:55] LABS: PLATELET COUNT 84 10^3/uL (150-450)
[2020-09-12] MEDS: HEPARIN SOD (PORCINE) 5,000 UNIT/ML 1 ML VIAL SUBCUT SCH ×3 (05:20→21:15)
[2020-09-12] MEDS: PANTOPRAZOLE SODIUM 40 MG TABLET.DR PO SCH ×2 (05:20→17:28)
[2020-09-12] MEDS: INSULIN LISPRO 100 UNIT/ML 3 ML VIAL SUBCUT SCH ×7 (08:02→21:15)
[2020-09-12] MEDS: PROPRANOLOL HCL 10 MG TABLET PO SCH (09:39)
[2020-09-12] MEDS: HYDROCORTISONE 10 MG TABLET PO SCH ×3 (09:39→17:28)
[2020-09-12] MEDS: GABAPENTIN 300 MG CAPSULE PO SCH ×2 (09:39→20:03)
[2020-09-12] MEDS: MIDODRINE HCL 5 MG TABLET PO SCH ×2 (09:40→17:29)
[2020-09-12] MEDS: CEFTRIAXONE 1 GM/D5W RTU 1 GM/50 ML RTUPB IV SCH (09:40)
[2020-09-12] MEDS: PAROXETINE HCL 20 MG TABLET PO SCH (09:42)
[2020-09-12] MEDS ORDERED: ONDANSETRON HCL INJ/PF 4 MG/2 ML SDV IV PRN (12:30)
[2020-09-12] MEDS ORDERED: ONDANSETRON 4 MG TAB.RAPDIS PO PRN (12:30)
--- NOTE | 2020-09-12 19:00 | PDOC PROGRESS REPORT ---
Subjective Date:: 09/12/20 Subjective:: Patient seen resting upright in bed. OT is in the room working with the patient. Her daughter is at her bedside. Overall patient is feeling well outside of some left shoulder pain. Tells me the orthopedic surgeon stop by and talk to earlier. She has not had any diarrhea. Denies any active bleeding. No concerns per nursing. Reason For Visit: FALL,SHOULDER FRACTURE Physical Exam Vital Signs: Temp Pulse Resp BP Pulse Ox 98.2 F 82 18 102/52 L 98 09/12/20 16:00 09/12/20 16:00 09/12/20 16:00 09/12/20 16:00 09/12/20 16:00 Intake & Output 09/11/20 09/12/20 09/13/20 06:59 06:59 06:59 Intake Total 1500 1357 745 Balance 1500 1357 745 Weight 85.4 kg 85 kg General appearance: PRESENT: no acute distress, cooperative, obese Head exam: PRESENT: atraumatic, normocephalic Eye exam: PRESENT: EOMI. ABSENT: scleral icterus Mouth exam: PRESENT: moist, neck supple Neck exam: PRESENT: full ROM. ABSENT: JVD Respiratory exam: PRESENT: chest wall tenderness, unlabored. ABSENT: wheezes Cardiovascular exam: PRESENT: RRR. ABSENT: diastolic murmur, systolic murmur Pulses: PRESENT: normal radial pulses GI/Abdominal exam: PRESENT: ascites Extremities exam: PRESENT: full ROM. ABSENT: clubbing, pedal edema Musculoskeletal exam: PRESENT: ambulatory, other - Left shoulder in sling.. ABSENT: deformity, dislocation Neurological exam: PRESENT: alert, awake, oriented to person, oriented to place, oriented to time, oriented to situation, CN II-XII grossly intact Psychiatric exam: PRESENT: appropriate affect Skin exam: PRESENT: dry, intact, warm Results Laboratory Results: 09/12/20 03:54 09/12/20 03:54 09/12/20 09/12/20 03:54 03:54 WBC 5.0 RBC 2.87 L Hgb 8.5 L Hct 24.6 L MCV 86 MCH 29.6 MCHC 34.6 RDW 15.0 H Plt Count 84 L Sodium 132.2 L Potassium 3.8 Chloride 105 Carbon Dioxide 21 L Anion Gap 6 BUN 22 H Creatinine 0.90 Est GFR ( Amer) > 60 Glucose 227 H Calcium 8.9 09/10/20 09/10/20 13:11 17:50 Creatine Kinase 118 Troponin I < 0.012 Impressions: Cervical Spine CT 09/10/20 12:50 IMPRESSION: CHRONIC DEGENERATIVE CHANGES. NO ACUTE FINDINGS. Head CT 09/10/20 12:50 IMPRESSION: MILD CHRONIC CHANGES OF ATROPHY AND MICROVASCULAR ISCHEMIA. NO ACUTE PROCESS. EVIDENCE OF ACUTE STROKE: NO. Humerus X-Ray 09/10/20 12:51 IMPRESSION: Mildly displaced oblique fracture of the proximal humerus. Background of severe glenohumeral degenerative changes. Pelvis X-Ray 09/10/20 12:51 IMPRESSION: No evidence of acute osseous injury. Assessment and Plan - Diagnosis (1) UTI (urinary tract infection) Qualifiers: Urinary tract infection type: acute cystitis Is this a current diagnosis for this admission?: Yes Plan: Likely due to gram-negative rods including E. coli. Urine culture were not obtained. Order replaced, pending. Denies urinary symptoms at this time. Continue with IV antibiotics while in hospital. (2) Chronic diarrhea Is this a current diagnosis for this admission?: Yes Plan: Since admission, patient without diarrhea. - On initial presentation reports 10-12 watery bowel movements per day. - Chronic persistent diarrhea has been attributed to a spastic colon by gastroenterology as per family. - 06/22/[address] positive for liver cirrhosis, left-sided hydronephrosis. C. difficile toxin, stool ova and parasite, stool WBC, stool culture to rule out any infectious cause of diarrhea. -Unable to obtain as patient has not had diarrhea. (3) Cirrhosis of liver with ascites Qualifiers: Hepatic cirrhosis type: unspecified hepatic cirrhosis Qualified Code(s): K74.60 - Unspecified cirrhosis of liver; R18.8 - Other ascites Is this a current diagnosis for this admission?: Yes Plan: History of nonalcoholic hepatic steatosis. Denies any abdominal pain. Moderate ascites. - Ammonia level WNL. Elevated T bili. Thrombocytopenia. Hepatitis panel negative. Without signs of hepatic encephalopathy. -Holding lactulose given history of chronic diarrhea. Without diarrhea at this time. We will discuss with patient, consider discharging home on rifaximin opposed to lactulose. (4) Closed left humeral fracture Qualifiers: Encounter type: initial encounter Humerus Location: proximal Fracture morphology: unspecified fracture morphology Qualified Code(s): S42 - Unspecified fracture of upper end of left humerus, initial encounter for closed fracture Is this a current diagnosis for this admission?: Yes Plan: Due to recent fall. Nondisplaced proximal humeral fracture. Orthopedic surgery consulted, note was reviewed in detail. -Continue with conservative measures. -Follow-up with orthopedic 2 to 4 weeks. Patient has been evaluated by physical therapy and Occupational Therapy, patient qualifies for SNF placement. (5) Physical deconditioning Is this a current diagnosis for this admission?: Yes Plan: Due to multiple underlying comorbidities possibly worsened due to chronic p ersistent diarrhea. PT OT have evaluated, patient qualifies for SNF placement. (6) Pre-syncope Is this a current diagnosis for this admission?: Yes Plan: Likely due to chronic volume depletion due to chronic persistent diarrhea. - Troponins negative x1. EKG no acute abnormalities. CT head and neck no acute abnormalities. -Denies presyncopal type episodes since admission. Volume status has been consistent. (7) Thrombocytopenia Is this a current diagnosis for this admission?: Yes Plan: Due to liver cirrhosis. No sign of acute bleeding. Daily platelet, persistently low. Continue to monitor. - Plan Summary Summary: Patient has been stable and without diarrhea. Patient qualifies for SNF. Patient likely ready for discharge tomorrow to SNF. Time being continue to monitor. - Time Time Spent with patient: 25-34 minutes Medications reviewed and adjusted accordingly: Yes Anticipated Discharge Disposition: Senior Living Facility Anticipated Discharge Timeframe: within 24 hours
[2020-09-12] MEDS: LEVOTHYROXINE SODIUM 0.15 MG TABLET PO SCH (20:03)
[2020-09-12] MEDS ORDERED: INSULIN GLARGINE,HUM.REC.ANLOG 1,000 UNIT/10 ML VIAL (PYX) SUBCUT ONE ×2 (21:10→21:30)
[2020-09-13] MEDS: ACETAMINOPHEN 325 MG TABLET PO PRN ×2 (01:38→21:31)
[2020-09-13] MEDS: PANTOPRAZOLE SODIUM 40 MG TABLET.DR PO SCH ×2 (05:10→17:40)
[2020-09-13] MEDS: HEPARIN SOD (PORCINE) 5,000 UNIT/ML 1 ML VIAL SUBCUT SCH ×3 (05:11→21:36)
[2020-09-13 06:35] LABS: HEMATOCRIT 24.1 % (36.0-47.0); HEMOGLOBIN 8.5 g/dL (12.0-15.5); MEAN CORPUSCULAR HEMOGLOBIN 29.4 pg (27.0-33.4); MEAN CORPUSCULAR HGB CONC 35.2 g/dL (32.0-36.0); MEAN CORPUSCULAR VOLUME 84 fl (80-97); RED BLOOD COUNT 2.88 10^6/uL (3.72-5.28); WHITE BLOOD COUNT 4.6 10^3/uL (4.0-10.5)
[2020-09-13 06:52] LABS: ANION GAP 8 (5-19); BLOOD UREA NITROGEN 22 mg/dL (7-20); CALCIUM 8.6 mg/dL (8.4-10.2); CARBON DIOXIDE 21 mmol/L (22-30); CHLORIDE 101 mmol/L (98-107); GLUCOSE 215 mg/dL (75-110); POTASSIUM 3.7 mmol/L (3.6-5.0)
[2020-09-13 07:07] LABS: PLATELET COUNT 93 10^3/uL (150-450)
[2020-09-13] MEDS: INSULIN LISPRO 100 UNIT/ML 3 ML VIAL SUBCUT SCH ×7 (08:44→21:30)
[2020-09-13] MEDS: PROPRANOLOL HCL 10 MG TABLET PO SCH (10:13)
[2020-09-13] MEDS: CEFTRIAXONE 1 GM/D5W RTU 1 GM/50 ML RTUPB IV SCH (10:56)
[2020-09-13] MEDS: PAROXETINE HCL 20 MG TABLET PO SCH (10:57)
[2020-09-13] MEDS: MIDODRINE HCL 5 MG TABLET PO SCH ×2 (10:58→17:40)
[2020-09-13] MEDS: HYDROCORTISONE 10 MG TABLET PO SCH ×3 (10:58→17:40)
[2020-09-13] MEDS: GABAPENTIN 300 MG CAPSULE PO SCH ×2 (10:58→19:47)
--- NOTE | 2020-09-13 14:19 | PDOC TRANSFER SUMMARY ---
Impression - Admit/DC Date/PCP Admission Date/Primary Care Provider: 09/10/20 21:34 TOMÁS LUA NP Discharge Date: 09/13/20 - Discharge Diagnosis (1) UTI (urinary tract infection) Is this a current diagnosis for this admission?: Yes (2) Chronic diarrhea Is this a current diagnosis for this admission?: Yes (3) Cirrhosis of liver with ascites Is this a current diagnosis for this admission?: Yes (4) Closed left humeral fracture Is this a current diagnosis for this admission?: Yes (5) Physical deconditioning Is this a current diagnosis for this admission?: Yes (6) Pre-syncope Is this a current diagnosis for this admission?: Yes (7) Thrombocytopenia Is this a current diagnosis for this admission?: Yes - Additional Information Discharge Diet: Diabetic Discharge Activity: Other - Non-weightbearing left arm Referrals: TOMÁS LUA NP [Primary Care Provider] - 09/20/20 2:00 pm Prescriptions: Nitrofurantoin Monohyd/M-Cryst [Macrobid 100 mg Capsule] 100 mg PO BID 2 Days #4 cap Home Medications: Furosemide [Lasix 20 mg Tablet] 20 mg PO DAILY #30 tablet 06/22/20 Gabapentin [Neurontin 300 mg Capsule] 300 mg PO 0800,199906/22/20 Hydrocortisone 5 mg PO TID 06/22/20 Insulin Glargine,Hum.rec.anlog [Basaglar Kwikpen U-100] 55 unit SQ QHS 06/22/20 Levothyroxine Sodium 150 mcg PO 199906/22/20 Loratadine [Claritin 10 mg Tablet] 10 mg PO 199906/22/20 Midodrine HCl [Proamatine 5 mg Tablet] 5 mg PO 0800,1400,199906/22/20 Solen-3 Fatty Acids/Fish Oil [Solen 3 Fish Oil Softgel] 1 cap PO QAM 06/22/20 Paroxetine HCl [Paxil 20 mg Tablet] 20 mg PO DAILY 06/22/20 Propranolol HCl [Inderal 10 mg Tablet] 10 mg PO QAM 06/22/20 Spironolactone [Aldactone] 50 mg PO DAILYP PRN 06/22/20 Donepezil HCl 10 mg PO QHS 09/11/20 Insulin Regular, Human [Novolin R] 10 units SUBCUT BID 09/11/20 Magnesium Oxide [Mag-Ox 400 mg Tablet] 400 mg PO DAILY 09/11/20 Propranolol HCl [Inderal 10 mg Tablet] 5 mg PO QPM 09/11/20 Nitrofurantoin Monohyd/M-Cryst [Macrobid 100 mg Capsule] 100 mg PO BID 2 Days #4 cap 09/13/20 History of Present Illiness History of Present Illness: As per admitting provider "CURTIS HAYES is a 69 year old female past medical history of type 2 diabetes, hepatic cirrhosis due to JERNIGAN, dementia, hypotension, chronic diarrhea, brought to ED by family after an episode unwitnessed fall at home. She was found on the floor at approximately 4 AM on 09/10/2020 by daughter who is the primary caregiver. As per daughter patient was found in the floor which she does not know how long was she on the floor as her fall was not witnessed, when found on the floor patient was awake and alert and was complaining of right shoulder pain. Patient herself who has history of dementia is stating that when she was getting off the bed the night night prior to admission she felt lightheaded and fell to the floor, she does not recall if she passed out or not. Patient does not have any history of cardiovascular abnormalities or seizure disorder but does have history of recurrent falls. As per daughter who is the primary caregiver and is present in the room patient has history of chronic persistent diarrhea which is attributed to spastic colon by her photoengraver apprentice, patient is having about 10-12 loose bowel movements every day and as per daughter she is pretty much running to the restroom all day long, she was also started on lactulose in prior admission for hepatic encephalopathy which the patient is not taking currently however her persistent diarrhea continues. At some point patient was placed on antidiarrheals but she was taken off by her photoengraver apprentice. Her chronic persistent diarrhea has never been worked up for any infectious causes and is attributed to his spastic colon by her photoengraver apprentice. At baseline patient has dementia can only ambulate with her front wheel walker and this time she is bedbound, as per daughter she is always weak and lethargic and does not have a good appetite. Patient complains of loss of appetite generalized weakness neck persistent watery diarrhea but denies any fever, chest pain, shortness of breath, nausea, vomiting, constipation or any urinary symptoms. In ED CT head and CT neck were negative for any acute abnormalities however she was noted to have sustained left mildly displaced oblique fracture of the proximal humerus. Orthopedic surgeon contacted by ED physician and he was told that patient could be managed with sling and she will be sent tomorrow by orthopedic surgeon. She is also noted to have mild hyponatremia, hyperglycemia, troponins were WNL, ammonia level was less than 8.7, UA was positive for large leukocyte esterase, and EKG was no acute abnormalities." Hospital Course Hospital Course: (1) UTI (urinary tract infection) Likely due to gram-negative rods including E. coli. Urine culture were not obtained. Order replaced, pending. Denies urinary symptoms at this time. Continue with IV antibiotics while in hospital. Transition to nitro p.o. x2 days. (2) Chronic diarrhea Patient had a well formed before bowel movement today without blood. Since admission, patient without diarrhea. - On initial presentation reports 10-12 watery bowel movements per day. - Chronic persistent diarrhea has been attributed to a spastic colon by gastroenterology as per family. - 06/22/[address] positive for liver cirrhosis, left-sided hydronephrosis. C. difficile toxin, stool ova and parasite, stool WBC, stool culture to rule out any infectious cause of diarrhea. -Unable to obtain as patient has not had diarrhea. Recommend following up with your photoengraver apprentice for further testing regarding diarrhea. Additionally patient reports last colonoscopy greater than 10 years ago, consider outpatient diagnostic colonoscopy (3) Cirrhosis of liver with ascites History of nonalcoholic hepatic steatosis. Denies any abdominal pain. Moderate ascites. - Ammonia level WNL. Elevated T bili. Thrombocytopenia. Hepatitis panel negative. Without signs of hepatic encephalopathy. -Holding lactulose given history of chronic diarrhea. Without diarrhea at this time. Continue to hold lactulose at this time. Follow-up with primary care/photoengraver apprentice for labs. Once patient is having routine bowel movements that are not not diarrhea he can reintroduce lactulose with the goal of having 2-3 soft well formed bowel movements per day (4) Closed left humeral fracture Due to recent fall. Nondisplaced proximal humeral fracture. Orthopedic surgery consulted, note was reviewed in detail. -Continue with conservative measures. -Follow-up with orthopedic 2 to 4 weeks. Patient has been evaluated by physical therapy and Occupational Therapy, patient qualifies for SNF placement. (5) Physical deconditioning Due to multiple underlying comorbidities possibly worsened due to chronic persi stent diarrhea. PT OT have evaluated, patient qualifies for SNF placement. (6) Pre-syncope Likely due to chronic volume depletion due to chronic persistent diarrhea. - Troponins negative x1. EKG no acute abnormalities. CT head and neck no acute abnormalities. -Denies presyncopal type episodes since admission. Volume status has been consistent. (7) Thrombocytopenia Due to liver cirrhosis. No sign of acute bleeding. Daily platelet, persistently low. Continue to monitor. Physical Exam Vital Signs: Temp Pulse Resp BP Pulse Ox 98.9 F 66 18 96/59 L 97 09/13/20 10:00 09/13/20 07:49 09/13/20 07:49 09/13/20 07:49 09/13/20 07:49 Intake & Output 09/12/20 09/13/20 09/14/20 06:59 06:59 06:59 Intake Total 1357 1095 50 Balance 1357 1095 50 Weight 85 kg 87.1 kg Additional comments: General appearance: PRESENT: no acute distress, cooperative, obese Head exam: PRESENT: atraumatic, normocephalic Eye exam: PRESENT: EOMI. ABSENT: scleral icterus Mouth exam: PRESENT: moist, neck supple Neck exam: PRESENT: full ROM. ABSENT: JVD Respiratory exam: PRESENT: Clear to auscultation bilaterally, unlabored. ABSENT: wheezes Cardiovascular exam: PRESENT: RRR. ABSENT: diastolic murmur, systolic murmur Pulses: PRESENT: normal radial pulses GI/Abdominal exam: PRESENT: ascites Extremities exam: PRESENT: full ROM. ABSENT: clubbing, pedal edema Musculoskeletal exam: PRESENT: ambulatory, other - Left shoulder in sling.. ABSENT: deformity, dislocation Neurological exam: PRESENT: alert, awake, oriented to person, oriented to place, oriented to time, oriented to situation, CN II-XII grossly intact Psychiatric exam: PRESENT: appropriate affect Skin exam: PRESENT: dry, intact, warm Results Laboratory Results: WBC 4.6 10^3/uL (4.0-10.5) 09/13/20 05:54 RBC 2.88 10^6/uL (3.72-5.28) L 09/13/20 05:54 Hgb 8.5 g/dL (12.0-15.5) L 09/13/20 05:54 Hct 24.1 % (36.0-47.0) L 09/13/20 05:54 MCV 84 fl (80-97) 09/13/20 05:54 MCH 29.4 pg (27.0-33.4) 09/13/20 05:54 MCHC 35.2 g/dL (32.0-36.0) 09/13/20 05:54 RDW 15.0 % (11.5-14.0) H 09/13/20 05:54 Plt Count 93 10^3/uL (150-450) L 09/13/20 05:54 Lymph % (Auto) 5.8 % (13-45) L 09/11/20 10:26 [place] % (Auto) 10.5 % (3-13) 09/11/20 10:26 Eos % (Auto) 0.3 % (0-6) 09/11/20 10:26 Baso % (Auto) 0.3 % (0-2) 09/11/20 10:26 Absolute Neuts (auto) 4.2 10^3/uL (1.7-8.2) 09/11/20 10:26 Absolute Lymphs (auto) 0.3 10^3/uL (0.5-4.7) L 09/11/20 10:26 Absolute Monos (auto) 0.5 10^3/uL (0.1-1.4) 09/11/20 10:26 Absolute Eos (auto) 0.0 10^3/uL (0.0-0.6) 09/11/20 10:26 Absolute Basos (auto) 0.0 10^3/uL (0.0-0.2) 09/11/20 10:26 Seg Neutrophils % 83.1 % (42-78) H 09/11/20 10:26 Platelet Estimate Cancelled 09/11/20 06:14 Carbonic Acid Cancelled 09/10/20 18:50 HCO3/H2CO3 Ratio Cancelled 09/10/20 18:50 ABG pH Cancelled 09/10/20 18:50 ABG pCO2 Cancelled 09/10/20 18:50 ABG pO2 Cancelled 09/10/20 18:50 ABG HCO3 Cancelled 09/10/20 18:50 ABG Total CO2 Cancelled 09/10/20 18:50 ABG O2 Saturation Cancelled 09/10/20 18:50 ABG Base Excess Cancelled 09/10/20 18:50 VBG pH 7.40 (7.30-7.42) 09/10/20 18:50 VBG pCO2 29.5 mmHg (35-63) L 09/10/20 18:50 VBG HCO3 17.9 mmol/L (20-32) L 09/10/20 18:50 VBG Base Excess -6.2 mmol/L 09/10/20 18:50 FiO2 Cancelled 09/10/20 18:50 Sodium 130.4 mmol/L (137-145) L 09/13/20 05:54 Potassium 3.7 mmol/L (3.6-5.0) 09/13/20 05:54 Chloride 101 mmol/L (98-107) 09/13/20 05:54 Carbon Dioxide 21 mmol/L (22-30) L 09/13/20 05:54 Anion Gap 8 (5-19) 09/13/20 05:54 BUN 22 mg/dL (7-20) H 09/13/20 05:54 Creatinine 0.84 mg/dL (0.52-1.25) 09/13/20 05:54 Est GFR ( Amer) > 60 (>60) 09/13/20 05:54 Est GFR (Non-Af Amer) Cancelled 09/11/20 06:14 Est GFR (MDRD) Non-Af > 60 (>60) 09/13/20 05:54 Glucose 215 mg/dL (75-110) H 09/13/20 05:54 POC Glucose 259 mg/dL (70-110) H 09/13/20 12:11 Hemoglobin A1c % 10.5 % (4.7-6.0) H 09/11/20 10:26 Calcium 8.6 mg/dL (8.4-10.2) 09/13/20 05:54 Total Bilirubin 1.8 mg/dL (0.2-1.3) H 09/11/20 10:26 Direct Bilirubin 0.2 mg/dL (0.0-0.4) 09/11/20 10:26 Neonat Total Bilirubin Not Reportable 09/11/20 10:26 Neonat Direct Bilirubin Not Reportable 09/11/20 10:26 Neonat Indirect Bili Not Reportable 09/11/20 10:26 AST 33 U/L (14-36) 09/11/20 10:26 ALT 27 U/L (<35) 09/11/20 10:26 Alkaline Phosphatase 66 U/L (38-126) 09/11/20 10:26 Ammonia < 8.7 umol/L (9-33) L 09/10/20 21:04 Creatine Kinase 118 U/L (30-135) 09/10/20 13:11 Troponin I < 0.012 ng/mL 09/10/20 17:50 Total Protein 6.0 g/dL (6.3-8.2) L 09/11/20 10:26 Albumin 3.0 g/dL (3.5-5.0) L 09/11/20 10:26 EGFR Cancelled 09/11/20 06:14 Immunoglobulin A 184 mg/dL (87-352) 09/11/20 10:26 Urine Color YELLOW 09/10/20 21:04 Urine Appearance TURBID 09/10/20 21:04 Urine pH 5.0 (5.0-9.0) 09/10/20 21:04 Ur Specific [place] 1.015 09/10/20 21:04 Urine Protein 100 mg/dL (NEGATIVE) H 09/10/20 21:04 Urine Glucose (UA) 150 mg/dL (NEGATIVE) H 09/10/20 21:04 Urine Ketones NEGATIVE mg/dL (NEGATIVE) 09/10/20 21:04 Urine Blood SMALL (NEGATIVE) H 09/10/20 21:04 Urine Nitrite NEGATIVE (NEGATIVE) 09/10/20 21:04 Urine Bilirubin NEGATIVE (NEGATIVE) 09/10/20 21:04 Urine Urobilinogen NEGATIVE mg/dL (<2.0) 09/10/20 21:04 Ur Leukocyte Esterase LARGE (NEGATIVE) H 09/10/20 21:04 Urine WBC (Auto) >182 /HPF 09/10/20 21:04 Urine RBC (Auto) 29 /HPF 09/10/20 21:04 Urine Bacteria (Auto) 3+ /HPF 09/10/20 21:04 Urine WBC Clumps MANY /HPF 09/10/20 21:04 U Non-Squamous Epis Auto 4 /HPF 09/10/20 21:04 Urine Mucus (Auto) RARE /LPF 09/10/20 21:04 Urine Ascorbic Acid NEGATIVE (NEGATIVE) 09/10/20 21:04 Influenza A (RT-PCR) NEGATIVE (NEGATIVE) 09/13/20 12:05 Influenza B (RT-PCR) NEGATIVE (NEGATIVE) 09/13/20 12:05 RSV (RT-PCR) NEGATIVE (NEGATIVE) 09/13/20 12:05 SARS-CoV-2 Rap RNA(RT-PCR) NEGATIVE (NEGATIVE) 09/13/20 12:05 Slides for Path Review Cancelled 09/11/20 06:14 09/10/20 17:50 Troponin I < 0.012 Impressions: Cervical Spine CT 09/10/20 12:50 IMPRESSION: CHRONIC DEGENERATIVE CHANGES. NO ACUTE FINDINGS. Head CT 09/10/20 12:50 IMPRESSION: MILD CHRONIC CHANGES OF ATROPHY AND MICROVASCULAR ISCHEMIA. NO ACUTE PROCESS. EVIDENCE OF ACUTE STROKE: NO. Humerus X-Ray 09/10/20 12:51 IMPRESSION: Mildly displaced oblique fracture of the proximal humerus. Background of severe glenohumeral degenerative changes. Pelvis X-Ray 09/10/20 12:51 IMPRESSION: No evidence of acute osseous injury. Plan Plan of Treatment: Complete antibiotic regimen with Nitrofurantoin p.o. x2 days. Hold lactulose and continue to monitor bowel movements. This can be reintro duced the patient's diet once patient is having routine, normal, well-formed bowel movements. The goal is to have 2-3 bowel movements per day when on lactulose therapy. If you start to experience diarrhea please stop taking the lactulose immediately. Recommend following up with your photoengraver apprentice. Consider colonoscopy in the outpatient setting. Time Spent: Greater than 30 Minutes Stroke Is this a Stroke Patient?: No Acute Heart Failure Is this a Heart Failure Patient?: No
[2020-09-13] MEDS: LEVOTHYROXINE SODIUM 0.15 MG TABLET PO SCH (19:47)
[2020-09-13] MEDS ORDERED: INSULIN GLARGINE,HUM.REC.ANLOG 1,000 UNIT/10 ML VIAL SUBCUT SCH (22:00)
[2020-09-14] MEDS: HEPARIN SOD (PORCINE) 5,000 UNIT/ML 1 ML VIAL SUBCUT SCH ×2 (06:00→13:52)
[2020-09-14] MEDS: PANTOPRAZOLE SODIUM 40 MG TABLET.DR PO SCH (06:00)
[2020-09-14 06:30] LABS: APPEARANCE,URINE CLEAR; BILIRUBIN,URINE NEGATIVE (NEGATIVE); GLUCOSE, URINE 150 mg/dL (NEGATIVE); KETONES,URINE NEGATIVE (NEGATIVE); LEUKOCYTE ESTERASE,URINE NEGATIVE (NEGATIVE); NITRITE,URINE NEGATIVE (NEGATIVE); PROTEIN,URINE >=500 mg/dL (NEGATIVE); URINE SPECIFIC GRAVITY 1.015; UROBILINOGEN,URINE NEGATIVE mg/dL (<2.0)
[2020-09-14 06:33] LABS: COLOR,URINE RED
[2020-09-14 07:38] LABS: ANION GAP 10 (5-19); BLOOD UREA NITROGEN 25 mg/dL (7-20); CALCIUM 8.7 mg/dL (8.4-10.2); CARBON DIOXIDE 19 mmol/L (22-30); CHLORIDE 103 mmol/L (98-107); GLUCOSE 255 mg/dL (75-110); POTASSIUM 4.1 mmol/L (3.6-5.0)
[2020-09-14] MEDS: GABAPENTIN 300 MG CAPSULE PO SCH (08:48)
[2020-09-14] MEDS: INSULIN LISPRO 100 UNIT/ML 3 ML VIAL SUBCUT SCH ×4 (08:48→12:54)
[2020-09-14] MEDS: PROPRANOLOL HCL 10 MG TABLET PO SCH (08:48)
[2020-09-14 09:11] LABS: HEMATOCRIT 27.7 % (36.0-47.0); HEMOGLOBIN 9.4 g/dL (12.0-15.5); MEAN CORPUSCULAR HEMOGLOBIN 28.7 pg (27.0-33.4); MEAN CORPUSCULAR HGB CONC 33.8 g/dL (32.0-36.0); MEAN CORPUSCULAR VOLUME 85 fl (80-97); RED BLOOD COUNT 3.26 10^6/uL (3.72-5.28); WHITE BLOOD COUNT 5.9 10^3/uL (4.0-10.5)
[2020-09-14 09:13] LABS: PLATELET COUNT 99 10^3/uL (150-450)
[2020-09-14] MEDS ORDERED: GLYCERIN/WITCH HAZEL LEAF 1 EACH MED..WIPE TP PRN (10:57)
[2020-09-14] MEDS ORDERED: HYDROCORTISONE ACETATE 25 MG SUPP.RECT PR PRN (10:57)
[2020-09-14] MEDS: HYDROCORTISONE 10 MG TABLET PO SCH ×2 (12:24→13:52)
[2020-09-14] MEDS: MIDODRINE HCL 5 MG TABLET PO SCH (12:24)
[2020-09-14] MEDS: PAROXETINE HCL 20 MG TABLET PO SCH (12:24)
[2020-09-14] MEDS: CEFTRIAXONE 1 GM/D5W RTU 1 GM/50 ML RTUPB IV SCH ×2 (12:38→13:56)
[2020-09-14] MEDS ORDERED: CEFTRIAXONE 1 GM/D5W RTU 1 GM/50 ML RTUPB IV ONE (13:00)
[2020-09-14 14:22] LABS: C DIFFICILE GDH NEGATIVE (NEGATIVE)
[2020-09-14 15:45] VITALS: BP 102/52
--- NOTE | 2020-09-14 21:10 | PDOC PROGRESS REPORT ---
Subjective Date:: 09/14/20 Reason For Visit: FALL,SHOULDER FRACTURE Physical Exam Vital Signs: Temp Pulse Resp BP Pulse Ox 98.1 F 67 16 102/52 L 99 09/14/20 15:40 09/14/20 15:40 09/14/20 15:40 09/14/20 15:40 09/14/20 15:40 Intake & Output 09/13/20 09/14/20 09/15/20 06:59 06:59 06:59 Intake Total 1095 750 240 Balance 1095 750 240 Weight 87.1 kg 87.1 kg General appearance: PRESENT: no acute distress, well-developed, well-nourished Head exam: PRESENT: atraumatic, normocephalic Eye exam: PRESENT: conjunctiva pink, EOMI, PERRLA. ABSENT: scleral icterus Ear exam: PRESENT: normal external ear exam Mouth exam: PRESENT: moist, tongue midline Neck exam: ABSENT: carotid bruit, JVD, lymphadenopathy, thyromegaly Respiratory exam: PRESENT: clear to auscultation evita. ABSENT: rales, rhonchi, wheezes Cardiovascular exam: PRESENT: RRR. ABSENT: diastolic murmur, rubs, systolic murmur Pulses: PRESENT: normal dorsalis pedis pul Vascular exam: PRESENT: normal capillary refill GI/Abdominal exam: PRESENT: normal bowel sounds, soft. ABSENT: distended, guarding, mass, organolmegaly, rebound, tenderness Rectal exam: PRESENT: deferred Extremities exam: PRESENT: full ROM. ABSENT: calf tenderness, clubbing, pedal edema Neurological exam: PRESENT: alert, awake, oriented to person, oriented to place, oriented to time, oriented to situation, CN II-XII grossly intact. ABSENT: motor sensory deficit Psychiatric exam: PRESENT: appropriate affect, normal mood. ABSENT: homicidal ideation, suicidal ideation Skin exam: PRESENT: dry, intact, warm. ABSENT: cyanosis, rash Results Laboratory Results: 09/14/20 05:52 09/14/20 05:52 09/14/20 09/14/20 09/14/20 05:37 05:52 05:52 WBC 5.9 RBC 3.26 L Hgb 9.4 L Hct 27.7 L MCV 85 MCH 28.7 MCHC 33.8 RDW 15.0 H Plt Count 99 L Sodium 132.1 L Potassium 4.1 Chloride 103 Carbon Dioxide 19 L Anion Gap 10 BUN 25 H Creatinine 0.91 Est GFR ( Amer) > 60 Glucose 255 H Calcium 8.7 Urine Color RED Urine Appearance CLEAR Urine pH 7.0 Ur Specific [place] 1.015 Urine Protein >=500 H Urine Glucose (UA) 150 H Urine Ketones NEGATIVE Urine Blood MODERATE H Urine Nitrite NEGATIVE Ur Leukocyte Esterase NEGATIVE Urine WBC (Auto) 93 Urine RBC (Auto) >182 Stool Occult Blood Stool for White Cells 09/14/20 09/14/20 08:34 08:34 WBC RBC Hgb Hct MCV MCH MCHC RDW Plt Count Sodium Potassium Chloride Carbon Dioxide Anion Gap BUN Creatinine Est GFR ( Amer) Glucose Calcium Urine Color Urine Appearance Urine pH Ur Specific [place] Urine Protein Urine Glucose (UA) Urine Ketones Urine Blood Urine Nitrite Ur Leukocyte Esterase Urine WBC (Auto) Urine RBC (Auto) Stool Occult Blood POSITIVE Stool for White Cells NO WBCs SEEN 09/11/20 21:45 Catheterized Urine Urine Culture - Final Escherichia Coli 09/10/20 09/10/20 13:11 17:50 Creatine Kinase 118 Troponin I < 0.012 Impressions: Cervical Spine CT 09/10/20 12:50 IMPRESSION: CHRONIC DEGENERATIVE CHANGES. NO ACUTE FINDINGS. Head CT 09/10/20 12:50 IMPRESSION: MILD CHRONIC CHANGES OF ATROPHY AND MICROVASCULAR ISCHEMIA. NO ACUTE PROCESS. EVIDENCE OF ACUTE STROKE: NO. Humerus X-Ray 09/10/20 12:51 IMPRESSION: Mildly displaced oblique fracture of the proximal humerus. Background of severe glenohumeral degenerative changes. Pelvis X-Ray 09/10/20 12:51 IMPRESSION: No evidence of acute osseous injury.
--- NOTE | 2020-09-15 12:21 | Progress Note ---
Provider Note Provider Note: Patient was briefly seen on morning rounds w/ Arlin CORTEZ. She had been admitted for generalized weakness following a fall resulting in a left humeral fracture. Likely secondary to hypotension r/t chronic dehydration in presence of cirrhosis and adrenal insufficiency resulting in hypertension. The patient was medically stable for discharge w/ completed D/C Summary and D/C Order placed but awaiting SNF placement. However, patient rapidly improved over the course of her admission and that morning had transferred and walked w/ CGA and FWW ~200 feet in the [place]. Therefore, disposition was adjusted to d/c to home with home health services. There were no other changes to the patient's clinical status or plan of care as was documented in the D/C-Transfer Summary.
== END 2020-09-14 16:35 | DRG 563 ==
LOC: ER 11:14 → OBSVTOIN 21:34 → EH 21:34 → 5 09-11 03:15
PROVIDERS: ADMIT Internal Medicine; ATTEND Registered Nurse
DX: S42.292A Other displaced fracture of upper end of left humerus, initial encounter for closed fracture (principal); N30.00 Acute cystitis without hematuria; R18.8 Other ascites; E87.1 Hypo-osmolality and hyponatremia; D69.6 Thrombocytopenia, unspecified; K74.60 Unspecified cirrhosis of liver; F03.90 Unspecified dementia, unspecified severity, without behavioral disturbance, psychotic disturbance, mood disturbance, and anxiety; I95.9 Hypotension, unspecified; E11.65 Type 2 diabetes mellitus with hyperglycemia; B96.20 Unspecified Escherichia coli [E. coli] as the cause of diseases classified elsewhere; W19.XXXA Unspecified fall, initial encounter; E78.5 Hyperlipidemia, unspecified; E03.9 Hypothyroidism, unspecified; K52.9 Noninfective gastroenteritis and colitis, unspecified; J45.909 Unspecified asthma, uncomplicated; K21.9 Gastro-esophageal reflux disease without esophagitis; M19.042 Primary osteoarthritis, left hand; M19.041 Primary osteoarthritis, right hand; M19.072 Primary osteoarthritis, left ankle and foot; M19.071 Primary osteoarthritis, right ankle and foot; M17.0 Bilateral primary osteoarthritis of knee; R55 Syncope and collapse; Y92.019 Unspecified place in single-family (private) house as the place of occurrence of the external cause; Z79.4 Long term (current) use of insulin; Z79.899 Other long term (current) drug therapy; Z91.81 History of falling
CPT/HCPCS: 36415; 70450; 72125; 72170; 80048; 80053; 81001; 82140; 82272; 82550; 82705; 82710; 82784; 82803; 82962; 83036; 84484; 85025; 85027; 87040; 87045; 87070; 87086; 87088; 87177; 87186; 87205; 87324; 87449; 89055; 93005; 93010; 96361; 96374; 96375; 99285; 0241U; C9803; J0696; J1815; J1885; J3490; J7030; J7040

== ENCOUNTER 2020-09-26 12:09 | Inpatient (IN) | payer MEDICARE ==
[2020-09-26 12:41] LABS: HEMATOCRIT 31.2 % (36.0-47.0); MEAN CORPUSCULAR HEMOGLOBIN 27.8 pg (27.0-33.4); MEAN CORPUSCULAR VOLUME 87 fl (80-97); PLATELET COUNT 102 10^3/uL (150-450); RED BLOOD COUNT 3.59 10^6/uL (3.72-5.28); RED CELL DISTRIBUTION WIDTH 17.1 % (11.5-14.0); WHITE BLOOD COUNT 11.2 10^3/uL (4.0-10.5)
[2020-09-26 12:54] LABS: INTERNATIONAL RATION (INR) 1.21; PROTHROMBIN TIME 15.5 SEC (11.4-15.4)
[2020-09-26 12:56] LABS: VENOUS BLOOD BASE EXCESS -4.3 mmol/L; VENOUS BLOOD HCO3 21.3 mmol/L (20-32); VENOUS BLOOD PCO2 41.1 mmHg (35-63); VENOUS BLOOD PH 7.33 (7.30-7.42)
[2020-09-26 13:04] LABS: ALBUMIN 3.4 g/dL (3.5-5.0); ALKALINE PHOSPHATASE 96 U/L (38-126); ANION GAP 9 (5-19); ASPARTATE AMINO TRANSFERASE 56 U/L (14-36); BILIRUBIN,DIRECT 0.4 mg/dL (0.0-0.4); BILIRUBIN,TOTAL 3.1 mg/dL (0.2-1.3); BLOOD UREA NITROGEN 27 mg/dL (7-20); CALCIUM 9.4 mg/dL (8.4-10.2); CARBON DIOXIDE 24 mmol/L (22-30); CHLORIDE 101 mmol/L (98-107); GLUCOSE 382 mg/dL (75-110); POTASSIUM 4.6 mmol/L (3.6-5.0); TOTAL PROTEIN 6.4 g/dL (6.3-8.2)
[2020-09-26] MEDS ORDERED: NORMAL SALINE IV ONE (13:14)
[2020-09-26] MEDS ORDERED: PIPERACILLIN/TAZOBACTAM 3.375 GM VIAL IV ONE (13:15)
[2020-09-26 13:18] LABS: ABSOLUTE LYMPHOCYTES# (MANUAL) 1.9 10^3/uL (0.5-4.7); ABSOLUTE MONOCYTES # (MANUAL) 0.8 10^3/uL (0.1-1.4); ANISOCYTOSIS 1+; BASOPHILS % (MANUAL) 0 % (0-2); EOSINOPHILS % (MANUAL) 0 % (0-6); LYMPHOCYTES % (MANUAL) 17 % (13-45); MONOCYTES % (MANUAL) 7 % (3-13); OVALOCYTES SLIGHT; PLATELET COMMENT DECREASED; POLYCHROMASIA SLIGHT; SEGMENTED NEUTROPHILS % (MAN) 76 % (42-78); TOTAL CELLS COUNTED 100; TOXIC VACUOLATION PRESENT
[2020-09-26 13:48] LABS: APPEARANCE,URINE TURBID; BILIRUBIN,URINE NEGATIVE (NEGATIVE); GLUCOSE, URINE 50 mg/dL (NEGATIVE); KETONES,URINE TRACE mg/dL (NEGATIVE); PROTEIN,URINE 100 mg/dL (NEGATIVE); URINE SPECIFIC GRAVITY 1.015; UROBILINOGEN,URINE NEGATIVE mg/dL (<2.0)
[2020-09-26 13:50] LABS: COLOR,URINE YELLOW
--- NOTE | 2020-09-26 14:03 | RADIOLOGY REPORT (SQ) ---
EXAM DESCRIPTION: CHEST SINGLE VIEW IMAGES COMPLETED DATE/TIME: 09/26/2020 1:40 pm REASON FOR STUDY: fever COMPARISON: None. EXAM PARAMETERS: NUMBER OF VIEWS: One view. TECHNIQUE: An AP view of the chest was obtained. RADIATION DOSE: NA LIMITATIONS: None. FINDINGS: LUNGS AND PLEURA: Dense peripheral opacity in the mid right lung. The costophrenic sulci are blunted. There is no pneumothorax. MEDIASTINUM AND HILAR STRUCTURES: No mediastinal or hilar contour abnormality. HEART AND VASCULAR STRUCTURES: The cardiac silhouette is borderline enlarged. BONES: Subacute to chronic oblique fracture of the proximal left humerus. HARDWARE: None in the chest. OTHER: No other finding. IMPRESSION: Dense peripheral opacity in the right mid lung - correlation with clinical findings to e xclude a pneumonia is recommended. TECHNICAL DOCUMENTATION: JOB ID: [id number] 2010 [employer]- All Rights Reserved Reading location - IP/workstation name: [email or web address]
--- NOTE | 2020-09-26 15:10 | ER Document Report ---
ED Fever - General Chief Complaint: Fever Stated Complaint: POSSIBLE SEPSIS Time Seen by Provider: 09/26/20 12:41 Primary Care Provider: TOMÁS LUA NP [Primary Care Provider] - Follow up as needed Mode of Arrival: Medic Information source: Patient, Relative Cannot obtain history due to: Dementia, Altered mental status TRAVEL OUTSIDE OF THE [place] IN LAST 30 DAYS: No - HPI Notes: Patient is brought in by ambulance secondary to altered mental status at home. Patient has a history of recently falling and having a left arm fracture. Daughter states that she is noticed that the patient today was harder to arouse. She also apparently had a fever for paramedics. patient has had no recent vomiting or diarrhea. Patient does have dementia but is normally conversant. No known cough. Patient here is arousable but the ability to obtain a history is significantly limited by patient's lethargy and dementia. She denies any pain or shortness of breath. - Related Data Allergies/Adverse Reactions: No Known Allergies Allergy (Verified 09/26/20 12:28) Home Medications: donepezil. furosemide. nitrofurantin. midodrine. mag oxide. spironolactone. propranolol. novolin. basaglar. hydrocort. based on outside pharmacy Past Medical History - General Information source: Patient, Relative, Emergency Med Personnel Cannot obtain history due to: Dementia, Altered mental status - Social History Smoking Status: Former Smoker Frequency of alcohol use: None Drug Abuse: None Family History: Reviewed & Not Pertinent Patient has homicidal ideation: No - Past Medical History Cardiac Medical History: Reports: Hx Hypercholesterolemia, Hx Hypertension Denies: Hx Coronary Artery Disease, Hx Heart Attack Pulmonary Medical History: Reports: Hx Asthma Denies: Hx Bronchitis, Hx COPD, Hx Pneumonia Neurological Medical History: Denies: Hx Cerebrovascular Accident, Hx Seizures Endocrine Medical History: Reports: Hx Diabetes Mellitus Type 2 Renal/ Medical History: Denies: Hx Peritoneal Dialysis GI Medical History: Reports: Hx Cirrhosis, Hx Gastroesophageal Reflux Disease Musculoskeletal Medical History: Reports Hx Arthritis - hands, feet knees Psychiatric Medical History: Reports: Hx Dementia Denies: Hx Depression Past Surgical History: Reports: Hx Appendectomy, Hx Cholecystectomy, Hx Hysterectomy, Hx Orthopedic Surgery - lt knee 09/2019, Hx Tonsillectomy - Immunizations Hx Diphtheria, Pertussis, Tetanus Vaccination: Yes Hx Pneumococcal Vaccination: 07/21/20 Review of Systems - Review of Systems -: Yes ROS unobtainable due to patient's medical condition - Cannot obtain review of symptoms due to dementia Physical Exam - Vital signs Vitals: Temp 98.4 F 09/26/20 12:29 Interpretation: Febrile - General General appearance: Lethargic In distress: None - HEENT Head: Normocephalic, Atraumatic Eyes: Normal Pupils: PERRL - Respiratory Respiratory status: No respiratory distress Chest status: Nontender Breath sounds: Decreased air movement Chest palpation: Normal - Cardiovascular Rhythm: Regular Heart sounds: Normal auscultation Murmur: No - Abdominal Inspection: Normal Distension: No distension Bowel sounds: Normal Tenderness: Nontender Organomegaly: No organomegaly - Genitourinary External exam: Normal Vaginal bleeding: None - Back Back: Normal - Comes in septic she recently fell daughter today states she would not wake up really so she is got a UTI she also has a pneumonia Zosyn fluids has not been tachycardic or pressure 101 rectally no belly pain be DNR status of DNR form 10, Nontender - Extremities General upper extremity: Normal inspection, Normal temperature, Other - Left arm has scattered ecchymosis General lower extremity: Normal inspection, Normal color, Normal temperature - Neurological Cognition: Confused Orientation: Disoriented to place, Disoriented to time Jaylen Coma Scale Eye Opening: To Voice Orrum Coma Scale Verbal: Confused Jaylen Coma Scale Motor: Obeys Commands Orrum Coma Scale Total: 13 Speech: Normal Sensory: Normal - Psychological Associated symptoms: Confused, Psychomotor depression - Skin Skin Temperature: Warm Skin Moisture: Dry Skin Color: Normal Course - Re-evaluation Re-evalutation: 09/26/20 15:11 Patient presents with altered mental status. Patient on exam was found to have a fever a urinary tract infection and a questionable early pneumonia. She has been treated with IV fluids and antibiotics. Her Covid test is negative. I had a discussion with the patient's daughter who states that the patient would like to be DO NOT RESUSCITATE. I have filled out a DO NOT RESUSCITATE form and given it to the nurse for the chart. I have also relayed this information to the [facility] pitalist. Heart rate has been stable. Blood pressure has been stable although it is trending down. Patient was borderline hypoxic but is doing well with nasal cannula. - Vital Signs Vital signs: Temp Pulse Resp BP Pulse Ox 98.4 F 20 96/50 L 99 09/26/20 12:29 09/26/20 14:01 09/26/20 14:01 09/26/20 14:58 - Laboratory Results Result Diagrams: 09/26/20 12:20 09/26/20 12:20 Laboratory Results Interpreted: 09/26/20 09/26/20 09/26/20 12:20 12:20 12:20 WBC 11.2 H RBC 3.59 L Hgb 10.0 L Hct 31.2 L RDW 17.1 H Plt Count 102 L Abs Neuts (Manual) 8.5 H PT 15.5 H Sodium 134.2 L BUN 27 H Est GFR ( Amer) 52 L Est GFR (MDRD) Non-Af 43 L Glucose 382 H Lactic Acid Total Bilirubin 3.1 H AST 56 H ALT 43 H Albumin 3.4 L Urine Protein Urine Glucose (UA) Urine Ketones Urine Blood Leukocyte Esterase Rfl 09/26/20 09/26/20 12:20 12:55 WBC RBC Hgb Hct RDW Plt Count Abs Neuts (Manual) PT Sodium BUN Est GFR ( Amer) Est GFR (MDRD) Non-Af Glucose Lactic Acid 3.3 H Total Bilirubin AST ALT Albumin Urine Protein 100 H Urine Glucose (UA) 50 H Urine Ketones TRACE H Urine Blood MODERATE H Leukocyte Esterase Rfl LARGE H Critical Laboratory Results Reviewed: Yes Attending or Supervising Physician who Reviewed Labs: DEVIN SANCHES - Radiology Results Critical Radiology Results Reviewed: Yes Attending or Supervising Physician who Reviewed Radiology: DEVIN SANCHES Critical Care Note - Critical Care Note Total time excluding time spent on procedures (mins): 60 Comments: Approximately 60 minutes of critical care time were spent on this patient. This time was spent doing multiple reassessments. I spent talking with family. It was spent talking with [employer] product consultant. It was spent reviewing imaging and lab values Discharge - Discharge Clinical Impression: Mild dementia Pneumonia Qualifiers: Pneumonia type: due to unspecified organism Laterality: right Lung location: middle lobe of lung Qualified Code(s): J18.9 - Pneumonia, unspecified organism UTI (urinary tract infection) Qualifiers: Urinary tract infection type: acute cystitis Hematuria presence: with hematuria Qualified Code(s): N30.01 - Acute cystitis with hematuria Sepsis Qualifiers: Sepsis type: sepsis due to unspecified organism Sepsis acute organ dysfunction status: with acute organ dysfunction Severe sepsis acute organ dysfunction type: encephalopathy Severe sepsis shock status: without septic shock Qualified Code( s): A41.9 - Sepsis, unspecified organism; R65.20 - Severe sepsis without septic shock; G93.40 - Encephalopathy, unspecified Condition: Critical Disposition: ADMITTED INPATIENT Admitting Provider: Ava (Hospitalist) Unit Admitted: Medical Floor Referrals: TOMÁS LUA NP [Primary Care Provider] - Follow up as needed
[2020-09-26] MEDS ORDERED: ACETAMINOPHEN 650 MG SUPP.RECT PR PRN (16:41)
[2020-09-26] MEDS ORDERED: DEXTROSE 50%-WATER 25 GM/50 ML DISP.SYRIN IV PRN ×2 (16:56)
[2020-09-26] MEDS ORDERED: GLUCAGON,HUMAN RECOMB 1 MG INJ IM PRN (16:56)
[2020-09-26] MEDS ORDERED: DEXTROSE 40% GEL 15 GM TUBE PO PRN ×2 (16:56)
--- NOTE | 2020-09-26 17:53 | PDOC H&P ---
History of Present Illness Admission Date/PCP: 09/26/20 15:42 TOMÁS LUA NP Patient complains of: Lethargy and confusion History of Present Illness: CURTIS HAYES is a 69 year old female with a history of dementia, hypothyroidism, adrenal insufficiency, insulin-dependent type 2 diabetes mellitus and depression. She was evidently in her normal state of health 2 days ago. She did have a fall recently and sustained a left arm fracture. Today the patient was very difficult to arouse. When EMS arrived she had a low-grade fever. The daughter reports no history of vomiting or diarrhea. Despite her dementia she is quite conversant at baseline. Evaluation revealed an elevated lactic acid, low platelets, elevated total bilirubin and altered mental status which qualifies for sepsis. The patient is receiving the initial sepsis bolus per protocol. She did receive a dose of Zosyn in the emergency department. Urinalysis strongly suggest that this is a focus of infection. Blood cultures have been drawn as well. She will be admitted to the hospital service and treated for sepsis. Past Medical History Cardiac Medical History: Reports: Hyperlipidema, Hypertension Denies: Coronary Artery Disease, Myocardial Infarction Pulmonary Medical History: Reports: Asthma Denies: Bronchitis, Chronic Obstructive Pulmonary Disease (COPD), Pneumonia Neurological Medical History: Denies: Seizures Endocrine Medical History: Reports: Diabetes Mellitus Type 2 GI Medical History: Reports: Cirrhosis, Gastroesophageal Reflux Disease Musculoskeltal Medical History: Reports: Arthritis - hands, feet knees Psychiatric Medical History: Reports: Dementia Denies: Depression Hematology: Denies: Anemia Past Surgical History Past Surgical History: Reports: Appendectomy, Cholecystectomy, Hysterectomy, Orthopedic Surgery - lt knee 09/2019, Tonsillectomy Social History Information Source: [facility] Records Lives with: Family Smoking Status: Former Smoker Electronic Cigarette use?: No Frequency of Alcohol Use: None Hx Recreational Drug Use: No Drugs: None Hx Prescription Drug Abuse: No - Advance Directive Resuscitation Status: Do Not Resuscitate Family History Family History: Did not obtain due to patient's mental status Parental Family History Reviewed: No Children Family History Reviewed: No Sibling(s) Family History Reviewed.: No Medication/Allergy Home Medications: Furosemide [Lasix 20 mg Tablet] 20 mg PO DAILY #30 tablet 06/22/20 Gabapentin [Neurontin 300 mg Capsule] 300 mg PO 0800,199906/22/20 Hydrocortisone 5 mg PO TID 06/22/20 Insulin Glargine,Hum.rec.anlog [Basaglar Kwikpen U-100] 55 unit SQ QHS 06/22/20 Levothyroxine Sodium 150 mcg PO 199906/22/20 Loratadine [Claritin 10 mg Tablet] 10 mg PO 199906/22/20 Midodrine HCl [Proamatine 5 mg Tablet] 5 mg PO 0800,1400,199906/22/20 [place]-3 Fatty Acids/Fish Oil [[place] 3 Fish Oil Softgel] 1 cap PO QAM 06/22/20 Paroxetine HCl [Paxil 20 mg Tablet] 20 mg PO DAILY 06/22/20 Propranolol HCl [Inderal 10 mg Tablet] 10 mg PO QAM 06/22/20 Spironolactone [Aldactone] 50 mg PO DAILYP PRN 06/22/20 Donepezil HCl 10 mg PO QHS 09/11/20 Insulin Regular, Human [Novolin R] 10 units SUBCUT BID 09/11/20 Magnesium Oxide [Mag-Ox 400 mg Tablet] 400 mg PO DAILY 09/11/20 Propranolol HCl [Inderal 10 mg Tablet] 5 mg PO QPM 09/11/20 Nitrofurantoin Monohyd/M-Cryst [Macrobid 100 mg Capsule] 100 mg PO BID 2 Days #4 cap 09/13/20 Hydrocortisone Acetate [Anusol Hc 25 mg Supp.rect] 1 supp.rect TX BID #14 supp.rect 09/14/20 Allergies/Adverse Reactions: No Known Allergies Allergy (Verified 09/26/20 12:28) Review of Systems ROS unobtainable: Due to mental status Physical Exam Vital Signs: Temp Pulse Resp BP Pulse Ox 98.4 F 22 H 102/53 L 100 09/26/20 12:29 09/26/20 15:01 09/26/20 15:00 09/26/20 15:01 Intake & Output 09/25/20 09/26/20 09/27/20 06:59 06:59 06:59 Intake Total 2530 Balance 2530 Weight 84.2 kg General appearance: PRESENT: severe distress, well-developed. ABSENT: cooperative - Unable to cooperate due to current mental status Head exam: PRESENT: atraumatic, normocephalic Eye exam: PRESENT: conjunctiva pink, PERRLA. ABSENT: scleral icterus Ear exam: PRESENT: normal external ear exam. ABSENT: bleeding, drainage Mouth exam: PRESENT: dry mucosa, tongue midline, other - Dry caked mucus on her tongue Respiratory exam: PRESENT: clear to auscultation evita, symmetrical, unlabored. ABSENT: rales, rhonchi, tachypnea, wheezes Cardiovascular exam: PRESENT: RRR, +S1, +S2. ABSENT: bradycardia, diastolic murmur, irregular rhythm, systolic murmur, tachycardia Vascular exam: PRESENT: other - Diffuse marked spider veins lower extremities GI/Abdominal exam: PRESENT: normal bowel sounds, soft. ABSENT: distended, guarding, tenderness Rectal exam: PRESENT: deferred Gentrourinary exam: PRESENT: indwelling catheter Extremities exam: ABSENT: pedal edema Musculoskeletal exam: ABSENT: ambulatory Neurological exam: PRESENT: awake, aphasic. ABSENT: alert Psychiatric exam: PRESENT: appropriate affect - Affect reflects the severity of her illness Focused psych exam: PRESENT: catatonic Skin exam: PRESENT: dry, warm Results Laboratory Results: 09/26/20 12:20 09/26/20 12:20 09/26/20 09/26/20 09/26/20 12:20 12:20 12:20 WBC 11.2 H RBC 3.59 L Hgb 10.0 L Hct 31.2 L MCV 87 MCH 27.8 MCHC 32.0 RDW 17.1 H Plt Count 102 L Seg Neutrophils % Not Reportable VBG pH 7.33 VBG pCO2 41.1 VBG HCO3 21.3 VBG Base Excess -4.3 Sodium 134.2 L Potassium 4.6 Chloride 101 Carbon Dioxide 24 Anion Gap 9 BUN 27 H Creatinine 1.25 Est GFR ( Amer) 52 L Glucose 382 H Lactic Acid Calcium 9.4 Total Bilirubin 3.1 H AST 56 H Alkaline Phosphatase 96 Total Protein 6.4 Albumin 3.4 L Urine Color Urine Appearance Urine pH Ur Specific [place] Urine Protein Urine Glucose (UA) Urine Ketones Urine Blood Urine RBC (Auto) 09/26/20 09/26/20 09/26/20 12:20 12:55 16:24 WBC RBC Hgb Hct MCV MCH MCHC RDW Plt Count Seg Neutrophils % VBG pH VBG pCO2 VBG HCO3 VBG Base Excess Sodium Potassium Chloride Carbon Dioxide Anion Gap BUN Creatinine Est GFR ( Amer) Glucose Lactic Acid 3.3 H 4.1 H Calcium Total Bilirubin AST Alkaline Phosphatase Total Protein Albumin Urine Color YELLOW Urine Appearance TURBID Urine pH 5.0 Ur Specific [place] 1.015 Urine Protein 100 H Urine Glucose (UA) 50 H Urine Ketones TRACE H Urine Blood MODERATE H Urine RBC (Auto) 8 Impressions: Chest X-Ray 09/26/20 12:55 IMPRESSION: Dense peripheral opacity in the right mid lung - correlation with clinical findings to exclude a pneumonia is recommended. Assessment and Plan - Diagnosis (1) Sepsis Qualifiers: Sepsis type: sepsis due to unspecified organism Sepsis acute organ dysfunction status: with acute organ dysfunction Severe sepsis acute organ dysfunction type: encephalopathy Severe sepsis shock status: without septic shock Qualified Code(s): A41.9 - Sepsis, unspecified organism; R65.20 - Severe sepsis without septic shock; G93.40 - Encephalopathy, unspecified Is this a current diagnosis for this admission?: Yes (2) UTI (urinary tract infection) Qualifiers: Urinary tract infection type: acute cystitis Hematuria presence: with hematuria Qualified Code(s): N30.01 - Acute cystitis with hematuria Is this a current diagnosis for this admission?: Yes (3) Pneumonia Qualifiers: Pneumonia type: due to unspecified organism Laterality: right Lung location: middle lobe of lung Qualified Code(s): J18.9 - Pneumonia, unspecified organism Is this a current diagnosis for this admission?: Yes (4) Cirrhosis of liver with ascites Qualifiers: Hepatic cirrhosis type: unspecified hepatic cirrhosis Qualified Code(s): K74.60 - Unspecified cirrhosis of liver; R18.8 - Other ascites Is this a current diagnosis for this admission?: Yes (5) Adrenal insufficiency Is this a current diagnosis for this admission?: Yes (6) Thrombocytopenia Is this a current diagnosis for this admission?: Yes (7) Dementia Qualifiers: Dementia type: unspecified type Dementia behavioral disturbance: without behavioral disturbance Qualified Code(s): F03.90 - Unspecified dementia without behavioral disturbance Is this a current diagnosis for this admission?: Yes (8) Hyperglycemia due to type 2 diabetes mellitus Qualifiers: Diabetes mellitus usp insulin use: with medical terminologist use Qualified Code(s): E11.65 - Type 2 diabetes mellitus with hyperglycemia; Z79.4 - intermediate (current) use of insulin Is this a current diagnosis for this admission?: Yes (9) Hypothyroidism Qualifiers: Hypothyroidism type: unspecified Qualified Code(s): E03.9 - Hypothyroidism, unspecified Is this a current diagnosis for this admission?: Yes (10) Acute metabolic encephalopathy Is this a current diagnosis for this admission?: Yes (11) Closed fracture of left proximal humerus Qualifiers: Encounter type: subsequent encounter Fracture alignment: nondisplaced Fracture healing: with delayed healing Is this a current diagnosis for this admission?: Yes (12) Lactic acidemia Is this a current diagnosis for this admission?: Yes (13) Hyperbilirubinemia Is this a current diagnosis for this admission?: Yes (14) Anemia Qualifiers: Anemia type: unspecified type Qualified Code(s): D64.9 - Anemia, unspecified Is this a current diagnosis for this admission?: Yes - Plan Summary Summary: (1) Sepsis (2) UTI (urinary tract infection) (3) Pneumonia (4) Cirrhosis of liver with ascites (5) Adrenal insufficiency (6) Thrombocytopenia (7) Dementia (8) Hyperglycemia due to type 2 diabetes mellitus (9) Hypothyroidism (10) Acute metabolic encephalopathy (11) Closed fracture of left proximal humerus (12) Lactic acidemia (13) Hyperbilirubinemia (14) Anemia 09/26/2020 Sepsis-elevated bilirubin, low platelets and severe metabolic encephalopathy qualified for sepsis. She received the first dose of Zosyn in the emergency department. She was also started on the sepsis protocol fluid bolus. Urine and blood cultures are pending. There is no productive cough so there is no sputum to culture. Another possible source is peritonitis as she has cirrhosis and prone to ascites. This is less likely as there was absolutely no grimacing with palpation of the abdomen. Thrombocytopenia, lactic acidemia, hyperbilirubinemia-all related to sepsis Pneumonia-possible cause of sepsis. Continue Zosyn. Consider second antibiotic. Urinary tract infection-significant leukocyte esterase positivity. Cultures are pending. Adrenal insufficiency-previously diagnosed. I have ordered stress doses of IV hydrocortisone. And continuing the midodrine as well. Cirrhosis of liver with gjrnhqo-dqv-hkykbuik condition. Will monitor intake and output. May require resumption of Aldactone. Hypothyroidism-chronic. Continue levothyroxine Acute metabolic encephalopathy-secondary to sepsis. Should improve with treat ment of infection. Dementia-chronic. Continue Aricept. Closed fracture left proximal humerus-occurred during a fall at home on September 10. Nonsurgical. Advised the nurses to institute left shoulder precautions. Hyperglycemia due to diabetes mellitus type 2-the patient normally takes 55 units of Lantus twice daily in Novolin R 5 units twice a day. I am going to decrease the dose of Lantus and utilize sliding scale. I will adjust the insulin therapy based on the Accu-Cheks. As the sepsis resolves the Accu-Chek should improve. - Time Time Spent with patient: 35 or more minutes Medications reviewed and adjusted accordingly: Yes Anticipated Discharge Disposition: Unknown Anticipated Discharge Timeframe: Unknown - Inpatient Certification Based on my medical assessment, after consideration of the patient's comorbidities, presenting symptoms, or acuity I expect that the services needed warrant INPATIENT care.: Yes I certify that my determination is in accordance with my understanding of Medicare's requirements for reasonable and necessary INPATIENT services [42 CFR 412.3e].: Yes Medical Necessity: Significant Comorbidiites Make Outpatient Treatment Too Risky, Need Close Monitoring Due to Risk of Patient Decompensation, Need For IV Fluids, Need For Continuous Telemetry Monitoring, Need for IV Antibiotics Post Hospital Care: D/C or Transfer Summary
--- NOTE | 2020-09-26 18:18 | EKG REPORT ---
SEVERITY:- ABNORMAL ECG - SINUS RHYTHM RIGHT BUNDLE BRANCH BLOCK : Confirmed by: Brittanie Castillo MD 26-Sep-2020 18:16:37
[2020-09-26 19:48] LABS: ALBUMIN 2.9 g/dL (3.5-5.0); ALKALINE PHOSPHATASE 80 U/L (38-126); ANION GAP 9 (5-19); ASPARTATE AMINO TRANSFERASE 48 U/L (14-36); BILIRUBIN,DIRECT 0.4 mg/dL (0.0-0.4); BILIRUBIN,TOTAL 2.9 mg/dL (0.2-1.3); BLOOD UREA NITROGEN 27 mg/dL (7-20); CALCIUM 8.5 mg/dL (8.4-10.2); CARBON DIOXIDE 21 mmol/L (22-30); CHLORIDE 106 mmol/L (98-107); GLUCOSE 323 mg/dL (75-110); POTASSIUM 4.5 mmol/L (3.6-5.0); TOTAL PROTEIN 5.7 g/dL (6.3-8.2)
[2020-09-26] MEDS: PIPERACILLIN SODIUM/TAZOBACTAM 4.5 GM in NORMAL SALINE 100 ML IV SCH (20:38)
[2020-09-26] MEDS ORDERED: INSULIN GLARGINE,HUM.REC.ANLOG 1,000 UNIT/10 ML VIAL SUBCUT SCH (22:00)
[2020-09-26] MEDS ORDERED: INSULIN GLARGINE,HUM.REC.ANLOG 1,000 UNIT/10 ML VIAL (PYX) SUBCUT ONE (23:31)
[2020-09-26] MEDS: INSULIN REG, HUMAN 100 UNIT/ML 3 ML VIAL (PYX) SUBCUT SCH (23:33)
[2020-09-26] MEDS: HYDROCORTISONE SOD SUCCINATE INJ/PF 100 MG/2 ML SDV IV SCH (23:34)
[2020-09-27] MEDS: MIDODRINE HCL 5 MG TABLET PO SCH ×4 (00:11→17:30)
[2020-09-27] MEDS: PIPERACILLIN SODIUM/TAZOBACTAM 4.5 GM in NORMAL SALINE 100 ML IV SCH ×4 (01:43→17:30)
[2020-09-27] MEDS: LEVOTHYROXINE SODIUM 0.15 MG TABLET PO SCH (05:10)
[2020-09-27] MEDS: PANTOPRAZOLE SODIUM 40 MG TABLET.DR PO SCH (05:10)
[2020-09-27] MEDS: HYDROCORTISONE SOD SUCCINATE INJ/PF 100 MG/2 ML SDV IV SCH ×2 (05:24→13:58)
[2020-09-27 06:38] LABS: HEMATOCRIT 22.8 % (36.0-47.0); MEAN CORPUSCULAR HEMOGLOBIN 28.8 pg (27.0-33.4); MEAN CORPUSCULAR HGB CONC 33.4 g/dL (32.0-36.0); MEAN CORPUSCULAR VOLUME 86 fl (80-97); RED BLOOD COUNT 2.65 10^6/uL (3.72-5.28); RED CELL DISTRIBUTION WIDTH 17.3 % (11.5-14.0); WHITE BLOOD COUNT 6.7 10^3/uL (4.0-10.5)
[2020-09-27 07:05] LABS: ALBUMIN 2.4 g/dL (3.5-5.0); ALKALINE PHOSPHATASE 65 U/L (38-126); ANION GAP 5 (5-19); ASPARTATE AMINO TRANSFERASE 33 U/L (14-36); BILIRUBIN,DIRECT 0.4 mg/dL (0.0-0.4); BILIRUBIN,TOTAL 2.5 mg/dL (0.2-1.3); BLOOD UREA NITROGEN 27 mg/dL (7-20); CALCIUM 8.1 mg/dL (8.4-10.2); CARBON DIOXIDE 23 mmol/L (22-30); CHLORIDE 109 mmol/L (98-107); GLUCOSE 360 mg/dL (75-110)
[2020-09-27 07:22] LABS: ABSOLUTE LYMPHOCYTES# (MANUAL) 0.1 10^3/uL (0.5-4.7); BAND NEUTROPHILS % (MANUAL) 2 % (3-5); BASOPHILS % (MANUAL) 0 % (0-2); EOSINOPHILS % (MANUAL) 0 % (0-6); LYMPHOCYTES % (MANUAL) 2 % (13-45); MONOCYTES % (MANUAL) 0 % (3-13); SEGMENTED NEUTROPHILS % (MAN) 96 % (42-78); TOTAL CELLS COUNTED 100
[2020-09-27 07:23] LABS: PLATELET COMMENT DECREASED
[2020-09-27 07:29] LABS: ANISOCYTOSIS 1+
[2020-09-27 08:26] LABS: PLATELET COUNT 63 10^3/uL (150-450)
[2020-09-27 08:30] LABS: OVALOCYTES 1+; POIKILOCYTOSIS 1+
[2020-09-27 08:31] LABS: HEMOGLOBIN 7.6 g/dL (12.0-15.5)
[2020-09-27] MEDS: INSULIN REG, HUMAN 100 UNIT/ML 3 ML VIAL (PYX) SUBCUT SCH ×3 (09:50→16:41)
[2020-09-27] MEDS ORDERED: DONEPEZIL HCL 5 MG TABLET PO SCH (10:00)
[2020-09-27] MEDS: PAROXETINE HCL 20 MG TABLET PO SCH (10:11)
[2020-09-27] MEDS ORDERED: INSULIN GLARGINE,HUM.REC.ANLOG 1,000 UNIT/10 ML VIAL (PYX) SUBCUT ONE ×3 (10:26→22:52)
[2020-09-27] MEDS: NORMAL SALINE 1000 ML 1,000 ML IV PRN (10:28)
[2020-09-27] MEDS: MAGNESIUM SULFATE/D5W 1 GM/100 ML RTUPB IV SCH ×2 (11:42→14:07)
[2020-09-27 13:06] LABS: ANION GAP 6 (5-19); BLOOD UREA NITROGEN 29 mg/dL (7-20); CALCIUM 7.7 mg/dL (8.4-10.2); CARBON DIOXIDE 21 mmol/L (22-30); CHLORIDE 105 mmol/L (98-107); POTASSIUM 3.5 mmol/L (3.6-5.0)
[2020-09-27 13:22] LABS: GLUCOSE 508 mg/dL (75-110)
[2020-09-27] MEDS: ACETAMINOPHEN 325 MG TABLET PO PRN (13:58)
--- NOTE | 2020-09-27 21:58 | PDOC PROGRESS REPORT ---
Subjective Date:: 09/27/20 Subjective:: NAEO. She feels much better today. Family feels that she is back to baseline mental status. BG have been elevated 300-500s, and family tell me that this is NORMAL for the patient, even at home, although they do admit that she occasionally seems more confused when her BG is elevated >500. Reason For Visit: SEPSIS, POSSIBLE URINARY TRACT INFECTION Physical Exam Vital Signs: Temp Pulse Resp BP Pulse Ox 97.7 F 74 19 107/51 L 96 09/27/20 20:53 09/27/20 20:23 09/27/20 20:23 09/27/20 20:23 09/27/20 20:23 Intake & Output 09/26/20 09/27/20 09/28/20 06:59 06:59 06:59 Intake Total 2530 1432 Output Total 150 Balance 2380 1432 Weight 80.9 kg General appearance: PRESENT: no acute distress, cooperative Eye exam: ABSENT: scleral icterus Mouth exam: PRESENT: dry mucosa Throat exam: ABSENT: post pharyngeal erythema Neck exam: ABSENT: JVD Respiratory exam: PRESENT: clear to auscultation evita Cardiovascular exam: PRESENT: RRR GI/Abdominal exam: PRESENT: ascites, distended, normal bowel sounds, soft. ABSENT: guarding, mass, rebound, rigid, tenderness Extremities exam: ABSENT: pedal edema Musculoskeletal exam: PRESENT: other - LUE in splint Neurological exam: PRESENT: alert, awake Psychiatric exam: PRESENT: appropriate affect Skin exam: ABSENT: jaundice Results Laboratory Results: 09/27/20 05:55 09/27/20 12:30 09/27/20 09/27/20 09/27/20 05:55 05:55 12:30 WBC 6.7 RBC 2.65 L Hgb 7.6 L D Hct 22.8 L MCV 86 MCH 28.8 MCHC 33.4 RDW 17.3 H Plt Count 63 L Seg Neutrophils % Not Reportable Sodium 137.1 132.3 L Potassium 4.0 3.5 L Chloride 109 H 105 Carbon Dioxide 23 21 L Anion Gap 5 6 BUN 27 H 29 H Creatinine 1.10 1.03 Est GFR ( Amer) > 60 > 60 Glucose 360 H 508 H* Calcium 8.1 L 7.7 L Magnesium 1.5 L 1.7 Total Bilirubin 2.5 H AST 33 Alkaline Phosphatase 65 Total Protein 5.0 L Albumin 2.4 L 09/26/20 12:20 Blood Blood Culture (PCR) - Final Impressions: Chest X-Ray 09/26/20 12:55 IMPRESSION: Dense peripheral opacity in the right mid lung - correlation with clinical findings to exclude a pneumonia is recommended. Assessment and Plan - Plan Summary Summary: Sepsis-likely due to UTI. Continue Zosyn and follow up BCx/UCx results. Pneumonia-possible cause of sepsis. Continue Zosyn. Consider second antibiotic. Adrenal insufficiency-previously diagnosed. DC stress doses steroids. Continue midodrine. She has baseline low BP due to multiple issues Cirrhosis of liver with caloafw-hlm-qaqvjqys condition. Hypothyroidism-chronic. Continue levothyroxine Acute metabolic encephalopathy-secondary to sepsis. Resolved. Dementia-chronic. Continue Aricept. Closed fracture left proximal humerus-occurred during a fall at home on September 10. Nonsurgical. Advised the nurses to institute left shoulder precautions. Hyperglycemia due to diabetes mellitus type 2-the patient normally takes SSI only at home. Insulin regimen modified. Chronic Pancreatitis-added pancrelipase supplements - Time Time Spent with patient: 35 or more minutes Anticipated Discharge Disposition: Home with Home Health Anticipated Discharge Timeframe: within 72 hours
[2020-09-27] MEDS: LIPASE/PROTEASE/AMYLASE 1 CAP CAPSULE.DR PO SCH (22:16)
[2020-09-27] MEDS: INSULIN LISPRO 100 UNIT/ML 3 ML VIAL SUBCUT SCH (22:16)
[2020-09-27] MEDS ORDERED: INSULIN GLARGINE,HUM.REC.ANLOG 1,000 UNIT/10 ML VIAL (PYX) SUBCUT PRN (22:30)
[2020-09-27] MEDS: INSULIN GLARGINE,HUM.REC.ANLOG 1,000 UNIT/10 ML VIAL SUBCUT SCH (22:55)
[2020-09-28] MEDS: NORMAL SALINE 1000 ML 1,000 ML IV PRN (00:43)
[2020-09-28] MEDS: PIPERACILLIN SODIUM/TAZOBACTAM 4.5 GM in NORMAL SALINE 100 ML IV SCH ×2 (00:43→05:25)
[2020-09-28] MEDS: INSULIN LISPRO 100 UNIT/ML 3 ML VIAL SUBCUT SCH ×8 (01:23→21:42)
[2020-09-28] MEDS: PANTOPRAZOLE SODIUM 40 MG TABLET.DR PO SCH (05:25)
[2020-09-28] MEDS: LEVOTHYROXINE SODIUM 0.15 MG TABLET PO SCH (05:25)
[2020-09-28 06:38] LABS: ABSOLUTE LYMPHOCYTES (AUTO) 0.5 10^3/uL (0.5-4.7); ABSOLUTE MONOCYTES (AUTO) 0.4 10^3/uL (0.1-1.4); ABSOLUTE NEUT (AUTO) 5.4 10^3/uL (1.7-8.2); BASOPHILS % (AUTO) 0.1 % (0-2); EOSINOPHILS % (AUTO) 0.2 % (0-6); LYMPHOCYTES % (AUTO) 7.3 % (13-45); MEAN CORPUSCULAR HEMOGLOBIN 28.6 pg (27.0-33.4); MEAN CORPUSCULAR VOLUME 87 fl (80-97); MONOCYTES % (AUTO) 6.4 % (3-13); RED BLOOD COUNT 2.54 10^6/uL (3.72-5.28); RED CELL DISTRIBUTION WIDTH 16.8 % (11.5-14.0); TOTAL CELLS COUNTED % (AUTO) 100 %; WHITE BLOOD COUNT 6.3 10^3/uL (4.0-10.5)
[2020-09-28 06:47] LABS: ALBUMIN 2.5 g/dL (3.5-5.0); ALKALINE PHOSPHATASE 62 U/L (38-126); ANION GAP 9 (5-19); ASPARTATE AMINO TRANSFERASE 26 U/L (14-36); BILIRUBIN,DIRECT 0.3 mg/dL (0.0-0.4); BILIRUBIN,TOTAL 0.9 mg/dL (0.2-1.3); BLOOD UREA NITROGEN 33 mg/dL (7-20); CARBON DIOXIDE 20 mmol/L (22-30); CHLORIDE 106 mmol/L (98-107); GLUCOSE 364 mg/dL (75-110)
[2020-09-28 06:50] LABS: PLATELET COUNT 75 10^3/uL (150-450)
[2020-09-28 06:51] LABS: HEMOGLOBIN 7.3 g/dL (12.0-15.5)
[2020-09-28 06:54] LABS: POTASSIUM 2.9 mmol/L (3.6-5.0)
[2020-09-28] MEDS: LIPASE/PROTEASE/AMYLASE 1 CAP CAPSULE.DR PO SCH ×3 (08:22→17:42)
[2020-09-28] MEDS: ACETAMINOPHEN 325 MG TABLET PO PRN ×2 (08:36→15:08)
[2020-09-28] MEDS ORDERED: INSULIN GLARGINE,HUM.REC.ANLOG 1,000 UNIT/10 ML VIAL SUBCUT SCH ×2 (10:00→22:00)
[2020-09-28] MEDS ORDERED: HYDROCORTISONE 10 MG TABLET PO SCH (10:00)
[2020-09-28] MEDS: CEFTRIAXONE 2 GM/D5W RTU 2 GM/50 ML RTUPB IV SCH (10:12)
[2020-09-28] MEDS: POTASSIUM CHLORIDE 10 MEQ TABLET.ER PO SCH ×3 (10:13→17:42)
[2020-09-28] MEDS: MIDODRINE HCL 5 MG TABLET PO SCH ×3 (10:16→18:06)
[2020-09-28] MEDS: PAROXETINE HCL 20 MG TABLET PO SCH (10:16)
[2020-09-28] MEDS: INSULIN GLARGINE,HUM.REC.ANLOG 1,000 UNIT/10 ML VIAL SUBCUT SCH (10:19)
[2020-09-28] MEDS: POTASSI CL 20 MEQ/NS 1L 1,000 ML IV PRN (10:40)
[2020-09-28] MEDS: HYDROCORTISONE 10 MG TABLET PO SCH (14:29)
--- NOTE | 2020-09-28 20:08 | PDOC PROGRESS REPORT ---
Subjective Date:: 09/28/20 Subjective:: NAEO. She is continuing to have stomach discomfort and diarrhea after each meal, typical of chronic pancreatitis. We discussed increasing the dose of pancrealipase enzymes. Reason For Visit: SEPSIS, POSSIBLE URINARY TRACT INFECTION Physical Exam Vital Signs: Temp Pulse Resp BP Pulse Ox 97.9 F 67 17 121/57 L 97 09/28/20 19:24 09/28/20 19:24 09/28/20 19:24 09/28/20 19:24 09/28/20 19:24 Intake & Output 09/27/20 09/28/20 09/29/20 06:59 06:59 06:59 Intake Total 2530 2432 1751 Output Total 150 Balance 2380 2432 1751 Weight 80.9 kg 80.9 kg General appearance: PRESENT: no acute distress, cooperative Mouth exam: PRESENT: moist Throat exam: ABSENT: post pharyngeal erythema Neck exam: ABSENT: JVD Respiratory exam: PRESENT: clear to auscultation evita Cardiovascular exam: PRESENT: RRR GI/Abdominal exam: PRESENT: hyperactive bowel sounds, soft. ABSENT: tenderness Extremities exam: ABSENT: pedal edema Neurological exam: PRESENT: alert, awake Psychiatric exam: PRESENT: appropriate affect Skin exam: ABSENT: jaundice, rash Results Laboratory Results: 09/28/20 05:45 09/28/20 05:45 09/28/20 09/28/20 05:45 05:45 WBC 6.3 RBC 2.54 L Hgb 7.3 L Hct 22.0 L MCV 87 MCH 28.6 MCHC 33.0 RDW 16.8 H Plt Count 75 L Seg Neutrophils % 86.0 H Sodium 134.5 L Potassium 2.9 L* Chloride 106 Carbon Dioxide 20 L Anion Gap 9 BUN 33 H Creatinine 1.10 Est GFR ( Amer) > 60 Glucose 364 H Calcium 8.0 L Magnesium 2.0 Total Bilirubin 0.9 AST 26 Alkaline Phosphatase 62 Total Protein 5.0 L Albumin 2.5 L 09/26/20 16:24 Blood Blood Culture (PCR) - Final Staphylococcus Species 09/26/20 12:55 Catheterized Urine Urine Culture - Final Escherichia Coli Impressions: Chest X-Ray 09/26/20 12:55 IMPRESSION: Dense peripheral opacity in the right mid lung - correlation with clinical findings to exclude a pneumonia is recommended. Assessment and Plan - Diagnosis (1) Acute metabolic encephalopathy Is this a current diagnosis for this admission?: Yes (2) Hyperbilirubinemia Is this a current diagnosis for this admission?: Yes (3) Hyperglycemia due to type 2 diabetes mellitus Qualifiers: Diabetes mellitus usp insulin use: with emt intermediate use Qualified Code(s): E11.65 - Type 2 diabetes mellitus with hyperglycemia; Z79.4 - oil heaterman (current) use of insulin Is this a current diagnosis for this admission?: Yes (4) Lactic acidemia Is this a current diagnosis for this admission?: Yes (5) UTI (urinary tract infection) Qualifiers: Urinary tract infection type: acute cystitis Hematuria presence: with hematuria Qualified Code(s): N30.01 - Acute cystitis with hematuria Is this a current diagnosis for this admission?: Yes (7) Adrenal insufficiency Is this a current diagnosis for this admission?: Yes (8) Closed left humeral fracture Qualifiers: Encounter type: initial encounter Humerus Location: proximal Fracture morphology: unspecified fracture morphology Qualified Code(s): S42.202A - Unspecified fracture of upper end of left humerus, initial encounter for closed fracture Is this a current diagnosis for this admission?: Yes (9) Weakness Is this a current diagnosis for this admission?: Yes - Plan Summary Summary: GNR Sepsis-likely due to UTI. Continue ceftriaxone and follow up BCx/UCx final results. Dehydration-due to sepsis. Continue IVF and encourage oral intake. Adrenal insufficiency-previously diagnosed. Continue home hydrocort/midodrine. She has baseline low BP due to multiple issues Cirrhosis of liver with zlfwanf-cts-lxqrufnk condition. Hypothyroidism-chronic. Continue levothyroxine Acute metabolic encephalopathy-secondary to sepsis. Resolved. Dementia-chronic. Continue Aricept. Closed fracture left proximal humerus-occurred during a fall at home on September 10. Nonsurgical. Advised the nurses to institute left shoulder precautions. Outpatient F/U with orthopedic surgery in 1 week. Hyperglycemia due to diabetes mellitus type 2-the patient normally takes SSI only at home. Insulin regimen modified. Chronic Pancreatitis-increase pancrelipase supplements to 3 tablets TID AC Weakness-PT/OT evaluations. Fall precautions. SNF on discharge. - Time Time Spent with patient: 35 or more minutes Anticipated Discharge Disposition: [facility] Facility Anticipated Discharge Timeframe: within 48 hours
[2020-09-28] MEDS ORDERED: LOPERAMIDE HCL 2 MG CAPSULE PO ONE (20:30)
[2020-09-28] MEDS: GABAPENTIN 300 MG CAPSULE PO SCH (21:41)
[2020-09-29] MEDS: INSULIN LISPRO 100 UNIT/ML 3 ML VIAL SUBCUT SCH ×7 (02:26→21:26)
[2020-09-29 03:16] LABS: ABSOLUTE EOSINOPHILS # (AUTO) 0.1 10^3/uL (0.0-0.6); ABSOLUTE LYMPHOCYTES (AUTO) 0.7 10^3/uL (0.5-4.7); ABSOLUTE MONOCYTES (AUTO) 0.4 10^3/uL (0.1-1.4); ABSOLUTE NEUT (AUTO) 4.9 10^3/uL (1.7-8.2); BASOPHILS % (AUTO) 0.4 % (0-2); EOSINOPHILS % (AUTO) 1.3 % (0-6); HEMOGLOBIN 8.5 g/dL (12.0-15.5); LYMPHOCYTES % (AUTO) 11.5 % (13-45); MEAN CORPUSCULAR HEMOGLOBIN 28.1 pg (27.0-33.4); MEAN CORPUSCULAR HGB CONC 31.4 g/dL (32.0-36.0); MEAN CORPUSCULAR VOLUME 90 fl (80-97); RED BLOOD COUNT 3.02 10^6/uL (3.72-5.28); RED CELL DISTRIBUTION WIDTH 17.6 % (11.5-14.0); SEGMENTED NEUTROPHILS % (AUTO) 80.8 % (42-78); TOTAL CELLS COUNTED % (AUTO) 100 %; WHITE BLOOD COUNT 6.1 10^3/uL (4.0-10.5)
[2020-09-29 03:31] LABS: ALBUMIN 3.1 g/dL (3.5-5.0); ALKALINE PHOSPHATASE 73 U/L (38-126); ANION GAP 11 (5-19); ASPARTATE AMINO TRANSFERASE 33 U/L (14-36); BILIRUBIN,DIRECT 0.4 mg/dL (0.0-0.4); BILIRUBIN,TOTAL 1.3 mg/dL (0.2-1.3); BLOOD UREA NITROGEN 29 mg/dL (7-20); CALCIUM 8.4 mg/dL (8.4-10.2); CARBON DIOXIDE 16 mmol/L (22-30); CHLORIDE 112 mmol/L (98-107); GLUCOSE 101 mg/dL (75-110); POTASSIUM 3.8 mmol/L (3.6-5.0); TOTAL PROTEIN 6.2 g/dL (6.3-8.2)
[2020-09-29 03:33] LABS: PLATELET COUNT 73 10^3/uL (150-450)
[2020-09-29] MEDS: POTASSI CL 20 MEQ/NS 1L 1,000 ML IV PRN (03:35)
[2020-09-29] MEDS: PANTOPRAZOLE SODIUM 40 MG TABLET.DR PO SCH (06:32)
[2020-09-29] MEDS: ACETAMINOPHEN 325 MG TABLET PO PRN ×2 (09:11→21:34)
[2020-09-29] MEDS: CEFTRIAXONE 2 GM/D5W RTU 2 GM/50 ML RTUPB IV SCH (09:11)
[2020-09-29] MEDS: LIPASE/PROTEASE/AMYLASE 1 CAP CAPSULE.DR PO SCH ×3 (09:12→17:58)
[2020-09-29] MEDS: HYDROCORTISONE 10 MG TABLET PO SCH ×2 (09:13→15:12)
[2020-09-29] MEDS: HYDROCORTISONE 1% CREAM 28.35 GM TP SCH ×3 (09:13→17:58)
[2020-09-29] MEDS: GABAPENTIN 300 MG CAPSULE PO SCH ×2 (09:13→21:26)
[2020-09-29] MEDS: PAROXETINE HCL 20 MG TABLET PO SCH (09:14)
[2020-09-29] MEDS: MIDODRINE HCL 5 MG TABLET PO SCH ×3 (09:15→17:58)
[2020-09-29] MEDS ORDERED: INSULIN GLARGINE,HUM.REC.ANLOG 1,000 UNIT/10 ML VIAL SUBCUT SCH ×2 (10:00→22:00)
--- NOTE | 2020-09-29 16:29 | PDOC PROGRESS REPORT ---
Subjective Date:: 09/29/20 Subjective:: She is developing SOB. Diarrhea has improved. Reason For Visit: SEPSIS, POSSIBLE URINARY TRACT INFECTION Physical Exam Vital Signs: Temp Pulse Resp BP Pulse Ox 97.3 F 77 18 110/57 L 96 09/29/20 11:30 09/29/20 11:30 09/29/20 11:30 09/29/20 11:30 09/29/20 11:30 Intake & Output 09/28/20 09/29/20 09/30/20 06:59 06:59 06:59 Intake Total 2432 2751 Balance 2432 2751 Weight 80.9 kg 82.1 kg General appearance: PRESENT: no acute distress, cooperative Eye exam: ABSENT: scleral icterus Mouth exam: PRESENT: moist Throat exam: ABSENT: post pharyngeal erythema Neck exam: ABSENT: JVD Respiratory exam: PRESENT: crackles Cardiovascular exam: PRESENT: RRR GI/Abdominal exam: PRESENT: ascites, distended, normal bowel sounds, soft. ABSENT: firm, guarding, rebound, rigid, tenderness Gentrourinary exam: ABSENT: indwelling catheter Extremities exam: PRESENT: pedal edema, +2 edema Neurological exam: PRESENT: alert, awake, oriented to person, oriented to place, oriented to time, oriented to situation Psychiatric exam: PRESENT: appropriate affect Skin exam: ABSENT: jaundice, rash Results Laboratory Results: 09/29/20 03:00 09/29/20 03:00 09/29/20 09/29/20 09/29/20 03:00 03:00 03:19 WBC 6.1 RBC 3.02 L Hgb 8.5 L Hct 27.0 L MCV 90 MCH 28.1 MCHC 31.4 L RDW 17.6 H Plt Count 73 L Seg Neutrophils % 80.8 H Sodium 139.1 Potassium 3.8 Chloride 112 H Carbon Dioxide 16 L Anion Gap 11 BUN 29 H Creatinine 1.00 Est GFR ( Amer) > 60 Glucose 101 Calcium 8.4 Magnesium 2.0 Total Bilirubin 1.3 AST 33 Alkaline Phosphatase 73 Ammonia < 8.7 L Total Protein 6.2 L Albumin 3.1 L Blood Type Antibody Screen 09/29/20 03:19 WBC RBC Hgb Hct MCV MCH MCHC RDW Plt Count Seg Neutrophils % Sodium Potassium Chloride Carbon Dioxide Anion Gap BUN Creatinine Est GFR ( Amer) Glucose Calcium Magnesium Total Bilirubin AST Alkaline Phosphatase Ammonia Total Protein Albumin Blood Type A POSITIVE Antibody Screen NEGATIVE 09/26/20 16:24 Blood Blood Culture (PCR) - Final Staphylococcus Species 09/26/20 12:20 Blood Blood Culture - Final Escherichia Coli Impressions: Chest X-Ray 09/26/20 12:55 IMPRESSION: Dense peripheral opacity in the right mid lung - correlation with clinical findings to exclude a pneumonia is recommended. Assessment and Plan - Diagnosis (1) Acute metabolic encephalopathy Is this a current diagnosis for this admission?: Yes (2) Hyperbilirubinemia Is this a current diagnosis for this admission?: Yes (3) Hyperglycemia due to type 2 diabetes mellitus Qualifiers: Diabetes mellitus oil heaterman insulin use: with oil heaterman use Qualified Code(s): E11.65 - Type 2 diabetes mellitus with hyperglycemia; Z79.4 - skilled nursing (current) use of insulin Is this a current diagnosis for this admission?: Yes (4) Lactic acidemia Is this a current diagnosis for this admission?: Yes (5) UTI (urinary tract infection) Qualifiers: Urinary tract infection type: acute cystitis Hematuria presence: with hematuria Qualified Code(s): N30.01 - Acute cystitis with hematuria Is this a current diagnosis for this admission?: Yes (7) Adrenal insufficiency Is this a current diagnosis for this admission?: Yes (8) Closed left humeral fracture Qualifiers: Encounter type: initial encounter Humerus Location: proximal Fracture morphology: unspecified fracture morphology Qualified Code(s): S42.202A - Unspecified fracture of upper end of left humerus, initial encounter for closed fracture Is this a current diagnosis for this admission?: Yes (9) Weakness Is this a current diagnosis for this admission?: Yes - Plan Summary Summary: E coli bacteremia and Sepsis-likely due to UTI. Continue ceftriaxone and switch to Cipro on discharge. She will need a total 7 day course of antibiotic therapy. MARLEE/Dehydration-due to sepsis. Resolved with IVF. Adrenal insufficiency-previously diagnosed. Continue home hydrocort/midodrine. Cirrhosis of liver with ascites-abdominal distention and ascites have worsened with IVF hydration. US-guided therapeutic paracentesis ordered. Hypothyroidism-chronic. Continue levothyroxine Acute metabolic encephalopathy-secondary to sepsis. Resolved. Dementia-chronic. Continue Aricept. Closed fracture left proximal humerus-occurred during a fall at home on September 10. Nonsurgical. NWB. Outpatient F/U with orthopedic surgery in 1 week. Hyperglycemia due to diabetes mellitus type 2-the patient normally takes SSI only at home. She has been requiring high doses of Lantus and SSI here in the hospital to control her glucose. Her home regimen will need to be adjusted on discharge. Chronic Pancreatitis-diarrhea has improved after increasing pancrelipase supplements to 3 tablets TID AC. Weakness-PT/OT evaluations performed. Fall precautions. SNF on discharge. DVT ppx: HOLD in preparation for paracentesis - Time Time Spent with patient: 35 or more minutes Anticipated Discharge Disposition: Nursing Home Facility Anticipated Discharge Timeframe: within 24 hours
[2020-09-29] MEDS: ALBUMIN HUMAN 12.5 GM/50 ML RTUINJ IV SCH (18:02)
[2020-09-29] MEDS ORDERED: LEVOTHYROXINE SODIUM 0.15 MG TABLET PO SCH (22:00)
[2020-09-30] MEDS ORDERED: ALBUMIN HUMAN 50 GM/200 ML RTUINJ IV PRN (05:00)
[2020-09-30] MEDS ORDERED: ALBUMIN HUMAN 25 GM/100 ML RTUINJ IV PRN (05:00)
[2020-09-30] MEDS: PANTOPRAZOLE SODIUM 40 MG TABLET.DR PO SCH (05:38)
[2020-09-30 07:48] LABS: INTERNATIONAL RATION (INR) 1.06
[2020-09-30] MEDS: HYDROCORTISONE 10 MG TABLET PO SCH ×2 (08:54→14:00)
[2020-09-30] MEDS: INSULIN LISPRO 100 UNIT/ML 3 ML VIAL SUBCUT SCH ×3 (08:54→17:13)
[2020-09-30] MEDS: LIPASE/PROTEASE/AMYLASE 1 CAP CAPSULE.DR PO SCH ×3 (08:58→17:12)
[2020-09-30] MEDS: GABAPENTIN 300 MG CAPSULE PO SCH (09:48)
[2020-09-30] MEDS: PAROXETINE HCL 20 MG TABLET PO SCH (09:49)
[2020-09-30] MEDS: MIDODRINE HCL 5 MG TABLET PO SCH ×3 (09:49→17:14)
[2020-09-30] MEDS: HYDROCORTISONE 1% CREAM 28.35 GM TP SCH ×3 (09:50→17:15)
[2020-09-30] MEDS: CEFTRIAXONE 2 GM/D5W RTU 2 GM/50 ML RTUPB IV SCH (09:50)
[2020-09-30] MEDS: ACETAMINOPHEN 325 MG TABLET PO PRN ×2 (11:26→17:32)
--- NOTE | 2020-09-30 15:20 | PDOC TRANSFER SUMMARY ---
Impression - Admit/DC Date/PCP Admission Date/Primary Care Provider: 09/26/20 15:42 TOMÁS LUA NP Discharge Date: 09/30/20 - Discharge Diagnosis (1) Acute metabolic encephalopathy Is this a current diagnosis for this admission?: Yes (2) Hyperbilirubinemia Is this a current diagnosis for this admission?: Yes (3) Hyperglycemia due to type 2 diabetes mellitus Is this a current diagnosis for this admission?: Yes (4) Lactic acidemia Is this a current diagnosis for this admission?: Yes (5) UTI (urinary tract infection) Is this a current diagnosis for this admission?: Yes (7) Adrenal insufficiency Is this a current diagnosis for this admission?: Yes (8) Closed left humeral fracture Is this a current diagnosis for this admission?: Yes (9) Weakness Is this a current diagnosis for this admission?: Yes - Assessment Summary: E coli bacteremia and Sepsis: due to E. coli UTI. She received 4 days of IV antibiotics and was switched to Cipro PO x3 more days on discharge. She will need a total 7 day course of antibiotic therapy for GNR bacteremia. MARLEE/Dehydration: due to sepsis and resolved with IVF. Acute metabolic encephalopathy: secondary to sepsis. Resolved with antibiotics. Adrenal insufficiency: previously diagnosed. Continue home hydrocortisone/midodrine. She should wear SALINA stockings during the day. She has orthostatic dizziness and baseline low BP due to adrenal insufficiency. Cirrhosis of liver with ascites: abdominal distention and ascites worsened with IVF hydration. She underwent US-guided therapeutic paracentesis on 09/30/2020 followed by albumin administration. She should continue taking Lasix/spironolactone daily therapy to control ascites. Closed fracture left proximal humerus: occurred during a fall at home on September 10. Evaluated by orthopedic surgery at that time, who recommended nonsurgical treatment. She is non-weight bearing on her LUE and should keep it in a splint. She has outpatient F/U with orthopedic surgery already arranged in 1 week. Hyperglycemia due to diabetes mellitus type 2: glucose has been controlled with Lantus 55 units HS and SSI with meals. Chronic Pancreatitis: diarrhea has improved drastically after increasing pancrelipase supplements to 5 tablets TID AC. Hemmorhoids: due to chronic diarrhea, which is due to her chronic pancreatitis. Treated with hydrocortisone topical cream TID and Sitz baths. She would benefit from outpatient surgery follow up to discuss band ligation therapy. Generalized Weakness: PT/OT evaluations performed. Fall precautions. SNF on discharge for ongoing PT/OT. - Additional Information Resuscitation Status: Do Not Resuscitate Discharge Diet: Cardiac, Diabetic Discharge Activity: Activity As Tolerated, Keep Legs Elevated Referrals: TOMÁS LUA, COMPLAINT CLERK [Primary Care Provider] - Follow up as needed Prescriptions: Ciprofloxacin HCl [Cipro 500 mg Tablet] 500 mg PO BID #6 tablet Home Medications: Gabapentin [Neurontin 300 mg Capsule] 300 mg PO 0800,199906/22/20 Insulin Glargine,Hum.rec.anlog [Basaglar Kwikpen U-100] 55 unit SQ QHS 06/22/20 Levothyroxine Sodium 150 mcg PO 199906/22/20 Loratadine [Claritin 10 mg Tablet] 10 mg PO 199906/22/20 Midodrine HCl [Proamatine 5 mg Tablet] 5 mg PO 0800,1400,199906/22/20 [place]-3 Fatty Acids/Fish Oil [[place] 3 Fish Oil Softgel] 1 cap PO QAM 06/22/20 Paroxetine HCl [Paxil 20 mg Tablet] 20 mg PO DAILY 06/22/20 Propranolol HCl [Inderal 10 mg Tablet] 10 mg PO QAM 06/22/20 Spironolactone [Aldactone] 150 mg PO DAILY 06/22/20 Donepezil HCl 10 mg PO QHS 09/11/20 Magnesium Oxide [Mag-Ox 400 mg Tablet] 400 mg PO DAILY 09/11/20 Propranolol HCl [Inderal 10 mg Tablet] 5 mg PO QPM 09/11/20 Furosemide [Lasix 20 mg Tablet] 40 mg PO DAILY 09/26/20 Omeprazole 20 mg PO DAILY 09/26/20 Vits96/Iron Fum/Folic [ Tablet] 1 each PO DAILY 09/26/20 Ciprofloxacin HCl [Cipro 500 mg Tablet] 500 mg PO BID #6 tablet 09/30/20 Hydrocortisone [Cortef 10 mg Tablet] 5 mg PO DAILY@1400 tablet 09/30/20 Hydrocortisone [Cortef 10 mg Tablet] 10 mg PO QAM tablet 09/30/20 Hydrocortisone [Hydrocortisone 1% Cream 28.35 gm] 1 applic TP TID tube 09/30/20 Insulin Lispro [Humalog Insulin (Lispro) 100 unit/mL] 0 - 12 unit SUBCUT ACHS unit 09/30/20 Lipase/Protease/Amylase [Pancreaze-10 Capsule.] 5 cap PO MEALS capsule. 09/30/20 History of Present Illiness History of Present Illness: CURTIS HAYES is a 69 year old female Physical Exam Vital Signs: Temp Pulse Resp BP Pulse Ox 98.1 F 89 18 122/62 99 09/30/20 11:33 09/30/20 14:00 09/30/20 11:33 09/30/20 11:33 09/30/20 11:33 Intake & Output 09/29/20 09/30/20 10/01/20 06:59 06:59 06:59 Intake Total 2751 2256 480 Balance 2751 2256 480 Weight 82.1 kg 82.1 kg Results Laboratory Results: WBC 6.1 10^3/uL (4.0-10.5) 09/29/20 03:00 RBC 3.02 10^6/uL (3.72-5.28) L 09/29/20 03:00 Hgb 8.5 g/dL (12.0-15.5) L 09/29/20 03:00 Hct 27.0 % (36.0-47.0) L 09/29/20 03:00 MCV 90 fl (80-97) 09/29/20 03:00 MCH 28.1 pg (27.0-33.4) 09/29/20 03:00 MCHC 31.4 g/dL (32.0-36.0) L 09/29/20 03:00 RDW 17.6 % (11.5-14.0) H 09/29/20 03:00 Plt Count 73 10^3/uL (150-450) L 09/29/20 03:00 Lymph % (Auto) 11.5 % (13-45) L 09/29/20 03:00 [place] % (Auto) 6.0 % (3-13) 09/29/20 03:00 Eos % (Auto) 1.3 % (0-6) 09/29/20 03:00 Baso % (Auto) 0.4 % (0-2) 09/29/20 03:00 Absolute Neuts (auto) 4.9 10^3/uL (1.7-8.2) 09/29/20 03:00 Absolute Lymphs (auto) 0.7 10^3/uL (0.5-4.7) 09/29/20 03:00 Absolute Monos (auto) 0.4 10^3/uL (0.1-1.4) 09/29/20 03:00 Absolute Eos (auto) 0.1 10^3/uL (0.0-0.6) 09/29/20 03:00 Absolute Basos (auto) 0.0 10^3/uL (0.0-0.2) 09/29/20 03:00 Total Counted 100 09/27/20 05:55 Seg Neutrophils % 80.8 % (42-78) H 09/29/20 03:00 Seg Neuts % (Manual) 96 % (42-78) H 09/27/20 05:55 Band Neutrophils % 2 % (3-5) L 09/27/20 05:55 Lymphocytes % (Manual) 2 % (13-45) L 09/27/20 05:55 Monocytes % (Manual) 0 % (3-13) L 09/27/20 05:55 Eosinophils % (Manual) 0 % (0-6) 09/27/20 05:55 Basophils % (Manual) 0 % (0-2) 09/27/20 05:55 Abs Neuts (Manual) 6.6 10^3/uL (1.7-8.2) 09/27/20 05:55 Abs Lymphs (Manual) 0.1 10^3/uL (0.5-4.7) L 09/27/20 05:55 Abs Monocytes (Manual) 0.0 10^3/uL (0.1-1.4) L 09/27/20 05:55 Absolute Eos (Manual) 0.0 10^3/uL (0.0-0.6) 09/27/20 05:55 Abs Basophils (Manual) 0.0 10^3/uL (0.0-0.2) 09/27/20 05:55 Toxic Vacuolation PRESENT 09/26/20 12:20 Platelet Comment DECREASED 09/27/20 05:55 Polychromasia SLIGHT 09/26/20 12:20 Poikilocytosis 1+ 09/27/20 05:55 Anisocytosis 1+ 09/27/20 05:55 Ovalocytes 1+ 09/27/20 05:55 PT 14.0 SEC (11.4-15.4) 09/30/20 07:10 INR 1.06 09/30/20 07:10 VBG pH 7.33 (7.30-7.42) 09/26/20 12:20 VBG pCO2 41.1 mmHg (35-63) 09/26/20 12:20 VBG HCO3 21.3 mmol/L (20-32) 09/26/20 12:20 VBG Base Excess -4.3 mmol/L 09/26/20 12:20 Sodium 139.1 mmol/L (137-145) 09/29/20 03:00 Potassium 3.8 mmol/L (3.6-5.0) 09/29/20 03:00 Chloride 112 mmol/L (98-107) H 09/29/20 03:00 Carbon Dioxide 16 mmol/L (22-30) L 09/29/20 03:00 Anion Gap 11 (5-19) 09/29/20 03:00 BUN 29 mg/dL (7-20) H 09/29/20 03:00 Creatinine 1.00 mg/dL (0.52-1.25) 09/29/20 03:00 Est GFR ( Amer) > 60 (>60) 09/29/20 03:00 Est GFR (MDRD) Non-Af 55 (>60) L 09/29/20 03:00 Glucose 101 mg/dL (75-110) 09/29/20 03:00 POC Glucose 227 mg/dL (70-110) H 09/30/20 11:34 Lactic Acid 3.9 mmol/L (0.7-2.1) H 09/26/20 19:03 Calcium 8.4 mg/dL (8.4-10.2) 09/29/20 03:00 Magnesium 2.0 mg/dL (1.6-2.3) 09/29/20 03:00 Total Bilirubin 1.3 mg/dL (0.2-1.3) 09/29/20 03:00 Direct Bilirubin 0.4 mg/dL (0.0-0.4) 09/29/20 03:00 Neonat Total Bilirubin Not Reportable 09/29/20 03:00 Neonat Direct Bilirubin Not Reportable 09/29/20 03:00 Neonat Indirect Bili Not Reportable 09/29/20 03:00 AST 33 U/L (14-36) 09/29/20 03:00 ALT 30 U/L (<35) 09/29/20 03:00 Alkaline Phosphatase 73 U/L (38-126) 09/29/20 03:00 Ammonia < 8.7 umol/L (9-33) L 09/29/20 03:19 Total Protein 6.2 g/dL (6.3-8.2) L 09/29/20 03:00 Albumin 3.1 g/dL (3.5-5.0) L 09/29/20 03:00 Urine Color YELLOW 09/26/20 12:55 Urine Appearance TURBID 09/26/20 12:55 Urine pH 5.0 (5.0-9.0) 09/26/20 12:55 Ur Specific [place] 1.015 09/26/20 12:55 Urine Protein 100 mg/dL (NEGATIVE) H 09/26/20 12:55 Urine Glucose (UA) 50 mg/dL (NEGATIVE) H 09/26/20 12:55 Urine Ketones TRACE mg/dL (NEGATIVE) H 09/26/20 12:55 Urine Blood MODERATE (NEGATIVE) H 09/26/20 12:55 Urine Nitrite (Reflex) NEGATIVE (NEGATIVE) 09/26/20 12:55 Urine Bilirubin NEGATIVE (NEGATIVE) 09/26/20 12:55 Urine Urobilinogen NEGATIVE mg/dL (<2.0) 09/26/20 12:55 Leukocyte Esterase Rfl LARGE (NEGATIVE) H 09/26/20 12:55 Urine RBC (Auto) 8 /HPF 09/26/20 12:55 Urine Bacteria (Auto) 3+ /HPF 09/26/20 12:55 Urine WBC (Reflex) > 182 /HPF 09/26/20 12:55 Urine WBC Clumps MANY /HPF 09/26/20 12:55 Urine Ascorbic Acid NEGATIVE (NEGATIVE) 09/26/20 12:55 Influenza A (RT-PCR) NEGATIVE (NEGATIVE) 09/26/20 12:55 Influenza B (RT-PCR) NEGATIVE (NEGATIVE) 09/26/20 12:55 RSV (RT-PCR) NEGATIVE (NEGATIVE) 09/26/20 12:55 SARS-CoV-2 Rap RNA(RT-PCR) NEGATIVE (NEGATIVE) 09/26/20 12:55 Blood Type A POSITIVE 09/29/20 03:19 Antibody Screen NEGATIVE 09/29/20 03:19 Impressions: Chest X-Ray 09/26/20 12:55 IMPRESSION: Dense peripheral opacity in the right mid lung - correlation with clinical findings to exclude a pneumonia is recommended. Stroke Is this a Stroke Patient?: No Acute Heart Failure Is this a Heart Failure Patient?: No
--- NOTE | 2020-09-30 16:31 | RADIOLOGY REPORT (SQ) ---
EXAM DESCRIPTION: U/S ABD PARACENTESIS IMAGES COMPLETED DATE/TIME: 09/30/2020 4:11 pm REASON FOR STUDY: therapeutic paracentesis (cirrhosis with ascites) COMPARISON: 07/21/2020 LIMITATIONS: None. PROCEDURE: Procedure, risks, benefit, and alternative explained to patient who then gave written con sent. The left lower abdominal wall marked using ultrasound guidance. A time-out was called for cor rect marking verification. Abdomen prepped and draped using sterile technique. Local anesthesia achi eved using 10 ml of 1% lidocaine injection. A 6fr Ouqa-L-Fiolvmth set was introduced into the perito joan cavity. Fluid was drained. The catheter was removed and entry site was covered with sterile ba ndage. No immediate complications noted. Images acquired during the procedure were stored on PACS. FINDINGS: ENTRY SITE: Left lower quadrant FLUID VOLUME: 4175 cc FLUID ANALYSIS: Straw-colored OTHER: Therapeutic only. IMPRESSION: SUCCESSFUL ULTRASOUND GUIDED PARACENTESIS. COMMENT: Patient medication list reviewed:Yes- Quality ID# [id number]:Eligible professional attests to docu menting in the medical record they obtained, updated, or reviewed the patient's current medications. TECHNICAL DOCUMENTATION: JOB ID: [id number] 2010 [employer]- All Rights Reserved Reading location - IP/workstation name: [email or web address]
[2020-09-30 17:44] VITALS: BP 121/67
== END 2020-09-30 17:37 | DRG 871 ==
LOC: ER 12:09 → EH 15:42 → 5 19:35
PROVIDERS: ADMIT Hospitalist; ATTEND Hospitalist
PROC: 0W9G3ZZ Drainage of Peritoneal Cavity, Percutaneous Approach (ICD-10-PCS; principal; 2020-09-30)
DX: A41.51 Sepsis due to Escherichia coli [E. coli] (principal); G93.41 Metabolic encephalopathy; N39.0 Urinary tract infection, site not specified; N17.9 Acute kidney failure, unspecified; E27.40 Unspecified adrenocortical insufficiency; K86.1 Other chronic pancreatitis; R18.8 Other ascites; E86.0 Dehydration; S42.292D Other displaced fracture of upper end of left humerus, subsequent encounter for fracture with routine healing; W19.XXXD Unspecified fall, subsequent encounter; F03.90 Unspecified dementia, unspecified severity, without behavioral disturbance, psychotic disturbance, mood disturbance, and anxiety; E11.65 Type 2 diabetes mellitus with hyperglycemia; E03.9 Hypothyroidism, unspecified; Z79.4 Long term (current) use of insulin; F32.9 Major depressive disorder, single episode, unspecified; E78.5 Hyperlipidemia, unspecified; Z66 Do not resuscitate; D69.6 Thrombocytopenia, unspecified; D64.9 Anemia, unspecified; K74.60 Unspecified cirrhosis of liver; Z20.822 Contact with and (suspected) exposure to COVID-19; K52.89 Other specified noninfective gastroenteritis and colitis; K64.9 Unspecified hemorrhoids; R65.20 Severe sepsis without septic shock; Z87.891 Personal history of nicotine dependence; Z90.49 Acquired absence of other specified parts of digestive tract; Z79.899 Other long term (current) drug therapy; M19.042 Primary osteoarthritis, left hand; M19.041 Primary osteoarthritis, right hand; M19.071 Primary osteoarthritis, right ankle and foot; M19.072 Primary osteoarthritis, left ankle and foot
CPT/HCPCS: 36415; 49083; 71045; 80053; 81001; 82140; 82803; 82962; 83605; 83735; 85025; 85610; 86850; 86900; 86901; 87040; 87070; 87077; 87086; 87088; 87150; 87186; 93005; 93010; 96361; 96374; 99285; 0241U; C9803; J0696; J1720; J1815; J2543; J3475; J3480; J3490; J7030; J7050; P9047